=== PATIENT | male | born 1960 | race Caucasian/White ===

== ENCOUNTER 2023-02-04 18:00 | Inpatient (IN) | payer MEDICARE, MEDICAID, SELFPAY ==
[2023-02-04 18:35] VITALS: BMI 25.1
--- NOTE | 2023-02-04 18:40 | PC.ADMIT ---
Patient is a 62 year old white male admitted from [facility] and signed a on CV at 1815 on admission, and put 5 minute checks. . Pt with diagnosis Schizoaffective disorder, bipolar type, delusional disorder. pt reports he was at [facility] where he had his testicle removed and replaced with someone else testicle, pt asked to have a report and would like to file a complaint. He appeared disheveled, facial expression was flat, no eye contact. skin check done, skin appears warm, dry and intact with brown moles noted on back and chest. Mynor denies SI/HI and current AVH, PT tried to elope from [facility] x3. pt ambulates with a steady gait.
[2023-02-04 22:00] VITALS: BP 111/66; PULSE 60; RESP 16; TEMP 36.5; O2SAT 100
--- NOTE | 2023-02-05 05:31 | PC.NURSE ---
flu shot- pt states that his flu shot is update for current season.
[2023-02-05 08:15] VITALS: BP 103/58; PULSE 74; RESP 18; TEMP 36.6; O2SAT 98
--- NOTE | 2023-02-05 12:19 | HO.PSYADMNOT ---
HPI Date of Service: 02/05/23 Chief Complaint: Psychosis Sources of Information: patient interviewed, chart reviewed and crisis/core team assessment reviewed HPI Subjective Notes: Cornelius Warning and Conditional Voluntary Healthcare Proxy: Yes Narrative: The patient is a 62-year-old male, single, with no children, with some social support, referred from [facility] since he self presented to the emergency room confused, with word salad and bizarre delusions. According to the crisis assessment the patient reported that he has being at [facility], he stated that at [place] Has changed his penis and testicles with plastic and he needed to be taking care. The patient also came up confused disoriented in place and time with word salad. Apparently, the patient was admitted before [facility] and it was not at his baseline and he was grossly psychotic unable to take care of himself. Since there were no collateral information he was transferring to this facility for psychiatric stabilization. On the intake interview, the patient stated that his name was not Mynor that he was Tim, (Tim is his roommate), he denies any complaints and he was a very poor historian unable to provide any history regarding how come he had the here. He looks internally preoccupied, responding to internal stimuli. Since the patient was a very poor historian on intake interview he was under is unable to provide more information regarding how come he the here. He adamantly denies active suicidal or homicidal ideation and he was able to contract for safety Past Psychiatric History: As per the crisis assessment he had been admitted before at [facility] for an episode of soham and psychosis. Probably he has a long-term history of mental illness. Medical Evaluation Reviewed: Yes [facility] Narrative: Denies Family History: Denies Social History: The patient has never been , he used to have a trust fund and he had lived with his family in the area for more than 4 yet durations. 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 He has some family support around. He lives alone by himself in [place]. Substance History: Denies Trauma History: Denies Diagnostics Vital Signs (24Hr): Vital Signs - 24 hr 02/04/23 22:00 02/05/23 08:15 Temperature 97.7 F 98 F Pulse Rate 60 74 Respiratory Rate 16 18 Blood Pressure 111/66 103/58 L Pulse Oximetry 100 98 Oxygen Delivery Method Room Air Room Air BMI result Body Mass Index 25.1 Meds/Allergies Meds Home Medications Medication Instructions Recorded Confirmed Type acetaminophen 325 mg capsule 325 mg PO Q4H PRN Mild Pain (Scale 02/04/23 02/04/23 History Score 1-4) cholecalciferol (vitamin D3) 25 25 mcg PO DAILY 02/04/23 02/04/23 History mcg (1,000 unit) tablet simvastatin 20 mg tablet 20 mg PO BEDTIME 02/04/23 02/04/23 History Allergies Allergies Allergy/AdvReac Type Severity Reaction Status Date / Time lactose AdvReac Unknown Verified 02/04/23 18:34 Penicillins AdvReac Unknown Verified 02/04/23 18:34 Mental Status Exam Mental Status Exam Patient Appearance: Appropriate (On hospital gowns) Patient Orientation: Person Level of Consciousness: Awake and Restless Patient Behavior: Guarded and Suspicious Mood Description: Withdrawn and Blunted Affect Description: Blunted Patient Cognition Impaired: Yes Ability to Follow Directions: Fair Speech Pattern: Impoverished and Monotone Hallucinations: None Delusions: Paranoid Ideation, Grandiose and Ideas of Reference Thought Process: Distracted Thought Content: positive for [place], positive for Poverty of Content and positive for Thought Blocking Judgement: Poor Assessment & Plan Assessment & Plan (1) Psychosis: Status: Acute Code(s): F29 - Unspecified psychosis not due to a substance or known physiological condition Plan The patient is a 62-year-old male who looks older than his stated age with the past history of mental illness was brought to the emergency room of [facility] since he was grossly psychotic with bizarre delusions unable to take care of himself. He was referred to this facility for continuation of care. Plan 1. Gather collateral information. The patient is a very poor historian unable to provide any useful information. 2. Continue with regular medications and medical follow-up. 3. Continue with medical workout. 4. Reassessment results. 5. 15 minute checks. Patient educated on: diagnosis Reason for continued inpatient stay Substantial Risk for: inability to function, rapid decompensation and med/psych decompensation Statement Statement: I have reviewed the history and physical and performed a pertinent examination on my patient. No changes have occurred unless specified. If the History and Physical was not performed prior to admission, the Hospitalist's service will be consulted for completing the admission physical. Time Spent With Patient Time: Total time managing care of this patient today __20__ minutes.
[2023-02-05 18:00] VITALS: BP 105/55; PULSE 65; RESP 16; TEMP 36.9; O2SAT 99
[2023-02-06 08:36] VITALS: BP 111/60; PULSE 81; RESP 16; TEMP 36.6; O2SAT 99
[2023-02-06 11:07] LABS: Estimated Average Glucose 103 mg/dL; Hemoglobin A1c % 5.2 % (<6.0)
[2023-02-06 11:23] LABS: Cholesterol 158 mg/dL (<200); HDL Cholesterol 34 mg/dL (>40); LDL Cholesterol Calculated 70 mg/dL (<100); Triglycerides 273 mg/dL (<150)
[2023-02-06 11:38] LABS: TSH reflex Free T4 0.25 uIU/mL (0.32-4.0)
[2023-02-06 12:25] LABS: Free T4 (Free Thyroxine) 0.87 ng/dL (0.71-1.85)
[2023-02-06 18:00] VITALS: BP 114/71; PULSE 68; RESP 16; TEMP 36.2; O2SAT 96
--- NOTE | 2023-02-06 22:22 | HO.PSYCHPN ---
Subjective Subjective Date of Service: 02/06/23 Reason For Visit: Psychosis Interim History: Patient anxious is dysphoric irritable reactive disorganized not excepting medication appears psychotic and disorganized Medication Compliance: No Mental Status Exam Mental Status Exam Patient Appearance: Unkempt Patient Orientation: Person Level of Consciousness: Awake and Restless Patient Behavior: Guarded and Suspicious Mood Description: Withdrawn and Blunted Affect Description: Blunted and Apprehensive Patient Cognition Impaired: Yes Ability to Follow Directions: Fair Speech Pattern: Impoverished and Monotone Hallucinations: None Delusions: Paranoid Ideation and Ideas of Reference Thought Process: Distracted Thought Content: positive for [place], positive for Poverty of Content and positive for Thought Blocking Judgement: Poor Judgement and Insight: Generally refused to engage in conversation Diagnostics Vital Signs (24Hr): Vital Signs - 24 hr 02/06/23 08:36 02/06/23 18:00 Temperature 97.8 F 97.2 F Pulse Rate 81 68 Respiratory Rate 16 16 Blood Pressure 111/60 114/71 Pulse Oximetry 99 96 Oxygen Delivery Method Room Air Room Air BMI result Body Mass Index 25.1 Labs Labs: Laboratory Results - last 48 hr 02/06/23 10:38 Estimat Average Glucose 103 Hemoglobin A1c % 5.2 Triglycerides 273 H Cholesterol 158 LDL Cholesterol, Calc 70 HDL Cholesterol 34 L TSH 0.25 L Free T4 0.87 Medications Medications Current Medications Acetaminophen (Acetaminophen 325 Mg Tablet) 650 mg PO Q6H PRN PRN Reason: Headache/Pain Mild Scale (1-3) Al Hydroxide/Mg Hydroxide (Magnesium Hydrox/Alum Hydrox 30 Ml Oral.Susp) 30 ml PO Q6H PRN PRN Reason: Heartburn/Nausea Atorvastatin Calcium (Atorvastatin Calcium 10 Mg Tablet) 10 mg PO BEDTIME [facility] Last Admin: 02/06/23 21:26 Dose: Not Given Hydroxyzine HCl (Hydroxyzine Hcl 25 Mg Tablet) 25 mg PO Q6H PRN PRN Reason: Anxiety Magnesium Hydroxide (Milk Of Magnesia 30 Ml Oral.Susp) 30 ml PO DAILY PRN PRN Reason: Constipation Trazodone HCl (Trazodone Hcl 50 Mg Tablet) 50 mg PO BEDTIME MRX1 PRN PRN Reason: Insomnia Vitamin D (Cholecalciferol (Vitamin D3) 25 Mcg Tablet) 25 mcg PO DAILY [facility] Last Admin: 02/06/23 08:40 Dose: Not Given Allergies Allergies Allergy/AdvReac Type Severity Reaction Status Date / Time lactose AdvReac Unknown Verified 02/04/23 18:34 Penicillins AdvReac Unknown Verified 02/04/23 18:34 Assessment & Plan Assessment & Plan (1) Psychosis: Status: Acute Code(s): F29 - Unspecified psychosis not due to a substance or known physiological condition Plan The patient is a 62-year-old male who looks older than his stated age with the past history of mental illness was brought to the emergency room of [facility] since he was grossly psychotic with bizarre delusions unable to take care of himself. He was referred to this facility for continuation of care. Plan 1. Gather collateral information. The patient is a very poor historian unable to provide any useful information. 2. Continue with regular medications and medical follow-up. 3. Continue with medical workout. 4. Reassessment results. 5. 15 minute checks. 02/06/2023 Appears that would benefit from antipsychotic unclear past treatment history evaluate condition unable to really give coherent information. Need further collateral information Informed Consent: further education needed Reason for continued inpatient stay Substantial Risk for: inability to function and rapid decompensation Time Spent With Patient Time: Total time managing care of this patient today ____ minutes.
[2023-02-07 06:00] VITALS: BP 139/73; PULSE 77; RESP 18; TEMP 36.5; O2SAT 100
[2023-02-07 07:00] VITALS: BMI 25.5
[2023-02-07 14:09] VITALS: BMI 25.5
--- NOTE | 2023-02-07 14:56 | P.PNPSI_ITS ---
Subjective Subjective Date of Service: 02/07/23 Reason For Visit: Psychosis Subjective Notes: Conditional Voluntary Interim History: The nursing staff reported the patient has been disheveled, he has refused his medications and confused he had been irritable. He slept well last night. The child protective services social worker reported that he she could contact 1 of his sister Keon for a apparently the brother who was in charge of his trusted found and he was not currently depleted has diet. He had been a disabled as a child and it seems that he has always been under the care someone. At this moment he lives alone in her [place]. On interview the patient denies new symptoms he looks pleasantly confused. Mental Status Exam Mental Status Exam Patient Appearance: Appropriate Patient Orientation: Person and Situation Level of Consciousness: Awake and Appropriate Patient Behavior: Guarded and Passive Mood Description: Withdrawn Affect Description: Constricted Patient Cognition Impaired: Yes Ability to Follow Directions: Good Speech Pattern: Clear Hallucinations: None Delusions: Paranoid Ideation Thought Process: Distracted and Evasive Thought Content: positive for [place] and positive for Poverty of Content Judgement: Poor Diagnostics Vital Signs (24Hr): Vital Signs - 24 hr 02/06/23 18:00 02/07/23 06:00 Temperature 97.2 F 97.7 F Pulse Rate 68 77 Respiratory Rate 16 18 Blood Pressure 114/71 139/73 Pulse Oximetry 96 100 Oxygen Delivery Method Room Air Room Air BMI result Body Mass Index 25.5 Labs Labs: Laboratory Results - last 48 hr 02/06/23 10:38 Estimat Average Glucose 103 Hemoglobin A1c % 5.2 Triglycerides 273 H Cholesterol 158 LDL Cholesterol, Calc 70 HDL Cholesterol 34 L TSH 0.25 L Free T4 0.87 Medications Medications Current Medications Acetaminophen (Acetaminophen 325 Mg Tablet) 650 mg PO Q6H PRN PRN Reason: Headache/Pain Mild Scale (1-3) Al Hydroxide/Mg Hydroxide (Magnesium Hydrox/Alum Hydrox 30 Ml Oral.Susp) 30 ml PO Q6H PRN PRN Reason: Heartburn/Nausea Atorvastatin Calcium (Atorvastatin Calcium 10 Mg Tablet) 10 mg PO BEDTIME [facility] Last Admin: 02/06/23 21:26 Dose: Not Given Hydroxyzine HCl (Hydroxyzine Hcl 25 Mg Tablet) 25 mg PO Q6H PRN PRN Reason: Anxiety Magnesium Hydroxide (Milk Of Magnesia 30 Ml Oral.Susp) 30 ml PO DAILY PRN PRN Reason: Constipation Trazodone HCl (Trazodone Hcl 50 Mg Tablet) 50 mg PO BEDTIME MRX1 PRN PRN Reason: Insomnia Vitamin D (Cholecalciferol (Vitamin D3) 25 Mcg Tablet) 25 mcg PO DAILY [facility] Last Admin: 02/07/23 09:15 Dose: Not Given Allergies Allergies Allergy/AdvReac Type Severity Reaction Status Date / Time lactose AdvReac Unknown Verified 02/04/23 18:34 Penicillins AdvReac Unknown Verified 02/04/23 18:34 Assessment & Plan Assessment & Plan (1) Psychosis: Status: Acute Code(s): F29 - Unspecified psychosis not due to a substance or known physiological condition Plan The patient is a 62-year-old male who looks older than his stated age with the past history of mental illness was brought to the emergency room of [facility] since he was grossly psychotic with bizarre delusions unable to take care of himself. He was referred to this facility for continuation of care. Plan 1. Gather collateral information. The patient is a very poor historian unable to provide any useful information. 2. Continue with regular medications and medical follow-up. 3. Continue with medical workout. 4. Reassessment results. 5. 15 minute checks. 6. At this moment we do not have past history about previous antipsychotic treatment, with not have guardianship or role years order at this moment Reason for continued inpatient stay Substantial Risk for: inability to function, rapid decompensation and med/psych decompensation Time Spent With Patient Time: Total time managing care of this patient today __20__ minutes.
--- NOTE | 2023-02-07 15:46 | HO.HSGERICON ---
History of Present Illness Data of Consult Service Date: 02/07/23 Primary Care Provider: Mariam Vides NP HPI Reason for consult: h and p 62M who denies pmh, admitted to inpatient psychiatry for acute psychosis. patient has no active medical complaints Review of Systems Review of Systems: Yes all other systems are reviewed and are negative [facility] Medical History (Updated 02/07/23 @ 15:47 by Andrez Scott MD) Hyperlipidemia Social History Household Members: None Housing: Apartment Do you presently have visiting nurse or other home services: No Patient Tobacco Use Status: Never used Tobacco Smoked in Last 30 Days: No e-Cigarette/Vaping Use: Never Used Use of substances other than those prescribed or required for medical reasons: No Currently Displaying Signs/Symptoms of Drug Intoxication Withdrawal: No Any prior treatment program specific to substance use: No Have you been hit, kicked, punched, or otherwise hurt by someone within the past year? If so, by whom?: No Do you feel safe in your current relationship?: No Current Relationship Advance Directives: No Advance Directives Information Provided: No Do you have thoughts of harming others: None Do you have a plan to hurt others: No Plan Recently lost weight without trying: No Poor oral hygiene: No service: No Sexual orientation: Don't Know Meds Allergies Allergy/AdvReac Type Severity Reaction Status Date / Time lactose AdvReac Unknown Verified 02/04/23 18:34 Penicillins AdvReac Unknown Verified 02/04/23 18:34 Active Medications: Current Medications Acetaminophen (Acetaminophen 325 Mg Tablet) 650 mg PO Q6H PRN PRN Reason: Headache/Pain Mild Scale (1-3) Al Hydroxide/Mg Hydroxide (Magnesium Hydrox/Alum Hydrox 30 Ml Oral.Susp) 30 ml PO Q6H PRN PRN Reason: Heartburn/Nausea Atorvastatin Calcium (Atorvastatin Calcium 10 Mg Tablet) 10 mg PO BEDTIME [facility] Last Admin: 02/06/23 21:26 Dose: Not Given Hydroxyzine HCl (Hydroxyzine Hcl 25 Mg Tablet) 25 mg PO Q6H PRN PRN Reason: Anxiety Magnesium Hydroxide (Milk Of Magnesia 30 Ml Oral.Susp) 30 ml PO DAILY PRN PRN Reason: Constipation Trazodone HCl (Trazodone Hcl 50 Mg Tablet) 50 mg PO BEDTIME MRX1 PRN PRN Reason: Insomnia Vitamin D (Cholecalciferol (Vitamin D3) 25 Mcg Tablet) 25 mcg PO DAILY [facility] Last Admin: 02/07/23 09:15 Dose: Not Given Home Medications Medication Instructions Recorded Confirmed Last Taken Type acetaminophen 325 mg capsule 325 mg PO Q4H PRN Mild Pain (Scale 02/04/23 02/04/23 Unknown History Score 1-4) cholecalciferol (vitamin D3) 25 25 mcg PO DAILY 02/04/23 02/04/23 Unknown History mcg (1,000 unit) tablet simvastatin 20 mg tablet 20 mg PO BEDTIME 02/04/23 02/04/23 Unknown History Assessment and Plan (1) Hyperlipidemia: Status: Acute Plan 62M who denies pmh admitted to inpatient psychiatry for acute psychosis appears to be on statin for hyperlipidemia would continue statin Physical Exam Vital Signs: Last Vital Signs Temp 97.7 F 02/07/23 06:00 Pulse 77 02/07/23 06:00 Resp 18 02/07/23 06:00 BP 139/73 02/07/23 06:00 Pulse Ox 100 02/07/23 06:00 O2 Del Method Room Air 02/07/23 06:00 BMI result Body Mass Index 25.5 Resp: CTA bilateral, no accessory muscles used CVS: S1,S2,RRR GI: soft, non tender, non distended Neuro: motor grossly intact, alert Neuro Cranial nerves: Yes CN's II-XII intact bilaterally
[2023-02-07 19:30] VITALS: BP 126/77; PULSE 91; RESP 18; TEMP 36.6; O2SAT 97
[2023-02-08 06:00] VITALS: BP 109/72; PULSE 74; RESP 18; TEMP 36.6; O2SAT 98
--- NOTE | 2023-02-08 14:43 | P.PNPSI_ITS ---
Subjective Subjective Date of Service: 02/08/23 Reason For Visit: Psychosis Subjective Notes: Conditional Voluntary Interim History: The nursing staff reported the patient is alert with no insight into his condition. He refused his medications and he walked away to his room. He has refused shower he looks confused but he slept well last night. On interview the patient stated that his name is Tim and he was very tightly age and CE but redirectable no evidence of agitation. We will try to gather more collateral information. Mental Status Exam Mental Status Exam Patient Appearance: Unkempt Patient Orientation: Person Level of Consciousness: Awake and Appropriate Patient Behavior: Guarded and Passive Mood Description: Calm Affect Description: Constricted Patient Cognition Impaired: Yes Ability to Follow Directions: Good Speech Pattern: Clear Hallucinations: None Delusions: Not Present Thought Process: Distracted, Evasive and Slowed Thinking Thought Content: positive for [place], positive for Poverty of Content and positive for Thought Blocking Judgement: Poor Diagnostics Vital Signs (24Hr): Vital Signs - 24 hr 02/07/23 19:30 02/08/23 06:00 Temperature 97.8 F 97.8 F Pulse Rate 91 74 Respiratory Rate 18 18 Blood Pressure 126/77 109/72 Pulse Oximetry 97 98 Oxygen Delivery Method Room Air Room Air BMI result Body Mass Index 25.5 Medications Medications Current Medications Acetaminophen (Acetaminophen 325 Mg Tablet) 650 mg PO Q6H PRN PRN Reason: Headache/Pain Mild Scale (1-3) Al Hydroxide/Mg Hydroxide (Magnesium Hydrox/Alum Hydrox 30 Ml Oral.Susp) 30 ml PO Q6H PRN PRN Reason: Heartburn/Nausea Atorvastatin Calcium (Atorvastatin Calcium 10 Mg Tablet) 10 mg PO BEDTIME [facility] Last Admin: 02/07/23 20:34 Dose: Not Given Hydroxyzine HCl (Hydroxyzine Hcl 25 Mg Tablet) 25 mg PO Q6H PRN PRN Reason: Anxiety Magnesium Hydroxide (Milk Of Magnesia 30 Ml Oral.Susp) 30 ml PO DAILY PRN PRN Reason: Constipation Trazodone HCl (Trazodone Hcl 50 Mg Tablet) 50 mg PO BEDTIME MRX1 PRN PRN Reason: Insomnia Vitamin D (Cholecalciferol (Vitamin D3) 25 Mcg Tablet) 25 mcg PO DAILY [facility] Last Admin: 02/08/23 08:28 Dose: Not Given Allergies Allergies Allergy/AdvReac Type Severity Reaction Status Date / Time lactose AdvReac Unknown Verified 02/04/23 18:34 Penicillins AdvReac Unknown Verified 02/04/23 18:34 Assessment & Plan Assessment & Plan (1) Psychosis: Status: Acute Code(s): F29 - Unspecified psychosis not due to a substance or known physiological condition Plan The patient is a 62-year-old male who looks older than his stated age with the past history of mental illness was brought to the emergency room of [facility] since he was grossly psychotic with bizarre delusions unable to take care of himself. He was referred to this facility for continuation of care. Plan 1. Gather collateral information. The patient is a very poor historian unable to provide any useful information. 2. Continue with regular medications and medical follow-up. 3. Continue with medical workout. 4. Reassessment results. 5. 15 minute checks. 6. At this moment we do not have past history about previous antipsychotic treatment, with not have guardianship or Sampson order at this moment Reason for continued inpatient stay Substantial Risk for: inability to function, rapid decompensation and med/psych decompensation Time Spent With Patient Time: Total time managing care of this patient today ___20_ minutes.
[2023-02-08 18:00] VITALS: BP 128/76; PULSE 81; RESP 19; TEMP 36.1; O2SAT 99
[2023-02-09 08:05] VITALS: BP 116/70; PULSE 92; RESP 18; TEMP 36.8; O2SAT 100
--- NOTE | 2023-02-09 12:04 | HO.PSYCHPN ---
Subjective Subjective Date of Service: 02/09/23 Reason For Visit: Psychosis Interim History: no questions or complaints. per staff, refusing meds, pacing, withdrawn, suspicious, irritable. slept 6 hours. Mental Status Exam Mental Status Exam Patient Appearance: Unkempt Patient Orientation: Person Level of Consciousness: Awake and Appropriate Patient Behavior: Guarded and Passive Mood Description: Calm Affect Description: Constricted Patient Cognition Impaired: Yes Ability to Follow Directions: Good Speech Pattern: Clear Hallucinations: None Delusions: Not Present Thought Process: Distracted, Evasive and Slowed Thinking Thought Content: positive for [place], positive for Poverty of Content and positive for Thought Blocking Judgement: Poor Diagnostics Vital Signs (24Hr): Vital Signs - 24 hr 02/08/23 18:00 02/09/23 08:05 Temperature 97 F 98.3 F Pulse Rate 81 92 Respiratory Rate 19 18 Blood Pressure 128/76 116/70 Pulse Oximetry 99 100 Oxygen Delivery Method Room Air Room Air BMI result Body Mass Index 25.5 Medications Medications Current Medications Acetaminophen (Acetaminophen 325 Mg Tablet) 650 mg PO Q6H PRN PRN Reason: Headache/Pain Mild Scale (1-3) Al Hydroxide/Mg Hydroxide (Magnesium Hydrox/Alum Hydrox 30 Ml Oral.Susp) 30 ml PO Q6H PRN PRN Reason: Heartburn/Nausea Atorvastatin Calcium (Atorvastatin Calcium 10 Mg Tablet) 10 mg PO BEDTIME [facility] Last Admin: 02/08/23 20:52 Dose: Not Given Hydroxyzine HCl (Hydroxyzine Hcl 25 Mg Tablet) 25 mg PO Q6H PRN PRN Reason: Anxiety Magnesium Hydroxide (Milk Of Magnesia 30 Ml Oral.Susp) 30 ml PO DAILY PRN PRN Reason: Constipation Trazodone HCl (Trazodone Hcl 50 Mg Tablet) 50 mg PO BEDTIME MRX1 PRN PRN Reason: Insomnia Vitamin D (Cholecalciferol (Vitamin D3) 25 Mcg Tablet) 25 mcg PO DAILY [facility] Last Admin: 02/09/23 09:14 Dose: Not Given Allergies Allergies Allergy/AdvReac Type Severity Reaction Status Date / Time lactose AdvReac Unknown Verified 02/04/23 18:34 Penicillins AdvReac Unknown Verified 02/04/23 18:34 Assessment & Plan Assessment & Plan (1) Psychosis: Status: Acute Code(s): F29 - Unspecified psychosis not due to a substance or known physiological condition Plan The patient is a 62-year-old male who looks older than his stated age with the past history of mental illness was brought to the emergency room of [facility] since he was grossly psychotic with bizarre delusions unable to take care of himself. He was referred to this facility for continuation of care. Plan 1. Gather collateral information. The patient is a very poor historian unable to provide any useful information. 2. Continue with regular medications and medical follow-up. 3. Continue with medical workout. 4. Reassessment results. 5. 15 minute checks. 6. At this moment we do not have past history about previous antipsychotic treatment, with not have guardianship or Sampson order at this moment 02/09: no change in presentation. continue current mgmt. Reason for continued inpatient stay Substantial Risk for: inability to function Time Spent With Patient Time: Total time managing care of this patient today ____ minutes.
[2023-02-09 18:00] VITALS: BP 112/71; PULSE 74; RESP 18; TEMP 36.6; O2SAT 98
[2023-02-10 07:45] VITALS: BP 136/74; PULSE 88; RESP 18; TEMP 36.6; O2SAT 100
--- NOTE | 2023-02-10 12:10 | P.PNPSI_ITS ---
Subjective Subjective Date of Service: 02/10/23 Reason For Visit: Psychosis Interim History: no issues, no complaints, no requests. per staff, more social and pleasant. delusional. refusing meds. slept about 7 hours. Mental Status Exam Mental Status Exam Patient Appearance: Unkempt Patient Orientation: Person Level of Consciousness: Awake and Appropriate Patient Behavior: Guarded and Passive Mood Description: Calm Affect Description: Constricted Patient Cognition Impaired: Yes Ability to Follow Directions: Good Speech Pattern: Clear Hallucinations: None Delusions: Not Present Thought Process: Distracted, Evasive and Slowed Thinking Thought Content: positive for Poverty of Content and positive for Thought Blocking Judgement: Poor Diagnostics Vital Signs (24Hr): Vital Signs - 24 hr 02/09/23 18:00 02/10/23 07:45 Temperature 97.9 F 97.9 F Pulse Rate 74 88 Respiratory Rate 18 18 Blood Pressure 112/71 136/74 Pulse Oximetry 98 100 Oxygen Delivery Method Room Air Room Air BMI result Body Mass Index 25.5 Medications Medications Current Medications Acetaminophen (Acetaminophen 325 Mg Tablet) 650 mg PO Q6H PRN PRN Reason: Headache/Pain Mild Scale (1-3) Al Hydroxide/Mg Hydroxide (Magnesium Hydrox/Alum Hydrox 30 Ml Oral.Susp) 30 ml PO Q6H PRN PRN Reason: Heartburn/Nausea Atorvastatin Calcium (Atorvastatin Calcium 10 Mg Tablet) 10 mg PO BEDTIME [facility] Last Admin: 02/09/23 20:48 Dose: Not Given Hydroxyzine HCl (Hydroxyzine Hcl 25 Mg Tablet) 25 mg PO Q6H PRN PRN Reason: Anxiety Magnesium Hydroxide (Milk Of Magnesia 30 Ml Oral.Susp) 30 ml PO DAILY PRN PRN Reason: Constipation Trazodone HCl (Trazodone Hcl 50 Mg Tablet) 50 mg PO BEDTIME MRX1 PRN PRN Reason: Insomnia Vitamin D (Cholecalciferol (Vitamin D3) 25 Mcg Tablet) 25 mcg PO DAILY [facility] Last Admin: 02/10/23 10:49 Dose: Not Given Allergies Allergies Allergy/AdvReac Type Severity Reaction Status Date / Time lactose AdvReac Unknown Verified 02/04/23 18:34 Penicillins AdvReac Unknown Verified 02/04/23 18:34 Assessment & Plan Assessment & Plan (1) Psychosis: Status: Acute Code(s): F29 - Unspecified psychosis not due to a substance or known physiological condition Plan The patient is a 62-year-old male who looks older than his stated age with the past history of mental illness was brought to the emergency room of [facility] since he was grossly psychotic with bizarre delusions unable to take care of himself. He was referred to this facility for continuation of care. Plan 1. Gather collateral information. The patient is a very poor historian unable to provide any useful information. 2. Continue with regular medications and medical follow-up. 3. Continue with medical workout. 4. Reassessment results. 5. 15 minute checks. 6. At this moment we do not have past history about previous antipsychotic treatment, with not have guardianship or Sampson order at this moment 02/09: no change in presentation. continue current mgmt. 02/10: no change in presentation. continue current mgmt. Reason for continued inpatient stay Substantial Risk for: inability to function Time Spent With Patient Time: Total time managing care of this patient today ____ minutes.
[2023-02-10 18:00] VITALS: BP 114/61; PULSE 72; RESP 17; TEMP 36; O2SAT 100
[2023-02-11 07:54] VITALS: BP 131/68; PULSE 79; RESP 18; TEMP 36.3; O2SAT 100
--- NOTE | 2023-02-11 13:16 | HO.PSYCHPN ---
Subjective Subjective Date of Service: 02/11/23 Reason For Visit: Psychosis Subjective Notes: Conditional Voluntary Interim History: The nursing staff reported the patient had been brighter, he cannot remember of the delusions that he has said. He has been cooperative and he stated that he is not on no medications. On interview the patient denies new symptoms he was selectively mute. Mental Status Exam Mental Status Exam Patient Appearance: Appropriate and Unkempt Patient Orientation: Person and Situation Level of Consciousness: Awake and Appropriate Patient Behavior: Guarded and Passive Mood Description: Calm Affect Description: Blunted Patient Cognition Impaired: Yes Ability to Follow Directions: Good Speech Pattern: Clear Hallucinations: None Delusions: Paranoid Ideation Thought Process: Illogical, Distracted and Evasive Thought Content: positive for [place] and positive for Poverty of Content Judgement: Poor Diagnostics Vital Signs (24Hr): Vital Signs - 24 hr 02/10/23 18:00 02/11/23 07:54 Temperature 96.8 F 97.3 F Pulse Rate 72 79 Respiratory Rate 17 18 Blood Pressure 114/61 131/68 Pulse Oximetry 100 100 Oxygen Delivery Method Room Air Room Air BMI result Body Mass Index 25.5 Medications Medications Current Medications Acetaminophen (Acetaminophen 325 Mg Tablet) 650 mg PO Q6H PRN PRN Reason: Headache/Pain Mild Scale (1-3) Al Hydroxide/Mg Hydroxide (Magnesium Hydrox/Alum Hydrox 30 Ml Oral.Susp) 30 ml PO Q6H PRN PRN Reason: Heartburn/Nausea Atorvastatin Calcium (Atorvastatin Calcium 10 Mg Tablet) 10 mg PO BEDTIME [facility] Last Admin: 02/10/23 22:43 Dose: Not Given Hydroxyzine HCl (Hydroxyzine Hcl 25 Mg Tablet) 25 mg PO Q6H PRN PRN Reason: Anxiety Magnesium Hydroxide (Milk Of Magnesia 30 Ml Oral.Susp) 30 ml PO DAILY PRN PRN Reason: Constipation Trazodone HCl (Trazodone Hcl 50 Mg Tablet) 50 mg PO BEDTIME MRX1 PRN PRN Reason: Insomnia Vitamin D (Cholecalciferol (Vitamin D3) 25 Mcg Tablet) 25 mcg PO DAILY [facility] Last Admin: 02/11/23 10:06 Dose: Not Given Allergies Allergies Allergy/AdvReac Type Severity Reaction Status Date / Time lactose AdvReac Unknown Verified 02/04/23 18:34 Penicillins AdvReac Unknown Verified 02/04/23 18:34 Assessment & Plan Assessment & Plan (1) Psychosis: Status: Acute Code(s): F29 - Unspecified psychosis not due to a substance or known physiological condition Plan The patient is a 62-year-old male who looks older than his stated age with the past history of mental illness was brought to the emergency room of [facility] since he was grossly psychotic with bizarre delusions unable to take care of himself. He was referred to this facility for continuation of care. Plan 1. Gather collateral information. The patient is a very poor historian unable to provide any useful information. 2. Continue with regular medications and medical follow-up. 3. Continue with medical workout. 4. Reassessment results. 5. 15 minute checks. 6. At this moment we do not have past history about previous antipsychotic treatment, with not have guardianship or Sampson order at this moment 7. Continue with same treatment Reason for continued inpatient stay Substantial Risk for: inability to function, rapid decompensation and med/psych decompensation Time Spent With Patient Time: Total time managing care of this patient today __20__ minutes.
[2023-02-11 18:00] VITALS: BP 118/69; PULSE 73; RESP 16; TEMP 36.2; O2SAT 100
[2023-02-12 07:44] VITALS: BP 119/71; PULSE 72; RESP 18; TEMP 36.2; O2SAT 99
--- NOTE | 2023-02-12 13:48 | HO.PSYCHPN ---
Subjective Subjective Date of Service: 02/12/23 Reason For Visit: Psychosis Subjective Notes: Conditional Voluntary Interim History: The nursing staff reported the patient have decline to have his vitamin-D and other medications. He refused to have a shower and he has been smiling appropriately eating well. He refuses HS meds at night. The patient does not have any insight into her condition. On interview the patient is very childish he stated that he does not take medications. We will try to gather more collateral information. At this moment we will start with a low dose of Abilify to target mood lability. Mental Status Exam Mental Status Exam Patient Appearance: Appropriate Patient Orientation: Person and Situation Level of Consciousness: Awake Patient Behavior: Guarded and Passive Mood Description: Withdrawn Affect Description: Constricted and Labile Patient Cognition Impaired: Yes Ability to Follow Directions: Good Speech Pattern: Clear Hallucinations: None Delusions: Not Present Thought Process: Evasive and Slowed Thinking Thought Content: positive for [place], positive for [place], positive for Thought Blocking and positive for Incoherent Judgement: Poor Diagnostics Vital Signs (24Hr): Vital Signs - 24 hr 02/11/23 18:00 02/12/23 07:44 Temperature 97.2 F 97.1 F Pulse Rate 73 72 Respiratory Rate 16 18 Blood Pressure 118/69 119/71 Pulse Oximetry 100 99 Oxygen Delivery Method Room Air Room Air BMI result Body Mass Index 25.5 Medications Medications Current Medications Acetaminophen (Acetaminophen 325 Mg Tablet) 650 mg PO Q6H PRN PRN Reason: Headache/Pain Mild Scale (1-3) Al Hydroxide/Mg Hydroxide (Magnesium Hydrox/Alum Hydrox 30 Ml Oral.Susp) 30 ml PO Q6H PRN PRN Reason: Heartburn/Nausea Aripiprazole (Aripiprazole 2 Mg Tablet) 2 mg PO BEDTIME [facility] Atorvastatin Calcium (Atorvastatin Calcium 10 Mg Tablet) 10 mg PO BEDTIME [facility] Last Admin: 02/10/23 22:43 Dose: Not Given Hydroxyzine HCl (Hydroxyzine Hcl 25 Mg Tablet) 25 mg PO Q6H PRN PRN Reason: Anxiety Magnesium Hydroxide (Milk Of Magnesia 30 Ml Oral.Susp) 30 ml PO DAILY PRN PRN Reason: Constipation Trazodone HCl (Trazodone Hcl 50 Mg Tablet) 50 mg PO BEDTIME MRX1 PRN PRN Reason: Insomnia Vitamin D (Cholecalciferol (Vitamin D3) 25 Mcg Tablet) 25 mcg PO DAILY [facility] Last Admin: 02/12/23 07:41 Dose: Not Given Allergies Allergies Allergy/AdvReac Type Severity Reaction Status Date / Time lactose AdvReac Unknown Verified 02/04/23 18:34 Penicillins AdvReac Unknown Verified 02/04/23 18:34 Assessment & Plan Assessment & Plan (1) Psychosis: Status: Acute Code(s): F29 - Unspecified psychosis not due to a substance or known physiological condition Plan The patient is a 62-year-old male who looks older than his stated age with the past history of mental illness was brought to the emergency room of [facility] since he was grossly psychotic with bizarre delusions unable to take care of himself. He was referred to this facility for continuation of care. Plan 1. Gather collateral information. The patient is a very poor historian unable to provide any useful information. 2. Continue with regular medications and medical follow-up. 3. Continue with medical workout. 4. Reassessment results. 5. 15 minute checks. 6. At this moment we do not have past history about previous antipsychotic treatment, with not have guardianship or Sampson order at this moment 7. Continue with same treatment 8. Start Abilify 2 mg p.o. q.h.s. on February 12. Reason for continued inpatient stay Substantial Risk for: inability to function, rapid decompensation and med/psych decompensation Time Spent With Patient Time: Total time managing care of this patient today __20__ minutes.
[2023-02-12 18:00] VITALS: BP 112/64; PULSE 76; RESP 18; TEMP 36.8; O2SAT 99
[2023-02-13 08:15] VITALS: BP 118/76; PULSE 79; RESP 18; TEMP 36.6; O2SAT 100
--- NOTE | 2023-02-13 14:15 | P.PNPSI_ITS ---
Subjective Subjective Date of Service: 02/13/23 Reason For Visit: Psychosis Subjective Notes: Conditional Voluntary Interim History: The nursing staff reported the patient had refused his medications, he had been poor insight into his condition and he had being pacing in the unit, easily redirectable. On interview the patient stated that he does not take medications, his affect is very silly but no evidence of safety concerns. Mental Status Exam Mental Status Exam Patient Appearance: Appropriate and Unkempt Patient Orientation: Person and Situation Level of Consciousness: Awake and Appropriate Patient Behavior: Passive Mood Description: Withdrawn Affect Description: Calm and Apprehensive Patient Cognition Impaired: Yes Ability to Follow Directions: Good Speech Pattern: Clear Hallucinations: None Delusions: Not Present Thought Process: Illogical, Distracted and Slowed Thinking Thought Content: positive for [place] and positive for Poverty of Content Judgement: Fair Diagnostics Vital Signs (24Hr): Vital Signs - 24 hr 02/12/23 18:00 02/13/23 08:15 Temperature 98.3 F 97.8 F Pulse Rate 76 79 Respiratory Rate 18 18 Blood Pressure 112/64 118/76 Pulse Oximetry 99 100 Oxygen Delivery Method Room Air Room Air BMI result Body Mass Index 25.5 Medications Medications Current Medications Acetaminophen (Acetaminophen 325 Mg Tablet) 650 mg PO Q6H PRN PRN Reason: Headache/Pain Mild Scale (1-3) Al Hydroxide/Mg Hydroxide (Magnesium Hydrox/Alum Hydrox 30 Ml Oral.Susp) 30 ml PO Q6H PRN PRN Reason: Heartburn/Nausea Aripiprazole (Aripiprazole 2 Mg Tablet) 2 mg PO BEDTIME [facility] Last Admin: 02/12/23 20:57 Dose: Not Given Atorvastatin Calcium (Atorvastatin Calcium 10 Mg Tablet) 10 mg PO BEDTIME [facility] Last Admin: 02/12/23 20:57 Dose: Not Given Hydroxyzine HCl (Hydroxyzine Hcl 25 Mg Tablet) 25 mg PO Q6H PRN PRN Reason: Anxiety Magnesium Hydroxide (Milk Of Magnesia 30 Ml Oral.Susp) 30 ml PO DAILY PRN PRN Reason: Constipation Trazodone HCl (Trazodone Hcl 50 Mg Tablet) 50 mg PO BEDTIME MRX1 PRN PRN Reason: Insomnia Vitamin D (Cholecalciferol (Vitamin D3) 25 Mcg Tablet) 25 mcg PO DAILY [facility] Last Admin: 02/13/23 09:05 Dose: Not Given Allergies Allergies Allergy/AdvReac Type Severity Reaction Status Date / Time lactose AdvReac Unknown Verified 02/04/23 18:34 Penicillins AdvReac Unknown Verified 02/04/23 18:34 Assessment & Plan Assessment & Plan (1) Psychosis: Status: Acute Code(s): F29 - Unspecified psychosis not due to a substance or known physiological condition Plan The patient is a 62-year-old male who looks older than his stated age with the past history of mental illness was brought to the emergency room of [facility] since he was grossly psychotic with bizarre delusions unable to take care of himself. He was referred to this facility for continuation of care. Plan 1. Gather collateral information. The patient is a very poor historian unable to provide any useful information. 2. Continue with regular medications and medical follow-up. 3. Continue with medical workout. 4. Reassessment results. 5. 15 minute checks. 6. At this moment we do not have past history about previous antipsychotic treatment, with not have guardianship or Sampson order at this moment 7. Continue with same treatment 8. Start Abilify 2 mg p.o. q.h.s. on February 12. So far he has refused to take any medications. Reason for continued inpatient stay Substantial Risk for: inability to function, rapid decompensation and med/psych decompensation Time Spent With Patient Time: Total time managing care of this patient today __20__ minutes.
[2023-02-13 18:00] VITALS: BP 131/69; PULSE 88; O2SAT 100
[2023-02-14 07:00] VITALS: BMI 25.1
[2023-02-14 07:45] VITALS: BP 114/82; PULSE 80; TEMP 36.8; O2SAT 97
--- NOTE | 2023-02-14 16:43 | P.PNPSI_ITS ---
Subjective Subjective Date of Service: 02/14/23 Reason For Visit: Psychosis Subjective Notes: Conditional Voluntary and 3 Day Interim History: The nursing staff reported the patient had been pleasant but he had been refusing medications. He was seen pacing the hallways, easily redirectable. Today we had a family meeting over the phone with his sister who lives in [facility] and she provide a lot of collateral information. It seems that the patient had been chronically impaired raised by their parents and taking care into his 40s. Parents 22 years ago and a trust fund was depleted. Even though the patient is impaired, he was able to survive in the community. Apparently he got into legal trouble last year and he needed to be admitted at [facility] for an evaluation of his capacity to stand trial and he was deemed not competent to stand trial. On interview the patient reported he wanted to live he is in a 3 day notice. The occupational therapist did a cognitive assessment that he refused to do the [place] but had his Juan Antonio test was 3.4. Mental Status Exam Mental Status Exam Patient Appearance: Appropriate Patient Orientation: Person Level of Consciousness: Awake Patient Behavior: Guarded and Passive Mood Description: Withdrawn and Constricted Affect Description: Constricted Patient Cognition Impaired: Yes Ability to Follow Directions: Fair Speech Pattern: Clear Hallucinations: None Delusions: Not Present Thought Process: Distracted and Slowed Thinking Thought Content: positive for [place] and positive for Poverty of Content Judgement: Fair Diagnostics Vital Signs (24Hr): Vital Signs - 24 hr 02/13/23 18:00 02/14/23 07:45 Temperature 98.3 F Pulse Rate 88 80 Blood Pressure 131/69 114/82 Pulse Oximetry 100 97 Oxygen Delivery Method Room Air Room Air BMI result Body Mass Index 25.1 Medications Medications Current Medications Acetaminophen (Acetaminophen 325 Mg Tablet) 650 mg PO Q6H PRN PRN Reason: Headache/Pain Mild Scale (1-3) Al Hydroxide/Mg Hydroxide (Magnesium Hydrox/Alum Hydrox 30 Ml Oral.Susp) 30 ml PO Q6H PRN PRN Reason: Heartburn/Nausea Aripiprazole (Aripiprazole 2 Mg Tablet) 2 mg PO BEDTIME [facility] Last Admin: 02/13/23 20:04 Dose: Not Given Atorvastatin Calcium (Atorvastatin Calcium 10 Mg Tablet) 10 mg PO BEDTIME [facility] Last Admin: 02/13/23 20:04 Dose: Not Given Hydroxyzine HCl (Hydroxyzine Hcl 25 Mg Tablet) 25 mg PO Q6H PRN PRN Reason: Anxiety Magnesium Hydroxide (Milk Of Magnesia 30 Ml Oral.Susp) 30 ml PO DAILY PRN PRN Reason: Constipation Trazodone HCl (Trazodone Hcl 50 Mg Tablet) 50 mg PO BEDTIME MRX1 PRN PRN Reason: Insomnia Vitamin D (Cholecalciferol (Vitamin D3) 25 Mcg Tablet) 25 mcg PO DAILY [facility] Last Admin: 02/14/23 08:51 Dose: Not Given Allergies Allergies Allergy/AdvReac Type Severity Reaction Status Date / Time lactose AdvReac Unknown Verified 02/04/23 18:34 Penicillins AdvReac Unknown Verified 02/04/23 18:34 Assessment & Plan Assessment & Plan (1) Psychosis: Status: Acute Code(s): F29 - Unspecified psychosis not due to a substance or known physiological condition Plan The patient is a 62-year-old male who looks older than his stated age with the past history of mental illness was brought to the emergency room of [facility] since he was grossly psychotic with bizarre delusions unable to take care of himself. He was referred to this facility for continuation of care. Plan 1. Gather collateral information. The patient is a very poor historian unable to provide any useful information. 2. Continue with regular medications and medical follow-up. 3. Continue with medical workout. 4. Reassessment results. 5. 15 minute checks. 6. At this moment we do not have past history about previous antipsychotic treatment, with not have guardianship or Sampson order at this moment 7. Continue with same treatment 8. Start Abilify 2 mg p.o. q.h.s. on February 12. So far he has refused to take any medications. 9. He signed a 3 day notice on February 14, this moment he has refused all treatment but he had been pleasant and cooperative no evidence of acute psychosis safety concerns at this moment. We will discuss with the team about discharge planning. Reason for continued inpatient stay Substantial Risk for: inability to function, rapid decompensation and med/psych decompensation Time Spent With Patient Time: Total time managing care of this patient today __20__ minutes.
[2023-02-14 18:00] VITALS: BP 111/66; PULSE 74; RESP 18; TEMP 36.7; O2SAT 100
[2023-02-15 08:00] VITALS: BP 120/76; PULSE 75; RESP 18; TEMP 36.9; O2SAT 93
--- NOTE | 2023-02-15 13:55 | P.PNPSI_ITS ---
Subjective Subjective Date of Service: 02/15/23 Reason For Visit: Psychosis Subjective Notes: Conditional Voluntary and 3 Day Interim History: The nursing staff reported the patient has signed a 3 day notice, he has refused as usual all his medications no behavioral disturbance. On interview the patient denies new symptoms, he wants to go back home. Mental Status Exam Mental Status Exam Patient Appearance: Appropriate Patient Orientation: Person Level of Consciousness: Awake Patient Behavior: Guarded and Passive Mood Description: Withdrawn Affect Description: Constricted Patient Cognition Impaired: Yes Ability to Follow Directions: Good Speech Pattern: Clear Hallucinations: None Delusions: Not Present Thought Process: Distracted and Slowed Thinking Thought Content: positive for [place] and positive for Circumstantial Judgement: Fair Diagnostics Vital Signs (24Hr): Vital Signs - 24 hr 02/14/23 18:00 02/15/23 08:00 Temperature 98.1 F 98.4 F Pulse Rate 74 75 Respiratory Rate 18 18 Blood Pressure 111/66 120/76 Pulse Oximetry 100 93 Oxygen Delivery Method Room Air Room Air BMI result Body Mass Index 25.1 Medications Medications Current Medications Acetaminophen (Acetaminophen 325 Mg Tablet) 650 mg PO Q6H PRN PRN Reason: Headache/Pain Mild Scale (1-3) Al Hydroxide/Mg Hydroxide (Magnesium Hydrox/Alum Hydrox 30 Ml Oral.Susp) 30 ml PO Q6H PRN PRN Reason: Heartburn/Nausea Aripiprazole (Aripiprazole 2 Mg Tablet) 2 mg PO BEDTIME [facility] Last Admin: 02/14/23 20:57 Dose: Not Given Atorvastatin Calcium (Atorvastatin Calcium 10 Mg Tablet) 10 mg PO BEDTIME [facility] Last Admin: 02/14/23 20:57 Dose: Not Given Hydroxyzine HCl (Hydroxyzine Hcl 25 Mg Tablet) 25 mg PO Q6H PRN PRN Reason: Anxiety Magnesium Hydroxide (Milk Of Magnesia 30 Ml Oral.Susp) 30 ml PO DAILY PRN PRN Reason: Constipation Trazodone HCl (Trazodone Hcl 50 Mg Tablet) 50 mg PO BEDTIME MRX1 PRN PRN Reason: Insomnia Vitamin D (Cholecalciferol (Vitamin D3) 25 Mcg Tablet) 25 mcg PO DAILY [facility] Last Admin: 02/15/23 08:38 Dose: Not Given Allergies Allergies Allergy/AdvReac Type Severity Reaction Status Date / Time lactose AdvReac Unknown Verified 02/04/23 18:34 Penicillins AdvReac Unknown Verified 02/04/23 18:34 Assessment & Plan Assessment & Plan (1) Psychosis: Status: Acute Code(s): F29 - Unspecified psychosis not due to a substance or known physiological condition Plan The patient is a 62-year-old male who looks older than his stated age with the past history of mental illness was brought to the emergency room of [facility] since he was grossly psychotic with bizarre delusions unable to take care of himself. He was referred to this facility for continuation of care. Plan 1. Gather collateral information. The patient is a very poor historian unable to provide any useful information. 2. Continue with regular medications and medical follow-up. 3. Continue with medical workout. 4. Reassessment results. 5. 15 minute checks. 6. At this moment we do not have past history about previous antipsychotic treatment, with not have guardianship or Sampson order at this moment 7. Continue with same treatment 8. Start Abilify 2 mg p.o. q.h.s. on February 12. So far he has refused to take any medications. 9. He signed a 3 day notice on February 14, this moment he has refused all treatment but he had been pleasant and cooperative no evidence of acute psychosis safety concerns at this moment. We will discuss with the team about discharge planning. Reason for continued inpatient stay Substantial Risk for: inability to function, rapid decompensation and med/psych decompensation Time Spent With Patient Time: Total time managing care of this patient today _20___ minutes.
[2023-02-15 18:00] VITALS: BP 120/70; PULSE 72; RESP 18; TEMP 36.3; O2SAT 100
--- NOTE | 2023-02-15 21:30 | P.CONHOSP_ITS ---
History of Present Illness Data of Consult Service Date: 02/15/23 Primary Care Provider: Mariam Vides NP HPI Reason for consult: Admission H&P Pt is a 62-year-old male with a PMH significant for?HLD and manic episode with psychotic symptoms who is admitted to [facility] for worsening paranoid delusions. Pt initially presented to to [facility] reporting that he believed he was currently in a ?[place]? somewhere in [facility] and that all of the providers in the hospital were ?robot people?. 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 Medical consult for admission H&P. Patient calm, cooperative, not clearly delusional, answering questions appropriately. Patient denies any significant PMH. Denies taking any prescription medication. Denies any acute medical complaints at this time. No chest pain/pressure, palpitations. Denies shortness of breath. No fever, chills, nausea, vomiting, diarrhea, abdominal pain. Review of Systems Review of Systems: Patient denies any acute medical complaints at this time [facility] Medical History Hyperlipidemia Social History Household Members: None Housing: Apartment Do you presently have visiting nurse or other home services: No Patient Tobacco Use Status: Never used Tobacco Smoked in Last 30 Days: No e-Cigarette/Vaping Use: Never Used Use of substances other than those prescribed or required for medical reasons: No Currently Displaying Signs/Symptoms of Drug Intoxication Withdrawal: No Any prior treatment program specific to substance use: No Have you been hit, kicked, punched, or otherwise hurt by someone within the past year? If so, by whom?: No Do you feel safe in your current relationship?: No Current Relationship Advance Directives: No Advance Directives Information Provided: No Do you have thoughts of harming others: None Do you have a plan to hurt others: No Plan Recently lost weight without trying: No Poor oral hygiene: No service: No Sexual orientation: Don't Know Meds Allergies Allergy/AdvReac Type Severity Reaction Status Date / Time lactose AdvReac Unknown Verified 02/04/23 18:34 Penicillins AdvReac Unknown Verified 02/04/23 18:34 Active Medications: Current Medications Acetaminophen (Acetaminophen 325 Mg Tablet) 650 mg PO Q6H PRN PRN Reason: Headache/Pain Mild Scale (1-3) Al Hydroxide/Mg Hydroxide (Magnesium Hydrox/Alum Hydrox 30 Ml Oral.Susp) 30 ml PO Q6H PRN PRN Reason: Heartburn/Nausea Aripiprazole (Aripiprazole 2 Mg Tablet) 2 mg PO BEDTIME [facility] Last Admin: 02/15/23 20:13 Dose: Not Given Atorvastatin Calcium (Atorvastatin Calcium 10 Mg Tablet) 10 mg PO BEDTIME [facility] Last Admin: 02/15/23 20:13 Dose: Not Given Hydroxyzine HCl (Hydroxyzine Hcl 25 Mg Tablet) 25 mg PO Q6H PRN PRN Reason: Anxiety Magnesium Hydroxide (Milk Of Magnesia 30 Ml Oral.Susp) 30 ml PO DAILY PRN PRN Reason: Constipation Trazodone HCl (Trazodone Hcl 50 Mg Tablet) 50 mg PO BEDTIME MRX1 PRN PRN Reason: Insomnia Vitamin D (Cholecalciferol (Vitamin D3) 25 Mcg Tablet) 25 mcg PO DAILY [facility] Last Admin: 02/15/23 08:38 Dose: Not Given Home Medications Medication Instructions Recorded Confirmed Last Taken Type acetaminophen 325 mg capsule 325 mg PO Q4H PRN Mild Pain (Scale 02/04/23 02/04/23 Unknown History Score 1-4) cholecalciferol (vitamin D3) 25 25 mcg PO DAILY 02/04/23 02/04/23 Unknown History mcg (1,000 unit) tablet simvastatin 20 mg tablet 20 mg PO BEDTIME 02/04/23 02/04/23 Unknown History Physical Exam 2 Vital Signs and Narrative: Vital Signs: Last Vital Signs Temp 98.4 F 02/15/23 08:00 Pulse 75 02/15/23 08:00 Resp 18 02/15/23 08:00 BP 120/76 02/15/23 08:00 Pulse Ox 93 02/15/23 08:00 O2 Del Method Room Air 02/15/23 08:00 BMI result Body Mass Index 25.1 General: AOx3, no acute distress Resp: CTA bilaterally CVS: S1, S2, RRR GI: +BS, NT, no distention Skin: Warm, dry Neuro: Cranial nerves II-XII grossly intact bilaterally. Motor grossly intact bilaterally. No focal deficits noted Extremities: No edema Psych: Calm, cooperative Assessment and Plan (1) Medical clearance for psychiatric admission: Status: Acute Plan Pt is a 62-year-old male with a PMH significant for?HLD and manic episode with psychotic symptoms who is admitted to [facility] for worsening paranoid delusions. Pt initially presented to to [facility] reporting that he believed he was currently in a ?[place]? somewhere in [facility] and that all of the providers in the hospital were ?robot people?. 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 Medical consult for admission H&P. Mood disorder Plan as per Psychiatry HLD Continue statin Patient denies any other chronic conditions or acute medical complaints. Thank you for allowing us to participate in the care of this patient. Signing off at this time. Please re-consult if any acute complaints or issues arise.
[2023-02-16 08:18] VITALS: BP 119/58; PULSE 86; RESP 20; TEMP 35.9; O2SAT 98
--- NOTE | 2023-02-16 17:09 | HO.PSYCHPN ---
Subjective Subjective Date of Service: 02/16/23 Reason For Visit: Psychosis Interim History: The nursing staff reported the patient has signed a 3 day notice, he has refused as usual all his medications no behavioral disturbance. He is in his bed. He is mumbling. He says he is doing well. On interview the patient denies new symptoms, he wants to go back home. Review of Systems Review of Systems Patient denies any acute medical complaints at this time Yes all other systems are reviewed and are negative Mental Status Exam Mental Status Exam Patient Appearance: Appropriate Patient Orientation: Person Level of Consciousness: Awake Patient Behavior: Guarded and Passive Mood Description: Withdrawn Affect Description: Constricted Patient Cognition Impaired: Yes Ability to Follow Directions: Good Speech Pattern: Clear Diagnostics Vital Signs (24Hr): Vital Signs - 24 hr 02/15/23 18:00 02/16/23 08:18 Temperature 97.3 F 96.7 F L Pulse Rate 72 86 Respiratory Rate 18 20 Blood Pressure 120/70 119/58 L Pulse Oximetry 100 98 Oxygen Delivery Method Room Air Room Air BMI result Body Mass Index 25.1 Medications Medications Current Medications Acetaminophen (Acetaminophen 325 Mg Tablet) 650 mg PO Q6H PRN PRN Reason: Headache/Pain Mild Scale (1-3) Al Hydroxide/Mg Hydroxide (Magnesium Hydrox/Alum Hydrox 30 Ml Oral.Susp) 30 ml PO Q6H PRN PRN Reason: Heartburn/Nausea Aripiprazole (Aripiprazole 2 Mg Tablet) 2 mg PO BEDTIME [facility] Last Admin: 02/15/23 20:13 Dose: Not Given Atorvastatin Calcium (Atorvastatin Calcium 10 Mg Tablet) 10 mg PO BEDTIME [facility] Last Admin: 02/15/23 20:13 Dose: Not Given Hydroxyzine HCl (Hydroxyzine Hcl 25 Mg Tablet) 25 mg PO Q6H PRN PRN Reason: Anxiety Magnesium Hydroxide (Milk Of Magnesia 30 Ml Oral.Susp) 30 ml PO DAILY PRN PRN Reason: Constipation Trazodone HCl (Trazodone Hcl 50 Mg Tablet) 50 mg PO BEDTIME MRX1 PRN PRN Reason: Insomnia Vitamin D (Cholecalciferol (Vitamin D3) 25 Mcg Tablet) 25 mcg PO DAILY [facility] Last Admin: 02/16/23 07:59 Dose: Not Given Allergies Allergies Allergy/AdvReac Type Severity Reaction Status Date / Time lactose AdvReac Unknown Verified 02/04/23 18:34 Penicillins AdvReac Unknown Verified 02/04/23 18:34 Assessment & Plan Assessment & Plan (1) Psychosis: Status: Acute Code(s): F29 - Unspecified psychosis not due to a substance or known physiological condition Plan The patient is a 62-year-old male who looks older than his stated age with the past history of mental illness was brought to the emergency room of [facility] since he was grossly psychotic with bizarre delusions unable to take care of himself. He was referred to this facility for continuation of care. Plan 1. Gather collateral information. The patient is a very poor historian unable to provide any useful information. 2. Continue with regular medications and medical follow-up. 3. Continue with medical workout. 4. Reassessment results. 5. 15 minute checks. 02/16: Continue current management and treatment plan. Reason for continued inpatient stay Substantial Risk for: inability to function and rapid decompensation Time Spent With Patient Time: Total time managing care of this patient today ____ minutes.
[2023-02-16 19:35] VITALS: BP 115/71; PULSE 76; RESP 18; TEMP 36.4; O2SAT 99
[2023-02-17 07:59] VITALS: BP 112/65; PULSE 76; RESP 18; TEMP 36.3; O2SAT 97
--- NOTE | 2023-02-17 15:59 | P.PNPSI_ITS ---
Subjective Subjective Date of Service: 02/17/23 Reason For Visit: Psychosis Interim History: Patient seen. He reports he is doing well. He volunteers it's February 17 2023, that he is in [place] and that the president is [place]. He continues to deny any symptoms. He isn't taking any medications. The nursing staff reported the patient has signed a 3 day notice. No behavioral disturbance. On interview the patient denies new symptoms, he wants to go back home. Review of Systems Review of Systems Patient denies any acute medical complaints at this time Yes all other systems are reviewed and are negative Mental Status Exam Mental Status Exam Patient Appearance: Appropriate Patient Orientation: Person Level of Consciousness: Awake Patient Behavior: Guarded and Passive Mood Description: Withdrawn Affect Description: Constricted Patient Cognition Impaired: Yes Ability to Follow Directions: Good Speech Pattern: Clear Diagnostics Vital Signs (24Hr): Vital Signs - 24 hr 02/16/23 19:35 02/17/23 07:59 Temperature 97.6 F 97.3 F Pulse Rate 76 76 Respiratory Rate 18 18 Blood Pressure 115/71 112/65 Pulse Oximetry 99 97 Oxygen Delivery Method Room Air Room Air BMI result Body Mass Index 25.1 Medications Medications Current Medications Acetaminophen (Acetaminophen 325 Mg Tablet) 650 mg PO Q6H PRN PRN Reason: Headache/Pain Mild Scale (1-3) Al Hydroxide/Mg Hydroxide (Magnesium Hydrox/Alum Hydrox 30 Ml Oral.Susp) 30 ml PO Q6H PRN PRN Reason: Heartburn/Nausea Aripiprazole (Aripiprazole 2 Mg Tablet) 2 mg PO BEDTIME [facility] Last Admin: 02/16/23 20:31 Dose: Not Given Atorvastatin Calcium (Atorvastatin Calcium 10 Mg Tablet) 10 mg PO BEDTIME [facility] Last Admin: 02/16/23 20:31 Dose: Not Given Hydroxyzine HCl (Hydroxyzine Hcl 25 Mg Tablet) 25 mg PO Q6H PRN PRN Reason: Anxiety Magnesium Hydroxide (Milk Of Magnesia 30 Ml Oral.Susp) 30 ml PO DAILY PRN PRN Reason: Constipation Trazodone HCl (Trazodone Hcl 50 Mg Tablet) 50 mg PO BEDTIME MRX1 PRN PRN Reason: Insomnia Vitamin D (Cholecalciferol (Vitamin D3) 25 Mcg Tablet) 25 mcg PO DAILY [facility] Last Admin: 02/17/23 08:02 Dose: Not Given Allergies Allergies Allergy/AdvReac Type Severity Reaction Status Date / Time lactose AdvReac Unknown Verified 02/04/23 18:34 Penicillins AdvReac Unknown Verified 02/04/23 18:34 Assessment & Plan Assessment & Plan (1) Psychosis: Status: Acute Code(s): F29 - Unspecified psychosis not due to a substance or known physiological condition Plan The patient is a 62-year-old male who looks older than his stated age with the past history of mental illness was brought to the emergency room of [facility] since he was grossly psychotic with bizarre delusions unable to take care of himself. He was referred to this facility for continuation of care. Plan 1. Gather collateral information. The patient is a very poor historian unable to provide any useful information. 2. Continue with regular medications and medical follow-up. 3. Continue with medical workout. 4. Reassessment results. 5. 15 minute checks. 02/16: Continue current management and treatment plan. 02/17: Continue current management and treatment plan. Reason for continued inpatient stay Substantial Risk for: inability to function and rapid decompensation Time Spent With Patient Time: Total time managing care of this patient today ____ minutes.
[2023-02-17 18:00] VITALS: BP 107/69; PULSE 68; RESP 18; TEMP 36.6; O2SAT 99
[2023-02-18 06:00] VITALS: BP 124/68; PULSE 74; RESP 18; TEMP 36.4; O2SAT 97
--- NOTE | 2023-02-18 14:46 | P.PNPSI_ITS ---
Subjective Subjective Date of Service: 02/18/23 Reason For Visit: Psychosis Subjective Notes: Conditional Voluntary and 3 Day Interim History: The nursing staff reported the patient signed a 3 day notice and he wants to leave NT used. He has not participating any groups and he has been refusing medications. On interview the patient denies new symptoms, he wants to go back to his own place. Mental Status Exam Mental Status Exam Patient Appearance: Unkempt Patient Orientation: Person and Situation Level of Consciousness: Awake and Appropriate Patient Behavior: Appropriate and Passive Mood Description: Withdrawn Affect Description: Constricted Patient Cognition Impaired: Yes Ability to Follow Directions: Good Speech Pattern: Clear Hallucinations: None Delusions: Not Present Thought Process: Distracted and Slowed Thinking Thought Content: positive for [place] and positive for Poverty of Content Judgement: Fair Diagnostics Vital Signs (24Hr): Vital Signs - 24 hr 02/17/23 18:00 02/18/23 06:00 Temperature 97.8 F 97.6 F Pulse Rate 68 74 Respiratory Rate 18 18 Blood Pressure 107/69 124/68 Pulse Oximetry 99 97 Oxygen Delivery Method Room Air Room Air BMI result Body Mass Index 25.1 Medications Medications Current Medications Acetaminophen (Acetaminophen 325 Mg Tablet) 650 mg PO Q6H PRN PRN Reason: Headache/Pain Mild Scale (1-3) Al Hydroxide/Mg Hydroxide (Magnesium Hydrox/Alum Hydrox 30 Ml Oral.Susp) 30 ml PO Q6H PRN PRN Reason: Heartburn/Nausea Aripiprazole (Aripiprazole 2 Mg Tablet) 2 mg PO BEDTIME [facility] Last Admin: 02/17/23 20:34 Dose: Not Given Atorvastatin Calcium (Atorvastatin Calcium 10 Mg Tablet) 10 mg PO BEDTIME [facility] Last Admin: 02/17/23 20:35 Dose: Not Given Hydroxyzine HCl (Hydroxyzine Hcl 25 Mg Tablet) 25 mg PO Q6H PRN PRN Reason: Anxiety Magnesium Hydroxide (Milk Of Magnesia 30 Ml Oral.Susp) 30 ml PO DAILY PRN PRN Reason: Constipation Trazodone HCl (Trazodone Hcl 50 Mg Tablet) 50 mg PO BEDTIME MRX1 PRN PRN Reason: Insomnia Vitamin D (Cholecalciferol (Vitamin D3) 25 Mcg Tablet) 25 mcg PO DAILY [facility] Last Admin: 02/18/23 09:21 Dose: Not Given Allergies Allergies Allergy/AdvReac Type Severity Reaction Status Date / Time lactose AdvReac Unknown Verified 02/04/23 18:34 Penicillins AdvReac Unknown Verified 02/04/23 18:34 Assessment & Plan Assessment & Plan (1) Psychosis: Status: Acute Code(s): F29 - Unspecified psychosis not due to a substance or known physiological condition Plan The patient is a 62-year-old male who looks older than his stated age with the past history of mental illness was brought to the emergency room of [facility] since he was grossly psychotic with bizarre delusions unable to take care of himself. He was referred to this facility for continuation of care. Plan 1. Gather collateral information. The patient is a very poor historian unable to provide any useful information. 2. Continue with regular medications and medical follow-up. 3. Continue with medical workout. 4. Reassessment results. 5. 15 minute checks. 6. Discharge tomorrow as per 3 day notice letter Reason for continued inpatient stay Substantial Risk for: inability to function, rapid decompensation and med/psych decompensation Time Spent With Patient Time: Total time managing care of this patient today __20__ minutes.
[2023-02-18 19:40] VITALS: BP 112/65; PULSE 77; RESP 18; TEMP 36.7; O2SAT 97
[2023-02-19 07:55] VITALS: BP 123/77; PULSE 84; RESP 18; TEMP 37.2; O2SAT 98
--- NOTE | 2023-02-19 08:15 | PM.PSYDC ---
DS: Providers Provider Date of Service: 02/19/23 Date of admission: 02/04/23 18:00 Date of discharge: 02/19/23 Primary care physician: Mariam Vides NP Consults: 02/05/23 10:58 Consult to Hospitalist Routine Comment: Consulting Provider: Hospitalist Reason For Exam: Direct admission Attending physician on discharge: Foreign De La Vega DS: Diagnosis Discharge Diagnosis (1) Psychosis: Status: Acute DS: Medications Discharge Medications Home Medications: Home Medications Medication Instructions Recorded Confirmed acetaminophen 325 mg capsule 325 mg PO Q4H PRN Mild Pain (Scale 02/04/23 02/04/23 Score 1-4) cholecalciferol (vitamin D3) 25 25 mcg PO DAILY 02/04/23 02/04/23 mcg (1,000 unit) tablet simvastatin 20 mg tablet 20 mg PO BEDTIME 02/04/23 02/04/23 Mental Status Exam Mental Status Exam Patient Appearance: Appropriate and Unkempt Patient Orientation: Person and Situation Level of Consciousness: Awake and Appropriate Patient Behavior: Guarded and Passive Mood Description: Withdrawn Affect Description: Constricted Patient Cognition Impaired: Yes Ability to Follow Directions: Fair Speech Pattern: Clear Hallucinations: None Delusions: Not Present Thought Process: Distracted and Evasive Thought Content: positive for [place], positive for [place] and positive for Poverty of Content Judgement: Fair DS: Summary Hospital Course Hospital Course: The patient is a 60-year-old male, single, with limited social support living independently on his own apartment who was referred from [facility] for psychotic symptoms. Apparently, the patient was brought to the emergency room since he was grossly disorganized. Please see the HPI of the admission note for further details. On admission we review her list of medications and the patient stated he has not been taking any medications at all, including his medical medications. I suggested to start Abilify but he adamantly refused to take any med psychotropics.. While he was in the unit he refused to take all medications consistently We gather collateral information. Apparently the patient have always had developmental disorders, he was always under the care of her parents until their parents more than 20 years ago and he had a trust fund that it was dilapidated did by his caregivers. Even though the patient lives independently in the community. We contact her sisters, 1 living in in [place] and another living in [facility]. Both relatives were unable to take care of him. Even though the patient had been poorly functional he was able to live independently in the community. Apparently, according to the social media editor research, the patient has never been under the care of Department of Mental her or DDS. We found out that the patient had been deteriorating for the last year. He was making bomb threats and at certain point he got legal troubles. He was sent to [facility] for several weeks of assessment he was discharged with no medications and he was deemed incompetent to stand trial. We contact his medical receptionist medical assistant and apparently he had a hearing and we wrote a letter stating that he was in the hospital. Even though the patient was not taking any medication, he was pleasant, cooperative with limited functionality with a silly affect. He signed a 3 day notice he adamantly suicidal or homicidal thoughts nor safety concerns. Since there were no grounds to file a section 7 and 8, discharge planning was started. Time spent discussing smoking cessation with patient: 3 to 10 minutes Status at Discharge Cognitive/behavioral status at discharge: At baseline impaired Functional status at discharge: independent ambulation Overall status at discharge: patient is back to baseline Time Spent with Patient Time attestation: Total time managing care of this patient today _30___ minutes. Discharge Plan Discharge Anticipated Discharge Date/Time: 02/19/23 10:00 Patient Disposition: Home, Self-Care Discharge Diagnosis: Neuro cognitive disorder Referrals: Sally SORIANO / PCP [Other] - 03/04/23 1:30 pm (Patient to be seen In-person ) Mariam Vides NP [Primary Care Provider] - 1 Week ( Your appointment has been scheduled for Saturday03/08/23 at 9am ) Discharge Medications: New aripiprazole [Abilify] 2 mg Tablet 2 mg PO BEDTIME Qty: 30 0RF Continued simvastatin 20 mg Tablet 20 mg PO BEDTIME 30 Days Qty: 30 0RF acetaminophen 325 mg Capsule 325 mg PO Q4H PRN (Reason: Mild Pain (Scale Score 1-4)) 30 Days Qty: 60 0RF cholecalciferol (vitamin D3) 25 mcg (1,000 unit) Tablet 25 mcg PO DAILY 30 Days Qty: 30 0RF Discharge Orders: Discharge Order (Routine); Ordered 11/21/23 Ordered By: Foreign De La Vega Diet: Advance to usual diet Activity on Discharge: As tolerated Stand Alone Forms: Patient Portal Discharge page Care Plan Goals: Care plan goals were not achieved since the patient refused any treatment. Health Concerns: The patient refused to take his cholesterol medication, we recommend to continue treatment with primary care physician. Plan of Treatment: Continue treatment with outpatient providers. Assessment: The patient is a 62-year-old male with a past history of neuro cognitive impairment, referred for psychosis. While he was in the unit he did not presented any psychotic symptoms or safety concerns, he signed a 3 day notice and he needed to be discharge it to the community. The patient has a home and has some social support. Even though, the patient has refused any treatment. No safety concerns at this moment.
== END 2023-02-19 10:00 | disposition home or self-care (01) | DRG 885 ==
PROVIDERS: Social Worker; Admitting Provider Psychiatry & Neurology Psychiatry; PCP Nurse Practitioner Adult Health; Visit Provider Psychiatry & Neurology Psychiatry
DX: F29 Unspecified psychosis not due to a substance or known physiological condition (principal); E78.5 Hyperlipidemia, unspecified; Z79.899 Other long term (current) drug therapy
CPT/HCPCS: 36415; 80061; 83036; 84439; 84443

== ENCOUNTER → 2023-02-04 18:00 | Outpatient (BNV) | payer MEDICARE, MEDICAID, SELFPAY | PROVIDERS: Admitting Provider Psychiatry & Neurology Psychiatry; PCP Nurse Practitioner Adult Health; Visit Provider Internal Medicine | DX: Z02.2 Encounter for examination for admission to residential institution (principal) | CPT/HCPCS: 99221; 99429 ==

== ENCOUNTER → 2023-02-04 18:00 | Outpatient (BNV) | payer MEDICARE, MEDICAID, SELFPAY | PROVIDERS: Admitting Provider Psychiatry & Neurology Psychiatry; PCP Nurse Practitioner Adult Health; Visit Provider Psychiatry & Neurology Psychiatry | DX: F29 Unspecified psychosis not due to a substance or known physiological condition (principal) | CPT/HCPCS: 90792; 99231; 99232; 99238 ==

== ENCOUNTER → 2023-02-04 18:00 | Outpatient (BNV) | payer MEDICARE, MEDICAID, SELFPAY | PROVIDERS: Admitting Provider Psychiatry & Neurology Psychiatry; PCP Nurse Practitioner Adult Health; Visit Provider Psychiatry & Neurology Psychiatry | DX: F29 Unspecified psychosis not due to a substance or known physiological condition (principal) | CPT/HCPCS: 99231 ==

== ENCOUNTER 2023-07-21 08:31 | Emergency (ER) | payer MEDICARE, MEDICAID, SELFPAY ==
--- NOTE | ~2023-07-21 | XR_ITS ---
EXAMINATION: XR chest 1V CLINICAL INFORMATION: Reason for Exam r/o implanted metal for MRI clearance COMPARISON: No prior chest x-ray available. TECHNIQUE: Single portable frontal view. Tubes and lines: None Lungs and pleura: Both lungs are clear. Heart and mediastinum: The mediastinum is within normal limits.. Bones/soft tissue: Skeletal structures included are normal for patient's age. XR/XR chest 1V IMPRESSION: No metallic foreign body over the chest. No radiographic evidence of acute cardiopulmonary disease.
--- NOTE | ~2023-07-21 | CT_ITS ---
EXAMINATION: CT HEAD WITHOUT CONTRAST CLINICAL INFORMATION: Fall head injury COMPARISON: None TECHNIQUE: Contiguous axial imaging was performed from the skull base to vertex without intravenous administration of contrast. This CT examination was performed using dose optimization techniques as appropriate, variously including the following: *Automated exposure control *Adjustment of mA and/or kV according to patient size (this includes techniques or standardized protocols for targeted exams where dose is matched to indication/reason for exam; i.e. extremities or head) *Use of iterative reconstruction technique DLP: 757.10 mGy-cm FINDINGS: There is no evidence of acute intracranial hemorrhage or territorial infarction. No abnormal mass effect or midline shift is seen. Dunn to white matter differentiation is well preserved. No extra-axial fluid collections are identified. The ventricles are normal in size. There is no abnormal attenuation within the brain parenchyma. The osseous structures and soft tissues are normal. Mucoperiosteal thickening of the bilateral maxillary sinuses. The mastoid air cells and visualized portions of the paranasal sinuses are well aerated. Atherosclerotic calcifications CT/CT cervical spine wo IV con IMPRESSION: No acute intracranial pathology. EXAMINATION: Noncontrast CT scan of the cervical spine. INDICATION: Fall COMPARISON: None. TECHNIQUE: Helical, multidetector axial images were obtained from the occiput to the upper thorax. Coronal and sagittal reformats of the cervical spine were provided for interpretation. DLP: 302.32 mGy-cm FINDINGS: No acute fractures or dislocations of the cervical spine are seen. Multilevel degenerative changes. Anatomic alignment and positioning of the vertebral bodies and posterior elements is noted. The atlantoaxial joint and craniovertebral articulations are normal without evidence of subluxation. There is no prevertebral soft tissue swelling. Hypodense focus left thyroid lobe measuring up to 3.4 cm. Left apical pleural parenchymal lung scarring. IMPRESSION: 1. No acute visible fracture or dislocation. 2. Multilevel degenerative changes. 3. Hypodense focus left thyroid lobe measuring up to 3.4 cm. This can be further evaluated dedicated thyroid ultrasound if clinically warranted.
--- NOTE | ~2023-07-21 | XR_ITS ---
EXAMINATION: XR ABDOMEN CLINICAL INFORMATION: Evaluate for metal's. COMPARISON: None TECHNIQUE: Frontal view. FINDINGS: Surgical clips in the right upper quadrant from prior cholecystectomy. There is increased amount of stool projecting over the distribution of the colon raising suspicion for constipation. There is no evidence of bowel obstruction, however. There is no evidence of abnormal calcifications. There is no acute skeletal structure changes. There is no evidence of small-bowel obstruction. There is no free air in the abdomen. Metallic zipper projecting over the pelvis. XR/XR KUB IMPRESSION: 1. Increased amount of stool in the colon suggesting constipation. Please correlate with clinical presentation. 2. Metallic clothing zipper projecting over the pelvis.
--- NOTE | ~2023-07-21 | MR_ITS ---
EXAMINATION: MR LUMBAR SPINE WITHOUT CONTRAST CLINICAL INFORMATION: Left leg weakness. COMPARISON: None available. TECHNIQUE: Multiplanar, multisequence imaging was obtained. Limited study with motion artifacts. FINDINGS: VERTEBRAL BODIES AND PARASPINAL STRUCTURES: There is a rightward curvature of the lower lumbar spine. Moderate endplate edematous changes lateralized to the left side evident at the L4-L5 level with [id number] disc space narrowing and a mild posterior subluxation. There are no compression fractures. Bulky anterior endplate spurring and [id number] loss of disc height with chronic fatty marrow degenerative endplate changes noted at the L2-L3 level. There is a mild posterior subluxation and anterior bridging endplate osteophyte formation at the L3-L4 level. The paraspinal soft tissues are unremarkable. Small right renal cyst visible, for which no further imaging follow up is indicated. There is a suspected incidental 1 cm bone island in the left iliac bone. CONUS MEDULLARIS AND CAUDA EQUINE: The distal cord, conus tip, and cauda equina nerve roots are normal. SPINAL LEVELS: L1-L2: No disc pathology. No central canal stenosis or foraminal narrowing. L2-L3: Bulky anterior endplate spurring and mild posterior subluxation with a mild generalized disc bulge and mild facet arthropathy. No central canal stenosis or foraminal narrowing. L3-L4: Posterior subluxation and broad-based disc bulge with [id number] facet arthropathy. Bulging disc contacts the left L4 nerve root in the subarticular zone. No central canal stenosis. Mild left foraminal narrowing. L4-L5: Moderate left lateralized endplate edema with significant disc space narrowing and a posterior subluxation. Broad-based central disc protrusion mildly distorts the ventral thecal sac, abutting both L5 nerve roots without central canal stenosis. Hypertrophic facet arthropathy and underlying disc bulge contribute to moderate left foraminal encroachment and [id number] right foraminal narrowing. L5-S1: Mild disc bulge and focal right subarticular zone disc protrusion with an annular tear results in mild mass effect upon the right S1 nerve root in the subarticular zone. Mild facet arthropathy. No central canal stenosis or significant foraminal narrowing. MR/MR lumbar spine wo con IMPRESSION: 1. Limited study with motion artifacts. Rightward curvature of the lumbar spine. 2. Moderate left lateralized endplate edema at the L4-L5 level with a broad-based central disc protrusion mildly distorting the ventral thecal sac and abutting both L5 nerve roots. Moderate left foraminal narrowing. No central canal stenosis. 3. Focal right subarticular zone disc protrusion with an underlying annular tear at the L5-S1 level resulting in mild mass effect upon the right S1 nerve root. 4. Broad-based disc bulge at the L3-L4 level contacting the left L4 nerve root in the subarticular zone.
[2023-07-21 08:38] VITALS: BP 116/61; BP 134/84; PULSE 60; PULSE 63; RESP 16; TEMP 36.4; O2SAT 98; O2SAT 99; BMI 24.4
[2023-07-21 08:48] VITALS: BP 116/61; PULSE 63; RESP 17; TEMP 36.4; O2SAT 99
--- NOTE | 2023-07-21 08:49 | PC.NURSE ---
Pt presents to ED via EMS from [facility]. Per EMS, staff at facility reports pt had 2 fall yesterday and pt is complaining of bilat leg pain today. Pt is confused at baseline per staff. Pt reports to RN he had 3 falls yesterday at the medical center facility, reports my left leg keeps giving out and I fall . Pt reports bilat leg pain since last night, worse on left side, described as shooting and sharp, 8/10. Pt also reports numbness on left leg. Pt denies any LOC during falls but is unsure if he hit his head. Pt denies head, neck or back pain. Pt is alert and oriented to person and place, otherwise confused. Breathing even and unlabored, skin WNL. Pt able to move both legs, reports he feels touch less on left side. No obvious deformities or discoloration noted to legs. Pt denies any SI or HI. 1:1 sitter. VSS.
--- NOTE | 2023-07-21 09:06 | ED_ITS ---
HPI - General Adult General Chief complaint: Fall Stated complaint: BLE PAIN S/P MULTI FALLS T-1 FROM [facility] PER EM Time Seen by Provider: 07/21/23 08:43 Source: patient and EMS Mode of arrival: EMS Limitations: no limitations History of Present Illness HPI narrative: 63-year-old male who was transferred from inpatient psych unit in [facility] to our hospital for evaluation of left leg weakness and pain for the past 3 days causing multiple falls with head injury, patient is poor historian due to developmental disorder, patient currently is under psych care in [facility]. Three days of shooting pain to his left thigh and left knee, but now he has no pain but still unable to lift the left leg, patient declined urinary incontinence or stool incontinence, no fever, no chills. Related Data Previous Rx's ?Medication ?Instructions ?Recorded acetaminophen 325 mg capsule 325 mg PO Q4H PRN Mild Pain (Scale 02/19/23 Score 1-4) 30 days #60 caps aripiprazole 2 mg tablet (Abilify) 2 mg PO BEDTIME #30 tabs 02/19/23 cholecalciferol (vitamin D3) 25 25 mcg PO DAILY 30 days #30 tabs 02/19/23 mcg (1,000 unit) tablet simvastatin 20 mg tablet 20 mg PO BEDTIME 30 days #30 tabs 02/19/23 Allergies Allergy/AdvReac Type Severity Reaction Status Date / Time lactose AdvReac Unknown Verified 07/21/23 08:46 Penicillins AdvReac Unknown Verified 02/04/23 18:34 Review of Systems 2 Review of Systems: All other systems are reviewed and are negative Constitutional: Reports as per HPI and Reports no additional constitutional complaints Eyes: Reports as per HPI and Reports no additional eye complaints Reports system reviewed and no additional complaints, except as documented Cardiovascular: Reports as per HPI and Reports no additional cardiovascular complaints Respiratory: Reports as per HPI and Reports no additional respiratory complaints Gastrointestinal: Reports as per HPI and Reports no additional gastrointestinal complaints Genitourinary: Reports no additional female genitourinary complaints Musculoskeletal: Reports no additional musculoskeletal complaints Skin/Breast: Reports system reviewed and no additional complaints, except as docu Psychiatric: Reports no additional psychiatric complaints Endocrine: Reports no additional endocrine complaints Hematologic/Lymphatic: Reports no additional hematologic/lymphatic complaints Allergic/Immunologic: Reports no additional allergic/immunologic complaints Reports system reviewed and no additional complaints, except as documented and Reports Abnormal speech present [facility] Past Medical History Medical History Hyperlipidemia Social History Social History Household Members: None Housing: Apartment Do you presently have visiting nurse or other home services: No Patient Tobacco Use Status: Never used Tobacco Smoked in Last 30 Days: No e-Cigarette/Vaping Use: Never Used Use of substances other than those prescribed or required for medical reasons: No Advance Directives: No Advance Directives Information Provided: No service: No Sexual orientation: Don't Know Physical Exam ED Vital Signs: Vital Signs - 24 hr 07/21/23 08:38 07/21/23 08:48 07/21/23 12:58 Temperature 97.6 F 97.6 F Pulse Rate 63 63 66 Respiratory Rate 16 17 14 Blood Pressure 116/61 116/61 119/71 Pulse Oximetry 98 99 97 Oxygen Delivery Method Room Air Room Air Room Air BMI result Body Mass Index 24.4 Vital signs have been reviewed and appear to be correct. Blood pressure elevated. Heart rate normal. Respiratory rate normal. Temperature normal. Oxygen saturation normal. Appearance: Alert. Oriented X3. No acute distress. Head: Normal external exam. Normocephalic. Atraumatic. No Freeman signs noted. No raccoon eyes noted Eyes: PERRLA. EOMI. Conjunctiva and sclera normal. Eyelids normal. ENT: TM's Normal. Pharynx normal. Uvula midline. Moist mucous membranes. No trismus noted. No drooling noted. No muffled voice noted. Neck: Normal inspection. Neck supple. FROM. No adenopathy. Thyroid Normal. No meningeal signs. No neck mass noted. CVS: Normal heart rate and rhythm. Heart sound normal. No murmurs noted. Pulses normal throughout. Respiratory: No respiratory distress. Painless inspiration. Breath sounds normal. No wheezes/rales/rhonchi noted. Chest nontender. No accessory muscle usage noted or decreased air movement noted. Abdomen: Soft and nontender. Bowel sounds normal in all 4 quadrants. No distention noted. No organomegaly noted. No visible injury noted. Back: No CVA tenderness. Full range of motion noted. Skin: Skin warm and dry. Normal skin color. Normal skin turgor. No rashes/lesions/lacerations noted. Extremities: No lower extremity edema. Extremities exhibit normal range of motion. Extremities nontender. Neuro: Oriented X 3. Cranial nerve exam: II-XII are grossly intact Left leg weakness 2/5, left hip flexion weakness 2/ 5,. No sensory deficit. Reflexes normal. Course Reevaluation(s) Reevaluation #1: 63-year-old male who has developmental disorder currently at [facility] for inpatient psych came here for evaluation of 3 days of left lower extremity weakness with multiple falls as a result of that, no urinary or stool incontinence, still able to ambulate and bear weight, there is weakness in the left lower extremity that has been for 3 days with no progression, had MRI in the emergency department which showed multiple level disc bulging toward the left side that might be the reason of he is weakness in the left lower extremity, the case was discussed with Dr. Oneill who also think that 3 days left lower extremity weakness is not an acute emergent and can be seen at his clinic this week, I discussed with the patient at lengthy and written instruction will be sent back to [facility] to arrange an appointment with Dr. merlos. Time: 14:54 Medications Administered Discontinued Medications Generic Name Dose Route Start Last Admin Trade Name Freq PRN Reason Stop Dose Admin Sodium Chloride 1,000 mls @ 999 mls/hr 07/21/23 08:55 07/21/23 10:35 Ns IV 07/21/23 09:55 Infused .Q1H1M ONE Infusion Medical Decision Making Differential Diagnosis Differential Diagnoses: The differential diagnosis associated with the presentation includes ( traumatic intracranial hemorrhage, cervical spine injury, lumbar radiculopathy, rhabdomyolysis, electrolyte derangement, severe anemia, cauda equina syndrome.) Admission/Observation Consideration of admission/observation: Escalation of care including admission/observation considered Consult Healthcare Provider Management of the patient was discussed with: [employer] ( Dr. Rueda) Lab Data MDM Lab Attestation statement: I reviewed the patient's lab results. 07/21/23 09:29 07/21/23 09:29 Labs: Lab Results 07/21/23 07/21/23 Range/Units 09:29 10:21 WBC 6.8 (4.8-10.8) X10*3/uL RBC 5.14 (4.60-5.80) X10*6/uL Hgb 14.6 (14.0-18.0) g/dl Hct 45.5 (42.0-52.0) % MCV 88.5 (80.0-98.0) fL MCH 28.4 (27.0-33.0) pg MCHC 32.1 (31.0-36.0) g/dl RDW 14.6 (11.0-16.0) % Plt Count 159 L (160-400) X10*3/uL MPV 12.0 (9.4-12.4) fL Immature Gran % (Auto) 0.4 (0.0-0.4) % Neut % (Auto) 62.6 (45-73) % Lymph % (Auto) 28.0 (20-40) % Beltrami % (Auto) 3.1 (2-11) % Eos % (Auto) 5.0 H (0-4) % Baso % (Auto) 0.9 (0-2) % Lymph # (Auto) 1.9 (1.2-4.9) X10*3/uL Beltrami # (Auto) 0.2 (0.1-1.2) X10*3/uL Eos # (Auto) 0.3 (0.0-0.4) X10*3/uL Baso # (Auto) 0.1 (0.0-0.2) X10*3/uL Abs Immat Gran (auto) 0.03 (0.00-0.03) X10*3/uL Absolute Neuts (auto) 4.3 (2.0-8.3) x10*3/uL Absolute Nucleated RBC 0.000 (0.0-0.012) X10*3/uL Nucleated RBC % (auto) 0.0 (0.0-0.2) /100WBC PT 12.1 (11.1-13.3) SEC INR 1.0 (0.9-1.1) Sodium 142 (135-145) mmol/L Potassium 4.0 (3.3-5.1) mmol/L Chloride 108 (96-108) mmol/L Carbon Dioxide 29 (22-29) mmol/L Anion Gap 9 L (12-20) BUN 11 (9-16) mg/dL Creatinine 0.66 (0.5-1.4) mg/dL Estim Creat Clear Calc 118.2 Estimated GFR > 60 Random Glucose 92 (60-115) mg/dL Calcium 9.5 (8.4-10.2) mg/dL Total Bilirubin 1.3 H (0.0-1.0) mg/dL Direct Bilirubin 0.4 (0.0-0.5) mg/dL AST 11 (5-37) U/L ALT 11 (0-40) U/L Alkaline Phosphatase 94 (39-117) U/L Total Creatine Kinase 25 L (38-174) U/L Troponin I High Sens 2.7 (<3.5-35.0) ng/L Total Protein 7.4 (6.5-8.0) g/dL Albumin 3.9 (3.5-5.0) g/dL Lipase 22 (8-78) U/L Urine Color Yellow Urine Appearance Cloudy Urine pH 7.0 (5.0-9.0) Ur Specific Evans 1.015 (1.005-1.025) Urine Protein Negative (Neg-Trace) mg/dL Urine Glucose (UA) Negative (Negative) mg/dL Urine Ketones Negative (Negative) mg/dL Urine Blood Negative (Negative) Urine Nitrite Negative (Negative) Ur Leukocyte Esterase Negative (Negative) Independent Interpretation I performed an independent interpretation of an: CT Scan ( Head/cervical spine:1. No acute visible fracture or dislocation. 2. Multilevel degenerative changes. 3. Hypodense focus left thyroid lobe measuring up to 3.4 cm. This can be further evaluated dedicated thyroid ultrasound if clinically warranted. No intracranial bleed) Interpretation: lumbar spine MRI:1. Limited study with motion artifacts. Rightward curvature of the lumbar spine. 2. Moderate left lateralized endplate edema at the L4-L5 level with a broad-based central disc protrusion mildly distorting the ventral thecal sac and abutting both L5 nerve roots. Moderate left foraminal narrowing. No central canal stenosis. 3. Focal right subarticular zone disc protrusion with an underlying annular tear at the L5-S1 level resulting in mild mass effect upon the right S1 nerve root. 4. Broad-based disc bulge at the L3-L4 level contacting the left L4 nerve root in the subarticular zone. Discharge Plan Discharge Clinical Impression: Lumbar disc disease with radiculopathy, Left leg weakness Patient Disposition: Xfer Psychiatric Hosp Instructions: Lumbar Disc Herniation (ED) Additional Instructions: it is very important to arrange for appointment with Dr. Oneill for this week. Prescriptions: No Action aripiprazole [Abilify] 2 mg Tablet 2 mg PO BEDTIME Qty: 30 0RF simvastatin 20 mg Tablet 20 mg PO BEDTIME 30 Days Qty: 30 0RF acetaminophen 325 mg Capsule 325 mg PO Q4H PRN (Reason: Mild Pain (Scale Score 1-4)) 30 Days Qty: 60 0RF cholecalciferol (vitamin D3) 25 mcg (1,000 unit) Tablet 25 mcg PO DAILY 30 Days Qty: 30 0RF Referrals: Mariam Peter NP [Primary Care Provider] - Trevor Oneill MD, PhD [Physician] - Print Language: Indian
--- NOTE | 2023-07-21 09:17 | PC.NURSE ---
Pt refusing blood draw and IV at this time. Will attempt to talk to pt again after CT scan.
[2023-07-21] MEDS: 0.9 % Sodium Chloride 1,000 ML 999 ML IV (09:32)
[2023-07-21 09:34] LABS: MANUAL DIFF FLAG NO
[2023-07-21 09:39] LABS: Basophils Absolute Auto 0.1 X10*3/uL (0.0-0.2); Basophils Percent Auto 0.9 % (0-2); Eosinophils Absolute Auto 0.3 X10*3/uL (0.0-0.4); Hematocrit 45.5 % (42.0-52.0); Hemoglobin 14.6 g/dl (14.0-18.0); Imm Gran Abs Auto 0.03 X10*3/uL (0.00-0.03); Imm Gran Pct Auto 0.4 % (0.0-0.4); Lymphocytes Absolute Auto 1.9 X10*3/uL (1.2-4.9); Mean Corpuscular HGB Conc 32.1 g/dl (31.0-36.0); Mean Corpuscular Hemoglobin 28.4 pg (27.0-33.0); Mean Corpuscular Volume 88.5 fL (80.0-98.0); Monocytes Absolute Auto 0.2 X10*3/uL (0.1-1.2); Monocytes Percent Auto 3.1 % (2-11); Neutrophils Absolute Auto 4.3 x10*3/uL (2.0-8.3); Neutrophils Percent Auto 62.6 % (45-73); Platelet Count 159 X10*3/uL (160-400); Red Blood Count 5.14 X10*6/uL (4.60-5.80); Red Cell Distribution Width 14.6 % (11.0-16.0); White Blood Count 6.8 X10*3/uL (4.8-10.8)
[2023-07-21 09:43] LABS: Prothrombin Time 12.1 SEC (11.1-13.3)
[2023-07-21 10:27] LABS: Appearance Urine Cloudy; Color Urine Yellow; Glucose Urine UA Negative (Negative); Leukocyte Esterase Urine Negative (Negative); Nitrite Urine Negative (Negative); Specific Gravity - Urine 1.015 (1.005-1.025); Urine Blood Negative (Negative); Urine Ketones Negative (Negative); Urine Protein Negative (Neg-Trace)
--- NOTE | 2023-07-21 10:35 | PC.NURSE ---
Pt taken to MRI.
[2023-07-21 10:39] LABS: Alanine Aminotransferase 11 U/L (0-40); Albumin Level 3.9 g/dL (3.5-5.0); Alkaline Phosphatase 94 U/L (39-117); Anion Gap 9 (12-20); Aspartate Amino Transferase 11 U/L (5-37); Bilirubin Direct 0.4 mg/dL (0.0-0.5); Bilirubin Total 1.3 mg/dL (0.0-1.0); Blood Urea Nitrogen 11 mg/dL (9-16); Calcium 9.5 mg/dL (8.4-10.2); Carbon Dioxide 29 mmol/L (22-29); Chloride 108 mmol/L (96-108); Creatinine Clr Calc Pharmacy 118.2; Estimated Glomerular Filt Rate > 60; Glucose Random 92 mg/dL (60-115); Lipase 22 U/L (8-78); Sodium 142 mmol/L (135-145); Total Protein 7.4 g/dL (6.5-8.0)
[2023-07-21 10:46] LABS: Troponin-I High Sensitivity 2.7 ng/L (<3.5-35.0)
[2023-07-21 12:58] VITALS: BP 119/71; PULSE 66; RESP 14; O2SAT 97
--- NOTE | 2023-07-21 13:12 | PC.NURSE ---
Pt reports pain is still 10/10 in legs, reports he cannot move his left leg. No issues with moving right leg. No discoloration noted to left leg, warm to the touch. Provider alerted.
--- NOTE | 2023-07-21 15:50 | PC.NURSE ---
Spoke with Sabine from [facility], report given for pt as well as follow up plan with Dr Oneill appt needed this week.
--- NOTE | 2023-07-21 16:08 | PC.NURSE ---
this rn assumed care of pt @ 1500. pt up for discharge awaiting ems transport back to [facility]. iv removed by this rn
[2023-07-21 16:13] VITALS: BP 106/70; PULSE 83; RESP 16; O2SAT 97
[2023-07-21 16:34] VITALS: BP 106/70; PULSE 83; RESP 16; TEMP 36.4; O2SAT 97
== END 2023-07-21 16:38 ==
PROVIDERS: Emergency Provider Emergency Medicine; PCP Nurse Practitioner
DX: M54.16 Radiculopathy, lumbar region (principal); M62.81 Muscle weakness (generalized); M54.2 Cervicalgia; R51.9 Headache, unspecified; R10.9 Unspecified abdominal pain; R11.0 Nausea; Z51.81 Encounter for therapeutic drug level monitoring; Z79.899 Other long term (current) drug therapy
CPT/HCPCS: 36415; 70450; 71045; 72125; 72148; 74018; 80048; 80076; 81003; 82550; 83690; 84484; 85025; 85610; 96360; 99285

== ENCOUNTER 2023-08-21 20:23 | Inpatient (IN) | payer MEDICARE, MEDICAID, SELFPAY ==
--- NOTE | ~2023-08-21 | CT_ITS ---
EXAMINATION: CT ABDOMEN WITHOUT CONTRAST CLINICAL INFORMATION: History of abdominal hernia. COMPARISON: KUB from 07/21/2023 TECHNIQUE: Contiguous axial thin section helical images of the abdomen were performed without contrast. The data set was reformatted in the coronal and sagittal planes and reviewed on an independent workstation. This CT examination was performed using dose optimization techniques as appropriate, variously including the following: *Automated exposure control *Adjustment of mA and/or kV according to patient size (this includes techniques or standardized protocols for targeted exams where dose is matched to indication/reason for exam; i.e. extremities or head) *Use of iterative reconstruction technique DLP: 184 mGy-cm FINDINGS: Lung bases are unremarkable. Liver has normal size and contour. A few simple cysts of the liver present. Otherwise, liver is unremarkable on this noncontrast examination. Status post cholecystectomy. No dilated bile ducts. Pancreas, spleen and adrenal glands are normal. Kidneys are normal in size. No hydronephrosis. Punctate calyceal stones in the mid and lower pole of the left kidney. 0.3 cm calyceal stone in the posterior aspect of the interpolar region of the left kidney. This stone is too small for acquisition of a reliable density measurement. The maximum pixel value within the stone is approximately 777 Hounsfield units and this stone is 6.6 cm deep from the skin surface at the posterior axillary line. The visualized proximal ureter is normal. The right kidney has a 1.2 cm simple cyst at its anterior upper pole. No renal imaging follow-up is recommended for a simple cyst. 0.2 x 0.4 cm calyceal stone of the right upper pole is too small for acquisition of a reliable density measurement. The maximum pixel value within the stone is 705 Hounsfield units and this is located approximately 7.6 cm deep from the skin surface at the posterior axillary line. There are calyceal stones in the right lower pole that measure up to approximately 0.6 cm and 0.9 cm in maximum dimension. The maximum pixel value in the anterior lower pole stone is approximately 700 Hounsfield units. The 0.9 cm stone has a maximum pixel value of approximately 900 Hounsfield units and is 6.7 cm deep from the skin surface at the posterior axillary line. The visualized proximal right ureter is normal. No hydroureteronephrosis. No dilated bowel loops. No free fluid or free air. The appendix is normal. The diastases of rectus abdominis muscles measures up to 4 cm wide. There appears to be prior mesh placement at the anterior abdominal wall at and above the level of the umbilicus. Although there is anterior bulging of the mesh between the rectus abdominis muscles, the underlying omental fat remains deep to the mesh. There is no herniation of fat or bowel around the periphery of the mesh. No abdominal wall mass or fluid collection. Mild atherosclerosis of the abdominal aorta without aneurysm. No pathologic sized lymph nodes within the abdomen. Multilevel degenerative arthropathy of the visualized lower thoracic and lumbar spine. Chronic mild degenerative retrolisthesis at L2-3 and L3-L4. CT/CT abdomen wo IV con IMPRESSION: * Bilateral nephrolithiasis without hydronephrosis. * There is diastases of rectus abdominis muscles of up to 4 cm. Prior placement of mesh at the midline abdominal wall. Although there is anterior bulging of the mesh between rectus abdominis muscles, the omental fat remains deep to the mesh, and there is no herniation of bowel or fat around the periphery of the mesh.
--- NOTE | ~2023-08-21 | CT_ITS ---
EXAMINATION: CT FACIAL BONES WITHOUT CONTRAST CLINICAL INFORMATION: Left lower jaw pain. Question periodontal abscess. COMPARISON: None available. TECHNIQUE: Contiguous axial CT images of the facial bones were obtained without contrast. Multiplanar reformats were provided and reviewed. This CT examination was performed using dose optimization techniques as appropriate, variously including the following: *Automated exposure control *Adjustment of mA and/or kV according to patient size (this includes techniques or standardized protocols for targeted exams where dose is matched to indication/reason for exam; i.e. extremities or head) *Use of iterative reconstruction technique DLP: 286 mGy-cm FINDINGS: There is no acute maxillofacial fracture. The pterygoid plates are intact. The zygomatic arches are intact. The lamina papyracea are intact. The orbital rims are intact. Mucous retention cyst versus polyps within the base of the right and left maxillary sinuses. The paranasal sinuses are otherwise well-aerated. No air-fluid levels are seen. There is minimal leftward deviation of the nasal septum. The ostiomeatal complexes are clear. The lamina papyracea are intact. The ethmoid roofs are symmetric. The carotid canals are normally covered by bone. There are periapical lucencies adjacent to the left maxillary first premolar and first molar with near-complete absence of the second molar. Additional periapical lucencies adjacent to the left mandibular first and second premolars. Findings are consistent with periapical abscesses. Soft tissue stranding/edema adjacent to the left maxillary and mandibular premolars and molars, consistent with inflammatory change/early phlegmonous formation. No organized fluid collection or drainable abscess identified. The mastoid air cells and visualized middle ear cavities are well-aerated. The orbits are normal. Mild osteoarthritis at the right temporomandibular joint. The imaged portions of the brain demonstrate no acute abnormality. CT/CT facial bones wo IV con IMPRESSION: 1. Periapical abscesses adjacent to the left maxillary first premolar and first molar as well as the left mandibular first and second premolars. Adjacent inflammatory change and probable early phlegmonous change without a discrete abscess. 2. Mild right temporomandibular joint osteoarthritis.
--- NOTE | 2023-08-21 20:35 | ED_ITS ---
HPI - Psych General Chief Complaint: Psychiatric Symptoms Stated Complaint: pysch eval Time Seen by Provider: 08/21/23 20:34 Source: EMS Mode of arrival: EMS Limitations: other (Patient has disorganized thoughts, lacks insight as to why he is here) History of Present Illness ED Provider: Dr. Orlando Hernandez HPI Narrative: 63-year-old male with a history of hyperlipidemia, schizoaffective disorder, bipolar disorder who is currently residing at the [facility] who was sent to the emergency department on a Section 12. The patient has very disorganized thoughts, he is paranoid and he was refusing medications and all other treatment. There was some initial confused when the paramedics brought the patient to this emergency department. It was thought that he was a direct admission however there was not an assigned bed. We then determine that the patient was sent from his nursing facility to this facility for medical evaluation for psychiatric evaluation for possible admission secondary to his noncompliance with his care. The patient was admitted to this facility on the psychiatric service from 09/2022 until 02/19/2023 with a discharge diagnosis of acute psychosis and neurocognitive disorder. Related Data Home Medications ?Medication ?Instructions ?Recorded ?Confirmed hydroxyzine pamoate 50 mg capsule 100 mg PO BID 08/21/23 08/21/23 olanzapine 15 mg tablet 15 mg PO BEDTIME 08/21/23 08/21/23 Previous Rx's ?Medication ?Instructions ?Recorded acetaminophen 325 mg capsule 325 mg PO Q4H PRN Mild Pain (Scale 02/19/23 Score 1-4) 30 days #60 caps cholecalciferol (vitamin D3) 25 25 mcg PO DAILY 30 days #30 tabs 02/19/23 mcg (1,000 unit) tablet simvastatin 20 mg tablet 20 mg PO BEDTIME 30 days #30 tabs 02/19/23 Allergies Allergy/AdvReac Type Severity Reaction Status Date / Time lactose AdvReac Intermediate Unknown Verified 08/21/23 20:52 Penicillins AdvReac Intermediate Unknown Verified 08/21/23 20:52 Review of Systems 2 Review of Systems: Yes Unobtainable due to mental status PMFSH Past Medical History Medical History Hyperlipidemia Social History Social History Household Members: None Housing: Apartment Do you presently have visiting nurse or other home services: No Patient Tobacco Use Status: Never used Tobacco e-Cigarette/Vaping Use: Never Used Do you have a plan to hurt others: No Plan service: No Sexual orientation: Don't Know Physical Exam 2 Vital Signs: Vital Signs: Last Vital Signs Temp 98.9 F 08/21/23 20:49 Pulse 78 08/21/23 20:49 Resp 16 08/21/23 20:49 BP 116/72 08/21/23 20:49 Pulse Ox 97 08/21/23 20:49 O2 Del Method Room Air 08/21/23 20:49 BMI result Body Mass Index 25.0 Exam: General: Awake, patient was unable to tell me his name and kept pending me his identification card, he would not answer any direct questions Head: Normocephalic, atraumatic EENT: PERRL, Lids normal, sclera normal, conjunctiva normal, nose normal , ears normal, throat without erythema or exudates Neck: Supple, no adenopathy Lung: breath sounds symmetric, no wheezing, rales or rhonchi Chest: symmetric movement, nontender Heart: regular rate and rhythm, normal S1, S2 no murmurs or rubs Abdomen: soft, non-tender, nondistended, normal bowel sounds Back: no vertebral tenderness, no CVAT Extremities: no deformities, moves all extremities symmetrically Neuro: Cranial nerves 2-12 are intact, strength was symmetric bilaterally Psych: Patient does not answer questions, lacks insight as to why he is here, could not tell me his name but kept having the his identification card Medical Decision Making Medical Decision Making MDM Narrative: 63-year-old male with a history of hyperlipidemia, schizoaffective disorder, bipolar disorder who is currently residing at the [facility] who was sent to the emergency department on a Section 12. From the Section 12, the patient has very disorganized thoughts, he is paranoid and he has been refusing medications and all treatments. Patient's does appear to have disorganized thoughts and was unable to answer questions. Physical examination was otherwise unremarkable Differential diagnosis: ?Includes but is not limited to decompensation of schizoaffective disorder, depression, anxiety, noncompliance with medications, electrolyte abnormalities, anemia Following evaluation was ordered: CBC, CMP, drug screen urine, ethanol level, urinalysis Course: 22:06 Start physician observation My interpretation patient's laboratory evaluation is as follows: CBC was normal. CMP was normal. Urinalysis was negative. Patient is medically cleared for evaluation by the care team. Patient will be placed in physician observation until disposition can be determined. At the end of my shift, patient's laboratory evaluation is pending and the patient's care was turned over to my colleague Dr. Bernardino Perry. Admission/Observation Consideration of admission/observation: Escalation of care including admission/observation considered Lab Data 08/21/23 21:20 08/21/23 21:21 Labs: Lab Results 08/21/23 08/21/23 Range/Units 21:20 21:21 WBC 8.3 (4.8-10.8) X10*3/uL RBC 4.64 (4.60-5.80) X10*6/uL Hgb 13.4 L (14.0-18.0) g/dl Hct 41.1 L (42.0-52.0) % MCV 88.6 (80.0-98.0) fL MCH 28.9 (27.0-33.0) pg MCHC 32.6 (31.0-36.0) g/dl RDW 14.2 (11.0-16.0) % Plt Count 172 (160-400) X10*3/uL MPV 12.2 (9.4-12.4) fL Immature Gran % (Auto) 0.2 (0.0-0.4) % Neut % (Auto) 58.8 (45-73) % Lymph % (Auto) 32.2 (20-40) % Lee % (Auto) 4.1 (2-11) % Eos % (Auto) 3.6 (0-4) % Baso % (Auto) 1.1 (0-2) % Lymph # (Auto) 2.7 (1.2-4.9) X10*3/uL Lee # (Auto) 0.3 (0.1-1.2) X10*3/uL Eos # (Auto) 0.3 (0.0-0.4) X10*3/uL Baso # (Auto) 0.1 (0.0-0.2) X10*3/uL Abs Immat Gran (auto) 0.02 (0.00-0.03) X10*3/uL Absolute Neuts (auto) 4.9 (2.0-8.3) x10*3/uL Absolute Nucleated RBC 0.000 (0.0-0.012) X10*3/uL Nucleated RBC % (auto) 0.0 (0.0-0.2) /100WBC Sodium 143 (135-145) mmol/L Potassium 4.0 (3.3-5.1) mmol/L Chloride 108 (96-108) mmol/L Carbon Dioxide 28 (22-29) mmol/L Anion Gap 11 L (12-20) BUN 16 (9-16) mg/dL Creatinine 0.75 (0.5-1.4) mg/dL Estim Creat Clear Calc 110.6 Estimated GFR > 60 Random Glucose 112 (60-115) mg/dL Calcium 9.4 (8.4-10.2) mg/dL Total Bilirubin 0.9 (0.0-1.0) mg/dL AST 13 (5-37) U/L ALT 13 (0-40) U/L Alkaline Phosphatase 77 (39-117) U/L Total Protein 7.4 (6.5-8.0) g/dL Albumin 4.1 (3.5-5.0) g/dL Urine Color Yellow Urine Appearance Clear Urine pH 6.0 (5.0-9.0) Ur Specific [place] 1.025 (1.005-1.025) Urine Protein Negative (Neg-Trace) mg/dL Urine Glucose (UA) Negative (Negative) mg/dL Urine Ketones Negative (Negative) mg/dL Urine Blood Negative (Negative) Urine Nitrite Negative (Negative) Ur Leukocyte Esterase Negative (Negative) Urine Opiates Screen Not Detected (Not Detect) Ur Buprenorphine Scrn Not Detected (Not Detect) ng/mL Ur Oxycodone Screen Not Detected (Not Detect) ng/mL Urine Methadone Screen Not Detected (Not Detect) ng/mL Urine Fentanyl Screen Not Detected (Not Detect) Ur Barbiturates Screen Not Detected (Not Detect) Ur Phencyclidine Scrn Not Detected (Not Detect) Ur Amphetamines Screen Not Detected (Not Detect) U Benzodiazepines Scrn Not Detected (Not Detect) Urine Cocaine Screen Not Detected (Not Detect) U Marijuana (THC) Screen Not Detected (Not Detect) Ethyl Alcohol < 10 mg/dL Independent Historian Clinical information obtained from an independent historian. History obtained from or confirmed by: EMS External Record Review External record reviewed: Inpatient record Prescription Management I considered prescription management with: Other Chronic Conditions Patient?s care impacted by: Other (Schizoaffective disorder) Discharge Plan Discharge Clinical Impression: Paranoid ideation, Noncompliance with medication regimen Patient Disposition: Still a Patient Prescriptions: No Action simvastatin 20 mg Tablet 20 mg PO BEDTIME 30 Days Qty: 30 0RF acetaminophen 325 mg Capsule 325 mg PO Q4H PRN (Reason: Mild Pain (Scale Score 1-4)) 30 Days Qty: 60 0RF cholecalciferol (vitamin D3) 25 mcg (1,000 unit) Tablet 25 mcg PO DAILY 30 Days Qty: 30 0RF hydroxyzine pamoate 50 mg capsule 100 mg PO BID olanzapine 15 mg tablet 15 mg PO BEDTIME Print Language: German
[2023-08-21 20:49] VITALS: BP 116/72; PULSE 78; RESP 16; TEMP 37.2; O2SAT 97; BMI 25.0
[2023-08-21 21:27] LABS: MANUAL DIFF FLAG NO
[2023-08-21 21:30] LABS: Appearance Urine Clear; Basophils Absolute Auto 0.1 X10*3/uL (0.0-0.2); Basophils Percent Auto 1.1 % (0-2); Color Urine Yellow; Eosinophils Absolute Auto 0.3 X10*3/uL (0.0-0.4); Eosinophils Percent Auto 3.6 % (0-4); Glucose Urine UA Negative (Negative); Hematocrit 41.1 % (42.0-52.0); Hemoglobin 13.4 g/dl (14.0-18.0); Imm Gran Abs Auto 0.02 X10*3/uL (0.00-0.03); Imm Gran Pct Auto 0.2 % (0.0-0.4); Leukocyte Esterase Urine Negative (Negative); Lymphocytes Absolute Auto 2.7 X10*3/uL (1.2-4.9); Lymphocytes Percent Auto 32.2 % (20-40); Mean Corpuscular HGB Conc 32.6 g/dl (31.0-36.0); Mean Corpuscular Hemoglobin 28.9 pg (27.0-33.0); Mean Corpuscular Volume 88.6 fL (80.0-98.0); Mean Platelet Volume 12.2 fL (9.4-12.4); Monocytes Absolute Auto 0.3 X10*3/uL (0.1-1.2); Monocytes Percent Auto 4.1 % (2-11); Neutrophils Absolute Auto 4.9 x10*3/uL (2.0-8.3); Neutrophils Percent Auto 58.8 % (45-73); Nitrite Urine Negative (Negative); Platelet Count 172 X10*3/uL (160-400); Red Blood Count 4.64 X10*6/uL (4.60-5.80); Red Cell Distribution Width 14.2 % (11.0-16.0); Specific Gravity - Urine 1.025 (1.005-1.025); Urine Blood Negative (Negative); Urine Ketones Negative (Negative); Urine Protein Negative (Neg-Trace); White Blood Count 8.3 X10*3/uL (4.8-10.8)
[2023-08-21 21:42] LABS: Amphetamine Screen Urine Not Detected (Not Detect); Barbiturates, Urine Not Detected (Not Detect); Benzodiazepines Screen Urine Not Detected (Not Detect); Buprenorphine Scr Not Detected (Not Detect); Cannabinoid Screen Urine Not Detected (Not Detect); Cocaine Screen Urine Not Detected (Not Detect); Ethanol < 10 mg/dL; Fentanyl, urine Not Detected (Not Detect); Methadone Screen, Urine Not Detected (Not Detect); Opiate Screen Urine Not Detected (Not Detect); Oxycodone Screen Urine Not Detected (Not Detect); Phencyclidine Screen Urine Not Detected (Not Detect)
[2023-08-21 21:45] LABS: Alanine Aminotransferase 13 U/L (0-40); Albumin Level 4.1 g/dL (3.5-5.0); Alkaline Phosphatase 77 U/L (39-117); Anion Gap 11 (12-20); Aspartate Amino Transferase 13 U/L (5-37); Bilirubin Total 0.9 mg/dL (0.0-1.0); Blood Urea Nitrogen 16 mg/dL (9-16); Calcium 9.4 mg/dL (8.4-10.2); Carbon Dioxide 28 mmol/L (22-29); Chloride 108 mmol/L (96-108); Creatinine Clr Calc Pharmacy 110.6; Estimated Glomerular Filt Rate > 60; Glucose Random 112 mg/dL (60-115); Sodium 143 mmol/L (135-145); Total Protein 7.4 g/dL (6.5-8.0)
[2023-08-21 23:30] VITALS: BP 123/68; PULSE 68; RESP 16; TEMP 36.6; O2SAT 99
--- NOTE | 2023-08-22 | ECG_ITS ---
Test Reason : check qtc Blood Pressure : / mmHG Vent. Rate : 063 BPM Atrial Rate : 063 BPM P-R Int : 166 ms QRS Dur : 080 ms QT Int : 398 ms P-R-T Axes : 062 060 065 degrees QTc Int : 407 ms Normal sinus rhythm Normal ECG No previous ECGs available Referred By: Alex Barba Electronically Signed By:APOLONIA GANDHI MD
--- NOTE | 2023-08-22 06:45 | PC.NURSE ---
Patient slept through the night, no distress observed/reported, denied SI/HI/AVH, disposition per care team is section-12 inpatient bed search, VSS, med rec completed/pending provider's approval, will continue to monitor
--- NOTE | 2023-08-22 09:13 | PC.NURSE ---
Assumed care of patient at 0645, patient is resting on couch in 7, offering no complaints. patient initially refusing EKG but is now willing to have EKG done. Patient appears to be in no apparent distress
--- NOTE | 2023-08-22 10:50 | MHC.CARE ---
Patient's sister, Latoya, received a call late last night from the evaluating clinician and was returning it. She stated that an traffic law attorney at the facility told her brother that he did not need to take medication so he stopped and quickly decompensated. Noted that recently the providers were discussing lower levels of care because patient was doing so well.
--- NOTE | 2023-08-22 13:45 | MHC.CARE ---
It appears that one of the numbers patient has memorized is the [facility], a program he attended prior to going to [place]. He has been calling them since arriving in the ED and was calling them while at [place]. Staff at [facility] shares that they listen to his concerns and then encourage him to seek help from nursing staff and also inform him they will not be transporting him anywhere.
[2023-08-22 15:26] VITALS: BP 118/67; PULSE 81; RESP 20; TEMP 36.4; O2SAT 95
--- OUTSIDE RECORDS SUMMARY | 2023-08-22 17:13 | XMS_ITS | Continuity of Care Document ---
Author Organization [facility] ry Address Unknown Care Team Providers Care Environmental Health And Safety Leader Name Role Phone Mariam Vides NP Primary Care Physician [place] [facility] [place]18[place]21 [place] 05/18/21 [facility] Allergies, Adverse Reactions, Alerts Substance Reaction Severity Status penicillin Active Bee Stings Persistent Moderate Active Lactose Persistent Moderate Active Immunizations Given and Recorded Vaccine Date Status Refusal Reason SARS-CoV-2 (COVID-19) mRNA BNT-162b2 vac 08/19/20 Recorded SARS-CoV-2 (COVID-19) mRNA BNT-162b2 vac 07/20/20 Recorded tetanus-diphtheria toxoids (Td) 08/08/07 Given Medications hydrocortisone 2.5% topical cream 1 application, Topically, 2 times a day, # 30 Gm, 0 Refills, Maintenance, 01/31/18 16:48:13 EDT, Cream Start Date: 01/31/18 Status: Ordered hydrocortisone 2.5% topical cream 1 application, Topically, 2 times a day, # 30 Gm, 0 Refills, Maintenance, 09/10/17 12:10:41 EDT, Cream Start Date: 09/10/17 Status: Ordered permethrin 5% topical cream 1 application, Topically, Once, to skin head to feet, remove by washing after 8 to 14 hours, # 60 Gm, 0 Refills, Soft Stop, 09/10/17 12:11:55 EDT, Cream Start Date: 09/10/17 Status: Ordered simvastatin 20 mg oral tablet 1 tablet, By Mouth, Daily at bedtime, # 30 tablet, 0 Refills, Maintenance, Tablet Start Date: 09/27/10 Status: Ordered valproic acid 250 mg oral capsule 3 capsule = 750 mg, By Mouth, Daily in AM, 0 Refills, Maintenance, 02/08/21 11:54:00 EST, Partial fill upon patient request if the prescription is for a schedule II opioid drug. Start Date: 02/08/21 Status: Ordered valproic acid 250 mg oral capsule 2 capsule = 500 mg, By Mouth, Daily at bedtime, 0 Refills, Maintenance, 02/08/21 11:55:00 EST, Partial fill upon patient request if the prescription is for a schedule II opioid drug. Start Date: 02/08/21 Status: Ordered Problem List Condition Effective Dates Status Health Status Inform ant Dyslexia(Confirmed) Active Epilepsy(Confirmed) Active Hyperlipidemia(Confirmed) Active Seizure disorder(Confirmed) Active
--- OUTSIDE RECORDS SUMMARY | 2023-08-22 17:13 | XMS_ITS | Continuity of Care Document ---
Author Organization [facility] em Address Unknown Care Team Providers Care Machinist Class B Name Role Phone Mariam Vides NP Primary Care Physician [id number] Date(s): 12/22/19 - 12/29/19 [facility] Attending Physician: Lianne Yee MD Admitting Physician: Lianne Yee MD Referring Physician: Mariam Vides NP Allergies, Adverse Reactions, Alerts Substance Reaction Severity Status penicillin Active Bee Stings Persistent Moderate Active Lactose Persistent Moderate Active Immunizations Given and Recorded Vaccine Date Status Refusal Reason tetanus-diphtheria toxoids (Td) 08/08/07 Given Medications divalproex sodium 250 mg oral enteric coated tablet = 750 mg, By Mouth, Daily in AM, 0 Refills, Maintenance, 04/29/18 18:28:58 EST, Tablet Start Date: 04/29/18 Status: Ordered divalproex sodium 500 mg oral enteric coated tablet = 500 mg, By Mouth, Daily at bedtime, 0 Refills, Maintenance, 04/29/18 18:28:56 EST, Tablet Start Date: 04/29/18 Status: Ordered hydrocortisone 2.5% topical cream 1 [...] Maintenance, Tablet Start Date: 09/27/10 Status: Ordered Problem List Condition Effective Dates Status Health Status Inform ant Dyslexia(Confirmed) Active Epilepsy(Confirmed) Active Hyperlipidemia(Confirmed) Active Seizure disorder(Confirmed) Active Vital Signs Most recent to oldest [Reference Range]: 1 Height 180 cm (12/22/19 1:24 PM) Oxygen Saturation [94-100 %] 99 % (12/22/19 1:24 PM) Pulse Rate [55-90 bpm] 77 bpm (12/22/19 1:24 PM) Respiratory Rate [16-30 br/min] 18 br/mi n (12/22/19 1:24 PM)
--- OUTSIDE RECORDS SUMMARY | 2023-08-22 17:13 | XMS_ITS | Continuity of Care Document ---
Author Organization [facility] Address [address] [place] [address]- Care Team Providers Care Interface Designer Name Role Phone [place] JOSEPH, Mariam Dubois Primary Care Physician [place] [facility] [place] 10/07/[address] [id number]- Encounter Diagnosis Hemorrhoids(Final) - 10/07/21 Rectal bleeding(Final) - 10/07/21 Discharge Disposition: A-D/C Home Attending Physician: Bambi Long MD Admitting Physician: Bambi Long MD Referring Physician: Not on Staff, Referring MD Allergies, Adverse Reactions, Alerts Substance Reaction Severity Status penicillin Active Bee Stings Persistent Moderate Active Lactose Persistent Moderate Active Immunizations Given and Recorded Vaccine Date Status Refusal Reason SARS-CoV-2 (COVID-19) mRNA-1273 vaccine 03/30/21 R ecorded SARS-CoV-2 (COVID-19) mRNA BNT-162b2 vac 08/19/20 Recorded SARS-CoV-2 (COVID-19) mRNA BNT-162b2 vac 07/20/20 Recorded influenza virus vaccine, inactivated 12/05/11 Danial rded influenza virus vaccine, inactivated 11/20/10 Danial rded tetanus/diphtheria/pertussis, acel(Tdap) 11/20/10 Recorded tetanus-diphtheria toxoids (Td) 08/08/07 Given Medications simvastatin 20 mg oral tablet 1 tablet, By Mouth, Daily at bedtime, # 30 tablet, 0 Refills, Maintenance, Tablet Start Date: 09/27/10 Status: Ordered valproic acid 250 mg oral capsule 1 capsule = 250 mg, By Mouth, 3 times a day, # 270 capsule, 0 Refills, Maintenance, 06/07/21 13:19:00 EST, Capsule, Partial fill upon patient request if the prescription is for a schedule II opioid drug. Start Date: 06/07/21 Status: Ordered Problem List Condition Effective Dates Status Health Status Inform ant Dyslexia(Confirmed) Active Epilepsy(Confirmed) Active Hyperlipidemia(Confirmed) Active Seizure disorder(Confirmed) Active Vital Signs Most recent to oldest [Reference Range]: 1 2 Height 180 cm (10/07/21 6:05 PM) Weight 87.2 kg (10/07/21 6:05 PM) Oxygen Saturation [94-100 %] 99 % (10/07/21 8:12 PM) 98 % (10/07/21 6:05 PM) Pulse Rate [55-90 bpm] 80 bpm (10/07/21 8:12 PM) 112 bpm *H* (10/07/21 6:05 PM) Blood Pressure [90-138/55-84 mm Hg] 135/ 81mm Hg (10/07/21 8:12 PM) 128/85mm Hg (10/07/21 6:05 PM) Respiratory Rate [16-30 br/min] 18 br/mi n (10/07/21 8:12 PM) 18 br/min (10/07/21 6:05 PM) Temperature [96.8-100.4 DegF] 98.9 DegF (10/07/21 6:05 PM) Mode of Delivery (Oxygen) Room air (10/07/21 8:12 PM) Room air (10/07/21 6:05 PM) Blood pressure sites Arm, right (10/07/21 8:12 PM) Arm, right (10/07/21 6:05 PM) Temperature Route Temporal (10/07/21 6:05 PM) Dry Weight 87.2 kg (10/07/21 6:05 PM) Social History Social History Type Response Smoking Status Never (less than 100 in lifetime) entered on: 06/07/21 Sex Medical Equipment Implanted Date:06/07/21Target Site:[employer] Description Quantity MRI Company Model PATCH HERNIA VENTRALEX LG CI R - BARD ([id number]) 1 Bard Unknown JOSEF:{[id number] Assigning Authority:FDA
--- OUTSIDE RECORDS SUMMARY | 2023-08-22 17:13 | XMS_ITS | Continuity of Care Document ---
Author Organization [facility] em Address Unknown Care Team Providers Care Hr Administrator Name Role Phone Mariam Vides NP Primary Care Physician Encounter [facility] [place] Date(s): 02/08/21 - 02/15/21 [facility] Attending Physician: James Calvo MD Admitting Physician: James Calvo MD Referring Physician: Mariam Vides NP Allergies, Adverse Reactions, Alerts Substance Reaction Severity Status penicillin Active Bee Stings Persistent Moderate Active Lactose Persistent Moderate Active Immunizations Given and Recorded Vaccine Date Status Refusal Reason tetanus-diphtheria toxoids (Td) 08/08/07 Given Medications clotrimazole 1% topical cream 1 application, Topically, 2 times a day, for 7 days, # 30 Gm, 0 Refills, Acute 02/18/21 6:51:00 EST, 02/11/21 6:51:00 EST, Cream, [facility]/pharmacy #[id number], Partial fill upon patient request if the prescription is for a schedule II opioid drug., 1 applicatio... Start Date: 02/11/21 Stop Date: 02/18/21 Status: Ordered hydrocortisone 2.5% topical cream 1 [...] oldest [Reference Range]: 1 Height 180 cm (02/08/21 10:38 AM) Weight 87.27 kg (02/08/21 10:38 AM) Oxygen Saturation [94-100 %] 99 % (02/08/21 10:38 AM) Pulse Rate [55-90 bpm] 86 bpm (02/08/21 10:38 AM) Body Mass Index [18.5-24.99] 26.94 *H* (02/08/21 10:38 AM) Blood Pressure [90-138/55-84 mm Hg] 110/ 64mm Hg (02/08/21 10:38 AM) Respiratory Rate [16-30 br/min] 16 br/mi n (02/08/21 10:38 AM) Mode of Delivery (Oxygen) Room air (02/08/21 10:38 AM) Blood pressure sites Arm, right (02/08/21 10:38 AM) Weight Obtained Via Patient/family state d (02/08/21 10:38 AM)
--- OUTSIDE RECORDS SUMMARY | 2023-08-22 17:13 | XMS_ITS | Continuity of Care Document ---
Author Organization [facility] em Address Unknown Care Team Providers Care Manager Spring Name Role Phone Mariam Vides NP Primary Care Physician [phone] Encounter [facility] [place] Date(s): 12/22/19 - 01/21/20 [facility] Attending Physician: Nesha Mancuso Admitting Physician: Nesha Mancuso Referring Physician: Nesha Mancuso Allergies, Adverse Reactions, Alerts Substance Reaction Severity [...]
--- OUTSIDE RECORDS SUMMARY | 2023-08-22 17:13 | XMS_ITS | Continuity of Care Document ---
Author Organization [facility] ry Address [address] [place] [address]- Care Team Providers Care Dramatic Arts Historian Name Role Phone Not on Staff, PCP Primary Care Physician Unavail able Encounter [facility] Date(s): 01/10/22 - 02/09/22 [facility] [address] [place] [address]- Allergies, Adverse Reactions, Alerts Substance Reaction Severity [...] Date: 06/07/21 Status: Ordered Problem List Condition Confirmation Course Effective Dates Status Health St atus Informant Dyslexia Confirmed Active Epilepsy Confirmed Active Hyperlipidemia Confirmed Active Seizure disorder Confirmed Active Social History Social History Type Response Smoking Status Never (less than 100 in lifetime) entered on: 06/07/21 Sex Implantable Device List Procedure Provider Procedure Date Device Type Site Repair Hernia Ventral Open [place] DRISCOLL, James Mclaughlin 06/07/21 Unk alonso Umbilicus Device Identifier Serial Number Lot or Batch Number Manufacturing Date Expiration Date Distinct Identification Code MRI Safety Implantable Status Assigning Authority [id number] Unknown [id number] Unknown 11/26/21 Unknown Unknown Active GS1 Patient Care team information Care Team Personnel Name: Not on Staff, PCP Position: [facility] Physician (General Medicine) Member Role: PCP Name: Letty Zavala RN Position: [facility] RN Member Role: Primary Care Nurse Care Team Related Persons Name: KELSEY ZARAGOZA Address: [place] [address] Name: PATIENT STATES, NONE
--- OUTSIDE RECORDS SUMMARY | 2023-08-22 17:13 | XMS_ITS | Continuity of Care Document ---
Author Organization [facility] Address [address] [place] [address]- Care Team Providers Care Financial Engineer Name Role Phone Mahogany JOSEPH, Mariam Dubois Primary Care Physician Encounter [facility] [place] Date(s): 10/19/21 - 10/19/[address] [address]- Discharge Disposition: A-D/C Home Attending Physician: George Nash MD Admitting Physician: George Nash MD Referring Physician: Not on Staff, Referring [...] Recorded tetanus-diphtheria toxoids (Td) 08/08/07 Given Medications clindamycin 300 mg oral capsule 1 capsule = 300 mg, By Mouth, Every 8 hours, for 7 days, # 21 capsule, 0 Refills, Acute 10/26/21 1:48:00 EDT, 10/19/21 1:48:00 EDT, Capsule, [id number], Partial fill upon patient request if the prescription is for a schedule II opioid drug., 1... Start Date: 10/19/21 Stop Date: 10/26/21 Status: Ordered simvastatin 20 mg oral tablet [...] oldest [Reference Range]: 1 Height 180 cm (10/19/21 1:42 AM) Weight 79.5 kg (10/19/21 1:42 AM) Oxygen Saturation [94-100 %] 97 % (10/19/21 1:42 AM) Pulse Rate [55-90 bpm] 93 bpm *H* (10/19/21 1:42 AM) Blood Pressure [90-138/55-84 mm Hg] 119/ 82mm Hg (10/19/21 1:42 AM) Respiratory Rate [16-30 br/min] 18 br/mi n (10/19/21 1:42 AM) Temperature [96.8-100.4 DegF] 98.7 DegF (10/19/21 1:42 AM) Mode of Delivery (Oxygen) Room air (10/19/21 1:42 AM) Temperature Route Oral (10/19/21 1:42 AM) Dry Weight 79.5 kg (10/19/21 1:42 AM) Social History Social History Type Response Smoking Status Never (less than 100 in lifetime) entered on: 06/07/21 Sex Medical Equipment Implanted Date:06/07/21Target Site:Umbilicus Description Quantity MRI Company Model PATCH HERNIA VENTRALEX LG CI R - BARD ([id number]) 1 Bard Unknown JOSEF:{01}[id number]{17}[id number]{10}HUEW [id number] Assigning Authority:FDA
--- OUTSIDE RECORDS SUMMARY | 2023-08-22 17:13 | XMS_ITS | Continuity of Care Document ---
Author Organization [facility] Address [address] [place] [address]- Care Team Providers Care Tools Administrator Name Role Phone Mariam Vides NP Primary Care Physician [place] [facility] [place]12/[place] - 11/12/[address] [address] [facility] [phone] Encounter Diagnosis Back abscess(Final) - 11/12/19 Discharge Disposition: A-D/C Home Attending Physician: Diane Agee MD Admitting Physician: Diane Agee MD Referring Physician: Not on Staff, Referring [...] EDT, Cream Start Date: 09/10/17 Status: Ordered mupirocin 2% topical ointment 1 application, Topically, 3 times a day, for 7 days, # 15 Gm, 0 Refills, Acute 11/19/19 3:16:00 EDT, 11/12/19 3:16:00 EDT, Ointment, [facility]/pharmacy #[id number], 1 application Topically 3 times a day,x7 days,180, cm, 11/12/19 3:10:00 EDT, Height, 82, kg, 10/30... Start Date: 11/12/19 Stop Date: 11/19/19 Status: Ordered permethrin 5% topical cream 1 [...] oldest [Reference Range]: 1 Height 180 cm (11/12/19 3:10 AM) Weight 82 kg (11/12/19 3:10 AM) Oxygen Saturation [94-100 %] 100 % (11/12/19 3:10 AM) Pulse Rate [55-90 bpm] 68 bpm (11/12/19 3:10 AM) Blood Pressure [90-138/55-84 mm Hg] 119/ 87mm Hg (11/12/19 3:10 AM) Respiratory Rate [16-30 br/min] 16 br/mi n (11/12/19 3:10 AM) Temperature [96.8-100.4 DegF] 98.1 DegF (11/12/19 3:10 AM) Mode of Delivery (Oxygen) Room air (11/12/19 3:10 AM) Temperature Route Oral (11/12/19 3:10 AM) Dry Weight 82 kg (11/12/19 3:10 AM)
--- OUTSIDE RECORDS SUMMARY | 2023-08-22 17:13 | XMS_ITS | Continuity of Care Document ---
Author Organization [facility] em Address Unknown Care Team Providers Care Dye Tub Tender Name Role Phone Mariam Vides NP Primary Care Physician [place] [facility] [place] 08/09/21 - 08/16/21 [facility] Attending Physician: James Calvo MD Admitting [...] recent to oldest [Reference Range]: 1 Height 180.34 cm (08/09/21 11:28 AM) Oxygen Saturation [94-100 %] 99 % (08/09/21 11:28 AM) Pulse Rate [55-90 bpm] 78 bpm (08/09/21 11:28 AM) Blood Pressure [90-138/55-84 mm Hg] 108/ 78mm Hg (08/09/21 11:28 AM) Respiratory Rate [16-30 br/min] 18 br/mi n (08/09/21 11:28 AM) Mode of Delivery (Oxygen) Room air (08/09/21 11:28 AM) Blood pressure sites Arm, left (08/09/21 11:28 AM) Social History Social History Type Response Smoking Status Never (less than 100 in lifetime) entered on: 06/07/21 Sex Medical Equipment Implanted Date:06/07/21Target Site:U[employer]ilicus Description Quantity MRI Company Model PATCH HERNIA VENTRALEX LG CI R - BARD ([id number]) 1 Bard Unknown JOSEF:{01}[id number]{17}[id number]{10}SARAH 0808 Assigning Authority:FDA
--- OUTSIDE RECORDS SUMMARY | 2023-08-22 17:13 | XMS_ITS | Continuity of Care Document ---
Author Organization [facility] Address [address] [place] [address]- Care Team Providers Care Dowel Machine Operator Name Role Phone Not on Staff, PCP Primary Care Physician Unavail able Encounter [facility] [place] Date(s): 08/31/22 - 08/31/[address] [address]- Discharge Disposition: A-D/C Home Attending Physician: Jean-Claude Castillo MD Admitting Physician: Jean-Claude Castillo MD Referring Physician: Not on Staff, Referring [...] Hyperlipidemia Confirmed Active Seizure disorder Confirmed Active Vital Signs Most recent to oldest [Reference Range]: 1 Height 185 cm (08/31/22 5:43 AM) Weight 77.5 kg (08/31/22 5:43 AM) Oxygen Saturation [94-100 %] 100 % (08/31/22 5:43 AM) Pulse Rate [55-90 bpm] 76 bpm (08/31/22 5:43 AM) Blood Pressure [90-138/55-84 mm Hg] 130/ 78mm Hg (08/31/22 5:43 AM) Respiratory Rate [16-30 br/min] 18 br/mi n (08/31/22 5:43 AM) Temperature [96.8-100.4 DegF] 97.1 DegF (08/31/22 5:43 AM) Mode of Delivery (Oxygen) Room air (08/31/22 5:43 AM) Temperature Route Oral (08/31/22 5:43 AM) Dry Weight 77.5 kg (08/31/22 5:43 AM) Social History Social History Type Response Smoking Status Never (less than 100 in lifetime) entered on: 06/07/21 Sex Implantable Device List Procedure Provider Procedure Date Device Type Site Repair Hernia Ventral Open [place] DRISCOLL, James Mclaughlin 06/07/21 Unk nown Umbilicus Device Identifier Serial Number Lot or Batch Number Manufacturing Date Expiration Date Distinct Identification Code MRI Safety Implantable Status Assigning Authority [id number] Unknown [id number] Unknown 11/26/21 Unknown Unknown Active GS1 Note * Jean-Claude Castillo MD: PERFORM Event Display: Patient Education Leaflets Authored Date: [id number] Low-Cholesterol Diet ?? [id number] Low-Cholesterol Diet Too much cholesterol in your blood can lead to problems such as blocked arteries. This can lead to heart attack and stroke. Eating meals that are low in saturated fat and cholesterol helps reduce thelevel of cholesterol in your blood. Below are eating tips to help you do this. There are 2 kinds of cholesterol in your blood: ??? HDL (good) cholesterol. This prevents fat deposits (plaque) from building up in your arteries. In this way, it protects against heart disease and stroke. ??? LDL (bad) cholesterol. This stays in your body and sticks to artery waterman. Over time it may block blood flow to the heart and brain. Thiscan cause a heart attack or stroke. The cholesterol in your blood comes from 2 sources. It comes in food that you eat. And it's also made by your liver. You need to limit the amount of cholesterol you eat. And you need to limit bad fats. Your body makes more cholesterol when your diet is high in bad fats.?? Understanding the fats you eat There are 3 kinds of fats in foods and drinks: ??? Unsaturated fats. These include mono-unsaturatedand poly-unsaturated fats. These are healthy fats. They raise the level of good cholesterol. They lower the level of bad cholesterol. Good fats are found in vegetable oils. This includes olive, sunflower, corn, and soybean oils. Good fats are also in fish, nuts, and seeds. ??? Saturated fats. Theseare unhealthy fats. These raise your risk of disease. They lower your good cholesterol. They raise your bad cholesterol. Saturated fats are found in animal products. This includes meat, whole-milk dairy products, and butter. Some plants are high in saturated fats. This includes coconut and palm plants. ??? Trans fats. These are unhealthy fats. They lower your good cholesterol. They raise your badcholesterol. The main source of trans fats is processed food. These foods have partially hydrogenated oils. These are fats made by turning a liquid fat into a solid fat at room temperature. Trans fats are found in hard (stick) margarines. They are in many fast foods, processed foods, and baked goods. Soft margarine sold in tubs has fewer trans fats. The FDA says that trans fats are no longer considered safe in foods. ?? Creating a low-cholesterol diet The tips below will help you create healthy eating habits to lower your blood cholesterol level: ??? Talk with your healthcare provider before starting a new diet. ??? Read nutrition labels. Learn what healthy portion sizes look like. ??? When cooking, use unsaturated vegetable oils. These include sunflower, corn, soybean, canola, peanut, and olive oils. ??? Limit saturated fats. These are in animal products such as meat and whole-milk dairy foods. Poultry skin also has this type of fat. Plantshigh in saturated fats include coconut oil, palm oil, and palm kernel oil. ??? Eat more meatless meals. If you eat meat, eat smaller portions. Choose lean cuts. This includes round, angie, sirloin, or loin. ??? Replace meat with fish at least 2 times a week. Fish is a good source of omega-3 fatty acids. This is a type of unsaturated fat.??This fat may lower the risk of heart disease. ??? Replace whole-milk dairy products with low-fat or nonfat products. Try soy products. Soy helps to reduce total cholesterol. ??? Eat more fiber. Eat nuts, seeds, and whole grains. These foods lower both cholesterol and triglyceride levels. Triglycerides are another type of fat in the blood. ??? Don???t eat white rice or white bread.? Eat plenty of fresh fruits and vegetables daily. ??? Limit fast foods and baked goods. Assume they have saturated fat and trans fat. ?? Last Reviewed Date: 2021 ?? [employer]. All rights reserved. This information is not intended as a substitute for professional medical care. Always follow your healthcare professional's instructions. ?? * Jean-Claude Castillo MD: PERFORM Event Display: Patient Education Leaflets Authored Date: [id number] Soft Tissue Bruise (Contusion) ?? [id number] Soft Tissue Bruise (Contusion) You have a bruise (contusion). There is swelling and some bleeding under the skin. This injury??generally??takes a few days to a few weeks to heal. During that time, the bruise will typically change in color from??reddish, to purplish- blue, to greenish-yellow, then to yellowish-brown. Home care ??? Elevate the injured area to reduce pain and swelling.??As much as possible, sit or lie down with the injured area raised about the level of your heart.??This is especially important during the first 48 hours. ??? Ice the injured area to help reduce pain and swelling.??Wrap an ice packin a thin towel. Apply to the bruised area for 20 minutes every 1 to 2 hours the first day. Continue this 3 to 4 times a day until the pain and swelling goes away. You can make an ice pack by placingice cubes in a plastic bag, or by using a frozen bag of vegetables. ??? Unless another medicine wasprescribed, you can take acetaminophen, ibuprofen, or naproxen??to control pain. Talk with your [facility] provider before using these medicines if you have chronic liver or kidney disease or ever had a stomach ulcer or digestive bleeding. ?? Follow-up care Follow up with your healthcare provider, or as advised. Call if you are not better in 1 to 2 weeks. ?? When to seek medical advice?? Call your healthcare provider right away if any of the following occur: ??? Increased pain or swelling ??? Bruise is on an arm or leg, and arm or leg becomes cold, blue, numb, or tingly ??? Signs of infection:??Warmth, drainage, or increased redness or pain around the contusion ??? Inability to move the injured area or body part? Bruise is near your eye, and you have problems with your eyesight or eye? Frequent bruising for unknown reasons ?? Last Reviewed Date: 2021 ?? 2886-2876 [employer]. All rights reserved. This information is not intended as a substitute for professional medical care. Always follow your healthcare professional's instructions. ?? Patient Care team information Care Team Personnel Name: Not on Staff, PCP Position: [facility] Physician (General Medicine) Member Role: PCP Name: Letty Zavala RN Position: [facility] RN Member Role: Primary Care Nurse Name: Jean-Claude Castillo MD Position: [facility] ED Medicine MD Member Role: Admitting Physician Address: Address: [address] [place] [address]- Name: Vicki Stinson RN Position: [facility] ED RN W/OE and Tasks Member Role: Patient Care Provider Care Team Related Persons Name: KELSEY ZARAGOZA Address: [place] [address]
--- OUTSIDE RECORDS SUMMARY | 2023-08-22 17:13 | XMS_ITS | Continuity of Care Document ---
Author Organization [facility] em Address Unknown Care Team Providers Care Parish Worker Name Role Phone Mariam Vides NP Primary Care Physician Encounter [facility] [place] Date(s): 06/14/21 - 06/21/21 [facility] Attending Physician: James Calvo MD Admitting Physician: [...] Recorded tetanus-diphtheria toxoids (Td) 08/08/07 Given Medications Colace sodium 100 mg oral capsule 100 mg, 1, capsule, By Mouth, 2 times a day, PRN, # 20 capsule, Refills 0, Tot. Refills 0, Maintenance, for constipation, 06/08/21 11:14:00 EST, Print Requisition, Partial fill upon patient request if the prescription is for a schedule II opioid drug. Start Date: 06/08/21 Status: Ordered oxyCODONE 5 mg oral tablet 5 mg, 1, tablet, By Mouth, Every 4 hours, PRN, you may filll this prescription for fewer pills. MASSpat reviewed, # 12 tablet, Refills 0, Tot. Refills 0, Maintenance, Pain , Severe, 06/08/21 11:13:00EST, Print Requisition, Partial fill upon patient... Start Date: 06/08/21 Status: Ordered simvastatin 20 mg oral tablet [...] oldest [Reference Range]: 1 Height 180.34 cm (06/14/21 9:42 AM) Oxygen Saturation [94-100 %] 96 % (06/14/21 9:42 AM) Pulse Rate [55-90 bpm] 112 bpm *H* (06/14/21 9:42 AM) Respiratory Rate [16-30 br/min] 18 br/mi n (06/14/21 9:42 AM) Mode of Delivery (Oxygen) Room air (06/14/21 9:42 AM) Social History Social History Type Response Smoking Status Never (less than 100 in lifetime) entered on: 06/07/21 Sex Medical Equipment Implanted Date:06/07/21Target Site:U[employer]ilicus Description Quantity MRI Company Model PATCH HERNIA VENTRALEX LG CI R - BARD ([id number]) 1 Bard Unknown JOSEF:{01}[id number]{17}[id number]{10}HUEW 0808 Assigning Authority:FDA
--- OUTSIDE RECORDS SUMMARY | 2023-08-22 17:13 | XMS_ITS | Continuity of Care Document ---
Author Organization [facility] Address [address] [place] [address]- Care Team Providers Care Admitting Manager Name Role Phone Mahogany JOSEPH, Mariam Dubois Primary Care Physician [phone] [place] [facility] [place] - 11/09/[address] [address]- [facility] [phone] Discharge Disposition: A-D/C Home Attending Physician: Parth Roe MD Admitting Physician: Parth Roe MD Referring Physician: Not on Staff, Referring [...] oldest [Reference Range]: 1 Height 180 cm (11/09/19 5:52 AM) Weight 82 kg (11/09/19 5:52 AM) Oxygen Saturation [94-100 %] 99 % (11/09/19 5:52 AM) Pulse Rate [55-90 bpm] 66 bpm (11/09/19 5:52 AM) Blood Pressure [90-138/55-84 mm Hg] 126/ 74mm Hg (11/09/19 5:52 AM) Respiratory Rate [16-30 br/min] 18 br/mi n (11/09/19 5:52 AM) Temperature [96.8-100.4 DegF] 97.3 DegF (11/09/19 5:52 AM) Mode of Delivery (Oxygen) Room air (11/09/19 5:52 AM) Blood pressure sites Arm, left (11/09/19 5:52 AM) Temperature Route Oral (11/09/19 5:52 AM) Dry Weight 82 kg (11/09/19 5:52 AM) Weight Obtained Via Patient/family state d (11/09/19 5:52 AM) Dry Weight Obtained Via Patient/family s tated (11/09/19 5:52 AM)
--- OUTSIDE RECORDS SUMMARY | 2023-08-22 17:13 | XMS_ITS | Continuity of Care Document ---
Author Organization [facility] Address [address] [place] [address]- Care Team Providers Care Drywall Taper Name Role Phone Mahogany JOSEPH, Mariam Dubois Primary Care Physician Encounter [facility] [place] Date(s): 02/11/21 - 02/11/[address] [address]- Encounter Diagnosis Tinea cruris(Final) - 02/11/21 Discharge Disposition: A-D/C Home Attending Physician: Mehdi Bragg MD Admitting Physician: Mehdi Bragg MD Referring Physician: Not on Staff, Referring [...] 02/18/21 6:51:00 EST, 02/11/21 6:51:00 EST, Cream, [facility]/pharmacy #[id number], Partial fill upon patient request if the [...] recent to oldest [Reference Range]: 1 Height 181 cm (02/11/21 6:34 AM) Weight 84.5 kg (02/11/21 6:34 AM) Oxygen Saturation [94-100 %] 97 % (02/11/21 6:34 AM) Pulse Rate [55-90 bpm] 86 bpm (02/11/21 6:34 AM) Blood Pressure [90-138/55-84 mm Hg] 136/ 82mm Hg (02/11/21 6:34 AM) Respiratory Rate [16-30 br/min] 18 br/mi n (02/11/21 6:34 AM) Temperature [96.8-100.4 DegF] 98.0 DegF (02/11/21 6:34 AM) Mode of Delivery (Oxygen) Room air (02/11/21 6:34 AM) Blood pressure sites Arm, left (02/11/21 6:34 AM) Temperature Route Oral (02/11/21 6:34 AM) Dry Weight 84.5 kg (02/11/21 6:34 AM)
--- OUTSIDE RECORDS SUMMARY | 2023-08-22 17:13 | XMS_ITS | Continuity of Care Document ---
Author Organization [facility] Address [address] [place] [address]- Care Team Providers Care Atg Architect Name Role Phone Mariam Vides NP Primary Care Physician [place] [facility] [place] 10/09/19 - 10/09/[address] [address]- [facility] [phone] Discharge Disposition: A-D/C Home Attending Physician: George [...] recent to oldest [Reference Range]: 1 2 3 Height 180 cm (10/09/19 8:28 AM) 180 cm (10/09/19 7:27 AM) 180 cm (10/09/19 7:24 AM) Weight 79 kg (10/09/19 8:28 AM) 79 kg (10/09/19 7:27 AM) 79 kg (10/09/19 7:24 AM) Oxygen Saturation [94-100 %] 100 % (10/09/19 7:24 AM) Pulse Rate [55-90 bpm] 74 bpm (10/09/19 7:24 AM) Body Mass Index [18.5-24.99] 24.38 (10/09/19 7:24 AM) Blood Pressure [90-138/55-84 mm Hg] 135/78mm Hg (10/09/19 7:24 AM) Respiratory Rate [16-30 br/min] 18 br/min (10/09/19 7:24 AM) Temperature [96.8-100.4 DegF] 97 DegF (10/09/19 7:24 AM) Mode of Delivery (Oxygen) Room air (10/09/19 7:24 AM) Temperature Route Oral (10/09/19 7:24 AM) Dry Weight 79 kg (10/09/19 8:28 AM) 79 kg (10/09/19 7:27 AM) 79 kg (10/09/19 7:24 AM) Dry Weight Obtained Via Patient/family s tated (10/09/19 7:24 AM)
--- OUTSIDE RECORDS SUMMARY | 2023-08-22 17:13 | XMS_ITS | Continuity of Care Document ---
Author Organization [facility] em Address Unknown Care Team Providers Care Editorial Project Manager Name Role Phone Mariam Vides NP Primary Care Physician [place] [facility] [place] - 09/08/21 [facility] Attending Physician: Nesha Mancuso Admitting Physician: [...] Epilepsy(Confirmed) Active Hyperlipidemia(Confirmed) Active Seizure disorder(Confirmed) Active Social History Social History Type Response Smoking Status Never (less than 100 in lifetime) entered on: 06/07/21 Sex Medical Equipment Implanted Date:06/07/21Target Site:[employer] Description Quantity MRI Company Model PATCH HERNIA VENTRALEX LG CI R - BARD ([id number]) 1 Bard Unknown JOSEF:{01}[id number]{17}[id number]{10}SARAH 0808 Assigning Authority:FDA
--- OUTSIDE RECORDS SUMMARY | 2023-08-22 17:13 | XMS_ITS | Continuity of Care Document ---
Author Organization [facility] em Address Unknown Care Team Providers Care Senior Information Security Engineer Name Role Phone Not on Staff, PCP Primary Care Physician Unavail able En[place] [facility] [place] Date(s): 01/15/22 - 02/14/22 [facility] Attending Physician: Nesha Mancuso Admitting Physician: [...] List Condition Confirmation Course Effective Dates Status [facility] atus Informant Dyslexia Confirmed Active Epilepsy [...] Code MRI Safety Implantable Status Assigning Authority [id number] Unknown [id number] Unknown 11/26/21 Unknown Unknown Active GS1 Patient Care team information Care Team Personnel Name: Not on Staff, PCP Position: [facility] Physician (General Medicine) Member Role: PCP Name: Letty Zavala RN Position: [facility] RN Member Role: Primary Care Nurse Care Team Related Persons Name: KELSEY ZARAGOZA Address: [place] [address] Name: PATIENT STATES, NONE
--- OUTSIDE RECORDS SUMMARY | 2023-08-22 17:13 | XMS_ITS | Continuity of Care Document ---
Author Organization [facility] Address [address] [place] [address]- Care Team Providers Care Hydro Generation Supervisor Name Role Phone Not on Staff, PCP Primary Care Physician Unavail able [place] [facility] [place] - 10/04/[address] [address]- Encounter Diagnosis Abdominal pain(Final) - 10/04/22 Discharge Disposition: A-D/C Home Attending Physician: Roshni Hunter MD Admitting Physician: Roshni Hunter MD Referring Physician: Not on Staff, Referring [...] Hyperlipidemia Confirmed Active Seizure disorder Confirmed Active Results Radiology Reports * Exam Date Time Procedure Performing Provider Status 10/04/22 6:[address] Abdomen and Pelvis W/O Contrast Lyndsey Heard; Auth (Verified) Notes: (CT Abdomen and Pelvis W/O Contrast) Reason For Exam: Pain RESULT: CT Abdomen and Pelvis W/O Contrast CT Abdomen and Pelvis W/O Contrast INDICATION/CLINICAL QUESTION: Hx of Present Illness: Bloating x3-4 days, weight loss; Reason: Pain;Clinical Question(s): Obstruction / Obstruction. TECHNIQUE: Spiral CT through the abdomen and pelvis without IV contrast formatted in 3 planes. The study was performed without oral contrast. Weight- based protocol using automatic tube modulation wasused to optimize exposure parameters. CTDIvol Body: 14.33 mGy, DLP Body: 841 mGy*cm. COMPARISON: 04/29/2018 CT abdomen and pelvis. FINDINGS: Evaluation of the abdominal and pelvic viscera is suboptimal without intravenous contrast. Supervisor [place] Findings, Lines and Tubes: None. Visualized Chest: Mild bibasilar atelectasis. No pleural effusion. Normal heart size. No pericardial effusion. 3.2 x 4.7 cm left-sided pericardial cyst, unchanged. Diaphragm: Unremarkable. Liver: Hypoattenuating focus in the left hepatic lobe, too small to characterize, but unchanged andlikely a benign cyst. Liver morphology is normal. Gallbladder: Prior cholecystectomy. Bile ducts: No biliary ductal dilation. Spleen: Spleen size is normal. Pancreas: No peripancreatic inflammatory changes. Adrenal Glands: Normal. Kidneys and Ureters: Several nonobstructing calculi within both kidneys measuring up to 0.6 cm of the right lower pole, and 0.4 cm in the left lower pole. No hydronephrosis. Simple appearing cysts within the kidneys, not requiring follow-up. Bladder: Underdistended. Apparent bladder wall thickening probably due to underdistention given negative urinalysis. Stomach, Small bowel and Large Bowel: The stomach is normal. The small bowel is normal in caliber, with no evidence of a bowel obstruction. Apparent thickening of small bowel loops probably due to underdistention given lack of surrounding inflammatory changes. The rectum is normal. The colon is normal. Appendix: Normal. Peritoneum, omentum and mesentery: No ascites or pneumoperitoneum. No omental or mesenteric lesions. Lymph nodes: No pathologically enlarged lymph nodes. Blood vessels: Mild vascular calcifications but no aneurysm. Abdominal and pelvic wall: Prior ventral hernia mesh repair with a small amount of eventration of the intra-abdominal fat at the repair site, without discrete fascial defect. Tiny fat-containing right inguinal hernia. Reproductive organs: The prostate is normal. The perineum is normal. Bones: Moderate degenerative changes in the spine. Mild retrolisthesis of L3 on L4. Sclerotic foci in the left iliac bone, unchanged from 2021 and most likely benign. IMPRESSION: 1. No acute findings in the abdomen or pelvis. 2. Apparent thickening of small bowel loops, probably due to underdistention given lack of surrounding inflammatory changes. 3. Multiple nonobstructing calculi within the kidneys. Preliminary findings were reported by virtual radiology. No significant discrepancy. WSN: [id number] Ordering Physician: Russ Arreola Dictated By: Venancio Govea MD Dictated Date/Time: 10/04/22 10:55 a Reviewed By: Venancio Govea MD Signed By: Venancio Govea MD Signed Date/Time: 10/04/22 10:55 am Transcribed By: GULSHAN Transcribed Date/Time: 10/04/22 10:05 am Vital Signs Most recent to oldest [Reference Range]: 1 2 Height 183 cm (10/04/22 5:55 AM) Weight 80 kg (10/04/22 8:14 AM) 75 kg (10/04/22 5:55 AM) Oxygen Saturation [94-100 %] 96 % (10/04/22 8:02 AM) 96 % (10/04/22 5:55 AM) Pulse Rate [55-90 bpm] 71 bpm (10/04/22 8:02 AM) 90 bpm (10/04/22 5:55 AM) Blood Pressure [90-138/55-84 mm Hg] 119/ 79mm Hg (10/04/22 8:02 AM) 147/82mm Hg *H* (10/04/22 5:55 AM) Respiratory Rate [16-30 br/min] 18 br/mi n (10/04/22 8:02 AM) 18 br/min (10/04/22 5:55 AM) Temperature [96.8-100.4 DegF] 98 DegF (10/04/22 8:02 AM) 98.1 DegF (10/04/22 5:55 AM) Mode of Delivery (Oxygen) Room air (10/04/22 8:02 AM) Room air (10/04/22 5:55 AM) Blood pressure sites Arm, left (10/04/22 8:02 AM) Arm, left (10/04/22 5:55 AM) Temperature Route Oral (10/04/22 8:02 AM) Oral (10/04/22 5:55 AM) Dry Weight 75 kg (10/04/22 5:55 AM) Social History Social History Type Response Smoking Status Never (less than 100 in lifetime) entered on: 06/07/21 Sex Implantable Device List Procedure Provider Procedure Date Device Type Site Repair Hernia Ventral Open James Calvo MD 06/07/21 Unk nown Umbilicus Device Identifier Serial Number Lot or Batch Number Manufacturing Date Expiration Date Distinct Identification Code MRI Safety Implantable Status Assigning Authority [id number] Unknown [id number] Unknown 11/26/21 Unknown Unknown Active GS1 Note * Roshni Hunter MD: PERFORM Event Display: Patient Education Leaflets Authored Date: [id number] Unknown Causes of Abdominal Pain (Adult) ?? [id number] Unknown Causes of Abdominal Pain (Adult) The exact cause of your belly (abdominal) pain is not clear. Your exam and tests don't suggest a dangerous cause at this time. This does not mean that this is something to worry about. Everyone likesto know the exact cause of the problem. But sometimes with belly pain, there is no clear-cut cause,and this could be a good thing. Your symptoms can be treated, and you should feel better.?? Your condition does not seem serious now. But sometimes the signs of a serious problem may take more time to appear. For this reason,??it's important for you to watch for any new symptoms, problems,??or worsening of your condition. Over the next few days, the abdominal pain may come and go. Or it may be constant. Other common symptoms can include nausea and vomiting. Sometimes it can be difficult to tell if you feel nauseous. You may just feel bad and not connect that feeling to nausea. Constipation, diarrhea, and a fever maygo along with the pain. The pain may continue even if treated correctly over the following days. Depending on how things go, sometimes the cause can become clear and you may need more??or different treatment. You may also need other evaluations, medicines, or tests. Home care Your healthcare provider may prescribe medicine for pain, symptoms, or an infection. ??Follow the healthcare provider's instructions for taking these medicines. General care ??? Rest as much as you can until your next exam. No strenuous activities. ??? Try to not do anything that may have caused your symptoms. This might be not taking any medicines unless otherwise directed by your healthcare provider. It might be not eating certain foods or doing certain activities. ??? Find positions that ease discomfort. A small pillow placed on your belly may help relieve pain. ??? Something warm on your belly such as a heating pad may help, but be careful not to burn yourself. Diet ??? Don???t??force yourself to eat, especially if having cramps, vomiting, or diarrhea. ??? Water is important so you don't get dehydrated. Soup may also be good. Sports drinks may also help, especially if they are not too acidic. Don't drink sugary drinks as this can make things worse. Take liquids in small amounts. Don???t??guzzle them. ??? Caffeine sometimes makes the pain and cramping worse. ??? Don???t take??dairy products if you have vomiting or diarrhea. ??? Don't eat large amounts at a time. Eat several small meals during the day instead of 2 or 3 larger meals. Wait a few minutesbetween bites. ??? Eat a diet low in fiber (called a low-residue diet). Foods allowed include refined breads, white rice, fruit and vegetable juices without pulp, tender meats. These foods will pass more easily through the intestine. ??? Don???t have??whole-grain foods, whole fruits and vegetables,meats, seeds and nuts, fried or fatty foods, dairy, alcohol and spicy foods until your symptoms go away. ?? Follow-up care Follow up with your healthcare provider, or as advised, if your pain does not begin to improve in the next 24 hours. ?? Call 911 Call?? 911 if any of these occur: ??? Trouble breathing ??? Confusion ??? Fainting or loss of consciousness ??? Rapid heart rate ??? Seizure ?? When to seek medical advice Call your healthcare provider right away if any of these occur: ??? Pain gets worse or moves to theright lower abdomen ??? New or worsening vomiting or diarrhea ??? Swelling of the abdomen ??? Unable to pass stool for more than??3 days ??? Fever of 100.4??F (38??C) or higher, or as directed by your healthcare provider ??? Blood in vomit or bowel movements (dark red or black color) ??? Yellow color of eyes and skin (jaundice) ??? Weakness, dizziness ??? Chest, arm, back, neck, or jaw pain ??? Can't keep down medicines, liquids, or water because of too much vomiting ??? If you have a vagina: unexpected vaginal bleeding or missed period ?? Last Reviewed Date: 2021 ?? 2197-1708 [employer]. All rights reserved. This information is not intended as a substitute for professional medical care. Always follow your healthcare professional's instructions. ?? Patient Care team information Care Team Personnel Name: Not on Staff, PCP Position: [facility] Physician (General Medicine) Member Role: PCP Name: Letty Zavala RN Position: [facility] RN Member Role: Primary Care Nurse Name: Kelli Anderson Position: [facility] ED RN W/OE and Tasks Member Role: Patient Care Provider Name: Yaniv Pickard RN Position: [facility] ED RN W/OE and Tasks Member Role: Patient Care Provider Name: Roshni Hunter MD Position: [facility] ED Medicine MD Member Role: Admitting Physician Address: Address: [address] [place] [address]- Care Team Related Persons Name: KELSEY ZARAGOZA Address: [place] [address]
--- OUTSIDE RECORDS SUMMARY | 2023-08-22 17:13 | XMS_ITS | Continuity of Care Document ---
Author Organization [facility] Address [address] [place] [address]- Care Team Providers Care Marketing Research Intern Name Role Phone Mariam Vides NP Primary Care Physician [phone] Encounter [facility] [place] Date(s): 11/24/19 - 12/24/19 [facility] [address] [place] [address]- [facility] Allergies, Adverse Reactions, Alerts Substance Reaction Severity [...]
--- OUTSIDE RECORDS SUMMARY | 2023-08-22 17:13 | XMS_ITS | Continuity of Care Document ---
Author Organization [facility] em Address Unknown Care Team Providers Care Astro Technician Name Role Phone Mariam Vides NP Primary Care Physician [phone] [facility] [place] Date(s): 07/05/21 - 08/09/21 [facility] Attending Physician: James Calov MD Admitting Physician: James Calvo MD Referring Physician: Mariam Peter MD Allergies, Adverse Reactions, Alerts Substance Reaction [...] HERNIA VENTRALEX LG CI R - BARD ([id number]) 1 Bard Unknown JOSEF:{[id number]}[id number] Assigning Authority:FDA
--- OUTSIDE RECORDS SUMMARY | 2023-08-22 17:13 | XMS_ITS | Continuity of Care Document ---
Author Organization [facility] Address [address] [place] [address]- Care Team Providers Care Hogshead Press Operator Name Role Phone Mahogany JOSEPH, Mariam Dubois Primary Care Physician Encounter [facility] [place] Date(s): 02/28/21 - 04/29/[address] [address]- Attending Physician: James Calvo MD Referring Physician: James Calvo MD Allergies, Adverse Reactions, Alerts Substance Reaction [...]
--- OUTSIDE RECORDS SUMMARY | 2023-08-22 17:13 | XMS_ITS | Continuity of Care Document ---
Author Organization [facility] em Address Unknown Care Team Providers Care Vp Business Development Name Role Phone Mariam Vides NP Primary Care Physician [phone] Encounter [facility] Date(s): 06/14/21 - 08/30/21 [facility] Attending Physician: James Calvo MD [...] HERNIA VENTRALEX LG CI R - BARD ([id number]) 1 Bard Unknown JOSEF:{[id number]}MELCHOREW [id number] Assigning Authority:FDA
--- OUTSIDE RECORDS SUMMARY | 2023-08-22 17:13 | XMS_ITS | Continuity of Care Document ---
Author Organization [facility] Address [address] [place] [address] [address] [place] [address]- Care Team Providers Care Ict Help Desk Technician Name Role Phone Not on Staff, PCP Primary Care Physician Unavail able Encounter [facility] Date(s): 02/12/22 - 03/14/22 [facility] [address] [place] [address]- Allergies, Adverse Reactions, Alerts Substance Reaction Severity [...] Code MRI Safety Implantable Status Assigning Authority [id number] 496 Unknown [id number] Unknown 11/26/21 Unknown Unknown Active GS1 Patient Care team information Care Team Personnel Name: Not on Staff, PCP Position: [facility] Physician (General Medicine) Member Role: PCP Name: Letty Zavala RN Position: [facility] RN Member Role: Primary Care Nurse Care Team Related Persons Name: KELSEY ZARAGOZA Address: [place] [address] Name: PATIENT STATES, NONE
--- OUTSIDE RECORDS SUMMARY | 2023-08-22 17:13 | XMS_ITS | Continuity of Care Document ---
Author Organization [facility] em Address Unknown Care Team Providers Care Wire Steward Name Role Phone Mariam Vides NP Primary Care Physician [phone] Encounter [facility] [place] Date(s): 01/15/22 - 01/22/22 [facility] Encounter Diagnosis Concern about disease without diagnosis(Discharge Diagnosis) - 01/15/22 Attending Physician: Shaila Leon MD Admitting Physician: Shaila Leon MD Referring Physician: Mariam Vides NP Allergies, [...] List Condition Confirmation Course Effective Dates Status [facility] atus Informant Dyslexia Confirmed Active Epilepsy Confirmed Active Hyperlipidemia Confirmed Active Seizure disorder Confirmed Active Diagnosis Diagnosis Type Effective Dates Health Status Cl inical Service Informant Concern about disease without diagnosis Discharge Diagnosis 01/15/22 Vital Signs Most recent to oldest [Reference Range]: 1 Height 180 cm (01/15/22 2:39 PM) Weight 84.09 kg (01/15/22 2:39 PM) Oxygen Saturation [94-100 %] 99 % (01/15/22 2:39 PM) Pulse Rate [55-90 bpm] 102 bpm *H* (01/15/22 2:39 PM) Body Mass Index [18.5-24.99 kg/m2] 25.95 kg/m2 *H* (01/15/22 2:39 PM) Blood Pressure [90-138/55-84 mm Hg] 148/ 78mm Hg *H* (01/15/22 2:39 PM) Respiratory Rate [16-30 br/min] 18 br/mi n (01/15/22 2:39 PM) Mode of Delivery (Oxygen) Room air (01/15/22 2:39 PM) Blood pressure sites Arm, right (01/15/22 2:39 PM) Weight Obtained Via Patient/family state d (01/15/22 2:39 PM) Social History Social History Type Response Smoking Status Never (less than 100 in lifetime) entered on: 06/07/21 Sex Implantable Device List Procedure Provider Procedure Date Device Type Site Repair Hernia Ventral Open [place] DRISCOLL, James Mclaughlin 06/07/21 Unk nown Umbilicus Device Identifier Serial Number Lot or Batch Number Manufacturing Date Expiration Date Distinct Identification Code MRI Safety Implantable Status Assigning Authority [id number] 496 Unknown [id number] Unknown 11/26/21 Unknown Unknown Active GS1 Patient Care team information Personnel Name: Mariam Vides NP Address: Address: [address] [place] [address]
--- OUTSIDE RECORDS SUMMARY | 2023-08-22 17:13 | XMS_ITS | Continuity of Care Document ---
Author Organization [facility] Address [address] [place] [address] [address] [place] [address]- Care Team Providers Care Lieutenant/Deputy Name Role Phone Not on Staff, PCP Primary Care Physician Unavail able Encounter [facility] Date(s): 02/08/22 - 03/10/22 [facility] [address] [place] [address]- Allergies, Adverse Reactions, Alerts Substance Reaction Severity [...] Code MRI Safety Implantable Status Assigning Authority [id number] 496 Unknown [id number] Unknown 11/26/21 Unknown Unknown Active GS1 Patient Care team information Care Team Personnel Name: Not on Staff, PCP Position: [facility] Physician (General Medicine) Member Role: PCP Name: Letty Zavala RN Position: [facility] RN Member Role: Primary Care Nurse Care Team Related Persons Name: KELSEY ZARAGOZA Address: [place] [address] Name: PATIENT STATES, NONE
--- OUTSIDE RECORDS SUMMARY | 2023-08-22 17:13 | XMS_ITS | Continuity of Care Document ---
Author Organization [facility] ry Address [address] [place] [address]- Care Team Providers Care Radio Board Operator Name Role Phone Not on Staff, PCP Primary Care Physician Unavail able [place] [facility] [place] Date(s): 01/11/22 - 02/10/22 [facility] [address] [place] [address]- Allergies, Adverse Reactions, Alerts Substance Reaction Severity [...] Code MRI Safety Implantable Status Assigning Authority [id number] 496 Unknown [id number] Unknown 11/26/21 Unknown Unknown Active GS1 Patient Care team information Care Team Personnel Name: Not on Staff, PCP Position: [facility] Physician (General Medicine) Member Role: PCP Name: Letty Zavala RN Position: [facility] RN Member Role: Primary Care Nurse Care Team Related Persons Name: KELSEY ZARAGOZA Address: [place] [address] Name: PATIENT STATES, NONE
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
--- OUTSIDE RECORDS SUMMARY | 2023-08-22 17:13 | XMS_ITS | Continuity of Care Document ---
Author Organization [facility] ry Address Unknown Care Team Providers Care Asphalt Paving Foreman Name Role Phone Mariam Vides NP Primary Care Physician [phone] Encounter [facility] [place] Date(s): 06/06/21 - 07/06/21 [facility] Surgery Allergies, Adverse Reactions, Alerts Substance Reaction [...] may filll this prescription for fewer pills. Janak reviewed, # 12 tablet, Refills 0, Tot. [...] HERNIA VENTRALEX LG CI R - BARD ([id number]) 1 Bard Unknown JOSEF:{01}[id number]{10}SARAH 0808 Assigning Authority:FDA
--- OUTSIDE RECORDS SUMMARY | 2023-08-22 17:13 | XMS_ITS | Continuity of Care Document ---
Author Organization [facility] [address] Address [address] [place] [address] [address] [place] [address]- Care Team Providers Care Numerical Control Programmer Name Role Phone Not on Staff, PCP Primary Care Physician Unavail able Encounter [facility] Date(s): 02/08/22 - 03/10/22 [facility] [address] [place] [address]- Allergies, Adverse Reactions, Alerts Substance Reaction Severity [...] Code MRI Safety Implantable Status Assigning Authority [id number] Unknown [id number] Unknown 11/26/21 Unknown Unknown Active GS1 Patient Care team information Care Team Personnel Name: Not on Staff, PCP Position: [facility] Physician (General Medicine) Member Role: PCP Name: Letty Zavala RN Position: [facility] RN Member Role: Primary Care Nurse Care Team Related Persons Name: KELSEY ZARAGOZA Address: [place] [address] Name: PATIENT STATES, NONE
--- OUTSIDE RECORDS SUMMARY | 2023-08-22 17:13 | XMS_ITS | Continuity of Care Document ---
Author Organization [facility] Address [address] [place] [address]- Care Team Providers Care Police Sergeant Name Role Phone Mahogany JOSEPH, Mariam Dubois Primary Care Physician [phone] Encounter [facility] [place] Date(s): 10/13/20 - 10/13/[address] [address]- Discharge Disposition: A-D/C Walkout Attending Physician: Deniz Bermeo MD Admitting Physician: Deniz Bermeo MD Referring Physician: Not on Staff, Referring [...]
--- OUTSIDE RECORDS SUMMARY | 2023-08-22 17:13 | XMS_ITS | Continuity of Care Document ---
Author Organization [facility] em Address Unknown Care Team Providers Care Baseball Glove Shaper Name Role Phone Mariam Vides NP Primary Care Physician Encounter [facility] [place] Date(s): 03/02/21 - 05/12/21 [facility] Attending Physician: James Calvo MD [...]
--- OUTSIDE RECORDS SUMMARY | 2023-08-22 17:13 | XMS_ITS | Continuity of Care Document ---
Author Organization [facility] ry Address Unknown Care Team Providers Care Sausage Canner Name Role Phone Mariam Vides NP Primary Care Physician Encounter [facility] [place] Date(s): 06/06/21 - 07/06/21 [facility] Surgery Allergies, Adverse Reactions, Alerts Substance Reaction [...] HERNIA VENTRALEX LG CI R - BARD ([id number]) 1 Bard Unknown JOSEF:{01}[id number]{10}SARAH [id number] Assigning Authority:FDA
--- OUTSIDE RECORDS SUMMARY | 2023-08-22 17:13 | XMS_ITS | Continuity of Care Document ---
Author Organization [facility] Address [address] [place] [address]- Care Team Providers Care Section Beamer Name Role Phone Mahogany JOSEPH, Mariam Dubois Primary Care Physician [place] [facility] [place] Date(s): 06/07/21 - 06/08/[address] [address]- Discharge Disposition: A-D/C Home Attending Physician: James Calvo MD Admitting Physician: James Calvo MD Referring Physician: James [...] may filll this prescription for fewer pills. [facility], # 12 tablet, Refills 0, Tot. [...] oldest [Reference Range]: 1 2 3 Height 180.34 cm (06/08/21 11:15 AM) 180.34 cm (06/08/21 7:19 AM) 180.34 cm (06/08/21 5:42 AM) Weight 88.7 kg (06/07/21 8:03 AM) Oxygen Saturation [94-100 %] 100 % (06/08/21 11:15 AM) 99 % (06/08/21 7:19 AM) 97 % (06/08/21 5:42 AM) Pulse Rate [55-90 bpm] 72 bpm (06/08/21 11:15 AM) 67 bpm (06/08/21 7:19 AM) 62 bpm (06/08/21 5:42 AM) Body Mass Index [18.5-24.99] 27.27 *H* (06/07/21 8:03 AM) Blood Pressure [90-138/55-84 mm Hg] 124/88mm Hg (06/08/21 11:15 AM) 114/82mm Hg (06/08/21 7:19 AM) 108/74mm Hg (06/08/21 5:42 AM) Respiratory Rate [16-30 br/min] 22 br/min (06/08/21 11:15 AM) 18 br/min (06/08/21 7:19 AM) 18 br/min (06/08/21 5:42 AM) Temperature [96.8-100.4 DegF] 98.0 DegF (06/08/21 11:15 AM) 97.8 DegF (06/08/21 7:19 AM) 98.0 DegF (06/08/21 5:42 AM) Liters per Minute 6 L/min (06/07/21 10:30 AM) 6 L/min (06/07/21 10:25 AM) 6 L/min (06/07/21 10:20 AM) Mode of Delivery (Oxygen) Room air (06/08/21 11:15 AM) Room air (06/08/21 7:19 AM) Room air (06/08/21 5:42 AM) Blood pressure sites Arm, left (06/08/21 11:15 AM) Arm, left (06/08/21 7:19 AM) Arm, right (06/08/21 5:42 AM) Temperature Route Oral (06/08/21 11:15 AM) Oral (06/08/21 7:19 AM) Oral (06/08/21 5:42 AM) Dry Weight 88.7 kg (06/07/21 8:03 AM) 81.8 kg (05/31/21 2:04 PM) Weight Obtained Via Standing scale (06/07/21 8:03 AM) Dry Weight Obtained Via Standing scale (06/07/21 8:03 AM) Patient/family stated (05/31/21 2:04 PM) Social History Social History Type Response Smoking Status Never (less than 100 in lifetime) entered on: 06/07/21 Sex Medical Equipment Implanted Date:06/07/21Target Site:[employer] Description Quantity MRI Company Model PATCH HERNIA VENTRALEX LG CI R - BARD ([id number]) 1 Bard Unknown JOSEF:{01}[id number]{17}[id number]{10}HUEW [id number] Assigning Authority:FDA
--- OUTSIDE RECORDS SUMMARY | 2023-08-22 17:13 | XMS_ITS | Continuity of Care Document ---
Author Organization [facility] Address [address] [place] [address]- Care Team Providers Care Beehive Kiln Supervisor Name Role Phone Mariam Vides NP Primary Care Physician Encounter [facility] [place] Date(s): 11/11/21 - 11/12/[address] [address]- Discharge Disposition: A-D/C Home Attending Physician: George [...] Range]: 1 2 3 Height 180 cm (11/12/21 6:56 AM) 180 cm (11/11/21 7:28 PM) Weight 84.4 kg (11/12/21 6:56 AM) 84.4 kg (11/11/21 7:28 PM) Oxygen Saturation [94-100 %] 100 % (11/12/21 9:26 AM) 97 % (11/12/21 6:56 AM) 98 % (11/11/21 8:25 PM) Pulse Rate [55-90 bpm] 81 bpm (11/12/21 9:26 AM) 84 bpm (11/12/21 6:56 AM) 87 bpm (11/11/21 8:25 PM) Body Mass Index [18.5-24.99] 26.05 *H* (11/12/21 6:56 AM) Blood Pressure [90-138/55-84 mm Hg] 115/77mm Hg (11/12/21 9:26 AM) 117/79mm Hg (11/11/21 8:25 PM) Respiratory Rate [16-30 br/min] 16 br/min (11/12/21 9:26 AM) 18 br/min (11/12/21 6:56 AM) 18 br/min (11/12/21 4:00 AM) Temperature [96.8-100.4 DegF] 97.6 DegF (11/12/21 9:26 AM) 98.3 DegF (11/12/21 6:56 AM) 98.7 DegF (11/11/21 8:25 PM) Mode of Delivery (Oxygen) Room air (11/12/21 9:26 AM) Room air (11/12/21 6:56 AM) Room air (11/11/21 8:25 PM) Temperature Route Oral (11/12/21 9:26 AM) Oral (11/12/21 6:56 AM) Oral (11/11/21 8:25 PM) Dry Weight 84.4 kg (11/12/21 6:56 AM) 84.4 kg (11/11/21 7:28 PM) Social History Social History Type Response Smoking Status Never (less than 100 in lifetime) entered on: 06/07/21 Sex Medical Equipment Implanted Date:06/07/21Target Site:[employer] Description Quantity MRI Company Model PATCH HERNIA VENTRALEX LG CI R - BARD ([id number]) 1 Bard Unknown JOSEF:{01}[id number]{17}[id number]{10}SARAH 0808 Assigning Authority:FDA
--- OUTSIDE RECORDS SUMMARY | 2023-08-22 17:13 | XMS_ITS | Continuity of Care Document ---
Author Organization [facility] em Address Unknown Care Team Providers Care Counseling Case Manager Name Role Phone Mahogany JOSEPH, Mariam Dubois Primary Care Physician Encounter [facility] [place] Date(s): 06/01/21 - 06/08/21 [facility] Attending Physician: James Calvo MD Admitting Physician: [...] oldest [Reference Range]: 1 Height 180.34 cm (06/01/21 11:25 AM) Social History Social History Type Response Smoking Status Never (less than 100 in lifetime) entered on: 06/07/21 Sex Medical Equipment Implanted Date:06/07/21Target Site:[employer] Description Quantity MRI Company Model PATCH HERNIA VENTRALEX LG CI R - BARD ([id number]) 1 Bard Unknown JOSEF:{01}[id number]{10}SARAH 0808 Assigning Authority:FDA
--- OUTSIDE RECORDS SUMMARY | 2023-08-22 17:14 | XMS_ITS | Continuity of Care Document ---
Author Organization [facility] Address [address] [place] [address]- Care Team Providers Care Help Desk Internship Name Role Phone Mariam Vides NP Primary Care Physician [phone] En[place] [facility] [place] Date(s): 12/21/20 - 12/21/[address] [address]- Encounter Diagnosis Contact dermatitis(Final) - 12/21/20 Discharge Disposition: A-D/C Home Attending Physician: Elsie Lara DO Admitting Physician: Elsie Lara DO Referring Physician: Not on Staff, Referring MD [...] EDT, Cream Start Date: 09/10/17 Status: Ordered Ivarest 14%-2% topical cream See Instructions, Topically 3 times a day, # 60 Gm, 0 Refills, Acute 12/24/20 6:00:00 EDT, 215:50:00 EDT, [facility]/pharmacy #[id number], Partial fill upon patient request if the prescription is for a schedule II opioid drug., Topically 3 times a day, 181.... Start Date: 12/21/20 Stop Date: 12/24/20 Status: Ordered permethrin 5% topical cream 1 [...] recent to oldest [Reference Range]: 1 Height 181.5 cm (12/21/20 5:37 AM) Weight 76.5 kg (12/21/20 5:37 AM) Oxygen Saturation [94-100 %] 100 % (12/21/20 5:37 AM) Pulse Rate [55-90 bpm] 74 bpm (12/21/20 5:37 AM) Blood Pressure [90-138/55-84 mm Hg] 117/ 75mm Hg (12/21/20 5:37 AM) Respiratory Rate [16-30 br/min] 18 br/mi n (12/21/20 5:37 AM) Mode of Delivery (Oxygen) Room air (12/21/20 5:37 AM) Dry Weight 76.5 kg (12/21/20 5:37 AM)
--- OUTSIDE RECORDS SUMMARY | 2023-08-22 17:14 | XMS_ITS | Continuity of Care Document ---
Author Organization [facility] Address [address] [place] [address]- Care Team Providers Care Floor Sanding Machine Operator Name Role Phone Mariam Vides NP Primary Care Physician [phone] [place] [facility] [place] 07/[place]/20 [facility] [address] [place] [address]- Allergies, Adverse Reactions, Alerts Substance Reaction Severity [...]
--- OUTSIDE RECORDS SUMMARY | 2023-08-22 17:14 | XMS_ITS | Continuity of Care Document ---
Author Organization [facility] Address [address] [place] [address]- Care Team Providers Care Meter Installer And Remover Name Role Phone Mariam Vides NP Primary Care Physician Encounter [facility] [place] Date(s): 10/25/21 - 10/25/[address] [address]- Encounter Diagnosis Superficial folliculitis(Final) - 10/25/21 Dental infection(Final) - 10/25/21 Discharge Disposition: A-D/C Home Attending Physician: Erich Jackson DO Admitting Physician: Erich Jackson DO Referring Physician: Not on Staff, Referring [...] mg, By Mouth, Every 8 hours, for 4 days, # 12 capsule, 0 Refills, Acute 10/29/21 14:47:00 EDT, 10/25/21 14:47:00 EDT, Capsule, [facility] #[id number], Partial fill upon patient request ifthe prescription is for a schedule II opioid drug.,... Start Date: 10/25/21 Stop Date: 10/29/21 Status: Ordered simvastatin 20 mg oral tablet [...] [Reference Range]: 1 2 Height 180 cm (10/25/21 1:39 PM) 180 cm (10/25/21 1:36 PM) Weight 84.4 kg (10/25/21 1:39 PM) 84.4 kg (10/25/21 1:36 PM) Oxygen Saturation [94-100 %] 99 % (10/25/21 1:36 PM) Pulse Rate [55-90 bpm] 98 bpm *H* (10/25/21 1:36 PM) Body Mass Index [18.5-24.99] 26.05 *H* (10/25/21 1:36 PM) Blood Pressure [90-138/55-84 mm Hg] 107/ 80mm Hg (10/25/21 1:36 PM) Respiratory Rate [16-30 br/min] 16 br/mi n (10/25/21 1:36 PM) Temperature [96.8-100.4 DegF] 98.7 DegF (10/25/21 1:36 PM) Mode of Delivery (Oxygen) Room air (10/25/21 1:36 PM) Blood pressure sites Arm, left (10/25/21 1:36 PM) Temperature Route Temporal (10/25/21 1:36 PM) Dry Weight 84.4 kg (10/25/21 1:39 PM) 84.4 kg (10/25/21 1:36 PM) Social History Social History Type Response Smoking Status Never (less than 100 in lifetime) entered on: 06/07/21 Sex Medical Equipment Implanted Date:06/07/21Target Site:[employer] Description Quantity MRI Company Model PATCH HERNIA VENTRALEX LG CI R - BARD ([id number]) 1 Bard Unknown JOSEF:{01}[id number]{10}SARAH [id number] Assigning Authority:FDA
--- OUTSIDE RECORDS SUMMARY | 2023-08-22 17:14 | XMS_ITS | Continuity of Care Document ---
Author Organization [facility] Address [address] [place] [address]- Care Team Providers Care Senior Strategy Analyst Name Role Phone Mahogany JOSEPH, Mariam Dubois Primary Care Physician [phone] [place] [facility] [place] - 08/02/[address] [address]- Discharge Disposition: A-D/C Home Attending Physician: Roshni [...] recent to oldest [Reference Range]: 1 Height 183 cm (08/02/20 6:00 AM) Weight 73 kg (08/02/20 6:00 AM) Oxygen Saturation [94-100 %] 100 % (08/02/20 6:00 AM) Pulse Rate [55-90 bpm] 78 bpm (08/02/20 6:00 AM) Blood Pressure [90-138/55-84 mm Hg] 129/ 79mm Hg (08/02/20 6:00 AM) Respiratory Rate [16-30 br/min] 16 br/mi n (08/02/20 6:00 AM) Temperature [96.8-100.4 DegF] 97.3 DegF (08/02/20 6:00 AM) Mode of Delivery (Oxygen) Room air (08/02/20 6:00 AM) Blood pressure sites Arm, left (08/02/20 6:00 AM) Temperature Route Oral (08/02/20 6:00 AM) Dry Weight 73 kg (08/02/20 6:00 AM)
--- OUTSIDE RECORDS SUMMARY | 2023-08-22 17:14 | XMS_ITS | Continuity of Care Document ---
Author Organization [facility] Address [address] [place] [address]- Care Team Providers Care Energy And Conservation Technician Name Role Phone Not on Staff, PCP Primary Care Physician Unavail able Encounter [facility] Date(s): 01/10/22 - 02/09/22 [facility] [address] [place] [address]- Allergies, Adverse Reactions, Alerts Substance Reaction Severity [...] Code MRI Safety Implantable Status Assigning Authority [id number] Unknown [id number] Unknown 11/26/21 Unknown Unknown Active GS1 Patient Care team information Care Team Personnel Name: Not on Staff, PCP Position: [facility] Physician (General Medicine) Member Role: PCP Name: Letty Zavala RN Position: [facility] RN Member Role: Primary Care Nurse Care Team Related Persons Name: KELSEY ZARAGOZA Address: [place] [address] Name: PATIENT STATES, NONE
--- OUTSIDE RECORDS SUMMARY | 2023-08-22 17:14 | XMS_ITS | Continuity of Care Document ---
Author Organization [facility] Address [address] [place] [address]- Care Team Providers Care Headwaiter/Headwaitress Name Role Phone Mariam Vides NP Primary Care Physician Encounter [facility] [place] Date(s): 01/10/21 - 01/10/21 [facility] [address] [place] [address]- Encounter Diagnosis Left leg swelling(Final) - 01/10/21 Discharge Disposition: A-D/C Home Attending Physician: Gurinder Alcazar MD Admitting Physician: Gurinder Alcazar MD Referring Physician: Not on Staff, Referring [...] [Reference Range]: 1 2 Height 180 cm (01/10/21 12:05 PM) 180 cm (01/10/21:11 AM) Weight 73 kg (01/10/21 12:05 PM) 73 kg (01/10/21:11 AM) Oxygen Saturation [94-100 %] 98 % (01/10/21 12:05 PM) 98 % (01/10/21:11 AM) Pulse Rate [55-90 bpm] 68 bpm (01/10/21 12:05 PM) 75 bpm (01/10/21:11 AM) Body Mass Index [18.5-24.99] 22.53 (01/10/21 12: PM) Blood Pressure [90-138/55-84 mm Hg] 121/ 79mm Hg (01/10/21 12:05 PM) 130/84mm Hg (01/10/21 9:11 AM) Respiratory Rate [16-30 br/min] 15 br/mi n *L* (01/10/21 12:05 PM) 17 br/min (01/10/21 9:11 AM) Temperature [96.8-100.4 DegF] 97.9 DegF (01/10/21 12:05 PM) 97.4 DegF (01/10/21 9:11 AM) Mode of Delivery (Oxygen) Room air (01/10/21 12:05 PM) Room air (01/10/21 9:11 AM) Blood pressure sites Arm, right (01/10/21 12:05 PM) Temperature Route Oral (01/10/21 12:05 PM) Oral (01/10/21 9:11 AM) Dry Weight 73 kg (01/10/21 12:05 PM) 73 kg (01/10/21 9:11 AM)
--- OUTSIDE RECORDS SUMMARY | 2023-08-22 17:14 | XMS_ITS | Continuity of Care Document ---
Author Organization [facility] Address Unknown Care Team Providers Care Ice Maker Name Role Phone Mariam Vides NP Primary Care Physician [phone] [place] [facility] [place] 09/06/21 [facility] Attending Physician: James Calvo MD Admitting Physician: [...] HERNIA VENTRALEX LG CI R - BARD ([id number]) 1 Bard Unknown JOSEF:{01}[id number]{10}SARAH 0808 Assigning Authority:FDA
--- OUTSIDE RECORDS SUMMARY | 2023-08-22 17:14 | XMS_ITS | Continuity of Care Document ---
Author Organization [facility] Address [address] [place] [address]- Care Team Providers Care Economic Developer Name Role Phone Mahogany JOSEPH, Mariam Dubois Primary Care Physician [phone] [place] [facility] [place] - 01/25/[address] [address]- [facility] [phone] Discharge Disposition: A-D/C Home Attending Physician: Parth [...] oldest [Reference Range]: 1 Height 180 cm (01/25/20 2:36 AM) Weight 77.5 kg (01/25/20 2:36 AM) Oxygen Saturation [94-100 %] 95 % (01/25/20 2:36 AM) Pulse Rate [55-90 bpm] 65 bpm (01/25/20 2:36 AM) Blood Pressure [90-138/55-84 mm Hg] 118/ 74mm Hg (01/25/20 2:36 AM) Respiratory Rate [16-30 br/min] 18 br/mi n (01/25/20 2:36 AM) Temperature [96.8-100.4 DegF] 97.2 DegF (01/25/20 2:36 AM) Mode of Delivery (Oxygen) Room air (01/25/20 2:36 AM) Temperature Route Oral (01/25/20 2:36 AM) Dry Weight 77.5 kg (01/25/20 2:36 AM)
--- OUTSIDE RECORDS SUMMARY | 2023-08-22 17:14 | XMS_ITS | Continuity of Care Document ---
Author Organization [facility] Address [address] [place] [address]- Care Team Providers Care Supervisor Looping Name Role Phone Mariam Vides NP Primary Care Physician [phone] [place] [facility] [place](s[place] 03/29/21 - 03/29/[address] [address]- Encounter Diagnosis Acute low back pain(Final) - 03/29/21 Discharge Disposition: A-D/C Home Attending Physician: Tatyana Perea MD Admitting Physician: Tatyana Perea MD Referring Physician: Not on Staff, Referring MD Allergies, Adverse Reactions, Alerts Substance Reaction Severity Status penicillin Active Bee Stings Persistent Moderate Active Lactose Persistent Moderate Active Immunizations Given and Recorded Vaccine Date Status Refusal Reason SARS-CoV-2 (COVID-19) mRNA BNT-162b2 vac 08/19/20 Recorded SARS-CoV-2 (COVID-19) mRNA BNT-162b2 vac 07/20/20 Recorded tetanus-diphtheria toxoids (Td) 08/08/07 Given Medications cyclobenzaprine 5 mg oral tablet 1 tablet = 5 mg, By Mouth, 2 times a day, PRN Spasm, for 10 days, # 20 capsule, 0 Refills, Acute 04/08/21 13:43:00 EST, 03/29/21 13:43:00 EST, [facility]/pharmacy #[id number], Partial fill upon patient request ifthe prescription is for a schedule II opioid drug.,... Start Date: 03/29/21 Stop Date: 04/08/21 Status: Ordered hydrocortisone 2.5% topical cream 1 application, Topically, 2 times a day, # 30 Gm, 0 Refills, Maintenance, 01/31/18 16:48:13 EDT, Cream Start Date: 01/31/18 Status: Ordered hydrocortisone 2.5% topical cream 1 application, Topically, 2 times a day, # 30 Gm, 0 Refills, Maintenance, 09/10/17 12:10:41 EDT, Cream Start Date: 09/10/17 Status: Ordered ibuprofen 600 mg oral tablet 600 mg, 1, tablet, By Mouth, 4 times a day, PRN, # 20 tablet, Refills 0, Tot. Refills 0, Acute 04/01/21 13:28:00 EST, for pain, 03/29/21 13:28:00 EST, Route to Pharmacy Electronically, [facility]/pharmacy #[id number], Partial fill upon patient request if the presc... Start Date: 03/29/21 Stop Date: 04/01/21 Status: Ordered permethrin 5% topical cream 1 [...] [Reference Range]: 1 2 Height 180 cm (03/29/21 12:43 PM) Weight 82 kg (03/29/21 12:43 PM) Oxygen Saturation [94-100 %] 98 % (03/29/21 2:01 PM) 98 % (03/29/21 12:43 PM) Pulse Rate [55-90 bpm] 87 bpm (03/29/21 2:01 PM) 89 bpm (03/29/21 12:43 PM) Blood Pressure [90-138/55-84 mm Hg] 117/ 71mm Hg (03/29/21 2:01 PM) 113/75mm Hg (03/29/21 12:43 PM) Respiratory Rate [16-30 br/min] 19 br/mi n (03/29/21 2:01 PM) 16 br/min (03/29/21 12:43 PM) Temperature [96.8-100.4 DegF] 98.1 DegF (03/29/21 12:43 PM) Mode of Delivery (Oxygen) Room air (03/29/21 2:01 PM) Blood pressure sites Arm, left (03/29/21 2:01 PM) Arm, left (03/29/21 12:43 PM) Temperature Route Oral (03/29/21 12:43 PM) Dry Weight 82 kg (03/29/21 12:43 PM) Weight Obtained Via Patient/family state d (03/29/21 12:43 PM)
--- OUTSIDE RECORDS SUMMARY | 2023-08-22 17:14 | XMS_ITS | Continuity of Care Document ---
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 Name Role Phone Not on Staff, PCP Primary Care Physician Unavail able [place] [facility] [place] - 09/03/[address] [address]- Encounter Diagnosis Torsion of testicular appendage(Final) - 09/02/22 Discharge Disposition: A-D/C Home Attending Physician: Russ Arreola DO Admitting Physician: Russ Arreola DO Referring Physician: Not on Staff, Referring [...] Exam Date Time Procedure Performing Provider Status 09/02/22 11:[address] Abd/Pelvis W/ IV Contrast Only Alexandru Hudson; Auth (Verified) Notes: (CT Abd/Pelvis W/ IV Contrast Only) Reason For Exam: rlq ap;Other: RESULT: CT Abd/Pelvis W/ IV Contrast Only CT Abd/Pelvis W/ IV Contrast Only Hx of Present Illness: face rash onset last night, area itchy; groin reinjury post lifting 100 lbs;seen in ED for groin injury post fall few days ago; Reason: Other:; rlq ap; Clinical Question(s): Appendicitis; Inguinal hernia; Order Comment: Patient unable to tolerate PO contrast. TECHNIQUE: Spiral CT through the abdomen and pelvis with IV contrast formatted in 3 planes. 100 cc of Omnipaque 300 was administered intravenously. This study was performed without oral contrast. Weight-based protocol using automatic tube modulation was used to optimize exposure parameters. CTDIvol Body: 15.60 mGy, DLP Body: 949 mGy*cm. COMPARISON: 06/07/2022 CT of the abdomen and pelvis. FINDINGS: Cuff Setter Overlock View Findings, Lines and Tubes: None. Visualized Chest: Lung bases are clear. No pleural effusion. The heart is normal in size. No pericardial effusion. 4.1 cm cystic lesion along the left cardiophrenic space, similar to prior studies dating back to 04/29/2018, probably a pericardial cyst. Diaphragm: Normal. Liver: Scattered hypoattenuating foci within the liver, too small to characterize, but likely benign in absence of a known malignancy, and similar to prior study. Normal liver morphology. Gallbladder: Prior cholecystectomy. Bile ducts: No biliary ductal dilation. Spleen: Normal. Pancreas: Normal. Adrenal glands: Normal. Kidneys and ureters: Multiple nonobstructing calculi within both kidneys measuring up to 0.8 cm of the right lower pole, and 0.4 cm at the left lower pole. No hydronephrosis. Simple appearing renal cysts and hypodensities that are too small to characterize are noted, requiring no dedicated follow up. Bladder: Normal. Reproductive organs: The prostate is normal. The perineum is normal. Stomach, small bowel, and large bowel: The stomach is normal. The small bowel is normal in caliber,with no evidence of a bowel obstruction. The rectum is normal. The colon is normal. Appendix: Normal. Peritoneum and retroperitoneum: No ascites or pneumoperitoneum. No omental or mesenteric lesions. Lymph nodes: No enlarged lymph nodes. Blood vessels: Mild vascular calcifications but no aneurysm. No evidence of venous thrombosis. Abdominal and pelvic wall: Focal eventration anterior abdominal wall with evidence of prior ventralhernia mesh repair. Bones: No acute abnormality. Bone island in the left iliac bone. Degenerative changes in the spine,particularly at L2-3, and L4-5. Large disc bulge at L4-5 causes a mild spinal canal stenosis, similar to prior studies. IMPRESSION: 1. No acute findings in the abdomen or pelvis. No inguinal hernia. 2. Nonobstructive renal calculi bilaterally. Preliminary findings were reported by virtual radiology. No significant discrepancy. WSN: [id number] Ordering Physician: Jean-Claude Castillo Dictated By: Venancio Govea MD Dictated Date/Time: 09/03/22 8:09 am Reviewed By: Venancio Govea MD Signed By: Venancio Govea MD Signed Date/Time: 09/03/22 8:09 am Transcribed By: GULSHAN Transcribed Date/Time: 09/03/22 7:55 am * Exam Date Time Procedure Performing Provider Status 09/02/22 11:04 PM US Pelvic Doppler Comp Deloris Wilson ; Auth (Verified) Notes: (US Pelvic Doppler Comp) Reason For Exam: Scrotal Pain;Other: RESULT: US Pelvic Doppler Comp US Scrotum and Contents, US Pelvic Doppler Comp Hx of Present Illness: face rash onset last night, area itchy; groin reinjury post lifting 100 lbs;seen in ED for groin injury post fall few days ago; Reason: Other:; Scrotal Pain; Clinical Question(s): Torsion COMPARISON: None TECHNIQUE: High-resolution sonography with grayscale, color and spectral Doppler analysis. FINDINGS: RIGHT: Right testicle size: 3.3 x 1.7 x 2.2 cm (6.4 cc). Diffuse heterogeneous and decreased echogenicity of the right testicle, with decreased central blood flow. The epididymis is unremarkable. No significant hydrocele or varicocele. LEFT: Left testicle size: 4.1 x 2.0 x 2.1 cm (8.8 cc). Normal left testicle size, contour and echotexture without focal lesions. Normal arterial and venous waveforms. The epididymis is unremarkable. No significant varicocele. Small hydrocele. IMPRESSION: Diffusely heterogenous, hypoechoic right testicle with decreased central blood flow highly concerning for torsion. Findings discussed with Dr. Arreola at 11:30 PM I have personally reviewed the images and I agree with this report. WSN: [id number] Ordering Physician: Jean-Claude Castillo Dictated By: Keon[Radiology] Bill DRISCOLL Dictated Date/Time: 09/02/22 11:33 p Reviewed By: Percy Banuelos MD Signed By: Percy Banuelos MD Signed Date/Time: 09/02/22 11:38 pm Transcribed By: GULSHAN Transcribed Date/Time: 09/02/22 11:28 pm * Exam Date Time Procedure Performing Provider Status 09/02/22 11:04 PM US Scrotum and Contents Mariana Wilson (Verified) Notes: (US Scrotum and Contents) Reason For Exam: Scrotal Pain;Other: RESULT: US Scrotum and Contents US Scrotum and Contents, US Pelvic Doppler Comp Hx of Present Illness: face rash onset last night, area itchy; groin reinjury post lifting 100 lbs;seen in ED for groin injury post fall few days ago; Reason: Other:; Scrotal Pain; Clinical Question(s): Torsion COMPARISON: None TECHNIQUE: High-resolution sonography with grayscale, color and spectral Doppler analysis. FINDINGS: RIGHT: Right testicle size: 3.3 x 1.7 x 2.2 cm (6.4 cc). Diffuse heterogeneous and decreased echogenicity of the right testicle, with decreased central blood flow. The epididymis is unremarkable. No significant hydrocele or varicocele. LEFT: Left testicle size: 4.1 x 2.0 x 2.1 cm (8.8 cc). Normal left testicle size, contour and echotexture without focal lesions. Normal arterial and venous waveforms. The epididymis is unremarkable. No significant varicocele. Small hydrocele. IMPRESSION: Diffusely heterogenous, hypoechoic right testicle with decreased central blood flow highly concerning for torsion. Findings discussed with Dr. Arreola at 11:30 PM I have personally reviewed the images and I agree with this report. WSN: [id number] Ordering Physician: Jean-Claude Castillo Dictated By: Keon[Radiology] Bill DRISCOLL Dictated Date/Time: 09/02/22 11:33 p Reviewed By: Percy Banuelos MD Signed By: Percy Banuelos MD Signed Date/Time: 09/02/22 11:38 pm Transcribed By: GULSHAN Transcribed Date/Time: 09/02/22 11:28 pm Vital Signs Most recent to oldest [Reference Range]: 1 2 Height 180 cm (09/02/22 9:22 PM) Weight 79.1 kg (09/02/22 9:22 PM) Oxygen Saturation [94-100 %] 98 % (09/02/22 10:00 PM) 98 % (09/02/22 9:22 PM) Pulse Rate [55-90 bpm] 78 bpm (09/02/22 10:00 PM) 80 bpm (09/02/22 9:22 PM) Blood Pressure [90-138/55-84 mm Hg] 119/ 70mm Hg (09/02/22 10:00 PM) 110/72mm Hg (09/02/22 9:22 PM) Respiratory Rate [16-30 br/min] 16 br/mi n (09/02/22 10:00 PM) 20 br/min (09/02/22 9:22 PM) Temperature [96.8-100.4 DegF] 98.2 DegF (09/02/22 10:00 PM) 97.8 DegF (09/02/22 9:22 PM) Mode of Delivery (Oxygen) Room air (09/02/22 10:00 PM) Room air (09/02/22 9:22 PM) Temperature Route Oral (09/02/22 10:00 PM) Temporal (09/02/22 9:22 PM) Dry Weight 79.1 kg (09/02/22 9:22 PM) Social History Social History Type Response Smoking Status Never (less than 100 in lifetime) entered on: 06/07/21 Sex Implantable Device List Procedure Provider Procedure Date Device Type Site Repair Hernia Ventral Open [place] DRISCOLL, James Mclaughlin 06/07/21 Unk noweda Umbilicus Device Identifier Serial Number Lot or Batch Number Manufacturing Date Expiration Date Distinct Identification Code MRI Safety Implantable Status Assigning Authority [id number] Unknown [id number] Unknown 11/26/21 Unknown Unknown Active GS1 Note * Russ Arreola DO: PERFORM, SIGN, VERIFY Event Display: Patient Education Handout Authored Date: Radiology * [employer] , CIS S: TRANSCRIBE Percy Banuelos MD: VERIFY Keon[Radiology] Bill DRISCOLL: SIGN Event Display: Result: Authored Date: US Scrotum and Contents, US Pelvic Doppler Comp Hx of Present Illness: face rash onset last night, area itchy; groin reinjury post lifting 100 lbs;seen in ED for groin injury post fall few days ago; Reason: Other:; Scrotal Pain; Clinical Question(s): Torsion COMPARISON: None TECHNIQUE: High-resolution sonography with grayscale, color and spectral Doppler analysis. FINDINGS: RIGHT: Right testicle size: 3.3 x 1.7 x 2.2 cm (6.4 cc). Diffuse heterogeneous and decreased echogenicity of the right testicle, with decreased central blood flow. The epididymis is unremarkable. No significant hydrocele or varicocele. LEFT: Left testicle size: 4.1 x 2.0 x 2.1 cm (8.8 cc). Normal left testicle size, contour and echotexture without focal lesions. Normal arterial and venous waveforms. The epididymis is unremarkable. No significant varicocele. Small hydrocele. IMPRESSION: Diffusely heterogenous, hypoechoic right testicle with decreased central blood flow highly concerning for torsion. Findings discussed with Dr. Arreola at 11:30 PM I have personally reviewed the images and I agree with this report. WSN: [id number] Ordering Physician: Jean-Claude Castillo Dictated By: Keon[Radiology] Bill DRISCOLL Dictated Date/Time: 09/02/22 11:33 p Reviewed By: Percy Banuelos MD Signed By: Percy Banuelos MD Signed Date/Time: 09/02/22 11:38 pm Transcribed By: GULSHAN Transcribed Date/Time: 09/02/22 11:28 pm US Scrotum and testicle * [employer] , CIS S: TRANSCRIBE Percy Banuelos MD: VERIFY Keon[Radiology] Bill DRISCOLL: SIGN Event Display: Result: Authored Date: [id number] US Scrotum and Contents, US Pelvic Doppler Comp Hx of Present Illness: face rash onset last night, area itchy; groin reinjury post lifting 100 lbs;seen in ED for groin injury post fall few days ago; Reason: Other:; Scrotal Pain; Clinical Question(s): Torsion COMPARISON: None TECHNIQUE: High-resolution sonography with grayscale, color and spectral Doppler analysis. FINDINGS: RIGHT: Right testicle size: 3.3 x 1.7 x 2.2 cm (6.4 cc). Diffuse heterogeneous and decreased echogenicity of the right testicle, with decreased central blood flow. The epididymis is unremarkable. No significant hydrocele or varicocele. LEFT: Left testicle size: 4.1 x 2.0 x 2.1 cm (8.8 cc). Normal left testicle size, contour and echotexture without focal lesions. Normal arterial and venous waveforms. The epididymis is unremarkable. No significant varicocele. Small hydrocele. IMPRESSION: Diffusely heterogenous, hypoechoic right testicle with decreased central blood flow highly concerning for torsion. Findings discussed with Dr. Arreola at 11:30 PM I have personally reviewed the images and I agree with this report. WSN: [id number] Ordering Physician: Jean-Claude Castillo Dictated By: Keon[Radiology] Bill DRISCOLL Dictated Date/Time: 09/02/22 11:33 p Reviewed By: Percy Banuelos MD Signed By: Percy Banuelos MD Signed Date/Time: 09/02/22 11:38 pm Transcribed By: GULSHAN Transcribed Date/Time: 09/02/22 11:[address] Abdomen and Pelvis W contrast IV * FARIBASPsahilscricarlitos , CIS S: Venancio Herrera MD: VERIFY Event Display: Result: Authored Date: [id number] CT Abd/Pelvis W/ IV Contrast Only Hx of Present Illness: face rash onset last night, area itchy; groin reinjury post lifting 100 lbs;seen in ED for groin injury post fall few days ago; Reason: Other:; rlq ap; Clinical Question(s): Appendicitis; Inguinal hernia; Order Comment: Patient unable to tolerate PO contrast. TECHNIQUE: Spiral CT through the abdomen and pelvis with IV contrast formatted in 3 planes. 100 cc of Omnipaque 300 was administered intravenously. This study was performed without oral contrast. Weight-based protocol using automatic tube modulation was used to optimize exposure parameters. CTDIvol Body: 15.60 mGy, DLP Body: 949 mGy*cm. COMPARISON: 06/07/2022 CT of the abdomen and pelvis. FINDINGS: Cuff Setter Overlock View Findings, Lines and Tubes: None. Visualized Chest: Lung bases are clear. No pleural effusion. The heart is normal in size. No pericardial effusion. 4.1 cm cystic lesion along the left cardiophrenic space, similar to prior studies dating back to 04/29/2018, probably a pericardial cyst. Diaphragm: Normal. Liver: Scattered hypoattenuating foci within the liver, too small to characterize, but likely benign in absence of a known malignancy, and similar to prior study. Normal liver morphology. Gallbladder: Prior cholecystectomy. Bile ducts: No biliary ductal dilation. Spleen: Normal. Pancreas: Normal. Adrenal glands: Normal. Kidneys and ureters: Multiple nonobstructing calculi within both kidneys measuring up to 0.8 cm of the right lower pole, and 0.4 cm at the left lower pole. No hydronephrosis. Simple appearing renal cysts and hypodensities that are too small to characterize are noted, requiring no dedicated follow up. Bladder: Normal. Reproductive organs: The prostate is normal. The perineum is normal. Stomach, small bowel, and large bowel: The stomach is normal. The small bowel is normal in caliber,with no evidence of a bowel obstruction. The rectum is normal. The colon is normal. Appendix: Normal. Peritoneum and retroperitoneum: No ascites or pneumoperitoneum. No omental or mesenteric lesions. Lymph nodes: No enlarged lymph nodes. Blood vessels: Mild vascular calcifications but no aneurysm. No evidence of venous thrombosis. Abdominal and pelvic wall: Focal eventration anterior abdominal wall with evidence of prior ventralhernia mesh repair. Bones: No acute abnormality. Bone island in the left iliac bone. Degenerative changes in the spine,particularly at L2-3, and L4-5. Large disc bulge at L4-5 causes a mild spinal canal stenosis, similar to prior studies. IMPRESSION: 1. No acute findings in the abdomen or pelvis. No inguinal hernia. 2. Nonobstructive renal calculi bilaterally. Preliminary findings were reported by virtual radiology. No significant discrepancy. WSN: [id number] Ordering Physician: Jean-Claude Castillo Dictated By: Venancio Govea MD Dictated Date/Time: 09/03/22 8:09 am Reviewed By: Venancio Govea MD Signed By: Venancio Govea MD Signed Date/Time: 09/03/22 8:09 am Transcribed By: GULSHAN Transcribed Date/Time: 09/03/22 7:55 am Patient Care team information Care Team Personnel Name: Not on Staff, PCP Position: [facility] Physician (General Medicine) Member Role: PCP Name: Letty Zavala RN Position: [facility] RN Member Role: Primary Care Nurse Name: Russ Arreola DO Position: [facility] ED Medicine MD Member Role: Admitting Physician Address: Address: [address] [place] [id number]- Name: Ritu George RN Position: [facility] ED RN W/OE and Tasks Member Role: Patient Care Provider Care Team Related Persons Name: KELSEY ZARAGOZA Address: [place] [address]
--- NOTE | 2023-08-22 17:36 | PC.NURSE ---
Patient refusing to sign conditional voluntary stating my proxy has to sign this, I will not be signing it . This RN relayed message to ED provider, ED provider signed Section 12b
[2023-08-22 18:10] VITALS: BP 98/55; PULSE 71; RESP 18; TEMP 36.6; O2SAT 100
[2023-08-22 18:15] VITALS: BMI 25.0
--- NOTE | 2023-08-22 18:36 | PC.ADMIT ---
Mynor arrived to the unit at 1800 on a 12b, notice of rights under temporary involuntary hospitalization explained and given to Mynor, he refused to sign. Skin check done by typewriter ribbon winder and male MHC, skin appears to be intact. Mynor refused to signed any admission paper work stated I have an cell tower climber he will take care of it, I'm not signing anything. VS obtained, he refused to stand on the scale stated My weight is 184lb, when asked how he felt stated I'm fine, I just want to go back to my apartment. Per assessment Mynor is diagnosed with Schizoaffective Disorder Bipolar Type, Unspecified Neurocognitive Disorder and hyperlipidemia, presented to [facility] via ambulancee on a section 12 from [facility] secondary to paranoia, disorganized speech and refusing to take his meds for several days. According to [facility] nursing staff Mynor was acting erratically and aggressive towards staff, per assessment patient currently is unable to care for himself. Mynor is currently on 5 minute checks/ULB.
--- NOTE | 2023-08-23 08:32 | PC.NURSE ---
Declined lab draw, medications, and vital signs despite education from this lyric writer. Dr. De La Vega notified.
[2023-08-23 08:35] VITALS: RESP 16
--- NOTE | 2023-08-23 08:58 | HO.PSYADMNOT ---
[facility] Date of Service: 08/23/23 Chief Complaint: Psychosis Sources of Information: patient interviewed, chart reviewed and crisis/core team assessment reviewed HPI Subjective Notes: Section 12B Healthcare Proxy: Yes Narrative: The patient is a 63-year-old male, single, chronically mentally ill, very well known by this team since he was admitted before January. The patient was brought from an in our facility due to exacerbation of psychosis and disorganized behavior in the context of noncompliance. The patient was assessed by crisis, medically cleared and transferring to this facility for psychiatric stabilization. On admission, the patient was assessed and he stated that he wants to be discharged as soon as possible. He denies that he takes any medications, he denies past history of mental illness and he had been a very poor historian. The patient is disheveled, confused, unkempt looks grossly disorganized. He adamantly denies active suicidal ideation and he denies auditory hallucinations but he has been seen responding to internal stimuli perseverative with thought blocking. Apparently, the patient after being discharged on January he was transferred to assisted living facility but he eloped, was in the missing person and he ended up on another hospital that was discharged a few we days ago with Zyprexa 15 mg p.o. q.h.s. we are aware that the patient has a community order to follow treatment against his will and guardianship but so far we do not have the paperwork. We will try to gather more collateral information. Since the patient is able to contract for safety we will keep him on 15 minutes observation and we will continue with Zyprexa 15 mg p.o. q.h.s. as per med reconciliation form. Past Psychiatric History: As per the crisis assessment he had been admitted before at [facility] for an episode of soham and psychosis. He has a long-term history of mental illness. He has a Community Sampson and a guardian. Medical Evaluation Reviewed: Yes [facility] Medical History Hyperlipidemia Family History: Denies Social History: The patient has never been , he used to have a trust fund and he had lived with his family in the area for more than 4 years. 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 He has some family support around. He used to live alone by himself in [place] but later on [facility]. Substance History: Denies Trauma History: Denies Diagnostics Vital Signs (24Hr): Vital Signs - 24 hr 08/22/23 15:26 08/22/23 18:10 08/23/23 08:35 Temperature 97.6 F 97.9 F Pulse Rate 81 71 Respiratory Rate 20 18 16 Blood Pressure 118/67 98/55 L Pulse Oximetry 95 100 Oxygen Delivery Method Room Air Room Air BMI result Body Mass Index 25.0 Labs 08/21/23 21:20 08/21/23 21:21 Labs: Laboratory Results - last 48 hr 08/21/23 08/21/23 21:20 21:21 WBC 8.3 RBC 4.64 Hgb 13.4 L Hct 41.1 L MCV 88.6 MCH 28.9 MCHC 32.6 RDW 14.2 Plt Count 172 MPV 12.2 Immature Gran % (Auto) 0.2 Neut % (Auto) 58.8 Lymph % (Auto) 32.2 Mora % (Auto) 4.1 Eos % (Auto) 3.6 Baso % (Auto) 1.1 Lymph # (Auto) 2.7 Mora # (Auto) 0.3 Eos # (Auto) 0.3 Baso # (Auto) 0.1 Abs Immat Gran (auto) 0.02 Absolute Neuts (auto) 4.9 Absolute Nucleated RBC 0.000 Nucleated RBC % (auto) 0.0 Sodium 143 Potassium 4.0 Chloride 108 Carbon Dioxide 28 Anion Gap 11 L BUN 16 Creatinine 0.75 Estim Creat Clear Calc 110.6 Estimated GFR > 60 Random Glucose 112 Calcium 9.4 Total Bilirubin 0.9 AST 13 ALT 13 Alkaline Phosphatase 77 Total Protein 7.4 Albumin 4.1 Urine Color Yellow Urine Appearance Clear Urine pH 6.0 Ur Specific Fajardo 1.025 Urine Protein Negative Urine Glucose (UA) Negative Urine Ketones Negative Urine Blood Negative Urine Nitrite Negative Ur Leukocyte Esterase Negative Urine Opiates Screen Not Detected Ur Buprenorphine Scrn Not Detected Ur Oxycodone Screen Not Detected Urine Methadone Screen Not Detected Urine Fentanyl Screen Not Detected Ur Barbiturates Screen Not Detected Ur Phencyclidine Scrn Not Detected Ur Amphetamines Screen Not Detected U Benzodiazepines Scrn Not Detected Urine Cocaine Screen Not Detected U Marijuana (THC) Screen Not Detected Ethyl Alcohol < 10 Meds/Allergies Meds Home Medications ?Medication ?Instructions ?Recorded ?Confirmed ?Type hydroxyzine pamoate 50 mg capsule 100 mg PO BID 08/21/23 08/21/23 History olanzapine 15 mg tablet 15 mg PO BEDTIME 08/21/23 08/21/23 History Allergies Allergies Allergy/AdvReac Type Severity Reaction Status Date / Time lactose AdvReac Intermediate Unknown Verified 08/21/23 20:52 Penicillins AdvReac Intermediate Unknown Verified 08/21/23 20:52 Mental Status Exam Mental Status Exam Patient Appearance: Unkempt (Disheveled) Patient Orientation: Person and Situation Level of Consciousness: Awake Patient Behavior: Guarded and Passive Mood Description: Withdrawn Affect Description: Labile Patient Cognition Impaired: Yes Ability to Follow Directions: Fair Speech Pattern: Impoverished Hallucinations: None Delusions: Paranoid Ideation and Ideas of Reference Thought Process: Incoherent, Illogical and Slowed Thinking Thought Content: positive for [place], positive for Perseveration and positive for Thought Blocking Judgement: Poor Assessment & Plan Assessment & Plan (1) Schizophrenia: Status: Acute Code(s): F20.9 - Schizophrenia, unspecified (2) Dementia: Status: Acute Code(s): F03.90 - Unspecified dementia, unspecified severity, without behavioral disturbance, psychotic disturbance, mood disturbance, and anxiety Plan The patient is a 63-year-old male with a past history of psychosis, cognitive impairment and chronic noncompliance who was brought to the facility after he was seen grossly disorganized. The patient is very well known since the patient had been admitted before with a similar presentation due to noncompliance. We will try to gather more collateral information since the patient is a very poor historian unable to provide any relevant information. He was seen in the unit responding to internal stimuli, grossly disorganized. Plan 1. Gather collateral information. 2. We will try to gather the guardianship paperwork and the community order for treatment over objection. 3. Continue with Zyprexa 15 mg p.o. q.h.s.. 4. Continue with medical workout. 5. 15 minutes checks observation since the patient is able to contract for safety. Patient educated on: diagnosis Reason for continued inpatient stay Substantial Risk for: inability to function, rapid decompensation and med/psych decompensation Statement Statement: I have reviewed the history and physical and performed a pertinent examination on my patient. No changes have occurred unless specified. If the History and Physical was not performed prior to admission, the Hospitalist's service will be consulted for completing the admission physical. Time Spent With Patient Time: Total time managing care of this patient today __45__ minutes.
[2023-08-23 20:00] VITALS: RESP 16
[2023-08-24 08:00] VITALS: RESP 16
--- NOTE | 2023-08-24 08:58 | P.PNPSI_ITS ---
Subjective Subjective Date of Service: 08/24/23 Reason For Visit: Psychosis Interim History: Patient seen and discussed with RN. He was in his room. He reported he doesn't know why he is in the hospital and doesn't believe he needs to be here. He was disorganized and disheveled. He denied any symptoms of admissions or mental illness. (He was at the hospital at [facility] last year.) He was paranoid and guarded. He later came out of his room and was asking this policy writer if is it good to have a guardian. There is a tape controlled machine stitcher who is my guardian... He declined medications. He is isolative to his room. Denies SI. Review of Systems Review of Systems Yes all other systems are reviewed and are negative and Unobtainable due to mental status Mental Status Exam Mental Status Exam Patient Appearance: Unkempt (Disheveled) Patient Orientation: Person and Situation Level of Consciousness: Awake Patient Behavior: Guarded and Passive Mood Description: Withdrawn Affect Description: Labile Patient Cognition Impaired: Yes Ability to Follow Directions: Fair Speech Pattern: Impoverished Diagnostics Vital Signs (24Hr): Vital Signs - 24 hr 08/23/23 20:00 08/24/23 08:00 Respiratory Rate 16 16 BMI result Body Mass Index 25.0 Labs 08/21/23 21:20 08/21/23 21:21 Medications Medications Current Medications Acetaminophen (Acetaminophen 325 Mg Tablet) 325 mg PO Q4H PRN PRN Reason: Mild Pain (Scale Score 1-4) Al Hydroxide/Mg Hydroxide (Magnesium Hydrox/Alum Hydrox 30 Ml Oral.Susp) 30 ml PO Q6H PRN PRN Reason: Heartburn/Nausea Atorvastatin Calcium (Atorvastatin Calcium 10 Mg Tablet) 10 mg PO BEDTIME [facility] Last Admin: 08/23/23 21:42 Dose: Not Given Hydroxyzine HCl (Hydroxyzine Hcl 50 Mg Tablet) 100 mg PO BID [facility] Last Admin: 08/24/23 08:17 Dose: Not Given Magnesium Hydroxide (Milk Of Magnesia 30 Ml Oral.Susp) 30 ml PO DAILY PRN PRN Reason: Constipation Olanzapine (Olanzapine 7.5 Mg Tablet) 15 mg PO BEDTIME [facility] Last Admin: 08/23/23 21:42 Dose: Not Given Trazodone HCl (Trazodone Hcl 50 Mg Tablet) 50 mg PO BEDTIME MRX1 PRN PRN Reason: Insomnia Vitamin D (Cholecalciferol (Vitamin D3) 25 Mcg Tablet) 25 mcg PO DAILY [facility] Last Admin: 08/24/23 08:16 Dose: Not Given Allergies Allergies Allergy/AdvReac Type Severity Reaction Status Date / Time lactose AdvReac Intermediate Unknown Verified 08/21/23 20:52 Penicillins AdvReac Intermediate Unknown Verified 08/21/23 20:52 Assessment & Plan Assessment & Plan (1) Schizophrenia: Status: Acute Code(s): F20.9 - Schizophrenia, unspecified (2) Dementia: Status: Acute Code(s): F03.90 - Unspecified dementia, unspecified severity, without behavioral disturbance, psychotic disturbance, mood disturbance, and anxiety Plan The patient is a 63-year-old male with a past history of psychosis, cognitive impairment and chronic noncompliance who was brought to the facility after he was seen grossly disorganized. The patient is very well known since the patient had been admitted before with a similar presentation due to noncompliance. We will try to gather more collateral information since the patient is a very poor historian unable to provide any relevant information. He was seen in the unit responding to internal stimuli, grossly disorganized. Plan 1. Gather collateral information. 2. We will try to gather the guardianship paperwork and the community order for treatment over objection. 3. Continue with Zyprexa 15 mg p.o. q.h.s.. 4. Continue with medical workout. 5. 15 minutes checks observation since the patient is able to contract for safety. 08/24/23: Continue current plan. Reason for continued inpatient stay Substantial Risk for: inability to function and rapid decompensation Time Spent With Patient Time: Total time managing care of this patient today ____ minutes.
[2023-08-24 20:00] VITALS: RESP 16
[2023-08-25 08:00] VITALS: RESP 16
--- NOTE | 2023-08-25 16:01 | HO.PSYCHPN ---
Subjective Subjective Date of Service: 08/25/23 Reason For Visit: Psychosis Interim History: Patient seen and discussed with RN. He was in his room. Patient continues to be disorganized and refuses medications. He insists he is leaving on Saturday and that the doctor agreed. He has no insight. Refuses to allow VS. Eating well. Isolates in room. guarded. Denies SI. Review of Systems Review of Systems Yes all other systems are reviewed and are negative and Unobtainable due to mental status Mental Status Exam Mental Status Exam Patient Appearance: Unkempt (Disheveled) Patient Orientation: Person and Situation Level of Consciousness: Awake Patient Behavior: Guarded and Passive Mood Description: Withdrawn Affect Description: Labile Patient Cognition Impaired: Yes Ability to Follow Directions: Fair Speech Pattern: Impoverished Diagnostics Vital Signs (24Hr): Vital Signs - 24 hr 08/24/23 20:00 08/25/23 08:00 Respiratory Rate 16 16 BMI result Body Mass Index 25.0 Labs 08/21/23 21:20 08/21/23 21:21 Medications Medications Current Medications Acetaminophen (Acetaminophen 325 Mg Tablet) 325 mg PO Q4H PRN PRN Reason: Mild Pain (Scale Score 1-4) Al Hydroxide/Mg Hydroxide (Magnesium Hydrox/Alum Hydrox 30 Ml Oral.Susp) 30 ml PO Q6H PRN PRN Reason: Heartburn/Nausea Atorvastatin Calcium (Atorvastatin Calcium 10 Mg Tablet) 10 mg PO BEDTIME [facility] Last Admin: 08/24/23 21:08 Dose: Not Given Hydroxyzine HCl (Hydroxyzine Hcl 50 Mg Tablet) 100 mg PO BID [facility] Last Admin: 08/25/23 08:37 Dose: Not Given Magnesium Hydroxide (Milk Of Magnesia 30 Ml Oral.Susp) 30 ml PO DAILY PRN PRN Reason: Constipation Olanzapine (Olanzapine 7.5 Mg Tablet) 15 mg PO BEDTIME [facility] Last Admin: 08/24/23 21:08 Dose: Not Given Trazodone HCl (Trazodone Hcl 50 Mg Tablet) 50 mg PO BEDTIME MRX1 PRN PRN Reason: Insomnia Vitamin D (Cholecalciferol (Vitamin D3) 25 Mcg Tablet) 25 mcg PO DAILY [facility] Last Admin: 08/25/23 08:37 Dose: Not Given Allergies Allergies Allergy/AdvReac Type Severity Reaction Status Date / Time lactose AdvReac Intermediate Unknown Verified 08/21/23 20:52 Penicillins AdvReac Intermediate Unknown Verified 08/21/23 20:52 Assessment & Plan Assessment & Plan (1) Schizophrenia: Status: Acute Code(s): F20.9 - Schizophrenia, unspecified (2) Dementia: Status: Acute Code(s): F03.90 - Unspecified dementia, unspecified severity, without behavioral disturbance, psychotic disturbance, mood disturbance, and anxiety Plan The patient is a 63-year-old male with a past history of psychosis, cognitive impairment and chronic noncompliance who was brought to the facility after he was seen grossly disorganized. The patient is very well known since the patient had been admitted before with a similar presentation due to noncompliance. We will try to gather more collateral information since the patient is a very poor historian unable to provide any relevant information. He was seen in the unit responding to internal stimuli, grossly disorganized. Plan 1. Gather collateral information. 2. We will try to gather the guardianship paperwork and the community order for treatment over objection. 3. Continue with Zyprexa 15 mg p.o. q.h.s.. 4. Continue with medical workout. 5. 15 minutes checks observation since the patient is able to contract for safety. 08/24/23: Continue current plan. 08/24: continue current management and treatment plan. Reason for continued inpatient stay Substantial Risk for: inability to function and rapid decompensation Time Spent With Patient Time: Total time managing care of this patient today ____ minutes.
[2023-08-25 20:00] VITALS: RESP 16
[2023-08-26 08:00] VITALS: RESP 16
--- NOTE | 2023-08-26 10:53 | HO.PSYCHPN ---
Subjective Subjective Date of Service: 08/26/23 Reason For Visit: Psychosis Interim History: Patient seen and discussed with RN. He refuses medications and vital signs. He was in his room. Patient continues to be disorganized and refuses medications. He insists he is leaving on Saturday and that the doctor agreed. He has no insight. Refuses to allow VS. Eating well. Isolates in room. guarded. Denies SI. Review of Systems Review of Systems Yes all other systems are reviewed and are negative and Unobtainable due to mental status Mental Status Exam Mental Status Exam Patient Appearance: Unkempt (Disheveled) Patient Orientation: Person and Situation Level of Consciousness: Awake Patient Behavior: Guarded and Passive Mood Description: Withdrawn Affect Description: Labile Patient Cognition Impaired: Yes Ability to Follow Directions: Fair Speech Pattern: Impoverished Diagnostics Vital Signs (24Hr): Vital Signs - 24 hr 08/25/23 20:00 08/26/23 08:00 Respiratory Rate 16 16 BMI result Body Mass Index 25.0 Labs 08/21/23 21:20 08/21/23 21:21 Medications Medications Current Medications Acetaminophen (Acetaminophen 325 Mg Tablet) 325 mg PO Q4H PRN PRN Reason: Mild Pain (Scale Score 1-4) Al Hydroxide/Mg Hydroxide (Magnesium Hydrox/Alum Hydrox 30 Ml Oral.Susp) 30 ml PO Q6H PRN PRN Reason: Heartburn/Nausea Atorvastatin Calcium (Atorvastatin Calcium 10 Mg Tablet) 10 mg PO BEDTIME [facility] Last Admin: 08/25/23 20:41 Dose: Not Given Hydroxyzine HCl (Hydroxyzine Hcl 50 Mg Tablet) 100 mg PO BID [facility] Last Admin: 08/26/23 09:01 Dose: Not Given Magnesium Hydroxide (Milk Of Magnesia 30 Ml Oral.Susp) 30 ml PO DAILY PRN PRN Reason: Constipation Olanzapine (Olanzapine 7.5 Mg Tablet) 15 mg PO BEDTIME [facility] Last Admin: 08/25/23 20:41 Dose: Not Given Trazodone HCl (Trazodone Hcl 50 Mg Tablet) 50 mg PO BEDTIME MRX1 PRN PRN Reason: Insomnia Vitamin D (Cholecalciferol (Vitamin D3) 25 Mcg Tablet) 25 mcg PO DAILY [facility] Last Admin: 08/26/23 09:01 Dose: Not Given Allergies Allergies Allergy/AdvReac Type Severity Reaction Status Date / Time lactose AdvReac Intermediate Unknown Verified 08/21/23 20:52 Penicillins AdvReac Intermediate Unknown Verified 08/21/23 20:52 Assessment & Plan Assessment & Plan (1) Schizophrenia: Status: Acute Code(s): F20.9 - Schizophrenia, unspecified (2) Dementia: Status: Acute Code(s): F03.90 - Unspecified dementia, unspecified severity, without behavioral disturbance, psychotic disturbance, mood disturbance, and anxiety Plan The patient is a 63-year-old male with a past history of psychosis, cognitive impairment and chronic noncompliance who was brought to the facility after he was seen grossly disorganized. The patient is very well known since the patient had been admitted before with a similar presentation due to noncompliance. We will try to gather more collateral information since the patient is a very poor historian unable to provide any relevant information. He was seen in the unit responding to internal stimuli, grossly disorganized. Plan 1. Gather collateral information. 2. We will try to gather the guardianship paperwork and the community order for treatment over objection. 3. Continue with Zyprexa 15 mg p.o. q.h.s.. 4. Continue with medical workout. 5. 15 minutes checks observation since the patient is able to contract for safety. 08/24/23: Continue current plan. 08/24: continue current management and treatment plan. 08/25: continue current management and treatment plan. Reason for continued inpatient stay Substantial Risk for: inability to function and rapid decompensation Time Spent With Patient Time: Total time managing care of this patient today ____ minutes.
--- NOTE | 2023-08-26 13:16 | PC.NURSE ---
Pt refused vital signs monitoring and am meds. Dr Ojeda notified.
[2023-08-26 20:00] VITALS: RESP 16
--- NOTE | 2023-08-27 12:19 | P.PNPSI_ITS ---
Subjective Subjective Date of Service: 08/27/23 Reason For Visit: Psychosis Subjective Notes: Section 7, Section 8 and Conditional Voluntary Interim History: The nursing staff reported the patient had been guarded, refused medications he refused vital signs. He slept 8 hours. On interview the patient reported that he is going to be discharged, I explained him that we are going to filed for Section 7 and 8 and he was unable to understand stating that he already has a inspector glass or mirror. The patient remains disheveled, grossly disorganized. Currently homeless.. Mental Status Exam Mental Status Exam Patient Appearance: Unkempt Patient Orientation: Person and Situation Level of Consciousness: Awake Patient Behavior: Guarded and Passive Mood Description: Withdrawn Affect Description: Constricted Patient Cognition Impaired: Yes Ability to Follow Directions: Good Speech Pattern: Clear Hallucinations: None Delusions: Paranoid Ideation and Ideas of Reference Thought Process: Slowed Thinking Thought Content: positive for [place] and positive for Poverty of Content Judgement: Poor Diagnostics Vital Signs (24Hr): Vital Signs - 24 hr 08/26/23 20:00 Respiratory Rate 16 BMI result Body Mass Index 25.0 Labs 08/21/23 21:20 08/21/23 21:21 Medications Medications Current Medications Acetaminophen (Acetaminophen 325 Mg Tablet) 325 mg PO Q4H PRN PRN Reason: Mild Pain (Scale Score 1-4) Al Hydroxide/Mg Hydroxide (Magnesium Hydrox/Alum Hydrox 30 Ml Oral.Susp) 30 ml PO Q6H PRN PRN Reason: Heartburn/Nausea Atorvastatin Calcium (Atorvastatin Calcium 10 Mg Tablet) 10 mg PO BEDTIME [facility] Last Admin: 08/26/23 20:28 Dose: Not Given Hydroxyzine HCl (Hydroxyzine Hcl 50 Mg Tablet) 100 mg PO BID [facility] Last Admin: 08/27/23 08:53 Dose: Not Given Magnesium Hydroxide (Milk Of Magnesia 30 Ml Oral.Susp) 30 ml PO DAILY PRN PRN Reason: Constipation Olanzapine (Olanzapine 7.5 Mg Tablet) 15 mg PO BEDTIME [facility] Last Admin: 08/26/23 20:28 Dose: Not Given Trazodone HCl (Trazodone Hcl 50 Mg Tablet) 50 mg PO BEDTIME MRX1 PRN PRN Reason: Insomnia Vitamin D (Cholecalciferol (Vitamin D3) 25 Mcg Tablet) 25 mcg PO DAILY [facility] Last Admin: 08/27/23 08:53 Dose: Not Given Allergies Allergies Allergy/AdvReac Type Severity Reaction Status Date / Time lactose AdvReac Intermediate Unknown Verified 08/21/23 20:52 Penicillins AdvReac Intermediate Unknown Verified 08/21/23 20:52 Assessment & Plan Assessment & Plan (1) Schizophrenia: Status: Acute Code(s): F20.9 - Schizophrenia, unspecified (2) Dementia: Status: Acute Code(s): F03.90 - Unspecified dementia, unspecified severity, without behavioral disturbance, psychotic disturbance, mood disturbance, and anxiety Plan The patient is a 63-year-old male with a past history of psychosis, cognitive impairment and chronic noncompliance who was brought to the facility after he was seen grossly disorganized. The patient is very well known since the patient had been admitted before with a similar presentation due to noncompliance. We will try to gather more collateral information since the patient is a very poor historian unable to provide any relevant information. He was seen in the unit responding to internal stimuli, grossly disorganized. Plan 1. Gather collateral information. 2. We will try to gather the guardianship paperwork and the community order for treatment over objection. 3. Continue with Zyprexa 15 mg p.o. q.h.s.. 4. Continue with medical workout. 5. 15 minutes checks observation since the patient is able to contract for safety. 6. Filing for Section 7 and 8 Reason for continued inpatient stay Substantial Risk for: inability to function, rapid decompensation and med/psych decompensation Time Spent With Patient Time: Total time managing care of this patient today __20__ minutes.
[2023-08-28 08:05] VITALS: BP 110/68; PULSE 73; RESP 18; TEMP 36.6; O2SAT 100
--- NOTE | 2023-08-28 13:01 | P.PNPSI_ITS ---
Subjective Subjective Date of Service: 08/28/23 Reason For Visit: Psychosis Subjective Notes: Section 7 and Section 8 Interim History: The nursing staff reported the patient has flat affect he stated that he is was going to be discharged today. He could not understand that I filed for Section 7 and 8. He had been refusing medications and he remains grossly disorganized. On interview I explained him that we have filed for Section 7 and 8 and he can not understand why, he stated I need to talk with his disability attorney who is the healthcare proxy and power of disability attorney. Unable to understand the procedures. He refused to take any medication. Mental Status Exam Mental Status Exam Patient Appearance: Unkempt Patient Orientation: Person Level of Consciousness: Awake Patient Behavior: Guarded Mood Description: Withdrawn Affect Description: Blunted Patient Cognition Impaired: Yes Ability to Follow Directions: Good Speech Pattern: Clear Hallucinations: Auditory Delusions: Paranoid Ideation and Ideas of Reference Thought Process: Distracted and Slowed Thinking Thought Content: positive for [place] and positive for Poverty of Content Judgement: Poor Diagnostics Vital Signs (24Hr): Vital Signs - 24 hr 08/28/23 08:05 Temperature 97.9 F Pulse Rate 73 Respiratory Rate 18 Blood Pressure 110/68 Pulse Oximetry 100 Oxygen Delivery Method Room Air BMI result Body Mass Index 25.0 Labs 08/21/23 21:20 08/21/23 21:21 Medications Medications Current Medications Acetaminophen (Acetaminophen 325 Mg Tablet) 325 mg PO Q4H PRN PRN Reason: Mild Pain (Scale Score 1-4) Al Hydroxide/Mg Hydroxide (Magnesium Hydrox/Alum Hydrox 30 Ml Oral.Susp) 30 ml PO Q6H PRN PRN Reason: Heartburn/Nausea Atorvastatin Calcium (Atorvastatin Calcium 10 Mg Tablet) 10 mg PO BEDTIME [facility] Last Admin: 08/27/23 19:58 Dose: Not Given Hydroxyzine HCl (Hydroxyzine Hcl 50 Mg Tablet) 100 mg PO BID [facility] Last Admin: 08/28/23 08:24 Dose: Not Given Magnesium Hydroxide (Milk Of Magnesia 30 Ml Oral.Susp) 30 ml PO DAILY PRN PRN Reason: Constipation Olanzapine (Olanzapine 7.5 Mg Tablet) 15 mg PO BEDTIME [facility] Last Admin: 08/27/23 19:59 Dose: Not Given Trazodone HCl (Trazodone Hcl 50 Mg Tablet) 50 mg PO BEDTIME MRX1 PRN PRN Reason: Insomnia Vitamin D (Cholecalciferol (Vitamin D3) 25 Mcg Tablet) 25 mcg PO DAILY [facility] Last Admin: 08/28/23 08:24 Dose: Not Given Allergies Allergies Allergy/AdvReac Type Severity Reaction Status Date / Time lactose AdvReac Intermediate Unknown Verified 08/21/23 20:52 Penicillins AdvReac Intermediate Unknown Verified 08/21/23 20:52 Assessment & Plan Assessment & Plan (1) Schizophrenia: Status: Acute Code(s): F20.9 - Schizophrenia, unspecified (2) Dementia: Status: Acute Code(s): F03.90 - Unspecified dementia, unspecified severity, without behavioral disturbance, psychotic disturbance, mood disturbance, and anxiety Plan The patient is a 63-year-old male with a past history of psychosis, cognitive impairment and chronic noncompliance who was brought to the facility after he was seen grossly disorganized. The patient is very well known since the patient had been admitted before with a similar presentation due to noncompliance. We will try to gather more collateral information since the patient is a very poor historian unable to provide any relevant information. He was seen in the unit responding to internal stimuli, grossly disorganized. Plan 1. Gather collateral information. 2. We will try to gather the guardianship paperwork and the community order for treatment over objection. 3. Continue with Zyprexa 15 mg p.o. q.h.s.. 4. Continue with medical workout. 5. 15 minutes checks observation since the patient is able to contract for safety. 6. Filing for Section 7 and 8 Reason for continued inpatient stay Substantial Risk for: inability to function, rapid decompensation and med/psych decompensation Time Spent With Patient Time: Total time managing care of this patient today _20___ minutes.
[2023-08-28 20:00] VITALS: RESP 16
[2023-08-29 06:10] VITALS: BP 116/69; PULSE 80; RESP 16; TEMP 36.2; O2SAT 98
--- NOTE | 2023-08-29 08:22 | HO.PSYCHPN ---
Subjective Subjective Date of Service: 08/29/23 Reason For Visit: Psychosis Subjective Notes: Section 7 and Section 8 Interim History: The nursing staff reported the patient had been perseverative refusing his medications also he has refused showering very disheveled. The social sciences instructor reported that the reinforcing bar setter that he was asking to talk is not his power of reinforcing bar setter. The custodial facility sent the location of the healthcare proxy. On interview the patient remains that he wants to be discharged does not understand that we have filed for Section 7 and 8. Mental Status Exam Mental Status Exam Patient Appearance: Unkempt Patient Orientation: Person Level of Consciousness: Awake Patient Behavior: Guarded and Passive Mood Description: Withdrawn Affect Description: Blunted Patient Cognition Impaired: Yes Ability to Follow Directions: Fair Speech Pattern: Clear Hallucinations: Auditory Delusions: Paranoid Ideation and Ideas of Reference Thought Process: Distracted and Slowed Thinking Thought Content: positive for [place], positive for Perseveration and positive for Poverty of Content Judgement: Poor Diagnostics Vital Signs (24Hr): Vital Signs - 24 hr 08/28/23 20:00 08/29/23 06:10 Temperature 97.1 F Pulse Rate 80 Respiratory Rate 16 16 Blood Pressure 116/69 Pulse Oximetry 98 Oxygen Delivery Method Room Air BMI result Body Mass Index 25.0 Labs 08/21/23 21:20 08/21/23 21:21 Medications Medications Current Medications Acetaminophen (Acetaminophen 325 Mg Tablet) 325 mg PO Q4H PRN PRN Reason: Mild Pain (Scale Score 1-4) Al Hydroxide/Mg Hydroxide (Magnesium Hydrox/Alum Hydrox 30 Ml Oral.Susp) 30 ml PO Q6H PRN PRN Reason: Heartburn/Nausea Atorvastatin Calcium (Atorvastatin Calcium 10 Mg Tablet) 10 mg PO BEDTIME [facility] Last Admin: 08/28/23 22:20 Dose: Not Given Hydroxyzine HCl (Hydroxyzine Hcl 50 Mg Tablet) 100 mg PO BID [facility] Last Admin: 08/28/23 22:20 Dose: Not Given Magnesium Hydroxide (Milk Of Magnesia 30 Ml Oral.Susp) 30 ml PO DAILY PRN PRN Reason: Constipation Olanzapine (Olanzapine 7.5 Mg Tablet) 15 mg PO BEDTIME [facility] Last Admin: 08/28/23 22:21 Dose: Not Given Trazodone HCl (Trazodone Hcl 50 Mg Tablet) 50 mg PO BEDTIME MRX1 PRN PRN Reason: Insomnia Vitamin D (Cholecalciferol (Vitamin D3) 25 Mcg Tablet) 25 mcg PO DAILY [facility] Last Admin: 08/28/23 08:24 Dose: Not Given Allergies Allergies Allergy/AdvReac Type Severity Reaction Status Date / Time lactose AdvReac Intermediate Unknown Verified 08/21/23 20:52 Penicillins AdvReac Intermediate Unknown Verified 08/21/23 20:52 Assessment & Plan Assessment & Plan (1) Schizophrenia: Status: Acute Code(s): F20.9 - Schizophrenia, unspecified (2) Dementia: Status: Acute Code(s): F03.90 - Unspecified dementia, unspecified severity, without behavioral disturbance, psychotic disturbance, mood disturbance, and anxiety Plan The patient is a 63-year-old male with a past history of psychosis, cognitive impairment and chronic noncompliance who was brought to the facility after he was seen grossly disorganized. The patient is very well known since the patient had been admitted before with a similar presentation due to noncompliance. We will try to gather more collateral information since the patient is a very poor historian unable to provide any relevant information. He was seen in the unit responding to internal stimuli, grossly disorganized. Plan 1. Gather collateral information. 2. We will try to gather the guardianship paperwork and the community order for treatment over objection. 3. Continue with Zyprexa 15 mg p.o. q.h.s.. 4. Continue with medical workout. 5. 15 minutes checks observation since the patient is able to contract for safety. 6. Filing for Section 7 and 8 Reason for continued inpatient stay Substantial Risk for: inability to function, rapid decompensation and med/psych decompensation Time Spent With Patient Time: Total time managing care of this patient today _20___ minutes.
[2023-08-29 19:54] VITALS: RESP 16
--- NOTE | 2023-08-30 15:01 | P.PNPSI_ITS ---
Subjective Subjective Date of Service: 08/30/23 Reason For Visit: Psychosis Subjective Notes: Section 7 and Section 8 Interim History: The nursing staff reported the patient had been perseverative no changes in his mental status he had been irritable and refusing vital signs and medications. The health care social worker reported that the healthcare was invoked and activated before coming here. On interview the patient was perseverative stating that he needs to be discharged I explained him that we filed for Section 7 and 8 but he can not understand the procedure. Remains disheveled, unable to take care of himself. Mental Status Exam Mental Status Exam Patient Appearance: Unkempt and Bizarre Patient Orientation: Person and Situation Level of Consciousness: Awake Patient Behavior: Guarded and Passive Mood Description: Withdrawn Affect Description: Labile Patient Cognition Impaired: Yes Ability to Follow Directions: Fair Speech Pattern: Clear and Impoverished Hallucinations: None Delusions: Paranoid Ideation, Grandiose and Ideas of Reference Thought Process: Distracted and Slowed Thinking Thought Content: positive for [place] and positive for Poverty of Content Judgement: Poor Diagnostics Vital Signs (24Hr): Vital Signs - 24 hr 08/29/23 19:54 Respiratory Rate 16 BMI result Body Mass Index 25.0 Labs 08/21/23 21:20 08/21/23 21:21 Medications Medications Current Medications Acetaminophen (Acetaminophen 325 Mg Tablet) 325 mg PO Q4H PRN PRN Reason: Mild Pain (Scale Score 1-4) Al Hydroxide/Mg Hydroxide (Magnesium Hydrox/Alum Hydrox 30 Ml Oral.Susp) 30 ml PO Q6H PRN PRN Reason: Heartburn/Nausea Atorvastatin Calcium (Atorvastatin Calcium 10 Mg Tablet) 10 mg PO BEDTIME [facility] Last Admin: 08/29/23 19:53 Dose: Not Given Hydroxyzine HCl (Hydroxyzine Hcl 50 Mg Tablet) 100 mg PO BID [facility] Last Admin: 08/30/23 08:45 Dose: Not Given Magnesium Hydroxide (Milk Of Magnesia 30 Ml Oral.Susp) 30 ml PO DAILY PRN PRN Reason: Constipation Olanzapine (Olanzapine 7.5 Mg Tablet) 15 mg PO BEDTIME [facility] Last Admin: 08/29/23 19:53 Dose: Not Given Trazodone HCl (Trazodone Hcl 50 Mg Tablet) 50 mg PO BEDTIME MRX1 PRN PRN Reason: Insomnia Vitamin D (Cholecalciferol (Vitamin D3) 25 Mcg Tablet) 25 mcg PO DAILY [facility] Last Admin: 08/30/23 08:45 Dose: Not Given Allergies Allergies Allergy/AdvReac Type Severity Reaction Status Date / Time lactose AdvReac Intermediate Unknown Verified 08/21/23 20:52 Penicillins AdvReac Intermediate Unknown Verified 08/21/23 20:52 Assessment & Plan Assessment & Plan (1) Schizophrenia: Status: Acute Code(s): F20.9 - Schizophrenia, unspecified (2) Dementia: Status: Acute Code(s): F03.90 - Unspecified dementia, unspecified severity, without behavioral disturbance, psychotic disturbance, mood disturbance, and anxiety Plan The patient is a 63-year-old male with a past history of psychosis, cognitive impairment and chronic noncompliance who was brought to the facility after he was seen grossly disorganized. The patient is very well known since the patient had been admitted before with a similar presentation due to noncompliance. We will try to gather more collateral information since the patient is a very poor historian unable to provide any relevant information. He was seen in the unit responding to internal stimuli, grossly disorganized. Plan 1. Gather collateral information. 2. We will try to gather the guardianship paperwork and the community order for treatment over objection. 3. Continue with Zyprexa 15 mg p.o. q.h.s.. 4. Continue with medical workout. 5. 15 minutes checks observation since the patient is able to contract for safety. 6. Filing for Section 7 and 8 Reason for continued inpatient stay Substantial Risk for: inability to function, rapid decompensation and med/psych decompensation Time Spent With Patient Time: Total time managing care of this patient today __20__ minutes.
[2023-08-30 20:00] VITALS: BP 121/70; PULSE 74; RESP 18; TEMP 36.6; O2SAT 100
[2023-08-31 08:00] VITALS: BP 111/63; PULSE 75; RESP 16; TEMP 36.6; O2SAT 100
--- NOTE | 2023-08-31 18:24 | HO.PSYCHPN ---
Subjective Subjective Date of Service: 08/31/23 Reason For Visit: Psychosis Interim History: Reviewed with team. Pt has court on 09/02 for section 7/8 treatment decision. He is not accepting of meds or treatment, my condenser winder told me not to. He asks for an xray of his left foot. Team reports he will not allow an exam so the xray can be focused, so they have placed this request on hold. Pt talks today of his kitchenwhere maker, Ananda and how valuable his advice is to him Medication Compliance: No Attending Groups: No Review of Systems Acute medical concerns: Yes L foot. Medical Review of Systems: unchanged Review of Systems Review of Systems L foot-believes he needs an xray, unable to discuss sx. Mental Status Exam Mental Status Exam Patient Appearance: Unkempt and Bizarre Patient Orientation: Person and Situation Level of Consciousness: Awake Patient Behavior: Guarded and Passive Mood Description: Withdrawn Affect Description: Labile Patient Cognition Impaired: Yes Ability to Follow Directions: Fair Speech Pattern: Clear and Impoverished Hallucinations: None Delusions: Paranoid Ideation, Grandiose and Ideas of Reference Thought Process: Distracted and Slowed Thinking Thought Content: positive for [place] and positive for Poverty of Content Judgement: Poor Diagnostics Vital Signs (24Hr): Vital Signs - 24 hr 08/30/23 20:00 08/31/23 08:00 Temperature 97.9 F 98 F Pulse Rate 74 75 Respiratory Rate 18 16 Blood Pressure 121/70 111/63 Pulse Oximetry 100 100 Oxygen Delivery Method Room Air Room Air BMI result Body Mass Index 25.0 Labs 08/21/23 21:20 08/21/23 21:21 Medications Medications Current Medications Acetaminophen (Acetaminophen 325 Mg Tablet) 325 mg PO Q4H PRN PRN Reason: Mild Pain (Scale Score 1-4) Al Hydroxide/Mg Hydroxide (Magnesium Hydrox/Alum Hydrox 30 Ml Oral.Susp) 30 ml PO Q6H PRN PRN Reason: Heartburn/Nausea Atorvastatin Calcium (Atorvastatin Calcium 10 Mg Tablet) 10 mg PO BEDTIME [facility] Last Admin: 08/30/23 21:03 Dose: Not Given Hydroxyzine HCl (Hydroxyzine Hcl 50 Mg Tablet) 100 mg PO BID [facility] Last Admin: 08/31/23 09:01 Dose: Not Given Magnesium Hydroxide (Milk Of Magnesia 30 Ml Oral.Susp) 30 ml PO DAILY PRN PRN Reason: Constipation Olanzapine (Olanzapine 7.5 Mg Tablet) 15 mg PO BEDTIME [facility] Last Admin: 08/30/23 21:03 Dose: Not Given Trazodone HCl (Trazodone Hcl 50 Mg Tablet) 50 mg PO BEDTIME MRX1 PRN PRN Reason: Insomnia Vitamin D (Cholecalciferol (Vitamin D3) 25 Mcg Tablet) 25 mcg PO DAILY [facility] Last Admin: 08/31/23 09:01 Dose: Not Given Allergies Allergies Allergy/AdvReac Type Severity Reaction Status Date / Time lactose AdvReac Intermediate Unknown Verified 08/21/23 20:52 Penicillins AdvReac Intermediate Unknown Verified 08/21/23 20:52 Assessment & Plan Assessment & Plan (1) Schizophrenia: Status: Acute Code(s): F20.9 - Schizophrenia, unspecified (2) Dementia: Status: Acute Code(s): F03.90 - Unspecified dementia, unspecified severity, without behavioral disturbance, psychotic disturbance, mood disturbance, and anxiety Plan The patient is a 63-year-old male with a past history of psychosis, cognitive impairment and chronic noncompliance who was brought to the facility after he was seen grossly disorganized. The patient is very well known since the patient had been admitted before with a similar presentation due to noncompliance. We will try to gather more collateral information since the patient is a very poor historian unable to provide any relevant information. He was seen in the unit responding to internal stimuli, grossly disorganized. Plan 1. Gather collateral information. 2. We will try to gather the guardianship paperwork and the community order for treatment over objection. 3. Continue with Zyprexa 15 mg p.o. q.h.s.. 4. Continue with medical workout. 5. 15 minutes checks observation since the patient is able to contract for safety. 6. Filing for Section 7 and 8 Reason for continued inpatient stay Substantial Risk for: rapid decompensation Time Spent With Patient Time: Total time managing care of this patient today ____ minutes.
--- NOTE | 2023-09-01 10:54 | P.PNPSI_ITS ---
Subjective Subjective Date of Service: 09/01/23 Reason For Visit: Psychosis Subjective Notes: Section 7 Healthcare Proxy: No Guardianship: No Medical Problems Affecting Mental Status: No Interim History: Pt seen, discussed with the team. Court this week. He discussed wanting a knee xray without having an exam first-explained rationale for exam. Team reports he is able to weight bear, he will not allow observation or visual assessment. He will not discuss symptoms. He also discussed wanting his corporate associate attorney contacted to sign a JORDY (the corporate associate attorney he requests we are told is no longer affiliated with him). Becomes agitated when we attempt to provide facts and reality orientation with difficulty in processing this information and moving forward to meet his goals. Team reports pt will not discuss issues with them. He is avoidant with a decrease in communication. regarding current issues. Review of Systems Medical Review of Systems: unchanged Review of Systems Review of Systems Knee pain Mental Status Exam Mental Status Exam Patient Appearance: Unkempt and Bizarre Patient Orientation: Person and Situation Level of Consciousness: Awake Patient Behavior: Guarded and Passive Mood Description: Withdrawn Affect Description: Labile Patient Cognition Impaired: Yes Ability to Follow Directions: Fair Speech Pattern: Clear and Impoverished Hallucinations: None Delusions: Paranoid Ideation, Grandiose and Ideas of Reference Thought Process: Distracted and Slowed Thinking Thought Content: positive for [place] and positive for Poverty of Content Judgement: Poor Diagnostics Vital Signs (24Hr): BMI result Body Mass Index 25.0 Labs 08/21/23 21:20 08/21/23 21:21 Medications Medications Current Medications Acetaminophen (Acetaminophen 325 Mg Tablet) 325 mg PO Q4H PRN PRN Reason: Mild Pain (Scale Score 1-4) Al Hydroxide/Mg Hydroxide (Magnesium Hydrox/Alum Hydrox 30 Ml Oral.Susp) 30 ml PO Q6H PRN PRN Reason: Heartburn/Nausea Atorvastatin Calcium (Atorvastatin Calcium 10 Mg Tablet) 10 mg PO BEDTIME [facility] Last Admin: 08/31/23 20:25 Dose: Not Given Hydroxyzine HCl (Hydroxyzine Hcl 50 Mg Tablet) 100 mg PO BID [facility] Last Admin: 09/01/23 08:18 Dose: Not Given Magnesium Hydroxide (Milk Of Magnesia 30 Ml Oral.Susp) 30 ml PO DAILY PRN PRN Reason: Constipation Olanzapine (Olanzapine 7.5 Mg Tablet) 15 mg PO BEDTIME [facility] Last Admin: 08/31/23 20:26 Dose: Not Given Trazodone HCl (Trazodone Hcl 50 Mg Tablet) 50 mg PO BEDTIME MRX1 PRN PRN Reason: Insomnia Vitamin D (Cholecalciferol (Vitamin D3) 25 Mcg Tablet) 25 mcg PO DAILY [facility] Last Admin: 09/01/23 08:18 Dose: Not Given Allergies Allergies Allergy/AdvReac Type Severity Reaction Status Date / Time lactose AdvReac Intermediate Unknown Verified 08/21/23 20:52 Penicillins AdvReac Intermediate Unknown Verified 08/21/23 20:52 Assessment & Plan Assessment & Plan (1) Schizophrenia: Status: Acute Code(s): F20.9 - Schizophrenia, unspecified (2) Dementia: Status: Acute Code(s): F03.90 - Unspecified dementia, unspecified severity, without behavioral disturbance, psychotic disturbance, mood disturbance, and anxiety Plan The patient is a 63-year-old male with a past history of psychosis, cognitive impairment and chronic noncompliance who was brought to the facility after he was seen grossly disorganized. The patient is very well known since the patient had been admitted before with a similar presentation due to noncompliance. We will try to gather more collateral information since the patient is a very poor historian unable to provide any relevant information. He was seen in the unit responding to internal stimuli, grossly disorganized. Plan 1. Gather collateral information. 2. We will try to gather the guardianship paperwork and the community order for treatment over objection. 3. Continue with Zyprexa 15 mg p.o. q.h.s.. 4. Continue with medical workout. 5. 15 minutes checks observation since the patient is able to contract for safety. 6. Filing for Section 7 and 8 Reason for continued inpatient stay Substantial Risk for: rapid decompensation Time Spent With Patient Time: Total time managing care of this patient today ____ minutes.
[2023-09-01 20:00] VITALS: BP 103/60; PULSE 71; TEMP 36.3; O2SAT 99
[2023-09-02 08:00] VITALS: BP 113/60; PULSE 73; RESP 18; TEMP 36.6; O2SAT 99
--- NOTE | 2023-09-02 15:41 | P.PNPSI_ITS ---
Subjective Subjective Date of Service: 09/02/23 Reason For Visit: Psychosis Subjective Notes: Conditional Voluntary Interim History: The nursing staff reported the patient refused vitals and medications. On interview the patient reports that going to see the hemodialysis charge nurse, he is unable to understand Section 7 and 8. Still grossly psychotic, disheveled. Mental Status Exam Mental Status Exam Patient Appearance: Appropriate Patient Orientation: Person and Situation Level of Consciousness: Awake Patient Behavior: Guarded and Passive Mood Description: Withdrawn Affect Description: Constricted Patient Cognition Impaired: Yes Ability to Follow Directions: Good Speech Pattern: Clear Hallucinations: None Delusions: Paranoid Ideation Thought Process: Distracted and Slowed Thinking Thought Content: positive for [place], positive for Poverty of Content and positive for Thought Blocking Judgement: Poor Diagnostics Vital Signs (24Hr): Vital Signs - 24 hr 09/01/23 20:00 09/02/23 08:00 Temperature 97.3 F 97.9 F Pulse Rate 71 73 Respiratory Rate 18 Blood Pressure 103/60 113/60 Pulse Oximetry 99 99 Oxygen Delivery Method Room Air Room Air BMI result Body Mass Index 25.0 Labs 08/21/23 21:20 08/21/23 21:21 Medications Medications Current Medications Acetaminophen (Acetaminophen 325 Mg Tablet) 325 mg PO Q4H PRN PRN Reason: Mild Pain (Scale Score 1-4) Al Hydroxide/Mg Hydroxide (Magnesium Hydrox/Alum Hydrox 30 Ml Oral.Susp) 30 ml PO Q6H PRN PRN Reason: Heartburn/Nausea Atorvastatin Calcium (Atorvastatin Calcium 10 Mg Tablet) 10 mg PO BEDTIME [facility] Last Admin: 09/01/23 20:11 Dose: Not Given Hydroxyzine HCl (Hydroxyzine Hcl 50 Mg Tablet) 100 mg PO BID [facility] Last Admin: 09/02/23 08:40 Dose: Not Given Magnesium Hydroxide (Milk Of Magnesia 30 Ml Oral.Susp) 30 ml PO DAILY PRN PRN Reason: Constipation Olanzapine (Olanzapine 7.5 Mg Tablet) 15 mg PO BEDTIME [facility] Last Admin: 09/01/23 20:11 Dose: Not Given Trazodone HCl (Trazodone Hcl 50 Mg Tablet) 50 mg PO BEDTIME MRX1 PRN PRN Reason: Insomnia Vitamin D (Cholecalciferol (Vitamin D3) 25 Mcg Tablet) 25 mcg PO DAILY [facility] Last Admin: 09/02/23 08:40 Dose: Not Given Allergies Allergies Allergy/AdvReac Type Severity Reaction Status Date / Time lactose AdvReac Intermediate Unknown Verified 08/21/23 20:52 Penicillins AdvReac Intermediate Unknown Verified 08/21/23 20:52 Assessment & Plan Assessment & Plan (1) Schizophrenia: Status: Acute Code(s): F20.9 - Schizophrenia, unspecified (2) Dementia: Status: Acute Code(s): F03.90 - Unspecified dementia, unspecified severity, without behavioral disturbance, psychotic disturbance, mood disturbance, and anxiety Plan The patient is a 63-year-old male with a past history of psychosis, cognitive impairment and chronic noncompliance who was brought to the facility after he was seen grossly disorganized. The patient is very well known since the patient had been admitted before with a similar presentation due to noncompliance. We will try to gather more collateral information since the patient is a very poor historian unable to provide any relevant information. He was seen in the unit responding to internal stimuli, grossly disorganized. Plan 1. Gather collateral information. 2. We will try to gather the guardianship paperwork and the community order for treatment over objection. 3. Continue with Zyprexa 15 mg p.o. q.h.s.. 4. Continue with medical workout. 5. 15 minutes checks observation since the patient is able to contract for safety. 6. Filing for Section 7 and 8 Reason for continued inpatient stay Substantial Risk for: inability to function, rapid decompensation and med/psych decompensation Time Spent With Patient Time: Total time managing care of this patient today _20___ minutes.
[2023-09-02 20:00] VITALS: BP 116/50; PULSE 62; RESP 16; TEMP 36.8; O2SAT 98
--- NOTE | 2023-09-03 11:40 | P.PNPSI_ITS ---
Subjective Subjective Date of Service: 09/03/23 Reason For Visit: Psychosis Subjective Notes: Conditional Voluntary Interim History: The nursing staff reported the patient had been refusing vital signs and medications. We filed Section 7 and 8 and he has a hearing for . On interview the patient remains perseverative, disheveled disorganized he has no change his clothes in several days. Mental Status Exam Mental Status Exam Patient Appearance: Appropriate Patient Orientation: Person and Situation Level of Consciousness: Awake Patient Behavior: Guarded Mood Description: Withdrawn Affect Description: Blunted Patient Cognition Impaired: Yes Ability to Follow Directions: Fair Speech Pattern: Clear Hallucinations: None Delusions: Paranoid Ideation and Ideas of Reference Thought Process: Distracted and Slowed Thinking Thought Content: positive for [place], positive for Poverty of Content and positive for Thought Blocking Judgement: Poor Diagnostics Vital Signs (24Hr): Vital Signs - 24 hr 09/02/23 20:00 Temperature 98.2 F Pulse Rate 62 Respiratory Rate 16 Blood Pressure 116/50 L Pulse Oximetry 98 Oxygen Delivery Method Room Air BMI result Body Mass Index 25.0 Labs 08/21/23 21:20 08/21/23 21:21 Medications Medications Current Medications Acetaminophen (Acetaminophen 325 Mg Tablet) 325 mg PO Q4H PRN PRN Reason: Mild Pain (Scale Score 1-4) Al Hydroxide/Mg Hydroxide (Magnesium Hydrox/Alum Hydrox 30 Ml Oral.Susp) 30 ml PO Q6H PRN PRN Reason: Heartburn/Nausea Atorvastatin Calcium (Atorvastatin Calcium 10 Mg Tablet) 10 mg PO BEDTIME [facility] Last Admin: 09/02/23 20:57 Dose: Not Given Hydroxyzine HCl (Hydroxyzine Hcl 50 Mg Tablet) 100 mg PO BID [facility] Last Admin: 09/03/23 08:20 Dose: Not Given Magnesium Hydroxide (Milk Of Magnesia 30 Ml Oral.Susp) 30 ml PO DAILY PRN PRN Reason: Constipation Olanzapine (Olanzapine 7.5 Mg Tablet) 15 mg PO BEDTIME [facility] Last Admin: 09/02/23 20:57 Dose: Not Given Trazodone HCl (Trazodone Hcl 50 Mg Tablet) 50 mg PO BEDTIME MRX1 PRN PRN Reason: Insomnia Vitamin D (Cholecalciferol (Vitamin D3) 25 Mcg Tablet) 25 mcg PO DAILY [facility] Last Admin: 09/03/23 08:20 Dose: Not Given Allergies Allergies Allergy/AdvReac Type Severity Reaction Status Date / Time lactose AdvReac Intermediate Unknown Verified 08/21/23 20:52 Penicillins AdvReac Intermediate Unknown Verified 08/21/23 20:52 Assessment & Plan Assessment & Plan (1) Schizophrenia: Status: Acute Code(s): F20.9 - Schizophrenia, unspecified (2) Dementia: Status: Acute Code(s): F03.90 - Unspecified dementia, unspecified severity, without behavioral disturbance, psychotic disturbance, mood disturbance, and anxiety Plan The patient is a 63-year-old male with a past history of psychosis, cognitive impairment and chronic noncompliance who was brought to the facility after he was seen grossly disorganized. The patient is very well known since the patient had been admitted before with a similar presentation due to noncompliance. We will try to gather more collateral information since the patient is a very poor historian unable to provide any relevant information. He was seen in the unit responding to internal stimuli, grossly disorganized. Plan 1. Gather collateral information. 2. We will try to gather the guardianship paperwork and the community order for treatment over objection. 3. Continue with Zyprexa 15 mg p.o. q.h.s.. 4. Continue with medical workout. 5. 15 minutes checks observation since the patient is able to contract for safety. 6. Filing for Section 7 and 8 Reason for continued inpatient stay Substantial Risk for: inability to function, rapid decompensation and med/psych decompensation Time Spent With Patient Time: Total time managing care of this patient today __20__ minutes.
[2023-09-03 20:00] VITALS: BP 111/61; PULSE 75; RESP 16; TEMP 36.6; O2SAT 100
--- NOTE | 2023-09-04 15:42 | HO.PSYCHPN ---
Subjective Subjective Date of Service: 09/04/23 Reason For Visit: Psychosis Subjective Notes: Section 7 and Section 8 Interim History: The nursing staff reported the patient has refused his medications, he remains grossly psychotic and disorganized. Tomorrow we are going for court and he is aware but still stating that he is going to be discharged by his senior site manager. Unable to understand the legal procedure. Mental Status Exam Mental Status Exam Patient Appearance: Disheveled and Unkempt Patient Orientation: Person and Situation Level of Consciousness: Awake Patient Behavior: Guarded and Passive Mood Description: Withdrawn Affect Description: Blunted Patient Cognition Impaired: Yes Ability to Follow Directions: Good Speech Pattern: Clear Hallucinations: None Delusions: Paranoid Ideation Thought Process: Distracted and Slowed Thinking Thought Content: positive for [place] and positive for Poverty of Content Judgement: Poor Diagnostics Vital Signs (24Hr): Vital Signs - 24 hr 09/03/23 20:00 Temperature 97.8 F Pulse Rate 75 Respiratory Rate 16 Blood Pressure 111/61 Pulse Oximetry 100 Oxygen Delivery Method Room Air BMI result Body Mass Index 25.0 Labs 08/21/23 21:20 08/21/23 21:21 Medications Medications Current Medications Acetaminophen (Acetaminophen 325 Mg Tablet) 325 mg PO Q4H PRN PRN Reason: Mild Pain (Scale Score 1-4) Al Hydroxide/Mg Hydroxide (Magnesium Hydrox/Alum Hydrox 30 Ml Oral.Susp) 30 ml PO Q6H PRN PRN Reason: Heartburn/Nausea Atorvastatin Calcium (Atorvastatin Calcium 10 Mg Tablet) 10 mg PO BEDTIME [facility] Last Admin: 09/03/23 20:40 Dose: Not Given Hydroxyzine HCl (Hydroxyzine Hcl 50 Mg Tablet) 100 mg PO BID [facility] Last Admin: 09/04/23 08:49 Dose: Not Given Magnesium Hydroxide (Milk Of Magnesia 30 Ml Oral.Susp) 30 ml PO DAILY PRN PRN Reason: Constipation Olanzapine (Olanzapine 7.5 Mg Tablet) 15 mg PO BEDTIME [facility] Last Admin: 09/03/23 20:40 Dose: Not Given Trazodone HCl (Trazodone Hcl 50 Mg Tablet) 50 mg PO BEDTIME MRX1 PRN PRN Reason: Insomnia Vitamin D (Cholecalciferol (Vitamin D3) 25 Mcg Tablet) 25 mcg PO DAILY [facility] Last Admin: 09/04/23 08:49 Dose: Not Given Allergies Allergies Allergy/AdvReac Type Severity Reaction Status Date / Time lactose AdvReac Intermediate Unknown Verified 08/21/23 20:52 Penicillins AdvReac Intermediate Unknown Verified 08/21/23 20:52 Assessment & Plan Assessment & Plan (1) Schizophrenia: Status: Acute Code(s): F20.9 - Schizophrenia, unspecified (2) Dementia: Status: Acute Code(s): F03.90 - Unspecified dementia, unspecified severity, without behavioral disturbance, psychotic disturbance, mood disturbance, and anxiety Plan The patient is a 63-year-old male with a past history of psychosis, cognitive impairment and chronic noncompliance who was brought to the facility after he was seen grossly disorganized. The patient is very well known since the patient had been admitted before with a similar presentation due to noncompliance. We will try to gather more collateral information since the patient is a very poor historian unable to provide any relevant information. He was seen in the unit responding to internal stimuli, grossly disorganized. Plan 1. Gather collateral information. 2. We will try to gather the guardianship paperwork and the community order for treatment over objection. 3. Continue with Zyprexa 15 mg p.o. q.h.s.. 4. Continue with medical workout. 5. 15 minutes checks observation since the patient is able to contract for safety. 6. Filing for Section [address] Reason for continued inpatient stay Substantial Risk for: inability to function, rapid decompensation and med/psych decompensation Time Spent With Patient Time: Total time managing care of this patient today __20__ minutes.
[2023-09-04 20:00] VITALS: BP 101/65; PULSE 67; RESP 18; TEMP 36.4; O2SAT 99
[2023-09-05 08:00] VITALS: BP 95/61; PULSE 72; RESP 18; TEMP 36.7; O2SAT 100
--- NOTE | 2023-09-05 13:33 | HO.PSYCHPN ---
Subjective Subjective Date of Service: 09/05/23 Reason For Visit: Psychosis Subjective Notes: Conditional Voluntary Interim History: The nursing staff reported the patient has refused vital signs and medications. He remains perseverative, stating that he needs to go back to his apartment even though that there is no apartment at this moment. We are going to have Section 7 and 8 today. Mental Status Exam Mental Status Exam Patient Appearance: Appropriate Patient Orientation: Person and Situation Level of Consciousness: Awake and Appropriate Patient Behavior: Guarded and Passive Mood Description: Withdrawn Affect Description: Constricted Patient Cognition Impaired: Yes Ability to Follow Directions: Good Speech Pattern: Clear Hallucinations: None Delusions: Paranoid Ideation and Ideas of Reference Thought Process: Distracted and Slowed Thinking Thought Content: positive for [place], positive for [place] and positive for Thought Blocking Judgement: Poor Diagnostics Vital Signs (24Hr): Vital Signs - 24 hr 09/04/23 20:00 09/05/23 08:00 Temperature 97.6 F 98.1 F Pulse Rate 67 72 Respiratory Rate 18 18 Blood Pressure 101/65 95/61 Pulse Oximetry 99 100 Oxygen Delivery Method Room Air Room Air BMI result Body Mass Index 25.0 Labs 08/21/23 21:20 08/21/23 21:21 Medications Medications Current Medications Acetaminophen (Acetaminophen 325 Mg Tablet) 325 mg PO Q4H PRN PRN Reason: Mild Pain (Scale Score 1-4) Al Hydroxide/Mg Hydroxide (Magnesium Hydrox/Alum Hydrox 30 Ml Oral.Susp) 30 ml PO Q6H PRN PRN Reason: Heartburn/Nausea Atorvastatin Calcium (Atorvastatin Calcium 10 Mg Tablet) 10 mg PO BEDTIME [facility] Last Admin: 09/04/23 21:26 Dose: Not Given Hydroxyzine HCl (Hydroxyzine Hcl 50 Mg Tablet) 100 mg PO BID [facility] Last Admin: 09/05/23 09:11 Dose: Not Given Magnesium Hydroxide (Milk Of Magnesia 30 Ml Oral.Susp) 30 ml PO DAILY PRN PRN Reason: Constipation Olanzapine (Olanzapine 7.5 Mg Tablet) 15 mg PO BEDTIME [facility] Last Admin: 09/04/23 21:26 Dose: Not Given Trazodone HCl (Trazodone Hcl 50 Mg Tablet) 50 mg PO BEDTIME MRX1 PRN PRN Reason: Insomnia Vitamin D (Cholecalciferol (Vitamin D3) 25 Mcg Tablet) 25 mcg PO DAILY [facility] Last Admin: 09/05/23 09:11 Dose: Not Given Allergies Allergies Allergy/AdvReac Type Severity Reaction Status Date / Time lactose AdvReac Intermediate Unknown Verified 08/21/23 20:52 Penicillins AdvReac Intermediate Unknown Verified 08/21/23 20:52 Assessment & Plan Assessment & Plan (1) Schizophrenia: Status: Acute Code(s): F20.9 - Schizophrenia, unspecified (2) Dementia: Status: Acute Code(s): F03.90 - Unspecified dementia, unspecified severity, without behavioral disturbance, psychotic disturbance, mood disturbance, and anxiety Plan The patient is a 63-year-old male with a past history of psychosis, cognitive impairment and chronic noncompliance who was brought to the facility after he was seen grossly disorganized. The patient is very well known since the patient had been admitted before with a similar presentation due to noncompliance. We will try to gather more collateral information since the patient is a very poor historian unable to provide any relevant information. He was seen in the unit responding to internal stimuli, grossly disorganized. Plan 1. Gather collateral information. 2. We will try to gather the guardianship paperwork and the community order for treatment over objection. 3. Continue with Zyprexa 15 mg p.o. q.h.s.. 4. Continue with medical workout. 5. 15 minutes checks observation since the patient is able to contract for safety. 6. Filing for Section [address]. Reason for continued inpatient stay Substantial Risk for: inability to function, rapid decompensation and med/psych decompensation Time Spent With Patient Time: Total time managing care of this patient today __20__ minutes.
[2023-09-05 19:58] VITALS: BP 112/66; PULSE 73; RESP 18; TEMP 36.7; O2SAT 100
[2023-09-05 20:00] VITALS: BP 112/66; PULSE 73; RESP 18; TEMP 36.7; O2SAT 100
[2023-09-06 08:00] VITALS: BP 104/61; PULSE 67; RESP 18; TEMP 36.7; O2SAT 100
--- NOTE | 2023-09-06 14:30 | P.PNPSI_ITS ---
Subjective Subjective Date of Service: 09/06/23 Reason For Visit: Psychosis Subjective Notes: Section 7 and Section 8 Interim History: The nursing staff reported the patient agreed to have vital signs today in the morning he has refused his medications. Today I explained him that he is now court remanded and if he does not take p.o. he will take IM Zyprexa. He remains grossly psychotic and disorganized. Mental Status Exam Mental Status Exam Patient Appearance: Unkempt Patient Orientation: Person and Situation Level of Consciousness: Awake and Alert Patient Behavior: Guarded and Passive Mood Description: Withdrawn Affect Description: Blunted Patient Cognition Impaired: Yes Ability to Follow Directions: Good Speech Pattern: Clear Hallucinations: None Delusions: Paranoid Ideation and Ideas of Reference Thought Process: Distracted and Slowed Thinking Thought Content: positive for [place] and positive for Poverty of Content Judgement: Poor Diagnostics Vital Signs (24Hr): Vital Signs - 24 hr 09/05/23 19:58 09/05/23 20:00 09/06/23 08:00 Temperature 98.1 F 98.1 F 98.1 F Pulse Rate 73 73 67 Respiratory Rate 18 18 18 Blood Pressure 112/66 112/66 104/61 Pulse Oximetry 100 100 100 Oxygen Delivery Method Room Air Room Air Room Air BMI result Body Mass Index 25.0 Labs 08/21/23 21:20 08/21/23 21:21 Medications Medications Current Medications Acetaminophen (Acetaminophen 325 Mg Tablet) 325 mg PO Q4H PRN PRN Reason: Mild Pain (Scale Score 1-4) Al Hydroxide/Mg Hydroxide (Magnesium Hydrox/Alum Hydrox 30 Ml Oral.Susp) 30 ml PO Q6H PRN PRN Reason: Heartburn/Nausea Atorvastatin Calcium (Atorvastatin Calcium 10 Mg Tablet) 10 mg PO BEDTIME [facility] Last Admin: 09/05/23 21:43 Dose: Not Given Hydroxyzine HCl (Hydroxyzine Hcl 50 Mg Tablet) 100 mg PO BID [facility] Last Admin: 09/06/23 09:45 Dose: Not Given Magnesium Hydroxide (Milk Of Magnesia 30 Ml Oral.Susp) 30 ml PO DAILY PRN PRN Reason: Constipation Olanzapine (Olanzapine 7.5 Mg Tablet) 15 mg PO BEDTIME [facility] Last Admin: 09/05/23 21:43 Dose: Not Given Olanzapine (Olanzapine 10 Mg Vial) 15 mg IM BEDTIME PRN PRN Reason: refusal of PO Trazodone HCl (Trazodone Hcl 50 Mg Tablet) 50 mg PO BEDTIME MRX1 PRN PRN Reason: Insomnia Vitamin D (Cholecalciferol (Vitamin D3) 25 Mcg Tablet) 25 mcg PO DAILY [facility] Last Admin: 09/06/23 09:45 Dose: Not Given Allergies Allergies Allergy/AdvReac Type Severity Reaction Status Date / Time lactose AdvReac Intermediate Unknown Verified 08/21/23 20:52 Penicillins AdvReac Intermediate Unknown Verified 08/21/23 20:52 Assessment & Plan Assessment & Plan (1) Schizophrenia: Status: Acute Code(s): F20.9 - Schizophrenia, unspecified (2) Dementia: Status: Acute Code(s): F03.90 - Unspecified dementia, unspecified severity, without behavioral disturbance, psychotic disturbance, mood disturbance, and anxiety Plan The patient is a 63-year-old male with a past history of psychosis, cognitive impairment and chronic noncompliance who was brought to the facility after he was seen grossly disorganized. The patient is very well known since the patient had been admitted before with a similar presentation due to noncompliance. We will try to gather more collateral information since the patient is a very poor historian unable to provide any relevant information. He was seen in the unit responding to internal stimuli, grossly disorganized. Plan 1. Gather collateral information. 2. We will try to gather the guardianship paperwork and the community order for treatment over objection. 3. Continue with Zyprexa 15 mg p.o. q.h.s.. 4. Continue with medical workout. 5. 15 minutes checks observation since the patient is able to contract for safety. 6. Filing for Section [address] on September 04. We got a Section 7 and 8 approved. 7. Zyprexa IM p.r.n. as per court order.. Reason for continued inpatient stay Substantial Risk for: inability to function, rapid decompensation and med/psych decompensation Time Spent With Patient Time: Total time managing care of this patient today __20__ minutes.
[2023-09-06 20:00] VITALS: BP 92/57; PULSE 62; RESP 16; TEMP 36.6; O2SAT 99
[2023-09-06] MEDS: OLANZapine 7.5 MG TABLET 15 MG PO (20:20)
--- NOTE | 2023-09-06 21:29 | PC.NURSE ---
pt in room pacing. he has declined all HS medications including court ordered zyprexa. pt informed multiple times that should he fail to take po zyprexa that the medication would be given IM. he was told despite his objections that the zyprexa would be given. at this moment pt states that the medicine makes him feel weird and he will not take po zyprexa. IM medication prepared and security team summoned to pts room. on arrival of security team and the visual of the IM syringe, pt changes mind and takes po zyprexa. mouth check done and pt stomps off upset into the milieu.
--- NOTE | 2023-09-07 10:47 | P.PNPSI_ITS ---
Subjective Subjective Date of Service: 09/07/23 Reason For Visit: Psychosis Interim History: hyperverbal, repeatedly saying it is a mistake that he is here. reports he was just trying to get the mesh from a hernia repair replaced. states he will not take medications. per staff, on section 8, declining medications aside from court-ordered. Mental Status Exam Mental Status Exam Patient Appearance: Unkempt Patient Orientation: Person and Situation Level of Consciousness: Awake and Alert Patient Behavior: Guarded and Passive Mood Description: Withdrawn Affect Description: Blunted Patient Cognition Impaired: Yes Ability to Follow Directions: Good Speech Pattern: Clear Hallucinations: None Delusions: Paranoid Ideation and Ideas of Reference Thought Process: Distracted and Slowed Thinking Thought Content: positive for [place] and positive for Poverty of Content Judgement: Poor Diagnostics Vital Signs (24Hr): Vital Signs - 24 hr 09/06/23 20:00 Temperature 98 F Pulse Rate 62 Respiratory Rate 16 Blood Pressure 92/57 L Pulse Oximetry 99 Oxygen Delivery Method Room Air BMI result Body Mass Index 25.0 Labs 08/21/23 21:20 08/21/23 21:21 Medications Medications Current Medications Acetaminophen (Acetaminophen 325 Mg Tablet) 325 mg PO Q4H PRN PRN Reason: Mild Pain (Scale Score 1-4) Al Hydroxide/Mg Hydroxide (Magnesium Hydrox/Alum Hydrox 30 Ml Oral.Susp) 30 ml PO Q6H PRN PRN Reason: Heartburn/Nausea Atorvastatin Calcium (Atorvastatin Calcium 10 Mg Tablet) 10 mg PO BEDTIME [facility] Last Admin: 09/06/23 20:21 Dose: Not Given Hydroxyzine HCl (Hydroxyzine Hcl 50 Mg Tablet) 100 mg PO BID [facility] Last Admin: 09/07/23 08:22 Dose: Not Given Magnesium Hydroxide (Milk Of Magnesia 30 Ml Oral.Susp) 30 ml PO DAILY PRN PRN Reason: Constipation Olanzapine (Olanzapine 7.5 Mg Tablet) 15 mg PO BEDTIME [facility] Last Admin: 09/06/23 20:20 Dose: 15 mg Olanzapine (Olanzapine 10 Mg Vial) 15 mg IM BEDTIME PRN PRN Reason: refusal of PO Trazodone HCl (Trazodone Hcl 50 Mg Tablet) 50 mg PO BEDTIME MRX1 PRN PRN Reason: Insomnia Vitamin D (Cholecalciferol (Vitamin D3) 25 Mcg Tablet) 25 mcg PO DAILY [facility] Last Admin: 09/07/23 08:22 Dose: Not Given Allergies Allergies Allergy/AdvReac Type Severity Reaction Status Date / Time lactose AdvReac Intermediate Unknown Verified 08/21/23 20:52 Penicillins AdvReac Intermediate Unknown Verified 08/21/23 20:52 Assessment & Plan Assessment & Plan (1) Schizophrenia: Status: Acute Code(s): F20.9 - Schizophrenia, unspecified (2) Dementia: Status: Acute Code(s): F03.90 - Unspecified dementia, unspecified severity, without behavioral disturbance, psychotic disturbance, mood disturbance, and anxiety Plan The patient is a 63-year-old male with a past history of psychosis, cognitive impairment and chronic noncompliance who was brought to the facility after he was seen grossly disorganized. The patient is very well known since the patient had been admitted before with a similar presentation due to noncompliance. We will try to gather more collateral information since the patient is a very poor historian unable to provide any relevant information. He was seen in the unit responding to internal stimuli, grossly disorganized. Plan 1. Gather collateral information. 2. We will try to gather the guardianship paperwork and the community order for treatment over objection. 3. Continue with Zyprexa 15 mg p.o. q.h.s.. 4. Continue with medical workout. 5. 15 minutes checks observation since the patient is able to contract for safety. 6. Filing for Section [address] on September 04. We got a Section 7 and 8 approved. 7. Zyprexa IM p.r.n. as per court order.. Reason for continued inpatient stay Substantial Risk for: inability to function and rapid decompensation Time Spent With Patient Time: Total time managing care of this patient today ____ minutes.
[2023-09-07 20:00] VITALS: RESP 16
[2023-09-07] MEDS: OLANZapine 7.5 MG TABLET 15 MG PO (21:19)
--- NOTE | 2023-09-07 22:03 | PC.NURSE ---
Addendum entered by Ananda Baig RN 09/08/23 05:29: pts sister is shlomo patrick who wishes to speak with MD today in regard to [facility]. [phone] Original Note: PTS SISTER SMOKING PIPE DRILLER AND THREADER SHLOMO OWUSU TELEPHONED UNIT AND EXPRESSED CONCERN FROM A TELEPHONE CALL WHICH SHE RECEIVED FROM HER BROTHER RIANA. I WAS UNABLE TO LOCATE RELEASE CONSENT FORM THAT NAMES SISTER A PERSON TO WHICH MEDICAL INFORMATION CAN BE RELEASED. SISTER DID INFORM ME ON MULTIPLE OCCASIONS THAT SHE IS AN SMOKING PIPE DRILLER AND THREADER. SHE STATES THAT MARIBEL IS NOT EATING DUE TO THE MESH IMPLANTS FOR HIS HERNIAS WHICH IS FALLING APART. SISTER REQUESTS THAT CALL HER TOMORROW.
--- NOTE | 2023-09-07 22:33 | PC.NURSE ---
1999- dr sasha ferguson contacted-notified 1. pt stating that zyprexa is making him dizzy and unsteady 2. pt has court order to receive zyprexa 15 mg po or if he refuses zyprexa is to be given IM 3. at this juncture pt is refusing po zyprexa --plan a. encourage pt to take po zyprexa b. have 1 to [address] over night. 2100 with encouragement pt took zyprexa 15 mg po. mouth check performed immediate post ingestion of medication. oropharynx free of any medication residuals.
--- NOTE | 2023-09-08 05:22 | PC.NURSE ---
pt exited room. he has unsteady gait and is listing to the right. los is grasping handrails and grabbing onto to furniture to stay upright. he proceeded to ambulate to nurse station. los had pt observer accompany him back to his room. pt states that the medication is causing his lack of balance.
--- NOTE | 2023-09-08 12:04 | HO.PSYCHPN ---
Subjective Subjective Date of Service: 09/08/23 Reason For Visit: Psychosis Interim History: lying in bed. mor. suggests MD call his sister today but declines to say why: you're a psychiatrist, you can figure it out. no other requests or complaints. per staff, c/o dizziness, saying he will fall, was on 1:1. staff less concerned now, pt switched to Q5s. Mental Status Exam Mental Status Exam Patient Appearance: Unkempt Patient Orientation: Person and Situation Level of Consciousness: Awake and Alert Patient Behavior: Guarded and Passive Mood Description: Withdrawn Affect Description: Blunted Patient Cognition Impaired: Yes Ability to Follow Directions: Good Speech Pattern: Clear Hallucinations: None Delusions: Paranoid Ideation and Ideas of Reference Thought Process: Distracted and Slowed Thinking Thought Content: positive for [place] and positive for Poverty of Content Judgement: Poor Diagnostics Vital Signs (24Hr): Vital Signs - 24 hr 09/07/23 20:00 Respiratory Rate 16 BMI result Body Mass Index 25.0 Labs 08/21/23 21:20 08/21/23 21:21 Medications Medications Current Medications Acetaminophen (Acetaminophen 325 Mg Tablet) 325 mg PO Q4H PRN PRN Reason: Mild Pain (Scale Score 1-4) Al Hydroxide/Mg Hydroxide (Magnesium Hydrox/Alum Hydrox 30 Ml Oral.Susp) 30 ml PO Q6H PRN PRN Reason: Heartburn/Nausea Atorvastatin Calcium (Atorvastatin Calcium 10 Mg Tablet) 10 mg PO BEDTIME [facility] Last Admin: 09/07/23 21:09 Dose: Not Given Hydroxyzine HCl (Hydroxyzine Hcl 50 Mg Tablet) 100 mg PO BID [facility] Last Admin: 09/08/23 08:43 Dose: Not Given Magnesium Hydroxide (Milk Of Magnesia 30 Ml Oral.Susp) 30 ml PO DAILY PRN PRN Reason: Constipation Olanzapine (Olanzapine 7.5 Mg Tablet) 15 mg PO BEDTIME [facility] Last Admin: 09/07/23 21:19 Dose: 15 mg Olanzapine (Olanzapine 10 Mg Vial) 15 mg IM BEDTIME PRN PRN Reason: refusal of PO Trazodone HCl (Trazodone Hcl 50 Mg Tablet) 50 mg PO BEDTIME MRX1 PRN PRN Reason: Insomnia Vitamin D (Cholecalciferol (Vitamin D3) 25 Mcg Tablet) 25 mcg PO DAILY [facility] Last Admin: 09/08/23 08:43 Dose: Not Given Allergies Allergies Allergy/AdvReac Type Severity Reaction Status Date / Time lactose AdvReac Intermediate Unknown Verified 08/21/23 20:52 Penicillins AdvReac Intermediate Unknown Verified 08/21/23 20:52 Assessment & Plan Assessment & Plan (1) Schizophrenia: Status: Acute Code(s): F20.9 - Schizophrenia, unspecified (2) Dementia: Status: Acute Code(s): F03.90 - Unspecified dementia, unspecified severity, without behavioral disturbance, psychotic disturbance, mood disturbance, and anxiety Plan The patient is a 63-year-old male with a past history of psychosis, cognitive impairment and chronic noncompliance who was brought to the facility after he was seen grossly disorganized. The patient is very well known since the patient had been admitted before with a similar presentation due to noncompliance. We will try to gather more collateral information since the patient is a very poor historian unable to provide any relevant information. He was seen in the unit responding to internal stimuli, grossly disorganized. Plan 1. Gather collateral information. 2. We will try to gather the guardianship paperwork and the community order for treatment over objection. 3. Continue with Zyprexa 15 mg p.o. q.h.s.. 4. Continue with medical workout. 5. 15 minutes checks observation since the patient is able to contract for safety. 6. Filing for Section [address] on September 04. We got a Section 7 and 8 approved. 7. Zyprexa IM p.r.n. as per court order.. Reason for continued inpatient stay Substantial Risk for: inability to function Time Spent With Patient Time: Total time managing care of this patient today ____ minutes.
[2023-09-08 20:00] VITALS: RESP 16
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
[2023-09-08] MEDS: OLANZapine 7.5 MG TABLET 15 MG PO (21:45)
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
[2023-09-09 20:00] VITALS: BP 115/60; PULSE 72; TEMP 36.2; O2SAT 99
[2023-09-09] MEDS: OLANZapine 7.5 MG TABLET 15 MG PO (20:02)
--- NOTE | 2023-09-10 12:28 | HO.PSYCHPN ---
Subjective Subjective Date of Service: 09/10/23 Reason For Visit: Psychosis Subjective Notes: Section 7 and Section 8 Interim History: The nursing staff reported the patient had been on cooperative, refused medications. He received Zyprexa as per court order. He slept 7 hours. The dialysis social worker reported that he becomes very belligerent when faced 2 antipsychotics over changing the Zyprexa at 17:00 so we can have more staff if he gets agitated. Mental Status Exam Mental Status Exam Patient Appearance: Unkempt Patient Orientation: Person and Situation Level of Consciousness: Awake Patient Behavior: Guarded and Passive Mood Description: Withdrawn Affect Description: Blunted Patient Cognition Impaired: Yes Ability to Follow Directions: Poor Speech Pattern: Impoverished and Monotone Hallucinations: None Delusions: Paranoid Ideation and Ideas of Reference Thought Process: Distracted and Slowed Thinking Thought Content: positive for [place] and positive for Poverty of Content Judgement: Poor Diagnostics Vital Signs (24Hr): Vital Signs - 24 hr 09/09/23 20:00 Temperature 97.1 F Pulse Rate 72 Blood Pressure 115/60 Pulse Oximetry 99 Oxygen Delivery Method Room Air BMI result Body Mass Index 25.0 Labs 08/21/23 21:20 08/21/23 21:21 Medications Medications Current Medications Acetaminophen (Acetaminophen 325 Mg Tablet) 325 mg PO Q4H PRN PRN Reason: Mild Pain (Scale Score 1-4) Al Hydroxide/Mg Hydroxide (Magnesium Hydrox/Alum Hydrox 30 Ml Oral.Susp) 30 ml PO Q6H PRN PRN Reason: Heartburn/Nausea Atorvastatin Calcium (Atorvastatin Calcium 10 Mg Tablet) 10 mg PO BEDTIME [facility] Last Admin: 09/09/23 20:04 Dose: Not Given Hydroxyzine HCl (Hydroxyzine Hcl 50 Mg Tablet) 100 mg PO BID [facility] Last Admin: 09/10/23 08:27 Dose: Not Given Magnesium Hydroxide (Milk Of Magnesia 30 Ml Oral.Susp) 30 ml PO DAILY PRN PRN Reason: Constipation Olanzapine (Olanzapine 10 Mg Vial) 15 mg IM BEDTIME PRN PRN Reason: refusal of PO Olanzapine (Olanzapine 7.5 Mg Tablet) 15 mg PO DAILY@1700 [facility] Trazodone HCl (Trazodone Hcl 50 Mg Tablet) 50 mg PO BEDTIME MRX1 PRN PRN Reason: Insomnia Vitamin D (Cholecalciferol (Vitamin D3) 25 Mcg Tablet) 25 mcg PO DAILY [facility] Last Admin: 09/10/23 08:27 Dose: Not Given Allergies Allergies Allergy/AdvReac Type Severity Reaction Status Date / Time lactose AdvReac Intermediate Unknown Verified 08/21/23 20:52 Penicillins AdvReac Intermediate Unknown Verified 08/21/23 20:52 Assessment & Plan Assessment & Plan (1) Schizophrenia: Status: Acute Code(s): F20.9 - Schizophrenia, unspecified (2) Dementia: Status: Acute Code(s): F03.90 - Unspecified dementia, unspecified severity, without behavioral disturbance, psychotic disturbance, mood disturbance, and anxiety Plan The patient is a 63-year-old male with a past history of psychosis, cognitive impairment and chronic noncompliance who was brought to the facility after he was seen grossly disorganized. The patient is very well known since the patient had been admitted before with a similar presentation due to noncompliance. We will try to gather more collateral information since the patient is a very poor historian unable to provide any relevant information. He was seen in the unit responding to internal stimuli, grossly disorganized. Plan 1. Gather collateral information. 2. We will try to gather the guardianship paperwork and the community order for treatment over objection. 3. Continue with Zyprexa 15 mg p.o. q.h.s.. 4. Continue with medical workout. 5. 15 minutes checks observation since the patient is able to contract for safety. 6. Filing for Section [address] on September 04. We got a Section 7 and 8 approved. 7. Zyprexa IM p.r.n. as per court order.. Reason for continued inpatient stay Substantial Risk for: inability to function, rapid decompensation and med/psych decompensation Time Spent With Patient Time: Total time managing care of this patient today __20__ minutes.
[2023-09-10] MEDS: OLANZapine 7.5 MG TABLET 15 MG PO (17:17)
--- NOTE | 2023-09-11 15:04 | HO.PSYCHPN ---
Subjective Subjective Date of Service: 09/11/23 Reason For Visit: Psychosis Subjective Notes: Conditional Voluntary Interim History: The nursing staff reported the patient was reluctant to take his Zydis but eventually he took it with a lot of encouragement as 17:00. The long term care social worker reported the sister sent a long e-mail stating that the patient has an abdominal hernia with a collapsed mesh, we are contacting the surgical team. On interview the patient explained that he was feeling over-sedated with Zyprexa 15 so we are changing to Zydis 10 at 17:00. Mental Status Exam Mental Status Exam Patient Appearance: Appropriate Patient Orientation: Person and Situation Level of Consciousness: Awake and Appropriate Patient Behavior: Guarded and Passive Mood Description: Withdrawn Affect Description: Blunted Patient Cognition Impaired: Yes Ability to Follow Directions: Good Speech Pattern: Clear Hallucinations: None Delusions: Paranoid Ideation Thought Process: Distracted and Slowed Thinking Thought Content: positive for [place], positive for Poverty of Content and positive for Thought Blocking Judgement: Poor Diagnostics Vital Signs (24Hr): BMI result Body Mass Index 25.0 Labs 08/21/23 21:20 08/21/23 21:21 Medications Medications Current Medications Acetaminophen (Acetaminophen 325 Mg Tablet) 325 mg PO Q4H PRN PRN Reason: Mild Pain (Scale Score 1-4) Al Hydroxide/Mg Hydroxide (Magnesium Hydrox/Alum Hydrox 30 Ml Oral.Susp) 30 ml PO Q6H PRN PRN Reason: Heartburn/Nausea Atorvastatin Calcium (Atorvastatin Calcium 10 Mg Tablet) 10 mg PO BEDTIME [facility] Last Admin: 09/10/23 21:12 Dose: Not Given Hydroxyzine HCl (Hydroxyzine Hcl 50 Mg Tablet) 100 mg PO BID [facility] Last Admin: 09/11/23 08:12 Dose: Not Given Magnesium Hydroxide (Milk Of Magnesia 30 Ml Oral.Susp) 30 ml PO DAILY PRN PRN Reason: Constipation Olanzapine (Olanzapine 10 Mg Vial) 15 mg IM BEDTIME PRN PRN Reason: refusal of PO Olanzapine (Olanzapine Odt 10 Mg Tab.Rapdis) 10 mg TRANSLINGU DAILY@1700 [facility] Trazodone HCl (Trazodone Hcl 50 Mg Tablet) 50 mg PO BEDTIME MRX1 PRN PRN Reason: Insomnia Vitamin D (Cholecalciferol (Vitamin D3) 25 Mcg Tablet) 25 mcg PO DAILY [facility] Last Admin: 09/11/23 08:12 Dose: Not Given Allergies Allergies Allergy/AdvReac Type Severity Reaction Status Date / Time lactose AdvReac Intermediate Unknown Verified 08/21/23 20:52 Penicillins AdvReac Intermediate Unknown Verified 08/21/23 20:52 Assessment & Plan Assessment & Plan (1) Schizophrenia: Status: Acute Code(s): F20.9 - Schizophrenia, unspecified (2) Dementia: Status: Acute Code(s): F03.90 - Unspecified dementia, unspecified severity, without behavioral disturbance, psychotic disturbance, mood disturbance, and anxiety Plan The patient is a 63-year-old male with a past history of psychosis, cognitive impairment and chronic noncompliance who was brought to the facility after he was seen grossly disorganized. The patient is very well known since the patient had been admitted before with a similar presentation due to noncompliance. We will try to gather more collateral information since the patient is a very poor historian unable to provide any relevant information. He was seen in the unit responding to internal stimuli, grossly disorganized. Plan 1. Gather collateral information. 2. We will try to gather the guardianship paperwork and the community order for treatment over objection. 3. Continue with Zyprexa 15 mg p.o. q.h.s.. We are lowering to Zydis 10 mg p.o. q.h.s. on September 10 due to over-sedation. 4. Continue with medical workout. 5. 15 minutes checks observation since the patient is able to contract for safety. 6. Filing for Section [address] on September 04. We got a Section 7 and 8 approved. 7. Zyprexa IM p.r.n. as per court order.. Reason for continued inpatient stay Substantial Risk for: inability to function, rapid decompensation and med/psych decompensation Time Spent With Patient Time: Total time managing care of this patient today __20__ minutes.
--- NOTE | 2023-09-11 15:58 | PM.CNGS ---
History of Present Illness Consult details Consult date: 09/11/23 Requesting physician: Foreign De La Vega Narrative: 63-year-old male patient admitted with psychosis reported to have a ?collapsed mesh? following abdominal wall hernia repair. Surgical consultation was requested for evaluation of a possible abdominal wall hernia. This was discussed with the patient this afternoon. Unfortunately he is refusing to discuss this further with me and is refusing examination. Review of Systems Review of Systems: Yes Unobtainable due to mental condition PMFSH Past Medical History Medical History Hyperlipidemia Social History Social History Household Members: Other Household Members Other:: [facility] Home. Housing: Residential Do you presently have visiting nurse or other home services: No Patient Tobacco Use Status: Never used Tobacco Smoked in Last 30 Days: No e-Cigarette/Vaping Use: Never Used Use of substances other than those prescribed or required for medical reasons: Refusing to respond Currently Displaying Signs/Symptoms of Drug Intoxication Withdrawal: No Spiritual Healthcare Practices: Patient refused to respond Advance Directives: No Advance Directives Information Provided: No Do you have thoughts of harming others: None Do you have a plan to hurt others: No Plan Recently lost weight without trying: Unsure Nutrition Risks: No Nutritional Risk Poor oral hygiene: No service: No Sexual orientation: Straight/Heterosexual Meds Allergies Allergy/AdvReac Type Severity Reaction Status Date / Time lactose AdvReac Intermediate Unknown Verified 08/21/23 20:52 Penicillins AdvReac Intermediate Unknown Verified 08/21/23 20:52 Active Medications: Current Medications Acetaminophen (Acetaminophen 325 Mg Tablet) 325 mg PO Q4H PRN PRN Reason: Mild Pain (Scale Score 1-4) Al Hydroxide/Mg Hydroxide (Magnesium Hydrox/Alum Hydrox 30 Ml Oral.Susp) 30 ml PO Q6H PRN PRN Reason: Heartburn/Nausea Atorvastatin Calcium (Atorvastatin Calcium 10 Mg Tablet) 10 mg PO BEDTIME [facility] Last Admin: 09/10/23 21:12 Dose: Not Given Hydroxyzine HCl (Hydroxyzine Hcl 50 Mg Tablet) 100 mg PO BID [facility] Last Admin: 09/11/23 08:12 Dose: Not Given Magnesium Hydroxide (Milk Of Magnesia 30 Ml Oral.Susp) 30 ml PO DAILY PRN PRN Reason: Constipation Olanzapine (Olanzapine 10 Mg Vial) 15 mg IM BEDTIME PRN PRN Reason: refusal of PO Olanzapine (Olanzapine Odt 10 Mg Tab.Rapdis) 10 mg TRANSLINGU DAILY@1700 BRI Trazodone HCl (Trazodone Hcl 50 Mg Tablet) 50 mg PO BEDTIME MRX1 PRN PRN Reason: Insomnia Vitamin D (Cholecalciferol (Vitamin D3) 25 Mcg Tablet) 25 mcg PO DAILY [facility] Last Admin: 09/11/23 08:12 Dose: Not Given Home Medications ?Medication ?Instructions ?Recorded ?Confirmed ?Last Taken ?Type hydroxyzine pamoate 50 mg capsule 100 mg PO BID 08/21/23 08/21/23 Unknown History olanzapine 15 mg tablet 15 mg PO BEDTIME 08/21/23 08/21/23 Unknown History Physical Exam Vital Signs: Vital Signs: Last Vital Signs Temp 97.1 F 09/09/23 20:00 Pulse 72 09/09/23 20:00 Resp 16 09/08/23 20:00 BP 115/60 09/09/23 20:00 Pulse Ox 99 09/09/23 20:00 O2 Del Method Room Air 09/09/23 20:00 BMI result Body Mass Index 25.0 Const: Other: Unable to examine patient; patient refused examination General: no acute distress Results Labs 08/21/23 21:20 08/21/23 21:21 Labs: Urine 08/21/23 Range/Units 21:20 Urine Color Yellow Urine Appearance Clear Urine pH 6.0 (5.0-9.0) Ur Specific [place] 1.025 (1.005-1.025) Urine Protein Negative (Neg-Trace) mg/dL Urine Glucose (UA) Negative (Negative) mg/dL All other labs normal. Assessment and Plan (1) Abdominal wall hernia: Status: Acute Plan 63-year-old male patient with an apparent prior abdominal wall hernia repair, reported by his sister to have a collapsed hernia mesh. I am able to confirm the presence of a hernia. If the patient is symptomatic from this hernia, a CT abdomen and pelvis could be requested to evaluate further. Procedures Date of Service Date of Service: 09/11/23
[2023-09-11] MEDS: OLANZapine ODT 10 MG TAB.RAPDIS TRANSLINGU (16:54)
[2023-09-12 07:00] VITALS: BMI 19.3
--- NOTE | 2023-09-12 09:42 | PC.NURSE ---
ABD CT ordered secondary to cq mesh in the ABD. Patient refused. Dr. De La Vega notified.
--- NOTE | 2023-09-12 12:09 | HO.PSYCHPN ---
Subjective Subjective Date of Service: 09/12/23 Reason For Visit: Psychosis Subjective Notes: Conditional Voluntary Interim History: The nursing staff reported the patient had been angry, he refused vital signs but took his Zyprexa p.o.. The social work supervisor reported that his sister was contacted and she was worried about his medical condition, we referred him to surgical consult but he refused. We also ordered a CT scan of the abdomen as per suggestion of surgery but he refused. On interview the patient denies any symptoms he wants to be discharged he states that he does not want to take any antipsychotics. Mental Status Exam Mental Status Exam Patient Appearance: Unkempt Patient Orientation: Person and Situation Level of Consciousness: Disoriented Patient Behavior: Guarded, Passive and Aggressive Mood Description: Withdrawn Affect Description: Blunted Patient Cognition Impaired: Yes Ability to Follow Directions: Good Speech Pattern: Clear Hallucinations: None Delusions: Paranoid Ideation and Ideas of Reference Thought Process: Distracted and Slowed Thinking Thought Content: positive for [place] and positive for Poverty of Content Judgement: Poor Diagnostics Vital Signs (24Hr): BMI result Body Mass Index 19.3 Labs 08/21/23 21:20 08/21/23 21:21 Medications Medications Current Medications Acetaminophen (Acetaminophen 325 Mg Tablet) 325 mg PO Q4H PRN PRN Reason: Mild Pain (Scale Score 1-4) Al Hydroxide/Mg Hydroxide (Magnesium Hydrox/Alum Hydrox 30 Ml Oral.Susp) 30 ml PO Q6H PRN PRN Reason: Heartburn/Nausea Atorvastatin Calcium (Atorvastatin Calcium 10 Mg Tablet) 10 mg PO BEDTIME [facility] Last Admin: 09/11/23 20:56 Dose: Not Given Hydroxyzine HCl (Hydroxyzine Hcl 50 Mg Tablet) 100 mg PO BID [facility] Last Admin: 09/12/23 09:02 Dose: Not Given Magnesium Hydroxide (Milk Of Magnesia 30 Ml Oral.Susp) 30 ml PO DAILY PRN PRN Reason: Constipation Olanzapine (Olanzapine 10 Mg Vial) 15 mg IM BEDTIME PRN PRN Reason: refusal of PO Olanzapine (Olanzapine Odt 10 Mg Tab.Rapdis) 10 mg TRANSLINGU DAILY@1700 [facility] Last Admin: 09/11/23 16:54 Dose: 10 mg Trazodone HCl (Trazodone Hcl 50 Mg Tablet) 50 mg PO BEDTIME MRX1 PRN PRN Reason: Insomnia Vitamin D (Cholecalciferol (Vitamin D3) 25 Mcg Tablet) 25 mcg PO DAILY [facility] Last Admin: 09/12/23 09:01 Dose: Not Given Allergies Allergies Allergy/AdvReac Type Severity Reaction Status Date / Time lactose AdvReac Intermediate Unknown Verified 08/21/23 20:52 Penicillins AdvReac Intermediate Unknown Verified 08/21/23 20:52 Assessment & Plan Assessment & Plan (1) Abdominal wall hernia: Status: Acute Code(s): K43.9 - Ventral hernia without obstruction or gangrene Plan 63-year-old male patient with an apparent prior abdominal wall hernia repair, reported by his sister to have a collapsed hernia mesh. I am able to confirm the presence of a hernia. If the patient is symptomatic from this hernia, a CT abdomen and pelvis could be requested to evaluate further. Psychiatry The patient is a 63-year-old male with pervasive developmental disorder, schizophrenia and other medical comorbidities admitted for noncompliance. The patient had been in the hospital several times in the last 6 months due to disorganized behavior and noncompliance with no insight into his condition. Plan 1. We have a Section 7 and 8 and at this moment the patient is committed to the hospital. 2. Continue with Zyprexa Zydis 10 mg p.o. q.h.s. as per court order. 3. We have filed for guardianship since the patient can not take care of himself. 4. Waiting for placement. Reason for continued inpatient stay Substantial Risk for: inability to function, rapid decompensation and med/psych decompensation Time Spent With Patient Time: Total time managing care of this patient today __20__ minutes.
[2023-09-12] MEDS: OLANZapine ODT 10 MG TAB.RAPDIS TRANSLINGU (17:09)
[2023-09-13 07:57] VITALS: BP 116/74; PULSE 66; RESP 18; TEMP 36.1; O2SAT 100
--- NOTE | 2023-09-13 14:14 | HO.PSYCHPN ---
Subjective Subjective Date of Service: 09/13/23 Reason For Visit: Psychosis Subjective Notes: Conditional Voluntary Interim History: The nursing staff reported the patient took his medications with encouragement. As per court order. On interview the patient reported that he does not want to take any medication. No insight. Mental Status Exam Mental Status Exam Patient Appearance: Disheveled and Unkempt Patient Orientation: Person and Situation Level of Consciousness: Awake Patient Behavior: Guarded and Passive Mood Description: Calm Affect Description: Blunted Patient Cognition Impaired: Yes Ability to Follow Directions: Good Speech Pattern: Clear Hallucinations: None Delusions: Paranoid Ideation and Ideas of Reference Thought Process: Distracted and Slowed Thinking Thought Content: positive for [place] and positive for Poverty of Content Judgement: Poor Diagnostics Vital Signs (24Hr): Vital Signs - 24 hr 09/13/23 07:57 Temperature 96.9 F Pulse Rate 66 Respiratory Rate 18 Blood Pressure 116/74 Pulse Oximetry 100 Oxygen Delivery Method Room Air BMI result Body Mass Index 19.3 Labs 08/21/23 21:20 08/21/23 21:21 Medications Medications Current Medications Acetaminophen (Acetaminophen 325 Mg Tablet) 325 mg PO Q4H PRN PRN Reason: Mild Pain (Scale Score 1-4) Al Hydroxide/Mg Hydroxide (Magnesium Hydrox/Alum Hydrox 30 Ml Oral.Susp) 30 ml PO Q6H PRN PRN Reason: Heartburn/Nausea Atorvastatin Calcium (Atorvastatin Calcium 10 Mg Tablet) 10 mg PO BEDTIME [facility] Last Admin: 09/12/23 20:29 Dose: Not Given Hydroxyzine HCl (Hydroxyzine Hcl 50 Mg Tablet) 100 mg PO BID [facility] Last Admin: 09/13/23 08:34 Dose: Not Given Magnesium Hydroxide (Milk Of Magnesia 30 Ml Oral.Susp) 30 ml PO DAILY PRN PRN Reason: Constipation Olanzapine (Olanzapine 10 Mg Vial) 15 mg IM BEDTIME PRN PRN Reason: refusal of PO Olanzapine (Olanzapine Odt 10 Mg Tab.Rapdis) 10 mg TRANSLINGU DAILY@1700 [facility] Last Admin: 09/12/23 17:09 Dose: 10 mg Trazodone HCl (Trazodone Hcl 50 Mg Tablet) 50 mg PO BEDTIME MRX1 PRN PRN Reason: Insomnia Vitamin D (Cholecalciferol (Vitamin D3) 25 Mcg Tablet) 25 mcg PO DAILY [facility] Last Admin: 09/13/23 08:34 Dose: Not Given Allergies Allergies Allergy/AdvReac Type Severity Reaction Status Date / Time lactose AdvReac Intermediate Unknown Verified 08/21/23 20:52 Penicillins AdvReac Intermediate Unknown Verified 08/21/23 20:52 Assessment & Plan Assessment & Plan (1) Abdominal wall hernia: Status: Acute Code(s): K43.9 - Ventral hernia without obstruction or gangrene Plan 63-year-old male patient with an apparent prior abdominal wall hernia repair, reported by his sister to have a collapsed hernia mesh. I am able to confirm the presence of a hernia. If the patient is symptomatic from this hernia, a CT abdomen and pelvis could be requested to evaluate further. Psychiatry The patient is a 63-year-old male with pervasive developmental disorder, schizophrenia and other medical comorbidities admitted for noncompliance. The patient had been in the hospital several times in the last 6 months due to disorganized behavior and noncompliance with no insight into his condition. Plan 1. We have a Section 7 and 8 and at this moment the patient is committed to the hospital. 2. Continue with Zyprexa Zydis 10 mg p.o. q.h.s. as per court order. 3. We have filed for guardianship since the patient can not take care of himself. 4. Waiting for placement. Reason for continued inpatient stay Substantial Risk for: inability to function, rapid decompensation and med/psych decompensation Time Spent With Patient Time: Total time managing care of this patient today __20__ minutes.
[2023-09-13] MEDS: OLANZapine ODT 10 MG TAB.RAPDIS TRANSLINGU (16:14)
[2023-09-14 08:00] VITALS: BP 116/65; PULSE 78; RESP 18; TEMP 35.9; O2SAT 100
[2023-09-14] MEDS: OLANZapine ODT 10 MG TAB.RAPDIS TRANSLINGU (16:50)
--- NOTE | 2023-09-14 18:00 | HO.PSYCHPN ---
Subjective Subjective Date of Service: 09/14/23 Reason For Visit: Psychosis Interim History: Met with patient; discussed with team Patient calmly watching television on approach. Art Class Model tried to talk with him but patient politely told public relations writer to talk with his home service demonstrator about it. Staff reports that patient is doing better, eating more and even attended group; also that he has been polite. Took his Zyprexa today because it is court ordered but did refuse other medications Mental Status Exam Mental Status Exam Patient Appearance: Disheveled and Unkempt Patient Orientation: Person and Place Level of Consciousness: Awake Patient Behavior: Guarded and Passive Mood Description: Calm Affect Description: Constricted Patient Cognition Impaired: Yes Ability to Follow Directions: Good Speech Pattern: Clear Hallucinations: None Delusions: Paranoid Ideation and Ideas of Reference Thought Process: Distracted and Slowed Thinking Thought Content: positive for [place] and positive for Poverty of Content Judgement: Poor Diagnostics Vital Signs (24Hr): Vital Signs - 24 hr 09/14/23 08:00 Temperature 96.7 F L Pulse Rate 78 Respiratory Rate 18 Blood Pressure 116/65 Pulse Oximetry 100 Oxygen Delivery Method Room Air BMI result Body Mass Index 19.3 Labs 08/21/23 21:20 08/21/23 21:21 Medications Medications Current Medications Acetaminophen (Acetaminophen 325 Mg Tablet) 325 mg PO Q4H PRN PRN Reason: Mild Pain (Scale Score 1-4) Al Hydroxide/Mg Hydroxide (Magnesium Hydrox/Alum Hydrox 30 Ml Oral.Susp) 30 ml PO Q6H PRN PRN Reason: Heartburn/Nausea Atorvastatin Calcium (Atorvastatin Calcium 10 Mg Tablet) 10 mg PO BEDTIME [facility] Last Admin: 09/13/23 21:05 Dose: Not Given Hydroxyzine HCl (Hydroxyzine Hcl 50 Mg Tablet) 100 mg PO BID [facility] Last Admin: 09/14/23 09:10 Dose: Not Given Magnesium Hydroxide (Milk Of Magnesia 30 Ml Oral.Susp) 30 ml PO DAILY PRN PRN Reason: Constipation Olanzapine (Olanzapine 10 Mg Vial) 15 mg IM BEDTIME PRN PRN Reason: refusal of PO Olanzapine (Olanzapine Odt 10 Mg Tab.Rapdis) 10 mg TRANSLINGU DAILY@1700 [facility] Last Admin: 09/14/23 16:50 Dose: 10 mg Trazodone HCl (Trazodone Hcl 50 Mg Tablet) 50 mg PO BEDTIME MRX1 PRN PRN Reason: Insomnia Vitamin D (Cholecalciferol (Vitamin D3) 25 Mcg Tablet) 25 mcg PO DAILY [facility] Last Admin: 09/14/23 09:10 Dose: Not Given Allergies Allergies Allergy/AdvReac Type Severity Reaction Status Date / Time lactose AdvReac Intermediate Unknown Verified 08/21/23 20:52 Penicillins AdvReac Intermediate Unknown Verified 08/21/23 20:52 Assessment & Plan Assessment & Plan (1) Abdominal wall hernia: Status: Acute Code(s): K43.9 - Ventral hernia without obstruction or gangrene Plan 63-year-old male patient with an apparent prior abdominal wall hernia repair, reported by his sister to have a collapsed hernia mesh. I am able to confirm the presence of a hernia. If the patient is symptomatic from this hernia, a CT abdomen and pelvis could be requested to evaluate further. Psychiatry The patient is a 63-year-old male with pervasive developmental disorder, schizophrenia and other medical comorbidities admitted for noncompliance. The patient had been in the hospital several times in the last 6 months due to disorganized behavior and noncompliance with no insight into his condition. 09/13 staff reports patient doing better now that he is on Zyprexa; continue current treatment plan Plan 1. We have a Section 7 and 8 and at this moment the patient is committed to the hospital. 2. Continue with Zyprexa Zydis 10 mg p.o. q.h.s. as per court order. 3. We have filed for guardianship since the patient can not take care of himself. 4. Waiting for placement. Patient educated on: diagnosis and medication risk/benefits Informed Consent: does not understand Reason for continued inpatient stay Substantial Risk for: inability to function Time Spent With Patient Time: Total time managing care of this patient today ____ minutes.
[2023-09-14 20:00] VITALS: BP 112/70; PULSE 67; TEMP 36.3; O2SAT 98
[2023-09-15 08:27] VITALS: BP 106/62; PULSE 66; RESP 18; TEMP 36.6; O2SAT 100
--- NOTE | 2023-09-15 15:59 | P.PNPSI_ITS ---
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 He said it makes his head spin but in response to it being endocrinology physician ordered said let the endocrinology physician take it and his head can spin. Not able to get more info regarding potential side-effect, but staff reports he seems to be tolerating med well and clinically, is demonstrating significant improvement, attending to ADL's, group, calm, more pleasant; otherwise, refuses other meds and no insight Mental Status Exam Mental Status Exam Patient Appearance: Disheveled and Unkempt Patient Orientation: Person and Place Level of Consciousness: Awake Patient Behavior: Guarded and Passive Mood Description: Calm Affect Description: Constricted Patient Cognition Impaired: Yes Ability to Follow Directions: Good Speech Pattern: Clear Hallucinations: None Delusions: Paranoid Ideation and Ideas of Reference Thought Process: Distracted and Slowed Thinking Thought Content: positive for [place] and positive for Poverty of Content Judgement: Poor Diagnostics Vital Signs (24Hr): Vital Signs - 24 hr 09/14/23 20:00 09/15/23 08:27 Temperature 97.4 F 98 F Pulse Rate 67 66 Respiratory Rate 18 Blood Pressure 112/70 106/62 Pulse Oximetry 98 100 Oxygen Delivery Method Room Air Room Air BMI result Body Mass Index 19.3 Labs 08/21/23 21:20 08/21/23 21:21 Medications Medications Current Medications Acetaminophen (Acetaminophen 325 Mg Tablet) 325 mg PO Q4H PRN PRN Reason: Mild Pain (Scale Score 1-4) Al Hydroxide/Mg Hydroxide (Magnesium Hydrox/Alum Hydrox 30 Ml Oral.Susp) 30 ml PO Q6H PRN PRN Reason: Heartburn/Nausea Atorvastatin Calcium (Atorvastatin Calcium 10 Mg Tablet) 10 mg PO BEDTIME [facility] Last Admin: 09/14/23 20:21 Dose: Not Given Hydroxyzine HCl (Hydroxyzine Hcl 50 Mg Tablet) 100 mg PO BID [facility] Last Admin: 09/15/23 08:41 Dose: Not Given Magnesium Hydroxide (Milk Of Magnesia 30 Ml Oral.Susp) 30 ml PO DAILY PRN PRN Reason: Constipation Olanzapine (Olanzapine 10 Mg Vial) 15 mg IM BEDTIME PRN PRN Reason: refusal of PO Olanzapine (Olanzapine Odt 10 Mg Tab.Rapdis) 10 mg TRANSLINGU DAILY@1700 [facility] Last Admin: 09/14/23 16:50 Dose: 10 mg Trazodone HCl (Trazodone Hcl 50 Mg Tablet) 50 mg PO BEDTIME MRX1 PRN PRN Reason: Insomnia Vitamin D (Cholecalciferol (Vitamin D3) 25 Mcg Tablet) 25 mcg PO DAILY [facility] Last Admin: 09/15/23 08:41 Dose: Not Given Allergies Allergies Allergy/AdvReac Type Severity Reaction Status Date / Time lactose AdvReac Intermediate Unknown Verified 08/21/23 20:52 Penicillins AdvReac Intermediate Unknown Verified 08/21/23 20:52 Assessment & Plan Assessment & Plan (1) Schizophrenia: Status: Acute Code(s): F20.9 - Schizophrenia, unspecified (2) Abdominal wall hernia: Status: Acute Code(s): K43.9 - Ventral hernia without obstruction or gangrene Plan 63-year-old male patient with an apparent prior abdominal wall hernia repair, reported by his sister to have a collapsed hernia mesh. I am able to confirm the presence of a hernia. If the patient is symptomatic from this hernia, a CT abdomen and pelvis could be requested to evaluate further. Psychiatry The patient is a 63-year-old male with pervasive developmental disorder, schizophrenia and other medical comorbidities admitted for noncompliance. The patient had been in the hospital several times in the last 6 months due to disorganized behavior and noncompliance with no insight into his condition. 09/13 staff reports patient doing better now that he is on Zyprexa; continue current treatment plan 09/14 said zyprexa makes his head spin but staff reports he seems to be tolerating med well and clinically, is demonstrating significant improvement, attending to ADL's, group, calm, more pleasant; otherwise, refuses other meds and no insight Plan 1. We have a Section 7 and 8 and at this moment the patient is committed to the hospital. 2. Continue with Zyprexa Zydis 10 [address] p.o. q.h.s. as per court order. 3. We have filed for guardianship since the patient can not take care of himself. 4. Waiting for placement. Patient educated on: diagnosis and medication risk/benefits Informed Consent: does not understand Reason for continued inpatient stay Substantial Risk for: inability to function Time Spent With Patient Time: Total time managing care of this patient today ____ minutes.
[2023-09-15] MEDS: OLANZapine ODT 10 MG TAB.RAPDIS TRANSLINGU (16:58)
[2023-09-16 08:25] VITALS: BP 108/73; PULSE 74; RESP 18; TEMP 36.2; O2SAT 99
--- NOTE | 2023-09-16 12:36 | HO.PSYCHPN ---
Subjective Subjective Date of Service: 09/16/23 Reason For Visit: Psychosis Subjective Notes: Conditional Voluntary Interim History: The nursing staff reported the patient was medication compliant, he slept 8 hours remains perseverative and psychotic. On interview the patient reports that he feels over-sedated with Zyprexa even though that there is no evidence of that. We have filed for guardianship and we will work on placement. Mental Status Exam Mental Status Exam Patient Appearance: Unkempt Patient Orientation: Person and Situation Level of Consciousness: Awake and Appropriate Patient Behavior: Guarded and Passive Mood Description: Withdrawn Affect Description: Constricted Patient Cognition Impaired: Yes Ability to Follow Directions: Fair Speech Pattern: Clear Hallucinations: None Delusions: Paranoid Ideation and Ideas of Reference Thought Process: Distracted and Slowed Thinking Thought Content: positive for [place] and positive for Poverty of Content Judgement: Poor Diagnostics Vital Signs (24Hr): Vital Signs - 24 hr 09/16/23 08:25 Temperature 97.1 F Pulse Rate 74 Respiratory Rate 18 Blood Pressure 108/73 Pulse Oximetry 99 Oxygen Delivery Method Room Air BMI result Body Mass Index 19.3 Labs 08/21/23 21:20 08/21/23 21:21 Medications Medications Current Medications Acetaminophen (Acetaminophen 325 Mg Tablet) 325 mg PO Q4H PRN PRN Reason: Mild Pain (Scale Score 1-4) Al Hydroxide/Mg Hydroxide (Magnesium Hydrox/Alum Hydrox 30 Ml Oral.Susp) 30 ml PO Q6H PRN PRN Reason: Heartburn/Nausea Atorvastatin Calcium (Atorvastatin Calcium 10 Mg Tablet) 10 mg PO BEDTIME [facility] Last Admin: 09/15/23 20:06 Dose: Not Given Hydroxyzine HCl (Hydroxyzine Hcl 50 Mg Tablet) 100 mg PO BID [facility] Last Admin: 09/16/23 08:46 Dose: Not Given Magnesium Hydroxide (Milk Of Magnesia 30 Ml Oral.Susp) 30 ml PO DAILY PRN PRN Reason: Constipation Olanzapine (Olanzapine 10 Mg Vial) 15 mg IM BEDTIME PRN PRN Reason: refusal of PO Olanzapine (Olanzapine Odt 10 Mg Tab.Rapdis) 10 mg TRANSLINGU DAILY@1700 [facility] Last Admin: 09/15/23 16:58 Dose: 10 mg Trazodone HCl (Trazodone Hcl 50 Mg Tablet) 50 mg PO BEDTIME MRX1 PRN PRN Reason: Insomnia Vitamin D (Cholecalciferol (Vitamin D3) 25 Mcg Tablet) 25 mcg PO DAILY [facility] Last Admin: 09/16/23 08:46 Dose: Not Given Allergies Allergies Allergy/AdvReac Type Severity Reaction Status Date / Time lactose AdvReac Intermediate Unknown Verified 08/21/23 20:52 Penicillins AdvReac Intermediate Unknown Verified 08/21/23 20:52 Assessment & Plan Assessment & Plan (1) Schizophrenia: Status: Acute Code(s): F20.9 - Schizophrenia, unspecified (2) Abdominal wall hernia: Status: Acute Code(s): K43.9 - Ventral hernia without obstruction or gangrene Plan 63-year-old male patient with an apparent prior abdominal wall hernia repair, reported by his sister to have a collapsed hernia mesh. I am able to confirm the presence of a hernia. If the patient is symptomatic from this hernia, a CT abdomen and pelvis could be requested to evaluate further. Psychiatry The patient is a 63-year-old male with pervasive developmental disorder, schizophrenia and other medical comorbidities admitted for noncompliance. The patient had been in the hospital several times in the last 6 months due to disorganized behavior and noncompliance with no insight into his condition. 09/13 staff reports patient doing better now that he is on Zyprexa; continue current treatment plan 09/14 said zyprexa makes his head spin but staff reports he seems to be tolerating med well and clinically, is demonstrating significant improvement, attending to ADL's, group, calm, more pleasant; otherwise, refuses other meds and no insight Plan 1. We have a Section 7 and 8 and at this moment the patient is committed to the hospital. 2. Continue with Zyprexa Zydis 10 mg p.o. q.h.s. as per court order. 3. We have filed for guardianship since the patient can not take care of himself. 4. Waiting for placement. Reason for continued inpatient stay Substantial Risk for: inability to function, rapid decompensation and med/psych decompensation Time Spent With Patient Time: Total time managing care of this patient today __20__ minutes.
[2023-09-16] MEDS: OLANZapine ODT 10 MG TAB.RAPDIS TRANSLINGU (16:38)
[2023-09-17 08:00] VITALS: PULSE 75; RESP 17; TEMP 36.6; O2SAT 99
--- NOTE | 2023-09-17 12:43 | P.PNPSI_ITS ---
Subjective Subjective Date of Service: 09/17/23 Reason For Visit: Psychosis Subjective Notes: Conditional Voluntary Interim History: The nursing staff reported the patient had been compliant with treatment he slept 8 hours. He looks confused he states that he is in the room place he he wants to go back to his apartment unable to realize that he lost already his placement. Unable to understand new changes. Waiting for placement Mental Status Exam Mental Status Exam Patient Appearance: Appropriate Patient Orientation: Person and Situation Level of Consciousness: Awake and Appropriate Patient Behavior: Guarded and Passive Mood Description: Withdrawn Affect Description: Constricted Patient Cognition Impaired: Yes Ability to Follow Directions: Good Speech Pattern: Clear Hallucinations: None Delusions: Not Present Thought Process: Distracted Thought Content: positive for [place] and positive for Poverty of Content Judgement: Fair Diagnostics Vital Signs (24Hr): Vital Signs - 24 hr 09/17/23 08:00 Temperature 97.9 F Pulse Rate 75 Respiratory Rate 17 Pulse Oximetry 99 Oxygen Delivery Method Room Air BMI result Body Mass Index 19.3 Labs 08/21/23 21:20 08/21/23 21:21 Medications Medications Current Medications Acetaminophen (Acetaminophen 325 Mg Tablet) 325 mg PO Q4H PRN PRN Reason: Mild Pain (Scale Score 1-4) Al Hydroxide/Mg Hydroxide (Magnesium Hydrox/Alum Hydrox 30 Ml Oral.Susp) 30 ml PO Q6H PRN PRN Reason: Heartburn/Nausea Atorvastatin Calcium (Atorvastatin Calcium 10 Mg Tablet) 10 mg PO BEDTIME [facility] Last Admin: 09/16/23 20:09 Dose: Not Given Hydroxyzine HCl (Hydroxyzine Hcl 50 Mg Tablet) 100 mg PO BID [facility] Last Admin: 09/17/23 08:45 Dose: Not Given Magnesium Hydroxide (Milk Of Magnesia 30 Ml Oral.Susp) 30 ml PO DAILY PRN PRN Reason: Constipation Olanzapine (Olanzapine 10 Mg Vial) 15 mg IM BEDTIME PRN PRN Reason: refusal of PO Olanzapine (Olanzapine Odt 10 Mg Tab.Rapdis) 10 mg TRANSLINGU DAILY@1700 [facility] Last Admin: 09/16/23 16:38 Dose: 10 mg Trazodone HCl (Trazodone Hcl 50 Mg Tablet) 50 mg PO BEDTIME MRX1 PRN PRN Reason: Insomnia Vitamin D (Cholecalciferol (Vitamin D3) 25 Mcg Tablet) 25 mcg PO DAILY [facility] Last Admin: 09/17/23 08:44 Dose: Not Given Allergies Allergies Allergy/AdvReac Type Severity Reaction Status Date / Time lactose AdvReac Intermediate Unknown Verified 08/21/23 20:52 Penicillins AdvReac Intermediate Unknown Verified 08/21/23 20:52 Assessment & Plan Assessment & Plan (1) Schizophrenia: Status: Acute Code(s): F20.9 - Schizophrenia, unspecified (2) Abdominal wall hernia: Status: Acute Code(s): K43.9 - Ventral hernia without obstruction or gangrene Plan 63-year-old male patient with an apparent prior abdominal wall hernia repair, reported by his sister to have a collapsed hernia mesh. I am able to confirm the presence of a hernia. If the patient is symptomatic from this hernia, a CT abdomen and pelvis could be requested to evaluate further. Psychiatry The patient is a 63-year-old male with pervasive developmental disorder, schizophrenia and other medical comorbidities admitted for noncompliance. The patient had been in the hospital several times in the last 6 months due to disorganized behavior and noncompliance with no insight into his condition. 09/13 staff reports patient doing better now that he is on Zyprexa; continue current treatment plan 09/14 said zyprexa makes his head spin but staff reports he seems to be tolerating med well and clinically, is demonstrating significant improvement, attending to ADL's, group, calm, more pleasant; otherwise, refuses other meds and no insight Plan 1. We have a Section 7 and 8 and at this moment the patient is committed to the hospital. 2. Continue with Zyprexa Zydis 10 mg p.o. q.h.s. as per court order. 3. We have filed for guardianship since the patient can not take care of himself. 4. Waiting for placement. Reason for continued inpatient stay Substantial Risk for: inability to function, rapid decompensation and med/psych decompensation Time Spent With Patient Time: Total time managing care of this patient today __20__ minutes.
[2023-09-17] MEDS: OLANZapine ODT 10 MG TAB.RAPDIS TRANSLINGU (17:04)
[2023-09-18 08:00] VITALS: BP 103/67; PULSE 76; RESP 17; TEMP 36.6; O2SAT 100
--- NOTE | 2023-09-18 14:21 | HO.PSYCHPN ---
Subjective Subjective Date of Service: 09/18/23 Reason For Visit: Psychosis Interim History: The nursing staff reported the patient had been noncompliant with vital signs or other medications besides Zyprexa. On interview the patient remains repetitive stating that he needs to go back home he is unable to understand that he already lost his apartment. Waiting for placement. Mental Status Exam Mental Status Exam Patient Appearance: Unkempt Patient Orientation: Person Level of Consciousness: Awake Patient Behavior: Guarded and Passive Mood Description: Withdrawn Affect Description: Withdrawn and Blunted Patient Cognition Impaired: Yes Ability to Follow Directions: Poor Speech Pattern: Clear Hallucinations: None Delusions: Paranoid Ideation and Ideas of Reference Thought Process: Distracted and Slowed Thinking Thought Content: positive for [place] and positive for Poverty of Content Judgement: Poor Diagnostics Vital Signs (24Hr): Vital Signs - 24 hr 09/18/23 08:00 Temperature 97.9 F Pulse Rate 76 Respiratory Rate 17 Blood Pressure 103/67 Pulse Oximetry 100 Oxygen Delivery Method Room Air BMI result Body Mass Index 19.3 Labs 08/21/23 21:20 08/21/23 21:21 Medications Medications Current Medications Acetaminophen (Acetaminophen 325 Mg Tablet) 325 mg PO Q4H PRN PRN Reason: Mild Pain (Scale Score 1-4) Al Hydroxide/Mg Hydroxide (Magnesium Hydrox/Alum Hydrox 30 Ml Oral.Susp) 30 ml PO Q6H PRN PRN Reason: Heartburn/Nausea Atorvastatin Calcium (Atorvastatin Calcium 10 Mg Tablet) 10 mg PO BEDTIME [facility] Last Admin: 09/17/23 20:15 Dose: Not Given Hydroxyzine HCl (Hydroxyzine Hcl 50 Mg Tablet) 100 mg PO BID [facility] Last Admin: 09/18/23 08:50 Dose: Not Given Magnesium Hydroxide (Milk Of Magnesia 30 Ml Oral.Susp) 30 ml PO DAILY PRN PRN Reason: Constipation Olanzapine (Olanzapine 10 Mg Vial) 15 mg IM BEDTIME PRN PRN Reason: refusal of PO Olanzapine (Olanzapine Odt 10 Mg Tab.Rapdis) 10 mg TRANSLINGU DAILY@1700 [facility] Last Admin: 09/17/23 17:04 Dose: 10 mg Trazodone HCl (Trazodone Hcl 50 Mg Tablet) 50 mg PO BEDTIME MRX1 PRN PRN Reason: Insomnia Vitamin D (Cholecalciferol (Vitamin D3) 25 Mcg Tablet) 25 mcg PO DAILY [facility] Last Admin: 09/18/23 08:50 Dose: Not Given Allergies Allergies Allergy/AdvReac Type Severity Reaction Status Date / Time lactose AdvReac Intermediate Unknown Verified 08/21/23 20:52 Penicillins AdvReac Intermediate Unknown Verified 08/21/23 20:52 Assessment & Plan Assessment & Plan (1) Schizophrenia: Status: Acute Code(s): F20.9 - Schizophrenia, unspecified (2) Abdominal wall hernia: Status: Acute Code(s): K43.9 - Ventral hernia without obstruction or gangrene Plan 63-year-old male patient with an apparent prior abdominal wall hernia repair, reported by his sister to have a collapsed hernia mesh. I am able to confirm the presence of a hernia. If the patient is symptomatic from this hernia, a CT abdomen and pelvis could be requested to evaluate further. Psychiatry The patient is a 63-year-old male with pervasive developmental disorder, schizophrenia and other medical comorbidities admitted for noncompliance. The patient had been in the hospital several times in the last 6 months due to disorganized behavior and noncompliance with no insight into his condition. 09/13 staff reports patient doing better now that he is on Zyprexa; continue current treatment plan 09/14 said zyprexa makes his head spin but staff reports he seems to be tolerating med well and clinically, is demonstrating significant improvement, attending to ADL's, group, calm, more pleasant; otherwise, refuses other meds and no insight Plan 1. We have a Section 7 and 8 and at this moment the patient is committed to the hospital. 2. Continue with Zyprexa Zydis 10 mg p.o. q.h.s. as per court order. 3. We have filed for guardianship since the patient can not take care of himself. 4. Waiting for placement. Reason for continued inpatient stay Substantial Risk for: inability to function, rapid decompensation and med/psych decompensation Time Spent With Patient Time: Total time managing care of this patient today __20__ minutes.
[2023-09-18] MEDS: OLANZapine ODT 10 MG TAB.RAPDIS TRANSLINGU (17:04)
[2023-09-19 08:00] VITALS: BP 113/71; PULSE 68; RESP 18; TEMP 36.4; O2SAT 100
[2023-09-19 13:37] VITALS: BMI 19.4
--- NOTE | 2023-09-19 13:59 | P.PNPSI_ITS ---
Subjective Subjective Date of Service: 09/19/23 Reason For Visit: Psychosis Subjective Notes: Section 7 and Section 8 Interim History: The nursing staff reported the patient had been perseverative as usual, no changes in his mental status. On interview the patient is unable to understand that he does not have a home and he is technically homeless. Mental Status Exam Mental Status Exam Patient Appearance: Appropriate Patient Orientation: Person and Situation Level of Consciousness: Awake Patient Behavior: Guarded Mood Description: Withdrawn Affect Description: Blunted Patient Cognition Impaired: Yes Ability to Follow Directions: Fair Speech Pattern: Clear Hallucinations: None Delusions: Paranoid Ideation and Ideas of Reference Thought Process: Distracted and Slowed Thinking Thought Content: positive for [place] and positive for Poverty of Content Judgement: Poor Diagnostics Vital Signs (24Hr): BMI result Body Mass Index 19.4 Labs 08/21/23 21:20 08/21/23 21:21 Medications Medications Current Medications Acetaminophen (Acetaminophen 325 Mg Tablet) 325 mg PO Q4H PRN PRN Reason: Mild Pain (Scale Score 1-4) Al Hydroxide/Mg Hydroxide (Magnesium Hydrox/Alum Hydrox 30 Ml Oral.Susp) 30 ml PO Q6H PRN PRN Reason: Heartburn/Nausea Atorvastatin Calcium (Atorvastatin Calcium 10 Mg Tablet) 10 mg PO BEDTIME [facility] Last Admin: 09/18/23 20:34 Dose: Not Given Hydroxyzine HCl (Hydroxyzine Hcl 50 Mg Tablet) 100 mg PO BID [facility] Last Admin: 09/19/23 08:28 Dose: Not Given Magnesium Hydroxide (Milk Of Magnesia 30 Ml Oral.Susp) 30 ml PO DAILY PRN PRN Reason: Constipation Olanzapine (Olanzapine 10 Mg Vial) 15 mg IM BEDTIME PRN PRN Reason: refusal of PO Olanzapine (Olanzapine Odt 10 Mg Tab.Rapdis) 10 mg TRANSLINGU DAILY@1700 [facility] Last Admin: 09/18/23 17:04 Dose: 10 mg Trazodone HCl (Trazodone Hcl 50 Mg Tablet) 50 mg PO BEDTIME MRX1 PRN PRN Reason: Insomnia Vitamin D (Cholecalciferol (Vitamin D3) 25 Mcg Tablet) 25 mcg PO DAILY [facility] Last Admin: 09/19/23 08:28 Dose: Not Given Allergies Allergies Allergy/AdvReac Type Severity Reaction Status Date / Time lactose AdvReac Intermediate Unknown Verified 08/21/23 20:52 Penicillins AdvReac Intermediate Unknown Verified 08/21/23 20:52 Assessment & Plan Assessment & Plan (1) Schizophrenia: Status: Acute Code(s): F20.9 - Schizophrenia, unspecified (2) Abdominal wall hernia: Status: Acute Code(s): K43.9 - Ventral hernia without obstruction or gangrene Plan 63-year-old male patient with an apparent prior abdominal wall hernia repair, reported by his sister to have a collapsed hernia mesh. I am able to confirm the presence of a hernia. If the patient is symptomatic from this hernia, a CT abdomen and pelvis could be requested to evaluate further. Psychiatry The patient is a 63-year-old male with pervasive developmental disorder, schizophrenia and other medical comorbidities admitted for noncompliance. The patient had been in the hospital several times in the last 6 months due to disorganized behavior and noncompliance with no insight into his condition. 09/13 staff reports patient doing better now that he is on Zyprexa; continue current treatment plan 09/14 said zyprexa makes his head spin but staff reports he seems to be tolerating med well and clinically, is demonstrating significant improvement, attending to ADL's, group, calm, more pleasant; otherwise, refuses other meds and no insight Plan 1. We have a Section 7 and 8 and at this moment the patient is committed to the hospital. 2. Continue with Zyprexa Zydis 10 mg p.o. q.h.s. as per court order. 3. We have filed for guardianship since the patient can not take care of himself. 4. Waiting for placement. Reason for continued inpatient stay Substantial Risk for: inability to function, rapid decompensation and med/psych decompensation Time Spent With Patient Time: Total time managing care of this patient today _20___ minutes.
[2023-09-19] MEDS: OLANZapine ODT 10 MG TAB.RAPDIS TRANSLINGU (16:58)
[2023-09-19 20:00] VITALS: PULSE 78; RESP 18; TEMP 36.2; O2SAT 95
--- NOTE | 2023-09-20 13:54 | HO.PSYCHPN ---
Subjective Subjective Date of Service: 09/20/23 Reason For Visit: Psychosis Subjective Notes: Section 7 and Section 8 Interim History: The nursing staff reported the patient refused his a.m. medications and he was agitated a little but easily redirectable guarded delusional and perseverative that he needs to go back to his apartment.? Unable to understand that he already lost his apartment and he is technically homeless.? On interview the patient denies new symptoms perseverative no changes in mental status. Mental Status Exam Mental Status Exam Patient Appearance: Well Grooomed and Unkempt Patient Orientation: Person and Situation Level of Consciousness: Awake Patient Behavior: Guarded and Passive Mood Description: Constricted Affect Description: Blunted Patient Cognition Impaired: Yes Ability to Follow Directions: Fair Speech Pattern: Clear Hallucinations: None Delusions: Paranoid Ideation and Ideas of Reference Thought Process: Distracted and Slowed Thinking Thought Content: positive for Perseveration, positive for Poverty of Content and positive for Thought Blocking Judgement: Poor Diagnostics Vital Signs (24Hr): Vital Signs - 24 hr 09/19/23 20:00 Temperature 97.1 F Pulse Rate 78 Respiratory Rate 18 Pulse Oximetry 95 Oxygen Delivery Method Room Air BMI result Body Mass Index 19.4 Labs 08/21/23 21:20 08/21/23 21:21 Medications Medications Current Medications Acetaminophen (Acetaminophen 325 Mg Tablet) 325 mg PO Q4H PRN PRN Reason: Mild Pain (Scale Score 1-4) Al Hydroxide/Mg Hydroxide (Magnesium Hydrox/Alum Hydrox 30 Ml Oral.Susp) 30 ml PO Q6H PRN PRN Reason: Heartburn/Nausea Atorvastatin Calcium (Atorvastatin Calcium 10 Mg Tablet) 10 mg PO BEDTIME [facility] Last Admin: 09/19/23 20:38 Dose: Not Given Hydroxyzine HCl (Hydroxyzine Hcl 50 Mg Tablet) 100 mg PO BID [facility] Last Admin: 09/20/23 08:32 Dose: Not Given Magnesium Hydroxide (Milk Of Magnesia 30 Ml Oral.Susp) 30 ml PO DAILY PRN PRN Reason: Constipation Olanzapine (Olanzapine 10 Mg Vial) 15 mg IM BEDTIME PRN PRN Reason: refusal of PO Olanzapine (Olanzapine Odt 10 Mg Tab.Rapdis) 10 mg TRANSLINGU DAILY@1700 [facility] Last Admin: 09/19/23 16:58 Dose: 10 mg Trazodone HCl (Trazodone Hcl 50 Mg Tablet) 50 mg PO BEDTIME MRX1 PRN PRN Reason: Insomnia Vitamin D (Cholecalciferol (Vitamin D3) 25 Mcg Tablet) 25 mcg PO DAILY [facility] Last Admin: 09/20/23 08:31 Dose: Not Given Allergies Allergies Allergy/AdvReac Type Severity Reaction Status Date / Time lactose AdvReac Intermediate Unknown Verified 08/21/23 20:52 Penicillins AdvReac Intermediate Unknown Verified 08/21/23 20:52 Assessment & Plan Assessment & Plan (1) Schizophrenia: Status: Acute Code(s): F20.9 - Schizophrenia, unspecified (2) Abdominal wall hernia: Status: Acute Code(s): K43.9 - Ventral hernia without obstruction or gangrene Plan 63-year-old male patient with an apparent prior abdominal wall hernia repair, reported by his sister to have a collapsed hernia mesh. I am able to confirm the presence of a hernia. If the patient is symptomatic from this hernia, a CT abdomen and pelvis could be requested to evaluate further. Psychiatry The patient is a 63-year-old male with pervasive developmental disorder, schizophrenia and other medical comorbidities admitted for noncompliance. The patient had been in the hospital several times in the last 6 months due to disorganized behavior and noncompliance with no insight into his condition. 09/13 staff reports patient doing better now that he is on Zyprexa; continue current treatment plan 09/14 said zyprexa makes his head spin but staff reports he seems to be tolerating med well and clinically, is demonstrating significant improvement, attending to ADL's, group, calm, more pleasant; otherwise, refuses other meds and no insight Plan 1. We have a Section 7 and 8 and at this moment the patient is committed to the hospital. 2. Continue with Zyprexa Zydis 10 [address] p[address]o. q.h.s. as per court order. 3. We have filed for guardianship since the patient can not take care of himself. 4. Waiting for placement. Reason for continued inpatient stay Substantial Risk for: inability to function, rapid decompensation and med/psych decompensation Time Spent With Patient Time: Total time managing care of this patient today __20__ minutes.
[2023-09-20] MEDS: OLANZapine ODT 10 MG TAB.RAPDIS TRANSLINGU (17:07)
[2023-09-21 07:50] VITALS: BP 100/57; PULSE 79; RESP 18; TEMP 36.6; O2SAT 100
[2023-09-21] MEDS: OLANZapine ODT 10 MG TAB.RAPDIS TRANSLINGU (16:56)
--- NOTE | 2023-09-21 18:36 | HO.PSYCHPN ---
Subjective Subjective Date of Service: 09/21/23 Reason For Visit: Psychosis Interim History: The nursing staff reported the patienttook zydis 5mg last night ; he is agitated a little but easily redirectable guarded delusional and perseverative that he needs to go back to his apartment.? On interview the patient denies new symptoms; no changes in mental status. Medication Compliance: Yes Side effects from medications: No Attending Groups: No Review of Systems Acute medical concerns: No Medical Review of Systems: unchanged Review of Systems Review of Systems Knee pain Yes all other systems are reviewed and are negative, Unobtainable due to mental condition and Unobtainable due to mental status Mental Status Exam Mental Status Exam Patient Appearance: Well Grooomed and Unkempt Patient Orientation: Person and Situation Level of Consciousness: Awake Patient Behavior: Guarded and Passive Mood Description: Constricted Affect Description: Blunted Patient Cognition Impaired: Yes Ability to Follow Directions: Fair Speech Pattern: Clear Thought Process: Disoriented Thought Content: positive for Perseveration and positive for Loose Associations Judgement: Poor Diagnostics Vital Signs (24Hr): Vital Signs - 24 hr 09/21/23 07:50 Temperature 97.9 F Pulse Rate 79 Respiratory Rate 18 Blood Pressure 100/57 L Pulse Oximetry 100 Oxygen Delivery Method Room Air BMI result Body Mass Index 19.4 Labs 08/21/23 21:20 08/21/23 21:21 Medications Medications Current Medications Acetaminophen (Acetaminophen 325 Mg Tablet) 325 mg PO Q4H PRN PRN Reason: Mild Pain (Scale Score 1-4) Al Hydroxide/Mg Hydroxide (Magnesium Hydrox/Alum Hydrox 30 Ml Oral.Susp) 30 ml PO Q6H PRN PRN Reason: Heartburn/Nausea Atorvastatin Calcium (Atorvastatin Calcium 10 Mg Tablet) 10 mg PO BEDTIME [facility] Last Admin: 09/20/23 21:03 Dose: Not Given Hydroxyzine HCl (Hydroxyzine Hcl 50 Mg Tablet) 100 mg PO BID [facility] Last Admin: 09/21/23 08:41 Dose: Not Given Magnesium Hydroxide (Milk Of Magnesia 30 Ml Oral.Susp) 30 ml PO DAILY PRN PRN Reason: Constipation Olanzapine (Olanzapine 10 Mg Vial) 15 mg IM BEDTIME PRN PRN Reason: refusal of PO Olanzapine (Olanzapine Odt 10 Mg Tab.Rapdis) 10 mg TRANSLINGU DAILY@1700 [facility] Last Admin: 09/21/23 16:56 Dose: 10 mg Trazodone HCl (Trazodone Hcl 50 Mg Tablet) 50 mg PO BEDTIME MRX1 PRN PRN Reason: Insomnia Vitamin D (Cholecalciferol (Vitamin D3) 25 Mcg Tablet) 25 mcg PO DAILY [facility] Last Admin: 09/21/23 08:41 Dose: Not Given Allergies Allergies Allergy/AdvReac Type Severity Reaction Status Date / Time lactose AdvReac Intermediate Unknown Verified 08/21/23 20:52 Penicillins AdvReac Intermediate Unknown Verified 08/21/23 20:52 Assessment & Plan Assessment & Plan (1) Schizophrenia: Status: Acute Code(s): F20.9 - Schizophrenia, unspecified (2) Abdominal wall hernia: Status: Acute Code(s): K43.9 - Ventral hernia without obstruction or gangrene Plan 63-year-old male patient with an apparent prior abdominal wall hernia repair, reported by his sister to have a collapsed hernia mesh. I am able to confirm the presence of a hernia. If the patient is symptomatic from this hernia, a CT abdomen and pelvis could be requested to evaluate further. Psychiatry The patient is a 63-year-old male with pervasive developmental disorder, schizophrenia and other medical comorbidities admitted for noncompliance. The patient had been in the hospital several times in the last 6 months due to disorganized behavior and noncompliance with no insight into his condition. 09/13 staff reports patient doing better now that he is on Zyprexa; continue current treatment plan 09/14 said zyprexa makes his head spin but staff reports he seems to be tolerating med well and clinically, is demonstrating significant improvement, attending to ADL's, group, calm, more pleasant; otherwise, refuses other meds and no insight Plan 1. We have a Section 7 and 8 and at this moment the patient is committed to the hospital. 2. Continue with Zyprexa Zydis 10 mg p.o. q.h.s. as per court order. 3. We have filed for guardianship since the patient can not take care of himself. 4. Waiting for placement. Reason for continued inpatient stay Substantial Risk for: inability to function Time Spent With Patient Time: Total time managing care of this patient today ____ minutes.
[2023-09-22 08:10] VITALS: BP 118/71; PULSE 84; RESP 18; TEMP 36.9; O2SAT 99
[2023-09-22 13:00] VITALS: BP 140/76; PULSE 72; RESP 18; TEMP 36.8; O2SAT 98
--- NOTE | 2023-09-22 16:51 | P.PNPSI_ITS ---
Subjective Subjective Date of Service: 09/22/23 Reason For Visit: Psychosis Interim History: The nursing staff reported the patientrefused PM meds. he is a little irritable but easily redirectable guarded delusional and perseverative that he needs to go back to his apartment.?On interview the patient denies new symptoms; no changes in mental status. Medication Compliance: Yes Side effects from medications: No Attending Groups: Intermittent Review of Systems Acute medical concerns: No Medical Review of Systems: unchanged Review of Systems Review of Systems Knee pain Yes all other systems are reviewed and are negative, Unobtainable due to mental condition and Unobtainable due to mental status Mental Status Exam Mental Status Exam Patient Appearance: Well Grooomed and Unkempt Patient Orientation: Person and Situation Level of Consciousness: Awake Patient Behavior: Guarded and Passive Mood Description: Constricted Affect Description: Blunted Patient Cognition Impaired: Yes Ability to Follow Directions: Fair Speech Pattern: Clear Thought Process: Disoriented Thought Content: positive for Disoriented and positive for Preoccupation Judgement: Poor Diagnostics Vital Signs (24Hr): Vital Signs - 24 hr 09/22/23 08:10 09/22/23 13:00 Temperature 98.4 F 98.2 F Pulse Rate 84 72 Respiratory Rate 18 18 Blood Pressure 118/71 140/76 H Pulse Oximetry 99 98 Oxygen Delivery Method Room Air Room Air BMI result Body Mass Index 19.4 Labs 08/21/23 21:20 08/21/23 21:21 Medications Medications Current Medications Acetaminophen (Acetaminophen 325 Mg Tablet) 325 mg PO Q4H PRN PRN Reason: Mild Pain (Scale Score 1-4) Al Hydroxide/Mg Hydroxide (Magnesium Hydrox/Alum Hydrox 30 Ml Oral.Susp) 30 ml PO Q6H PRN PRN Reason: Heartburn/Nausea Atorvastatin Calcium (Atorvastatin Calcium 10 Mg Tablet) 10 mg PO BEDTIME [facility] Last Admin: 09/21/23 22:13 Dose: Not Given Hydroxyzine HCl (Hydroxyzine Hcl 50 Mg Tablet) 100 mg PO BID [facility] Last Admin: 09/22/23 08:10 Dose: Not Given Magnesium Hydroxide (Milk Of Magnesia 30 Ml Oral.Susp) 30 ml PO DAILY PRN PRN Reason: Constipation Olanzapine (Olanzapine 10 Mg Vial) 15 mg IM BEDTIME PRN PRN Reason: refusal of PO Olanzapine (Olanzapine Odt 10 Mg Tab.Rapdis) 10 mg TRANSLINGU DAILY@1700 [facility] Last Admin: 09/21/23 16:56 Dose: 10 mg Trazodone HCl (Trazodone Hcl 50 Mg Tablet) 50 mg PO BEDTIME MRX1 PRN PRN Reason: Insomnia Vitamin D (Cholecalciferol (Vitamin D3) 25 Mcg Tablet) 25 mcg PO DAILY [facility] Last Admin: 09/22/23 08:09 Dose: Not Given Allergies Allergies Allergy/AdvReac Type Severity Reaction Status Date / Time lactose AdvReac Intermediate Unknown Verified 08/21/23 20:52 Penicillins AdvReac Intermediate Unknown Verified 08/21/23 20:52 Assessment & Plan Assessment & Plan (1) Schizophrenia: Status: Acute Code(s): F20.9 - Schizophrenia, unspecified (2) Abdominal wall hernia: Status: Acute Code(s): K43.9 - Ventral hernia without obstruction or gangrene Plan 63-year-old male patient with an apparent prior abdominal wall hernia repair, reported by his sister to have a collapsed hernia mesh. I am able to confirm the presence of a hernia. If the patient is symptomatic from this hernia, a CT abdomen and pelvis could be requested to evaluate further. Psychiatry The patient is a 63-year-old male with pervasive developmental disorder, schizophrenia and other medical comorbidities admitted for noncompliance. The patient had been in the hospital several times in the last 6 months due to disorganized behavior and noncompliance with no insight into his condition. 09/13 staff reports patient doing better now that he is on Zyprexa; continue current treatment plan 09/14 said zyprexa makes his head spin but staff reports he seems to be tolerating med well and clinically, is demonstrating significant improvement, attending to ADL's, group, calm, more pleasant; otherwise, refuses other meds and no insight Plan 1. We have a Section 7 and 8 and at this moment the patient is committed to the hospital. 2. Continue with Zyprexa Zydis 10 mg p.o. q.h.s. as per court order. 3. We have filed for guardianship since the patient can not take care of himself. 4. Waiting for placement. 09/21 continue tx plan Reason for continued inpatient stay Substantial Risk for: inability to function Time Spent With Patient Time: Total time managing care of this patient today ____ minutes.
[2023-09-22] MEDS: OLANZapine ODT 10 MG TAB.RAPDIS TRANSLINGU (17:01)
[2023-09-22 20:00] VITALS: BP 102/55; PULSE 85; RESP 18; TEMP 36.7; O2SAT 100
[2023-09-23 08:45] VITALS: BP 104/72; PULSE 85; RESP 16; TEMP 36.8; O2SAT 97
--- NOTE | 2023-09-23 15:45 | HO.PSYCHPN ---
Subjective Subjective Date of Service: 09/23/23 Reason For Visit: Psychosis Subjective Notes: Conditional Voluntary Interim History: The nursing staff reported the patient remains hypoactive refused medications in the morning slept 8 hours. On interview the patient remains perseverative stating that he needs to go back to his apartment. Waiting for placement Mental Status Exam Mental Status Exam Patient Appearance: Unkempt Patient Orientation: Person and Situation Level of Consciousness: Awake and Appropriate Patient Behavior: Guarded and Passive Mood Description: Withdrawn Affect Description: Blunted Patient Cognition Impaired: Yes Ability to Follow Directions: Poor Speech Pattern: Clear Hallucinations: None Delusions: Paranoid Ideation and Ideas of Reference Thought Process: Distracted and Evasive Thought Content: positive for [place] and positive for Poverty of Content Judgement: Poor Diagnostics Vital Signs (24Hr): Vital Signs - 24 hr 09/22/23 20:00 09/23/23 08:45 Temperature 98.1 F 98.2 F Pulse Rate 85 85 Respiratory Rate 18 16 Blood Pressure 102/55 L 104/72 Pulse Oximetry 100 97 Oxygen Delivery Method Room Air Room Air BMI result Body Mass Index 19.4 Labs 08/21/23 21:20 08/21/23 21:21 Medications Medications Current Medications Acetaminophen (Acetaminophen 325 Mg Tablet) 325 mg PO Q4H PRN PRN Reason: Mild Pain (Scale Score 1-4) Al Hydroxide/Mg Hydroxide (Magnesium Hydrox/Alum Hydrox 30 Ml Oral.Susp) 30 ml PO Q6H PRN PRN Reason: Heartburn/Nausea Atorvastatin Calcium (Atorvastatin Calcium 10 Mg Tablet) 10 mg PO BEDTIME [facility] Last Admin: 09/22/23 22:16 Dose: Not Given Hydroxyzine HCl (Hydroxyzine Hcl 50 Mg Tablet) 100 mg PO BID [facility] Last Admin: 09/23/23 09:00 Dose: Not Given Magnesium Hydroxide (Milk Of Magnesia 30 Ml Oral.Susp) 30 ml PO DAILY PRN PRN Reason: Constipation Olanzapine (Olanzapine 10 Mg Vial) 15 mg IM BEDTIME PRN PRN Reason: refusal of PO Olanzapine (Olanzapine Odt 10 Mg Tab.Rapdis) 10 mg TRANSLINGU DAILY@1700 [facility] Last Admin: 09/22/23 17:01 Dose: 10 mg Trazodone HCl (Trazodone Hcl 50 Mg Tablet) 50 mg PO BEDTIME MRX1 PRN PRN Reason: Insomnia Vitamin D (Cholecalciferol (Vitamin D3) 25 Mcg Tablet) 25 mcg PO DAILY [facility] Last Admin: 09/23/23 09:00 Dose: Not Given Allergies Allergies Allergy/AdvReac Type Severity Reaction Status Date / Time lactose AdvReac Intermediate Unknown Verified 08/21/23 20:52 Penicillins AdvReac Intermediate Unknown Verified 08/21/23 20:52 Assessment & Plan Assessment & Plan (1) Schizophrenia: Status: Acute Code(s): F20.9 - Schizophrenia, unspecified (2) Abdominal wall hernia: Status: Acute Code(s): K43.9 - Ventral hernia without obstruction or gangrene Plan 63-year-old male patient with an apparent prior abdominal wall hernia repair, reported by his sister to have a collapsed hernia mesh. I am able to confirm the presence of a hernia. If the patient is symptomatic from this hernia, a CT abdomen and pelvis could be requested to evaluate further. Psychiatry The patient is a 63-year-old male with pervasive developmental disorder, schizophrenia and other medical comorbidities admitted for noncompliance. The patient had been in the hospital several times in the last 6 months due to disorganized behavior and noncompliance with no insight into his condition. 09/13 staff reports patient doing better now that he is on Zyprexa; continue current treatment plan 09/14 said zyprexa makes his head spin but staff reports he seems to be tolerating med well and clinically, is demonstrating significant improvement, attending to ADL's, group, calm, more pleasant; otherwise, refuses other meds and no insight Plan 1. We have a Section 7 and 8 and at this moment the patient is committed to the hospital. 2. Continue with Zyprexa Zydis 10 mg p.o. q.h.s. as per court order. 3. We have filed for guardianship since the patient can not take care of himself. 4. Waiting for placement. Reason for continued inpatient stay Substantial Risk for: inability to function, rapid decompensation and med/psych decompensation Time Spent With Patient Time: Total time managing care of this patient today __20__ minutes.
[2023-09-23] MEDS: OLANZapine ODT 10 MG TAB.RAPDIS TRANSLINGU (17:12)
[2023-09-23 20:00] VITALS: BP 97/64; PULSE 67; RESP 18; TEMP 36.4; O2SAT 96
[2023-09-24 08:00] VITALS: BP 104/63; PULSE 72; RESP 18; TEMP 36.9; O2SAT 99
--- NOTE | 2023-09-24 16:01 | HO.PSYCHPN ---
Subjective Subjective Date of Service: 09/24/23 Reason For Visit: Psychosis Subjective Notes: Conditional Voluntary Interim History: The nursing staff reported no changes in mental status he was irritable but took medications with a lot of encouragement. His guardianship hearing will be on October 03. On interview the patient reported that he needs to go back to his apartment unable to understand that he already has lost it. Mental Status Exam Mental Status Exam Patient Appearance: Appropriate Patient Orientation: Person and Situation Level of Consciousness: Awake and Appropriate Patient Behavior: Guarded and Passive Mood Description: Withdrawn Affect Description: Constricted Patient Cognition Impaired: Yes Ability to Follow Directions: Good Speech Pattern: Clear Hallucinations: None Delusions: Paranoid Ideation and Ideas of Reference Thought Process: Distracted and Slowed Thinking Thought Content: positive for [place] and positive for Poverty of Content Judgement: Poor Diagnostics Vital Signs (24Hr): Vital Signs - 24 hr 09/23/23 20:00 09/24/23 08:00 Temperature 97.6 F 98.4 F Pulse Rate 67 72 Respiratory Rate 18 18 Blood Pressure 97/64 104/63 Pulse Oximetry 96 99 Oxygen Delivery Method Room Air Room Air BMI result Body Mass Index 19.4 Labs 08/21/23 21:20 08/21/23 21:21 Medications Medications Current Medications Acetaminophen (Acetaminophen 325 Mg Tablet) 325 mg PO Q4H PRN PRN Reason: Mild Pain (Scale Score 1-4) Al Hydroxide/Mg Hydroxide (Magnesium Hydrox/Alum Hydrox 30 Ml Oral.Susp) 30 ml PO Q6H PRN PRN Reason: Heartburn/Nausea Atorvastatin Calcium (Atorvastatin Calcium 10 Mg Tablet) 10 mg PO BEDTIME [facility] Last Admin: 09/23/23 20:58 Dose: Not Given Hydroxyzine HCl (Hydroxyzine Hcl 50 Mg Tablet) 100 mg PO BID [facility] Last Admin: 09/24/23 09:56 Dose: Not Given Magnesium Hydroxide (Milk Of Magnesia 30 Ml Oral.Susp) 30 ml PO DAILY PRN PRN Reason: Constipation Olanzapine (Olanzapine 10 Mg Vial) 15 mg IM BEDTIME PRN PRN Reason: refusal of PO Olanzapine (Olanzapine Odt 10 Mg Tab.Rapdis) 10 mg TRANSLINGU DAILY@1700 [facility] Last Admin: 09/23/23 17:12 Dose: 10 mg Trazodone HCl (Trazodone Hcl 50 Mg Tablet) 50 mg PO BEDTIME MRX1 PRN PRN Reason: Insomnia Vitamin D (Cholecalciferol (Vitamin D3) 25 Mcg Tablet) 25 mcg PO DAILY [facility] Last Admin: 09/24/23 09:55 Dose: Not Given Allergies Allergies Allergy/AdvReac Type Severity Reaction Status Date / Time lactose AdvReac Intermediate Unknown Verified 08/21/23 20:52 Penicillins AdvReac Intermediate Unknown Verified 08/21/23 20:52 Assessment & Plan Assessment & Plan (1) Schizophrenia: Status: Acute Code(s): F20.9 - Schizophrenia, unspecified (2) Abdominal wall hernia: Status: Acute Code(s): K43.9 - Ventral hernia without obstruction or gangrene Plan 63-year-old male patient with an apparent prior abdominal wall hernia repair, reported by his sister to have a collapsed hernia mesh. I am able to confirm the presence of a hernia. If the patient is symptomatic from this hernia, a CT abdomen and pelvis could be requested to evaluate further. Psychiatry The patient is a 63-year-old male with pervasive developmental disorder, schizophrenia and other medical comorbidities admitted for noncompliance. The patient had been in the hospital several times in the last 6 months due to disorganized behavior and noncompliance with no insight into his condition. 09/13 staff reports patient doing better now that he is on Zyprexa; continue current treatment plan 09/14 said zyprexa makes his head spin but staff reports he seems to be tolerating med well and clinically, is demonstrating significant improvement, attending to ADL's, group, calm, more pleasant; otherwise, refuses other meds and no insight Plan 1. We have a Section 7 and 8 and at this moment the patient is committed to the hospital. 2. Continue with Zyprexa Zydis 10 mg p.o. q.h.s. as per court order. 3. We have filed for guardianship since the patient can not take care of himself. 4. Waiting for placement. Reason for continued inpatient stay Substantial Risk for: inability to function, rapid decompensation and med/psych decompensation Time Spent With Patient Time: Total time managing care of this patient today _20___ minutes.
[2023-09-24] MEDS: OLANZapine ODT 10 MG TAB.RAPDIS TRANSLINGU (17:58)
[2023-09-24 20:00] VITALS: BP 102/62; PULSE 71; TEMP 36.6; O2SAT 97
[2023-09-25 07:51] VITALS: BP 111/70; PULSE 73; RESP 16; TEMP 36.7; O2SAT 99
--- NOTE | 2023-09-25 13:17 | P.PNPSI_ITS ---
Subjective Subjective Date of Service: 09/25/23 Reason For Visit: Psychosis Subjective Notes: Conditional Voluntary Interim History: The nursing staff reported the patient had been compliant with Zydis as per court order he slept 5 hours. The social work faculty member reported that we are still looking for placement. On interview the patient was minimally interactive unable to process new information. Mental Status Exam Mental Status Exam Patient Appearance: Disheveled and Unkempt Patient Orientation: Person and Situation Level of Consciousness: Awake and Appropriate Patient Behavior: Guarded and Passive Mood Description: Withdrawn Affect Description: Constricted Patient Cognition Impaired: Yes Ability to Follow Directions: Good Speech Pattern: Clear Hallucinations: None Delusions: Paranoid Ideation and Ideas of Reference Thought Process: Distracted and Slowed Thinking Thought Content: positive for [place] and positive for Poverty of Content Judgement: Poor Diagnostics Vital Signs (24Hr): Vital Signs - 24 hr 09/24/23 20:00 09/25/23 07:51 Temperature 98 F 98.1 F Pulse Rate 71 73 Respiratory Rate 16 Blood Pressure 102/62 111/70 Pulse Oximetry 97 99 Oxygen Delivery Method Room Air Room Air BMI result Body Mass Index 19.4 Labs 08/21/23 21:20 08/21/23 21:21 Medications Medications Current Medications Acetaminophen (Acetaminophen 325 Mg Tablet) 325 mg PO Q4H PRN PRN Reason: Mild Pain (Scale Score 1-4) Al Hydroxide/Mg Hydroxide (Magnesium Hydrox/Alum Hydrox 30 Ml Oral.Susp) 30 ml PO Q6H PRN PRN Reason: Heartburn/Nausea Atorvastatin Calcium (Atorvastatin Calcium 10 Mg Tablet) 10 mg PO BEDTIME [facility] Last Admin: 09/24/23 21:26 Dose: Not Given Hydroxyzine HCl (Hydroxyzine Hcl 50 Mg Tablet) 100 mg PO BID [facility] Last Admin: 09/25/23 08:19 Dose: Not Given Magnesium Hydroxide (Milk Of Magnesia 30 Ml Oral.Susp) 30 ml PO DAILY PRN PRN Reason: Constipation Olanzapine (Olanzapine 10 Mg Vial) 15 mg IM BEDTIME PRN PRN Reason: refusal of PO Olanzapine (Olanzapine Odt 10 Mg Tab.Rapdis) 10 mg TRANSLINGU DAILY@1700 [facility] Last Admin: 09/24/23 17:58 Dose: 10 mg Trazodone HCl (Trazodone Hcl 50 Mg Tablet) 50 mg PO BEDTIME MRX1 PRN PRN Reason: Insomnia Vitamin D (Cholecalciferol (Vitamin D3) 25 Mcg Tablet) 25 mcg PO DAILY [facility] Last Admin: 09/25/23 08:18 Dose: Not Given Allergies Allergies Allergy/AdvReac Type Severity Reaction Status Date / Time lactose AdvReac Intermediate Unknown Verified 08/21/23 20:52 Penicillins AdvReac Intermediate Unknown Verified 08/21/23 20:52 Assessment & Plan Assessment & Plan (1) Schizophrenia: Status: Acute Code(s): F20.9 - Schizophrenia, unspecified (2) Abdominal wall hernia: Status: Acute Code(s): K43.9 - Ventral hernia without obstruction or gangrene Plan 63-year-old male patient with an apparent prior abdominal wall hernia repair, reported by his sister to have a collapsed hernia mesh. I am able to confirm the presence of a hernia. If the patient is symptomatic from this hernia, a CT abdomen and pelvis could be requested to evaluate further. Psychiatry The patient is a 63-year-old male with pervasive developmental disorder, schizophrenia and other medical comorbidities admitted for noncompliance. The patient had been in the hospital several times in the last 6 months due to disorganized behavior and noncompliance with no insight into his condition. 09/13 staff reports patient doing better now that he is on Zyprexa; continue current treatment plan 09/14 said zyprexa makes his head spin but staff reports he seems to be tolerating med well and clinically, is demonstrating significant improvement, attending to ADL's, group, calm, more pleasant; otherwise, refuses other meds and no insight Plan 1. We have a Section 7 and 8 and at this moment the patient is committed to the hospital. 2. Continue with Zyprexa Zydis 10 mg p.o. q.h.s. as per court order. 3. We have filed for guardianship since the patient can not take care of himself. 4. Waiting for placement. Reason for continued inpatient stay Substantial Risk for: inability to function, rapid decompensation and med/psych decompensation Time Spent With Patient Time: Total time managing care of this patient today __20__ minutes.
[2023-09-25] MEDS: OLANZapine ODT 10 MG TAB.RAPDIS TRANSLINGU (17:18)
[2023-09-25 20:00] VITALS: BP 97/53; PULSE 73; RESP 19; TEMP 36.7; O2SAT 100
[2023-09-26 08:00] VITALS: BP 142/76; PULSE 77; RESP 18; TEMP 36.3; O2SAT 99
[2023-09-26 12:20] VITALS: BMI 19.5
--- NOTE | 2023-09-26 13:07 | P.PNPSI_ITS ---
Subjective Subjective Date of Service: 09/26/23 Reason For Visit: Psychosis Subjective Notes: Conditional Voluntary Interim History: The nursing staff reported the patient had been compliant with treatment as per court order but he has refused his other medications. On interview I explored if he wants to change his antipsychotics but he wants to keep the same. He stated that he does not needed poor insight into his condition. Mental Status Exam Mental Status Exam Patient Appearance: Appropriate Patient Orientation: Person and Situation Level of Consciousness: Awake Patient Behavior: Guarded and Passive Mood Description: Withdrawn Affect Description: Constricted Patient Cognition Impaired: Yes Ability to Follow Directions: Good Speech Pattern: Clear Hallucinations: None Delusions: Paranoid Ideation and Ideas of Reference Thought Process: Distracted and Slowed Thinking Thought Content: positive for [place] and positive for Poverty of Content Judgement: Fair Diagnostics Vital Signs (24Hr): Vital Signs - 24 hr 09/25/23 20:00 09/26/23 08:00 Temperature 98.1 F 97.3 F Pulse Rate 73 77 Respiratory Rate 19 18 Blood Pressure 97/53 L 142/76 H Pulse Oximetry 100 99 Oxygen Delivery Method Room Air Room Air BMI result Body Mass Index 19.5 Labs 08/21/23 21:20 08/21/23 21:21 Medications Medications Current Medications Acetaminophen (Acetaminophen 325 Mg Tablet) 325 mg PO Q4H PRN PRN Reason: Mild Pain (Scale Score 1-4) Al Hydroxide/Mg Hydroxide (Magnesium Hydrox/Alum Hydrox 30 Ml Oral.Susp) 30 ml PO Q6H PRN PRN Reason: Heartburn/Nausea Atorvastatin Calcium (Atorvastatin Calcium 10 Mg Tablet) 10 mg PO BEDTIME [facility] Last Admin: 09/25/23 20:07 Dose: Not Given Hydroxyzine HCl (Hydroxyzine Hcl 50 Mg Tablet) 100 mg PO BID [facility] Last Admin: 09/26/23 10:48 Dose: Not Given Magnesium Hydroxide (Milk Of Magnesia 30 Ml Oral.Susp) 30 ml PO DAILY PRN PRN Reason: Constipation Olanzapine (Olanzapine 10 Mg Vial) 15 mg IM BEDTIME PRN PRN Reason: refusal of PO Olanzapine (Olanzapine Odt 10 Mg Tab.Rapdis) 10 mg TRANSLINGU DAILY@1700 [facility] Last Admin: 09/25/23 17:18 Dose: 10 mg Trazodone HCl (Trazodone Hcl 50 Mg Tablet) 50 mg PO BEDTIME MRX1 PRN PRN Reason: Insomnia Vitamin D (Cholecalciferol (Vitamin D3) 25 Mcg Tablet) 25 mcg PO DAILY [facility] Last Admin: 09/26/23 10:48 Dose: Not Given Allergies Allergies Allergy/AdvReac Type Severity Reaction Status Date / Time lactose AdvReac Intermediate Unknown Verified 08/21/23 20:52 Penicillins AdvReac Intermediate Unknown Verified 08/21/23 20:52 Assessment & Plan Assessment & Plan (1) Schizophrenia: Status: Acute Code(s): F20.9 - Schizophrenia, unspecified (2) Abdominal wall hernia: Status: Acute Code(s): K43.9 - Ventral hernia without obstruction or gangrene Plan 63-year-old male patient with an apparent prior abdominal wall hernia repair, reported by his sister to have a collapsed hernia mesh. I am able to confirm the presence of a hernia. If the patient is symptomatic from this hernia, a CT abdomen and pelvis could be requested to evaluate further. Psychiatry The patient is a 63-year-old male with pervasive developmental disorder, schizophrenia and other medical comorbidities admitted for noncompliance. The patient had been in the hospital several times in the last 6 months due to disorganized behavior and noncompliance with no insight into his condition. 09/13 staff reports patient doing better now that he is on Zyprexa; continue current treatment plan 09/14 said zyprexa makes his head spin but staff reports he seems to be tolerating med well and clinically, is demonstrating significant improvement, attending to ADL's, group, calm, more pleasant; otherwise, refuses other meds and no insight Plan 1. We have a Section 7 and 8 and at this moment the patient is committed to the hospital. 2. Continue with Zyprexa Zydis 10 mg p.o. q.h.s. as per court order. 3. We have filed for guardianship since the patient can not take care of himself. 4. Waiting for placement. Reason for continued inpatient stay Substantial Risk for: inability to function, rapid decompensation and med/psych decompensation Time Spent With Patient Time: Total time managing care of this patient today _20___ minutes.
[2023-09-26] MEDS: OLANZapine ODT 10 MG TAB.RAPDIS TRANSLINGU (16:59)
[2023-09-26 20:00] VITALS: BP 104/64; PULSE 66; RESP 14; TEMP 36.6; O2SAT 99
[2023-09-27 08:00] VITALS: BP 119/72; PULSE 81; RESP 18; TEMP 36.3; O2SAT 99
--- NOTE | 2023-09-27 13:26 | HO.PSYCHPN ---
Subjective Subjective Date of Service: 09/27/23 Reason For Visit: Psychosis Subjective Notes: Conditional Voluntary Interim History: The nursing staff reported the patient attended to groups only for 20 minutes. He was compliant with Zydis only he is refusing to take his other medications. Mental Status Exam Mental Status Exam Patient Appearance: Well Grooomed and Appropriate Patient Orientation: Person and Situation Level of Consciousness: Awake Patient Behavior: Guarded and Passive Mood Description: Withdrawn Affect Description: Blunted Patient Cognition Impaired: Yes Ability to Follow Directions: Good Speech Pattern: Clear Hallucinations: None Delusions: Paranoid Ideation and Ideas of Reference Thought Process: Distracted and Slowed Thinking Thought Content: positive for [place] and positive for Poverty of Content Judgement: Fair Diagnostics Vital Signs (24Hr): Vital Signs - 24 hr 09/26/23 20:00 09/27/23 08:00 Temperature 97.8 F 97.4 F Pulse Rate 66 81 Respiratory Rate 14 18 Blood Pressure 104/64 119/72 Pulse Oximetry 99 99 Oxygen Delivery Method Room Air Room Air BMI result Body Mass Index 19.5 Labs 08/21/23 21:20 08/21/23 21:21 Medications Medications Current Medications Acetaminophen (Acetaminophen 325 Mg Tablet) 325 mg PO Q4H PRN PRN Reason: Mild Pain (Scale Score 1-4) Al Hydroxide/Mg Hydroxide (Magnesium Hydrox/Alum Hydrox 30 Ml Oral.Susp) 30 ml PO Q6H PRN PRN Reason: Heartburn/Nausea Atorvastatin Calcium (Atorvastatin Calcium 10 Mg Tablet) 10 mg PO BEDTIME [facility] Last Admin: 09/26/23 20:14 Dose: Not Given Hydroxyzine HCl (Hydroxyzine Hcl 50 Mg Tablet) 100 mg PO BID [facility] Last Admin: 09/27/23 08:27 Dose: Not Given Magnesium Hydroxide (Milk Of Magnesia 30 Ml Oral.Susp) 30 ml PO DAILY PRN PRN Reason: Constipation Olanzapine (Olanzapine 10 Mg Vial) 15 mg IM BEDTIME PRN PRN Reason: refusal of PO Olanzapine (Olanzapine Odt 10 Mg Tab.Rapdis) 10 mg TRANSLINGU DAILY@1700 [facility] Last Admin: 09/26/23 16:59 Dose: 10 mg Trazodone HCl (Trazodone Hcl 50 Mg Tablet) 50 mg PO BEDTIME MRX1 PRN PRN Reason: Insomnia Vitamin D (Cholecalciferol (Vitamin D3) 25 Mcg Tablet) 25 mcg PO DAILY [facility] Last Admin: 09/27/23 08:27 Dose: Not Given Allergies Allergies Allergy/AdvReac Type Severity Reaction Status Date / Time lactose AdvReac Intermediate Unknown Verified 08/21/23 20:52 Penicillins AdvReac Intermediate Unknown Verified 08/21/23 20:52 Assessment & Plan Assessment & Plan (1) Schizophrenia: Status: Acute Code(s): F20.9 - Schizophrenia, unspecified (2) Abdominal wall hernia: Status: Acute Code(s): K43.9 - Ventral hernia without obstruction or gangrene Plan 63-year-old male patient with an apparent prior abdominal wall hernia repair, reported by his sister to have a collapsed hernia mesh. I am able to confirm the presence of a hernia. If the patient is symptomatic from this hernia, a CT abdomen and pelvis could be requested to evaluate further. Psychiatry The patient is a 63-year-old male with pervasive developmental disorder, schizophrenia and other medical comorbidities admitted for noncompliance. The patient had been in the hospital several times in the last 6 months due to disorganized behavior and noncompliance with no insight into his condition. 09/13 staff reports patient doing better now that he is on Zyprexa; continue current treatment plan 09/14 said zyprexa makes his head spin but staff reports he seems to be tolerating med well and clinically, is demonstrating significant improvement, attending to ADL's, group, calm, more pleasant; otherwise, refuses other meds and no insight Plan 1. We have a Section 7 and 8 and at this moment the patient is committed to the hospital. 2. Continue with Zyprexa Zydis 10 mg p.o. q.h.s. as per court order. 3. We have filed for guardianship since the patient can not take care of himself. 4. Waiting for placement. Reason for continued inpatient stay Substantial Risk for: inability to function, rapid decompensation and med/psych decompensation Time Spent With Patient Time: Total time managing care of this patient today __20__ minutes.
[2023-09-27] MEDS: OLANZapine ODT 10 MG TAB.RAPDIS TRANSLINGU (16:59)
[2023-09-28 08:00] VITALS: BP 116/71; PULSE 79; RESP 18; TEMP 36.5; O2SAT 96
--- NOTE | 2023-09-28 11:19 | HO.PSYCHPN ---
Subjective Subjective Date of Service: 09/28/23 Reason For Visit: Psychosis Subjective Notes: Section 7 and Section 8 Interim History: The nursing staff reported the patient has refused all his medications besides Zyprexa that he is court order. On interview the patient refused to engage stating that he is doing fine. Waiting for placement. Mental Status Exam Mental Status Exam Patient Appearance: Appropriate Patient Orientation: Person and Situation Level of Consciousness: Awake and Appropriate Patient Behavior: Guarded and Passive Mood Description: Withdrawn Affect Description: Constricted Patient Cognition Impaired: Yes Ability to Follow Directions: Good Speech Pattern: Clear Hallucinations: None Delusions: Not Present Thought Process: Distracted and Slowed Thinking Thought Content: positive for [place] and positive for Poverty of Content Judgement: Poor Diagnostics Vital Signs (24Hr): Vital Signs - 24 hr 09/28/23 08:00 Temperature 97.7 F Pulse Rate 79 Respiratory Rate 18 Blood Pressure 116/71 Pulse Oximetry 96 Oxygen Delivery Method Room Air BMI result Body Mass Index 19.5 Labs 08/21/23 21:20 08/21/23 21:21 Medications Medications Current Medications Acetaminophen (Acetaminophen 325 Mg Tablet) 325 mg PO Q4H PRN PRN Reason: Mild Pain (Scale Score 1-4) Al Hydroxide/Mg Hydroxide (Magnesium Hydrox/Alum Hydrox 30 Ml Oral.Susp) 30 ml PO Q6H PRN PRN Reason: Heartburn/Nausea Atorvastatin Calcium (Atorvastatin Calcium 10 Mg Tablet) 10 mg PO BEDTIME [facility] Last Admin: 09/27/23 20:28 Dose: Not Given Hydroxyzine HCl (Hydroxyzine Hcl 50 Mg Tablet) 100 mg PO BID [facility] Last Admin: 09/28/23 08:34 Dose: Not Given Magnesium Hydroxide (Milk Of Magnesia 30 Ml Oral.Susp) 30 ml PO DAILY PRN PRN Reason: Constipation Olanzapine (Olanzapine 10 Mg Vial) 15 mg IM BEDTIME PRN PRN Reason: refusal of PO Olanzapine (Olanzapine Odt 10 Mg Tab.Rapdis) 10 mg TRANSLINGU DAILY@1700 [facility] Last Admin: 09/27/23 16:59 Dose: 10 mg Trazodone HCl (Trazodone Hcl 50 Mg Tablet) 50 mg PO BEDTIME MRX1 PRN PRN Reason: Insomnia Vitamin D (Cholecalciferol (Vitamin D3) 25 Mcg Tablet) 25 mcg PO DAILY [facility] Last Admin: 09/28/23 08:34 Dose: Not Given Allergies Allergies Allergy/AdvReac Type Severity Reaction Status Date / Time lactose AdvReac Intermediate Unknown Verified 08/21/23 20:52 Penicillins AdvReac Intermediate Unknown Verified 08/21/23 20:52 Assessment & Plan Assessment & Plan (1) Schizophrenia: Status: Acute Code(s): F20.9 - Schizophrenia, unspecified (2) Abdominal wall hernia: Status: Acute Code(s): K43.9 - Ventral hernia without obstruction or gangrene Plan 63-year-old male patient with an apparent prior abdominal wall hernia repair, reported by his sister to have a collapsed hernia mesh. I am able to confirm the presence of a hernia. If the patient is symptomatic from this hernia, a CT abdomen and pelvis could be requested to evaluate further. Psychiatry The patient is a 63-year-old male with pervasive developmental disorder, schizophrenia and other medical comorbidities admitted for noncompliance. The patient had been in the hospital several times in the last 6 months due to disorganized behavior and noncompliance with no insight into his condition. 09/13 staff reports patient doing better now that he is on Zyprexa; continue current treatment plan 09/14 said zyprexa makes his head spin but staff reports he seems to be tolerating med well and clinically, is demonstrating significant improvement, attending to ADL's, group, calm, more pleasant; otherwise, refuses other meds and no insight Plan 1. We have a Section 7 and 8 and at this moment the patient is committed to the hospital. 2. Continue with Zyprexa Zydis 10 mg p.o. q.h.s. as per court order. 3. We have filed for guardianship since the patient can not take care of himself. 4. Waiting for placement. Reason for continued inpatient stay Substantial Risk for: inability to function, rapid decompensation and med/psych decompensation Time Spent With Patient Time: Total time managing care of this patient today __20__ minutes.
[2023-09-28] MEDS: OLANZapine ODT 10 MG TAB.RAPDIS TRANSLINGU (17:07)
[2023-09-28 20:00] VITALS: BP 105/65; PULSE 67; TEMP 36.7; O2SAT 98
[2023-09-29 08:00] VITALS: BP 121/72; PULSE 72; RESP 16; TEMP 36.6; O2SAT 97
--- NOTE | 2023-09-29 10:33 | P.PNPSI_ITS ---
Subjective Subjective Date of Service: 09/29/23 Reason For Visit: Psychosis Subjective Notes: Conditional Voluntary Interim History: The nursing staff reported the patient took medications with encouragement only [place] refused all other medications. He slept 7 hours, refused to engage in conversation. Mental Status Exam Mental Status Exam Patient Appearance: Appropriate Patient Orientation: Person and Situation Level of Consciousness: Awake Patient Behavior: Guarded and Passive Mood Description: Withdrawn Affect Description: Constricted Patient Cognition Impaired: Yes Ability to Follow Directions: Good Speech Pattern: Clear Hallucinations: None Delusions: Not Present Thought Process: Distracted and Slowed Thinking Thought Content: positive for [place] and positive for Poverty of Content Judgement: Poor Diagnostics Vital Signs (24Hr): Vital Signs - 24 hr 09/28/23 20:00 09/29/23 08:00 Temperature 98.1 F 97.8 F Pulse Rate 67 72 Respiratory Rate 16 Blood Pressure 105/65 121/72 Pulse Oximetry 98 97 Oxygen Delivery Method Room Air Room Air BMI result Body Mass Index 19.5 Labs 08/21/23 21:20 08/21/23 21:21 Medications Medications Current Medications Acetaminophen (Acetaminophen 325 Mg Tablet) 325 mg PO Q4H PRN PRN Reason: Mild Pain (Scale Score 1-4) Al Hydroxide/Mg Hydroxide (Magnesium Hydrox/Alum Hydrox 30 Ml Oral.Susp) 30 ml PO Q6H PRN PRN Reason: Heartburn/Nausea Atorvastatin Calcium (Atorvastatin Calcium 10 Mg Tablet) 10 mg PO BEDTIME [facility] Last Admin: 09/28/23 19:54 Dose: Not Given Hydroxyzine HCl (Hydroxyzine Hcl 50 Mg Tablet) 100 mg PO BID [facility] Last Admin: 09/29/23 08:29 Dose: Not Given Magnesium Hydroxide (Milk Of Magnesia 30 Ml Oral.Susp) 30 ml PO DAILY PRN PRN Reason: Constipation Olanzapine (Olanzapine 10 Mg Vial) 15 mg IM BEDTIME PRN PRN Reason: refusal of PO Olanzapine (Olanzapine Odt 10 Mg Tab.Rapdis) 10 mg TRANSLINGU DAILY@1700 [facility] Last Admin: 09/28/23 17:07 Dose: 10 mg Trazodone HCl (Trazodone Hcl 50 Mg Tablet) 50 mg PO BEDTIME MRX1 PRN PRN Reason: Insomnia Vitamin D (Cholecalciferol (Vitamin D3) 25 Mcg Tablet) 25 mcg PO DAILY [facility] Last Admin: 09/29/23 08:28 Dose: Not Given Allergies Allergies Allergy/AdvReac Type Severity Reaction Status Date / Time lactose AdvReac Intermediate Unknown Verified 08/21/23 20:52 Penicillins AdvReac Intermediate Unknown Verified 08/21/23 20:52 Assessment & Plan Assessment & Plan (1) Schizophrenia: Status: Acute Code(s): F20.9 - Schizophrenia, unspecified (2) Abdominal wall hernia: Status: Acute Code(s): K43.9 - Ventral hernia without obstruction or gangrene Plan 63-year-old male patient with an apparent prior abdominal wall hernia repair, reported by his sister to have a collapsed hernia mesh. I am able to confirm the presence of a hernia. If the patient is symptomatic from this hernia, a CT abdomen and pelvis could be requested to evaluate further. Psychiatry The patient is a 63-year-old male with pervasive developmental disorder, schizophrenia and other medical comorbidities admitted for noncompliance. The patient had been in the hospital several times in the last 6 months due to disorganized behavior and noncompliance with no insight into his condition. 09/13 staff reports patient doing better now that he is on Zyprexa; continue current treatment plan 09/14 said zyprexa makes his head spin but staff reports he seems to be tolerating med well and clinically, is demonstrating significant improvement, attending to ADL's, group, calm, more pleasant; otherwise, refuses other meds and no insight Plan 1. We have a Section 7 and 8 and at this moment the patient is committed to the hospital. 2. Continue with Zyprexa Zydis 10 mg p.o. q.h.s. as per court order. 3. We have filed for guardianship since the patient can not take care of himself. 4. Waiting for placement. Reason for continued inpatient stay Substantial Risk for: inability to function, rapid decompensation and med/psych decompensation Time Spent With Patient Time: Total time managing care of this patient today __20__ minutes.
[2023-09-29] MEDS: OLANZapine ODT 10 MG TAB.RAPDIS TRANSLINGU (17:09)
[2023-09-30 08:00] VITALS: BP 102/66; PULSE 75; RESP 18; TEMP 36.3; O2SAT 98
--- NOTE | 2023-09-30 15:01 | P.PNPSI_ITS ---
Subjective Subjective Date of Service: 09/30/23 Reason For Visit: Psychosis Subjective Notes: Section 7 and Section 8 Interim History: The nursing staff reported the patient has refused all his medications besides Zyprexa that this court order. On interview the patient remains despondent, disorganized. Waiting for placement Mental Status Exam Mental Status Exam Patient Appearance: Unkempt Patient Orientation: Person and Situation Level of Consciousness: Awake and Appropriate Patient Behavior: Guarded and Passive Mood Description: Withdrawn Affect Description: Constricted Patient Cognition Impaired: Yes Ability to Follow Directions: Fair Speech Pattern: Clear Hallucinations: None Delusions: Not Present Thought Process: Distracted and Slowed Thinking Thought Content: positive for [place] and positive for Poverty of Content Judgement: Poor Diagnostics Vital Signs (24Hr): Vital Signs - 24 hr 09/30/23 08:00 Temperature 97.3 F Pulse Rate 75 Respiratory Rate 18 Blood Pressure 102/66 Pulse Oximetry 98 Oxygen Delivery Method Room Air BMI result Body Mass Index 19.5 Labs 08/21/23 21:20 08/21/23 21:21 Medications Medications Current Medications Acetaminophen (Acetaminophen 325 Mg Tablet) 325 mg PO Q4H PRN PRN Reason: Mild Pain (Scale Score 1-4) Al Hydroxide/Mg Hydroxide (Magnesium Hydrox/Alum Hydrox 30 Ml Oral.Susp) 30 ml PO Q6H PRN PRN Reason: Heartburn/Nausea Atorvastatin Calcium (Atorvastatin Calcium 10 Mg Tablet) 10 mg PO BEDTIME [facility] Last Admin: 09/29/23 20:09 Dose: Not Given Hydroxyzine HCl (Hydroxyzine Hcl 50 Mg Tablet) 100 mg PO BID [facility] Last Admin: 09/30/23 09:01 Dose: Not Given Magnesium Hydroxide (Milk Of Magnesia 30 Ml Oral.Susp) 30 ml PO DAILY PRN PRN Reason: Constipation Olanzapine (Olanzapine 10 Mg Vial) 15 mg IM BEDTIME PRN PRN Reason: refusal of PO Olanzapine (Olanzapine Odt 10 Mg Tab.Rapdis) 10 mg TRANSLINGU DAILY@1700 [facility] Last Admin: 09/29/23 17:09 Dose: 10 mg Trazodone HCl (Trazodone Hcl 50 Mg Tablet) 50 mg PO BEDTIME MRX1 PRN PRN Reason: Insomnia Vitamin D (Cholecalciferol (Vitamin D3) 25 Mcg Tablet) 25 mcg PO DAILY [facility] Last Admin: 09/30/23 08:58 Dose: Not Given Allergies Allergies Allergy/AdvReac Type Severity Reaction Status Date / Time lactose AdvReac Intermediate Unknown Verified 08/21/23 20:52 Penicillins AdvReac Intermediate Unknown Verified 08/21/23 20:52 Assessment & Plan Assessment & Plan (1) Schizophrenia: Status: Acute Code(s): F20.9 - Schizophrenia, unspecified (2) Abdominal wall hernia: Status: Acute Code(s): K43.9 - Ventral hernia without obstruction or gangrene Plan 63-year-old male patient with an apparent prior abdominal wall hernia repair, reported by his sister to have a collapsed hernia mesh. I am able to confirm the presence of a hernia. If the patient is symptomatic from this hernia, a CT abdomen and pelvis could be requested to evaluate further. Psychiatry The patient is a 63-year-old male with pervasive developmental disorder, schizophrenia and other medical comorbidities admitted for noncompliance. The patient had been in the hospital several times in the last 6 months due to disorganized behavior and noncompliance with no insight into his condition. 09/13 staff reports patient doing better now that he is on Zyprexa; continue current treatment plan 09/14 said zyprexa makes his head spin but staff reports he seems to be tolerating med well and clinically, is demonstrating significant improvement, attending to ADL's, group, calm, more pleasant; otherwise, refuses other meds and no insight Plan 1. We have a Section 7 and 8 and at this moment the patient is committed to the hospital. 2. Continue with Zyprexa Zydis 10 mg p.o. q.h.s. as per court order. 3. We have filed for guardianship since the patient can not take care of himself. 4. Waiting for placement. Reason for continued inpatient stay Substantial Risk for: inability to function, rapid decompensation and med/psych decompensation Time Spent With Patient Time: Total time managing care of this patient today __20__ minutes.
[2023-09-30] MEDS: OLANZapine ODT 10 MG TAB.RAPDIS TRANSLINGU (17:13)
[2023-10-01 08:00] VITALS: BP 127/72; PULSE 81; RESP 16; TEMP 36.5; O2SAT 100
--- NOTE | 2023-10-01 13:55 | HO.PSYCHPN ---
Subjective Subjective Date of Service: 10/01/23 Reason For Visit: Psychosis Subjective Notes: Section 7 and Section 8 Interim History: The nursing staff reported the patient had been only compliant with Zydis he has limited insight into his condition. On interview the patient reported that he has side-effects I offer him to change to different antipsychotic but he does not want to take any antipsychotics he refused to change Zyprexa. Waiting for placement Mental Status Exam Mental Status Exam Patient Appearance: Unkempt Patient Orientation: Person and Situation Level of Consciousness: Awake and Appropriate Patient Behavior: Guarded and Passive Mood Description: Withdrawn Affect Description: Constricted Patient Cognition Impaired: Yes Ability to Follow Directions: Good Speech Pattern: Clear Hallucinations: None Delusions: Not Present Thought Content: positive for [place] and positive for Poverty of Content Judgement: Poor Diagnostics Vital Signs (24Hr): Vital Signs - 24 hr 10/01/23 08:00 Temperature 97.7 F Pulse Rate 81 Respiratory Rate 16 Blood Pressure 127/72 Pulse Oximetry 100 Oxygen Delivery Method Room Air BMI result Body Mass Index 19.5 Labs 08/21/23 21:20 08/21/23 21:21 Medications Medications Current Medications Acetaminophen (Acetaminophen 325 Mg Tablet) 325 mg PO Q4H PRN PRN Reason: Mild Pain (Scale Score 1-4) Al Hydroxide/Mg Hydroxide (Magnesium Hydrox/Alum Hydrox 30 Ml Oral.Susp) 30 ml PO Q6H PRN PRN Reason: Heartburn/Nausea Atorvastatin Calcium (Atorvastatin Calcium 10 Mg Tablet) 10 mg PO BEDTIME [facility] Last Admin: 09/30/23 20:14 Dose: Not Given Hydroxyzine HCl (Hydroxyzine Hcl 50 Mg Tablet) 100 mg PO BID [facility] Last Admin: 10/01/23 09:08 Dose: Not Given Magnesium Hydroxide (Milk Of Magnesia 30 Ml Oral.Susp) 30 ml PO DAILY PRN PRN Reason: Constipation Olanzapine (Olanzapine 10 Mg Vial) 15 mg IM BEDTIME PRN PRN Reason: refusal of PO Olanzapine (Olanzapine Odt 10 Mg Tab.Rapdis) 10 mg TRANSLINGU DAILY@1700 [facility] Last Admin: 09/30/23 17:13 Dose: 10 mg Trazodone HCl (Trazodone Hcl 50 Mg Tablet) 50 mg PO BEDTIME MRX1 PRN PRN Reason: Insomnia Vitamin D (Cholecalciferol (Vitamin D3) 25 Mcg Tablet) 25 mcg PO DAILY [facility] Last Admin: 10/01/23 09:08 Dose: Not Given Allergies Allergies Allergy/AdvReac Type Severity Reaction Status Date / Time lactose AdvReac Intermediate Unknown Verified 08/21/23 20:52 Penicillins AdvReac Intermediate Unknown Verified 08/21/23 20:52 Assessment & Plan Assessment & Plan (1) Schizophrenia: Status: Acute Code(s): F20.9 - Schizophrenia, unspecified (2) Abdominal wall hernia: Status: Acute Code(s): K43.9 - Ventral hernia without obstruction or gangrene Plan 63-year-old male patient with an apparent prior abdominal wall hernia repair, reported by his sister to have a collapsed hernia mesh. I am able to confirm the presence of a hernia. If the patient is symptomatic from this hernia, a CT abdomen and pelvis could be requested to evaluate further. Psychiatry The patient is a 63-year-old male with pervasive developmental disorder, schizophrenia and other medical comorbidities admitted for noncompliance. The patient had been in the hospital several times in the last 6 months due to disorganized behavior and noncompliance with no insight into his condition. 09/13 staff reports patient doing better now that he is on Zyprexa; continue current treatment plan 09/14 said zyprexa makes his head spin but staff reports he seems to be tolerating med well and clinically, is demonstrating significant improvement, attending to ADL's, group, calm, more pleasant; otherwise, refuses other meds and no insight Plan 1. We have a Section 7 and 8 and at this moment the patient is committed to the hospital. 2. Continue with Zyprexa Zydis 10 mg p.o. q.h.s. as per court order. 3. We have filed for guardianship since the patient can not take care of himself. 4. Waiting for placement. Reason for continued inpatient stay Substantial Risk for: inability to function, rapid decompensation and med/psych decompensation Time Spent With Patient Time: Total time managing care of this patient today __20__ minutes.
[2023-10-01] MEDS: OLANZapine ODT 10 MG TAB.RAPDIS TRANSLINGU (17:30)
[2023-10-01 20:00] VITALS: BP 90/56; PULSE 65; RESP 16; TEMP 37.1; O2SAT 100
[2023-10-02 08:00] VITALS: BP 110/69; PULSE 76; RESP 16; TEMP 36.5; O2SAT 100
--- NOTE | 2023-10-02 14:17 | P.PNPSI_ITS ---
Subjective Subjective Date of Service: 10/02/23 Reason For Visit: Psychosis Subjective Notes: Section 7 and Section 8 Mental Status Exam Mental Status Exam Patient Appearance: Appropriate Patient Orientation: Person and Situation Level of Consciousness: Awake and Appropriate Patient Behavior: Guarded and Passive Mood Description: Withdrawn Affect Description: Constricted Patient Cognition Impaired: Yes Ability to Follow Directions: Good Speech Pattern: Clear Hallucinations: None Delusions: Not Present Thought Process: Distracted and Slowed Thinking Thought Content: positive for Circumstantial Judgement: Poor Diagnostics Vital Signs (24Hr): Vital Signs - 24 hr 10/01/23 20:00 10/02/23 08:00 Temperature 98.7 F 97.7 F Pulse Rate 65 76 Respiratory Rate 16 16 Blood Pressure 90/56 L 110/69 Pulse Oximetry 100 100 Oxygen Delivery Method Room Air Room Air BMI result Body Mass Index 19.5 Labs 08/21/23 21:20 08/21/23 21:21 Medications Medications Current Medications Acetaminophen (Acetaminophen 325 Mg Tablet) 325 mg PO Q4H PRN PRN Reason: Mild Pain (Scale Score 1-4) Al Hydroxide/Mg Hydroxide (Magnesium Hydrox/Alum Hydrox 30 Ml Oral.Susp) 30 ml PO Q6H PRN PRN Reason: Heartburn/Nausea Atorvastatin Calcium (Atorvastatin Calcium 10 Mg Tablet) 10 mg PO BEDTIME [facility] Last Admin: 10/01/23 20:53 Dose: Not Given Hydroxyzine HCl (Hydroxyzine Hcl 50 Mg Tablet) 100 mg PO BID [facility] Last Admin: 10/02/23 08:35 Dose: Not Given Magnesium Hydroxide (Milk Of Magnesia 30 Ml Oral.Susp) 30 ml PO DAILY PRN PRN Reason: Constipation Olanzapine (Olanzapine 10 Mg Vial) 15 mg IM BEDTIME PRN PRN Reason: refusal of PO Olanzapine (Olanzapine Odt 10 Mg Tab.Rapdis) 10 mg TRANSLINGU DAILY@1700 [facility] Last Admin: 10/01/23 17:30 Dose: 10 mg Trazodone HCl (Trazodone Hcl 50 Mg Tablet) 50 mg PO BEDTIME MRX1 PRN PRN Reason: Insomnia Vitamin D (Cholecalciferol (Vitamin D3) 25 Mcg Tablet) 25 mcg PO DAILY [facility] Last Admin: 10/02/23 08:35 Dose: Not Given Allergies Allergies Allergy/AdvReac Type Severity Reaction Status Date / Time lactose AdvReac Intermediate Unknown Verified 08/21/23 20:52 Penicillins AdvReac Intermediate Unknown Verified 08/21/23 20:52 Assessment & Plan Assessment & Plan (1) Schizophrenia: Status: Acute Code(s): F20.9 - Schizophrenia, unspecified (2) Abdominal wall hernia: Status: Acute Code(s): K43.9 - Ventral hernia without obstruction or gangrene Plan 63-year-old male patient with an apparent prior abdominal wall hernia repair, reported by his sister to have a collapsed hernia mesh. I am able to confirm the presence of a hernia. If the patient is symptomatic from this hernia, a CT abdomen and pelvis could be requested to evaluate further. Psychiatry The patient is a 63-year-old male with pervasive developmental disorder, schizophrenia and other medical comorbidities admitted for noncompliance. The patient had been in the hospital several times in the last 6 months due to disorganized behavior and noncompliance with no insight into his condition. 09/13 staff reports patient doing better now that he is on Zyprexa; continue current treatment plan 09/14 said zyprexa makes his head spin but staff reports he seems to be tolerating med well and clinically, is demonstrating significant improvement, attending to ADL's, group, calm, more pleasant; otherwise, refuses other meds and no insight Plan 1. We have a Section 7 and 8 and at this moment the patient is committed to the hospital. 2. Continue with Zyprexa Zydis 10 mg p.o. q.h.s. as per court order. 3. We have filed for guardianship since the patient can not take care of himself. 4. Waiting for placement. Reason for continued inpatient stay Substantial Risk for: inability to function, rapid decompensation and med/psych decompensation Time Spent With Patient Time: Total time managing care of this patient today _20___ minutes.
[2023-10-02] MEDS: OLANZapine ODT 10 MG TAB.RAPDIS TRANSLINGU (17:26)
[2023-10-02 20:00] VITALS: BP 97/59; PULSE 64; RESP 16; TEMP 36.7; O2SAT 99
[2023-10-03 07:00] VITALS: BMI 19.1
[2023-10-03 08:00] VITALS: RESP 16
--- NOTE | 2023-10-03 15:55 | PC.NURSE ---
Declined vital signs and morning medications despite education. Dr. Sahu notified.
[2023-10-03] MEDS: OLANZapine ODT 10 MG TAB.RAPDIS TRANSLINGU (17:14)
--- NOTE | 2023-10-03 19:18 | HO.PSYCHPN ---
Subjective Subjective Date of Service: 10/03/23 Reason For Visit: Psychosis Interim History: Met with patient; discussed with team Patient wandering the sanders, denies psychiatric illness. Earlier with nurse, Patient's slammed the door and threw a cup and then told the nurse the medications made me do it. Dipper Operator inquired about this and patient said that it was wrong of the nurse to time him... And, why was she timing him. He then said he was worried he was going to get injected with a medication. Patient struggled to understand that he is court ordered to take medications Mental Status Exam Mental Status Exam Patient Appearance: Appropriate Patient Orientation: Person and Situation Level of Consciousness: Awake and Appropriate Patient Behavior: Guarded and Passive Mood Description: Withdrawn Affect Description: Constricted Patient Cognition Impaired: Yes Ability to Follow Directions: Good Speech Pattern: Clear Hallucinations: None Delusions: Not Present Thought Process: Distracted and Slowed Thinking Thought Content: positive for Circumstantial Judgement: Poor Diagnostics Vital Signs (24Hr): Vital Signs - 24 hr 10/02/23 20:00 10/03/23 08:00 Temperature 98.1 F Pulse Rate 64 Respiratory Rate 16 16 Blood Pressure 97/59 L Pulse Oximetry 99 Oxygen Delivery Method Room Air BMI result Body Mass Index 19.1 Labs 10/20/23 13:26 10/20/23 13:26 Medications Medications Current Medications Acetaminophen (Acetaminophen 325 Mg Tablet) 325 mg PO Q4H PRN PRN Reason: Mild Pain (Scale Score 1-4) Al Hydroxide/Mg Hydroxide (Magnesium Hydrox/Alum Hydrox 30 Ml Oral.Susp) 30 ml PO Q6H PRN PRN Reason: Heartburn/Nausea Atorvastatin Calcium (Atorvastatin Calcium 10 Mg Tablet) 10 mg PO BEDTIME [facility] Last Admin: 10/02/23 21:03 Dose: Not Given Hydroxyzine HCl (Hydroxyzine Hcl 50 Mg Tablet) 100 mg PO BID [facility] Last Admin: 10/03/23 08:22 Dose: Not Given Magnesium Hydroxide (Milk Of Magnesia 30 Ml Oral.Susp) 30 ml PO DAILY PRN PRN Reason: Constipation Olanzapine (Olanzapine 10 Mg Vial) 15 mg IM BEDTIME PRN PRN Reason: refusal of PO Olanzapine (Olanzapine Odt 10 Mg Tab.Rapdis) 10 mg TRANSLINGU DAILY@1700 [facility] Last Admin: 10/03/23 17:14 Dose: 10 mg Trazodone HCl (Trazodone Hcl 50 Mg Tablet) 50 mg PO BEDTIME MRX1 PRN PRN Reason: Insomnia Vitamin D (Cholecalciferol (Vitamin D3) 25 Mcg Tablet) 25 mcg PO DAILY [facility] Last Admin: 10/03/23 08:22 Dose: Not Given Allergies Allergies Allergy/AdvReac Type Severity Reaction Status Date / Time lactose AdvReac Intermediate Unknown Verified 08/21/23 20:52 Penicillins AdvReac Intermediate Unknown Verified 08/21/23 20:52 Assessment & Plan Assessment & Plan (1) Schizophrenia: Status: Acute Code(s): F20.9 - Schizophrenia, unspecified (2) Abdominal wall hernia: Status: Acute Code(s): K43.9 - Ventral hernia without obstruction or gangrene Plan 63-year-old male patient with an apparent prior abdominal wall hernia repair, reported by his sister to have a collapsed hernia mesh. I am able to confirm the presence of a hernia. If the patient is symptomatic from this hernia, a CT abdomen and pelvis could be requested to evaluate further. Psychiatry The patient is a 63-year-old male with pervasive developmental disorder, schizophrenia and other medical comorbidities admitted for noncompliance. The patient had been in the hospital several times in the last 6 months due to disorganized behavior and noncompliance with no insight into his condition. 09/13 staff reports patient doing better now that he is on Zyprexa; continue current treatment plan 09/14 said zyprexa makes his head spin but staff reports he seems to be tolerating med well and clinically, is demonstrating significant improvement, attending to ADL's, group, calm, more pleasant; otherwise, refuses other meds and no insight Plan 1. We have a Section 7 and 8 and at this moment the patient is committed to the hospital. 2. Continue with Zyprexa Zydis 10 mg p.o. q.h.s. as per court order. 3. We have filed for guardianship since the patient can not take care of himself. 4. Waiting for placement. Patient educated on: diagnosis and medication risk/benefits Informed Consent: does not understand Reason for continued inpatient stay Substantial Risk for: inability to function Time Spent With Patient Time: Total time managing care of this patient today ____ minutes.
[2023-10-03 20:00] VITALS: BP 97/64; PULSE 69; RESP 18; TEMP 36.8; O2SAT 97
[2023-10-04 08:00] VITALS: BP 111/68; PULSE 77; RESP 18; TEMP 36.7; O2SAT 99
[2023-10-04] MEDS: OLANZapine ODT 10 MG TAB.RAPDIS TRANSLINGU (17:23)
[2023-10-04 20:00] VITALS: BP 132/88; PULSE 74; RESP 18; TEMP 36.1; O2SAT 95
--- NOTE | 2023-10-04 23:06 | HO.PSYCHPN ---
Subjective Subjective Date of Service: 10/04/23 Reason For Visit: Psychosis Interim History: Met with patient; discussed with team No change in presentation; remains difficult with which to engage Mental Status Exam Mental Status Exam Patient Appearance: Unkempt Patient Orientation: Person and Place Level of Consciousness: Awake and Appropriate Patient Behavior: Guarded and Passive Mood Description: Suspicious and Constricted Affect Description: Constricted Patient Cognition Impaired: Yes Ability to Follow Directions: Fair Speech Pattern: Clear Hallucinations: None Delusions: Paranoid Ideation Thought Process: Distracted, Goal Oriented and Slowed Thinking Thought Content: positive for Circumstantial Judgement: Poor Diagnostics Vital Signs (24Hr): Vital Signs - 24 hr 10/04/23 08:00 10/04/23 20:00 Temperature 98.0 F 96.9 F Pulse Rate 77 74 Respiratory Rate 18 18 Blood Pressure 111/68 132/88 Pulse Oximetry 99 95 Oxygen Delivery Method Room Air Room Air BMI result Body Mass Index 19.1 Labs 10/20/23 13:26 10/20/23 13:26 Medications Medications Current Medications Acetaminophen (Acetaminophen 325 Mg Tablet) 325 mg PO Q4H PRN PRN Reason: Mild Pain (Scale Score 1-4) Al Hydroxide/Mg Hydroxide (Magnesium Hydrox/Alum Hydrox 30 Ml Oral.Susp) 30 ml PO Q6H PRN PRN Reason: Heartburn/Nausea Atorvastatin Calcium (Atorvastatin Calcium 10 Mg Tablet) 10 mg PO BEDTIME [facility] Last Admin: 10/04/23 20:14 Dose: Not Given Hydroxyzine HCl (Hydroxyzine Hcl 50 Mg Tablet) 100 mg PO BID [facility] Last Admin: 10/04/23 20:14 Dose: Not Given Magnesium Hydroxide (Milk Of Magnesia 30 Ml Oral.Susp) 30 ml PO DAILY PRN PRN Reason: Constipation Olanzapine (Olanzapine 10 Mg Vial) 15 mg IM BEDTIME PRN PRN Reason: refusal of PO Olanzapine (Olanzapine Odt 10 Mg Tab.Rapdis) 10 mg TRANSLINGU DAILY@1700 [facility] Last Admin: 10/04/23 17:23 Dose: 10 mg Trazodone HCl (Trazodone Hcl 50 Mg Tablet) 50 mg PO BEDTIME MRX1 PRN PRN Reason: Insomnia Vitamin D (Cholecalciferol (Vitamin D3) 25 Mcg Tablet) 25 mcg PO DAILY [facility] Last Admin: 10/04/23 08:44 Dose: Not Given Allergies Allergies Allergy/AdvReac Type Severity Reaction Status Date / Time lactose AdvReac Intermediate Unknown Verified 08/21/23 20:52 Penicillins AdvReac Intermediate Unknown Verified 08/21/23 20:52 Assessment & Plan Assessment & Plan (1) Schizophrenia: Status: Acute Code(s): F20.9 - Schizophrenia, unspecified (2) Abdominal wall hernia: Status: Acute Code(s): K43.9 - Ventral hernia without obstruction or gangrene Plan 63-year-old male patient with an apparent prior abdominal wall hernia repair, reported by his sister to have a collapsed hernia mesh. I am able to confirm the presence of a hernia. If the patient is symptomatic from this hernia, a CT abdomen and pelvis could be requested to evaluate further. Psychiatry The patient is a 63-year-old male with pervasive developmental disorder, schizophrenia and other medical comorbidities admitted for noncompliance. The patient had been in the hospital several times in the last 6 months due to disorganized behavior and noncompliance with no insight into his condition. 09/13 staff reports patient doing better now that he is on Zyprexa; continue current treatment plan 09/14 said zyprexa makes his head spin but staff reports he seems to be tolerating med well and clinically, is demonstrating significant improvement, attending to ADL's, group, calm, more pleasant; otherwise, refuses other meds and no insight Plan 1. We have a Section 7 and 8 and at this moment the patient is committed to the hospital. 2. Continue with Zyprexa Zydis 10 mg p.o. q.h.s. as per court order. 3. We have filed for guardianship since the patient can not take care of himself. 4. Waiting for placement. Reason for continued inpatient stay Substantial Risk for: inability to function Time Spent With Patient Time: Total time managing care of this patient today ____ minutes.
[2023-10-05 07:47] VITALS: RESP 16
--- NOTE | 2023-10-05 08:00 | P.PNPSI_ITS ---
Subjective Subjective Date of Service: 10/05/23 Reason For Visit: Psychosis Interim History: met with patient. Discussed with nursing. Ongoing partial med adherence. Section 8. minimal engagement Medication Compliance: Intermittent Side effects from medications: No Attending Groups: No Review of Systems Acute medical concerns: No Mental Status Exam Mental Status Exam Narrative: minimal engagement with interview. Patient Appearance: Appropriate Patient Orientation: Person and Situation Level of Consciousness: Awake and Appropriate Patient Behavior: Guarded and Passive Mood Description: Withdrawn Affect Description: Constricted Patient Cognition Impaired: Yes Ability to Follow Directions: Good Speech Pattern: Clear Hallucinations: None Delusions: Not Present Thought Process: Distracted and Slowed Thinking Thought Content: positive for Circumstantial Judgement: Poor Diagnostics Vital Signs (24Hr): Vital Signs - 24 hr 10/04/23 20:00 10/05/23 07:47 Temperature 96.9 F Pulse Rate 74 Respiratory Rate 18 16 Blood Pressure 132/88 Pulse Oximetry 95 Oxygen Delivery Method Room Air BMI result Body Mass Index 19.1 Labs 08/21/23 21:20 08/21/23 21:21 Medications Medications Current Medications Acetaminophen (Acetaminophen 325 Mg Tablet) 325 mg PO Q4H PRN PRN Reason: Mild Pain (Scale Score 1-4) Al Hydroxide/Mg Hydroxide (Magnesium Hydrox/Alum Hydrox 30 Ml Oral.Susp) 30 ml PO Q6H PRN PRN Reason: Heartburn/Nausea Atorvastatin Calcium (Atorvastatin Calcium 10 Mg Tablet) 10 mg PO BEDTIME [facility] Last Admin: 10/04/23 20:14 Dose: Not Given Hydroxyzine HCl (Hydroxyzine Hcl 50 Mg Tablet) 100 mg PO BID [facility] Last Admin: 10/05/23 07:47 Dose: Not Given Magnesium Hydroxide (Milk Of Magnesia 30 Ml Oral.Susp) 30 ml PO DAILY PRN PRN Reason: Constipation Olanzapine (Olanzapine 10 Mg Vial) 15 mg IM BEDTIME PRN PRN Reason: refusal of PO Olanzapine (Olanzapine Odt 10 Mg Tab.Rapdis) 10 mg TRANSLINGU DAILY@1700 [facility] Last Admin: 10/04/23 17:23 Dose: 10 mg Trazodone HCl (Trazodone Hcl 50 Mg Tablet) 50 mg PO BEDTIME MRX1 PRN PRN Reason: Insomnia Vitamin D (Cholecalciferol (Vitamin D3) 25 Mcg Tablet) 25 mcg PO DAILY [facility] Last Admin: 10/05/23 07:47 Dose: Not Given Allergies Allergies Allergy/AdvReac Type Severity Reaction Status Date / Time lactose AdvReac Intermediate Unknown Verified 08/21/23 20:52 Penicillins AdvReac Intermediate Unknown Verified 08/21/23 20:52 Assessment & Plan Assessment & Plan (1) Schizophrenia: Status: Acute Code(s): F20.9 - Schizophrenia, unspecified (2) Abdominal wall hernia: Status: Acute Code(s): K43.9 - Ventral hernia without obstruction or gangrene Plan 63-year-old male patient with an apparent prior abdominal wall hernia repair, reported by his sister to have a collapsed hernia mesh. I am able to confirm the presence of a hernia. If the patient is symptomatic from this hernia, a CT abdomen and pelvis could be requested to evaluate further. Psychiatry The patient is a 63-year-old male with pervasive developmental disorder, schizophrenia and other medical comorbidities admitted for noncompliance. The patient had been in the hospital several times in the last 6 months due to disorganized behavior and noncompliance with no insight into his condition. 09/13 staff reports patient doing better now that he is on Zyprexa; continue current treatment plan 09/14 said zyprexa makes his head spin but staff reports he seems to be tolerating med well and clinically, is demonstrating significant improvement, attending to ADL's, group, calm, more pleasant; otherwise, refuses other meds and no insight Plan 1. We have a Section 7 and 8 and at this moment the patient is committed to the hospital. 2. Continue with Zyprexa Zydis 10 mg p.o. q.h.s. as per court order. 3. We have filed for guardianship since the patient can not take care of himself. 4. Waiting for placement. 10/05/2023: No changes Reason for continued inpatient stay Substantial Risk for: inability to function Time Spent With Patient Time: Total time managing care of this patient today ____ minutes.
[2023-10-05] MEDS: OLANZapine ODT 10 MG TAB.RAPDIS TRANSLINGU (17:30)
[2023-10-05 20:00] VITALS: RESP 16
[2023-10-06 08:44] VITALS: BP 88/51; PULSE 73; RESP 16; TEMP 36.8; O2SAT 100
--- NOTE | 2023-10-06 10:52 | HO.PSYCHPN ---
Subjective Subjective Date of Service: 10/06/23 Reason For Visit: Psychosis Interim History: Met with patient. Discussed with Nursing. Very pleasant. Engaging in the milieu. Focused on giving senior underwriter contact details for his associate attorney. Redirected to primary team. Excepting olanzapine as per [place] order, declining all other medications. Declined to engage in discussion around symptoms, hospital admission and circumstances etc.. Medication Compliance: Intermittent Side effects from medications: No Attending Groups: Intermittent Review of Systems Acute medical concerns: No Review of Systems Review of Systems Unremarkable Mental Status Exam Mental Status Exam Patient Appearance: Appropriate Patient Orientation: Person and Situation Level of Consciousness: Awake and Appropriate Patient Behavior: Guarded and Passive Mood Description: Withdrawn Affect Description: Constricted Patient Cognition Impaired: Yes Ability to Follow Directions: Good Speech Pattern: Clear Hallucinations: None Delusions: Not Present Thought Process: Distracted and Slowed Thinking Thought Content: positive for Circumstantial Judgement: Poor Diagnostics Vital Signs (24Hr): Vital Signs - 24 hr 10/05/23 20:00 10/06/23 08:44 Temperature 98.3 F Pulse Rate 73 Respiratory Rate 16 16 Blood Pressure 88/51 L Pulse Oximetry 100 Oxygen Delivery Method Room Air BMI result Body Mass Index 19.1 Labs 08/21/23 21:20 08/21/23 21:21 Medications Medications Current Medications Acetaminophen (Acetaminophen 325 Mg Tablet) 325 mg PO Q4H PRN PRN Reason: Mild Pain (Scale Score 1-4) Al Hydroxide/Mg Hydroxide (Magnesium Hydrox/Alum Hydrox 30 Ml Oral.Susp) 30 ml PO Q6H PRN PRN Reason: Heartburn/Nausea Atorvastatin Calcium (Atorvastatin Calcium 10 Mg Tablet) 10 mg PO BEDTIME [facility] Last Admin: 10/05/23 21:26 Dose: Not Given Hydroxyzine HCl (Hydroxyzine Hcl 50 Mg Tablet) 100 mg PO BID [facility] Last Admin: 10/06/23 08:46 Dose: Not Given Magnesium Hydroxide (Milk Of Magnesia 30 Ml Oral.Susp) 30 ml PO DAILY PRN PRN Reason: Constipation Olanzapine (Olanzapine 10 Mg Vial) 15 mg IM BEDTIME PRN PRN Reason: refusal of PO Olanzapine (Olanzapine Odt 10 Mg Tab.Rapdis) 10 mg TRANSLINGU DAILY@1700 [facility] Last Admin: 10/05/23 17:30 Dose: 10 mg Trazodone HCl (Trazodone Hcl 50 Mg Tablet) 50 mg PO BEDTIME MRX1 PRN PRN Reason: Insomnia Vitamin D (Cholecalciferol (Vitamin D3) 25 Mcg Tablet) 25 mcg PO DAILY [facility] Last Admin: 10/06/23 08:46 Dose: Not Given Allergies Allergies Allergy/AdvReac Type Severity Reaction Status Date / Time lactose AdvReac Intermediate Unknown Verified 08/21/23 20:52 Penicillins AdvReac Intermediate Unknown Verified 08/21/23 20:52 Assessment & Plan Assessment & Plan (1) Schizophrenia: Status: Acute Code(s): F20.9 - Schizophrenia, unspecified (2) Abdominal wall hernia: Status: Acute Code(s): K43.9 - Ventral hernia without obstruction or gangrene Plan 63-year-old male patient with an apparent prior abdominal wall hernia repair, reported by his sister to have a collapsed hernia mesh. I am able to confirm the presence of a hernia. If the patient is symptomatic from this hernia, a CT abdomen and pelvis could be requested to evaluate further. Psychiatry The patient is a 63-year-old male with pervasive developmental disorder, schizophrenia and other medical comorbidities admitted for noncompliance. The patient had been in the hospital several times in the last 6 months due to disorganized behavior and noncompliance with no insight into his condition. 09/13 staff reports patient doing better now that he is on Zyprexa; continue current treatment plan 09/14 said zyprexa makes his head spin but staff reports he seems to be tolerating med well and clinically, is demonstrating significant improvement, attending to ADL's, group, calm, more pleasant; otherwise, refuses other meds and no insight Plan 1. We have a Section 7 and 8 and at this moment the patient is committed to the hospital. 2. Continue with Zyprexa Zydis 10 mg p.o. q.h.s. as per court order. 3. We have filed for guardianship since the patient can not take care of himself. 4. Waiting for placement. 10/06/2023: No changes Reason for continued inpatient stay Substantial Risk for: rapid decompensation Time Spent With Patient Time: Total time managing care of this patient today ____ minutes.
[2023-10-06] MEDS: OLANZapine ODT 10 MG TAB.RAPDIS TRANSLINGU (17:10)
[2023-10-07 08:15] VITALS: BP 112/71; PULSE 85; RESP 16; TEMP 36.8; O2SAT 99
--- NOTE | 2023-10-07 15:23 | P.PNPSI_ITS ---
Subjective Subjective Date of Service: 10/07/23 Reason For Visit: Psychosis Subjective Notes: Section 7 and Section 8 Interim History: The nursing staff reported the patient only takes Zyprexa as per court order but refused other medications. The nursing home social worker is waiting for guardianship. On interview the patient denies new symptoms he is more social but no insight into his condition. Mental Status Exam Mental Status Exam Patient Appearance: Appropriate Patient Orientation: Person Level of Consciousness: Awake and Appropriate Patient Behavior: Guarded and Passive Mood Description: Withdrawn Affect Description: Constricted Patient Cognition Impaired: Yes Ability to Follow Directions: Good Speech Pattern: Clear Hallucinations: None Delusions: Not Present Thought Process: Distracted and Evasive Thought Content: positive for [place] and positive for Poverty of Content Judgement: Fair Diagnostics Vital Signs (24Hr): Vital Signs - 24 hr 10/07/23 08:15 Temperature 98.2 F Pulse Rate 85 Respiratory Rate 16 Blood Pressure 112/71 Pulse Oximetry 99 Oxygen Delivery Method Room Air BMI result Body Mass Index 19.1 Labs 08/21/23 21:20 08/21/23 21:21 Medications Medications Current Medications Acetaminophen (Acetaminophen 325 Mg Tablet) 325 mg PO Q4H PRN PRN Reason: Mild Pain (Scale Score 1-4) Al Hydroxide/Mg Hydroxide (Magnesium Hydrox/Alum Hydrox 30 Ml Oral.Susp) 30 ml PO Q6H PRN PRN Reason: Heartburn/Nausea Atorvastatin Calcium (Atorvastatin Calcium 10 Mg Tablet) 10 mg PO BEDTIME [facility] Last Admin: 10/06/23 20:04 Dose: Not Given Hydroxyzine HCl (Hydroxyzine Hcl 50 Mg Tablet) 100 mg PO BID [facility] Last Admin: 10/07/23 08:33 Dose: Not Given Magnesium Hydroxide (Milk Of Magnesia 30 Ml Oral.Susp) 30 ml PO DAILY PRN PRN Reason: Constipation Olanzapine (Olanzapine 10 Mg Vial) 15 mg IM BEDTIME PRN PRN Reason: refusal of PO Olanzapine (Olanzapine Odt 10 Mg Tab.Rapdis) 10 mg TRANSLINGU DAILY@1700 [facility] Last Admin: 10/06/23 17:10 Dose: 10 mg Trazodone HCl (Trazodone Hcl 50 Mg Tablet) 50 mg PO BEDTIME MRX1 PRN PRN Reason: Insomnia Vitamin D (Cholecalciferol (Vitamin D3) 25 Mcg Tablet) 25 mcg PO DAILY [facility] Last Admin: 10/07/23 08:33 Dose: Not Given Allergies Allergies Allergy/AdvReac Type Severity Reaction Status Date / Time lactose AdvReac Intermediate Unknown Verified 08/21/23 20:52 Penicillins AdvReac Intermediate Unknown Verified 08/21/23 20:52 Assessment & Plan Assessment & Plan (1) Schizophrenia: Status: Acute Code(s): F20.9 - Schizophrenia, unspecified (2) Abdominal wall hernia: Status: Acute Code(s): K43.9 - Ventral hernia without obstruction or gangrene Plan 63-year-old male patient with an apparent prior abdominal wall hernia repair, reported by his sister to have a collapsed hernia mesh. I am able to confirm the presence of a hernia. If the patient is symptomatic from this hernia, a CT abdomen and pelvis could be requested to evaluate further. Psychiatry The patient is a 63-year-old male with pervasive developmental disorder, schizophrenia and other medical comorbidities admitted for noncompliance. The patient had been in the hospital several times in the last 6 months due to disorganized behavior and noncompliance with no insight into his condition. 09/13 staff reports patient doing better now that he is on Zyprexa; continue current treatment plan 09/14 said zyprexa makes his head spin but staff reports he seems to be tolerating med well and clinically, is demonstrating significant improvement, attending to ADL's, group, calm, more pleasant; otherwise, refuses other meds and no insight Plan 1. We have a Section 7 and 8 and at this moment the patient is committed to the hospital. 2. Continue with Zyprexa Zydis 10 mg p.o. q.h.s. as per court order. 3. We have filed for guardianship since the patient can not take care of himself. 4. Waiting for placement. Reason for continued inpatient stay Substantial Risk for: inability to function, rapid decompensation and med/psych decompensation Time Spent With Patient Time: Total time managing care of this patient today _20___ minutes.
[2023-10-07] MEDS: OLANZapine ODT 10 MG TAB.RAPDIS TRANSLINGU (17:27)
[2023-10-07 20:00] VITALS: BP 103/60; PULSE 72; RESP 16; TEMP 36.9; O2SAT 98
[2023-10-08 08:33] VITALS: BP 106/63; PULSE 73; RESP 18; TEMP 36.8; O2SAT 98
--- NOTE | 2023-10-08 16:37 | P.PNPSI_ITS ---
Subjective Subjective Date of Service: 10/08/23 Reason For Visit: Psychosis Subjective Notes: Section 7 and Section 8 Interim History: The nursing staff reported the patient took only Zyprexa. The staff has noticed that he is more visible in the unit. On interview the patient showed me his several pieces of coloring that he did the unit. He looks more engageable but still perseverative. No insight Mental Status Exam Mental Status Exam Patient Appearance: Appropriate Patient Orientation: Person and Situation Level of Consciousness: Awake and Appropriate Patient Behavior: Guarded and Passive Mood Description: Withdrawn Affect Description: Constricted Patient Cognition Impaired: Yes Ability to Follow Directions: Good Speech Pattern: Clear Hallucinations: None Delusions: Paranoid Ideation and Ideas of Reference Thought Process: Distracted and Slowed Thinking Thought Content: positive for [place] and positive for Poverty of Content Judgement: Poor Diagnostics Vital Signs (24Hr): Vital Signs - 24 hr 10/07/23 20:00 10/08/23 08:33 Temperature 98.5 F 98.3 F Pulse Rate 72 73 Respiratory Rate 16 18 Blood Pressure 103/60 106/63 Pulse Oximetry 98 98 Oxygen Delivery Method Room Air Room Air BMI result Body Mass Index 19.1 Labs 08/21/23 21:20 08/21/23 21:21 Medications Medications Current Medications Acetaminophen (Acetaminophen 325 Mg Tablet) 325 mg PO Q4H PRN PRN Reason: Mild Pain (Scale Score 1-4) Al Hydroxide/Mg Hydroxide (Magnesium Hydrox/Alum Hydrox 30 Ml Oral.Susp) 30 ml PO Q6H PRN PRN Reason: Heartburn/Nausea Atorvastatin Calcium (Atorvastatin Calcium 10 Mg Tablet) 10 mg PO BEDTIME [facility] Last Admin: 10/07/23 22:08 Dose: Not Given Hydroxyzine HCl (Hydroxyzine Hcl 50 Mg Tablet) 100 mg PO BID [facility] Last Admin: 10/08/23 08:55 Dose: Not Given Magnesium Hydroxide (Milk Of Magnesia 30 Ml Oral.Susp) 30 ml PO DAILY PRN PRN Reason: Constipation Olanzapine (Olanzapine 10 Mg Vial) 15 mg IM BEDTIME PRN PRN Reason: refusal of PO Olanzapine (Olanzapine Odt 10 Mg Tab.Rapdis) 10 mg TRANSLINGU DAILY@1700 [facility] Last Admin: 10/07/23 17:27 Dose: 10 mg Trazodone HCl (Trazodone Hcl 50 Mg Tablet) 50 mg PO BEDTIME MRX1 PRN PRN Reason: Insomnia Vitamin D (Cholecalciferol (Vitamin D3) 25 Mcg Tablet) 25 mcg PO DAILY [facility] Last Admin: 10/08/23 08:55 Dose: Not Given Allergies Allergies Allergy/AdvReac Type Severity Reaction Status Date / Time lactose AdvReac Intermediate Unknown Verified 08/21/23 20:52 Penicillins AdvReac Intermediate Unknown Verified 08/21/23 20:52 Assessment & Plan Assessment & Plan (1) Schizophrenia: Status: Acute Code(s): F20.9 - Schizophrenia, unspecified (2) Abdominal wall hernia: Status: Acute Code(s): K43.9 - Ventral hernia without obstruction or gangrene Plan 63-year-old male patient with an apparent prior abdominal wall hernia repair, reported by his sister to have a collapsed hernia mesh. I am able to confirm the presence of a hernia. If the patient is symptomatic from this hernia, a CT abdomen and pelvis could be requested to evaluate further. Psychiatry The patient is a 63-year-old male with pervasive developmental disorder, schizophrenia and other medical comorbidities admitted for noncompliance. The patient had been in the hospital several times in the last 6 months due to disorganized behavior and noncompliance with no insight into his condition. 09/13 staff reports patient doing better now that he is on Zyprexa; continue current treatment plan 09/14 said zyprexa makes his head spin but staff reports he seems to be tolerating med well and clinically, is demonstrating significant improvement, attending to ADL's, group, calm, more pleasant; otherwise, refuses other meds and no insight Plan 1. We have a Section 7 and 8 and at this moment the patient is committed to the hospital. 2. Continue with Zyprexa Zydis 10 mg p.o. q.h.s. as per court order. 3. We have filed for guardianship since the patient can not take care of himself. 4. Waiting for placement. Reason for continued inpatient stay Substantial Risk for: inability to function, rapid decompensation and med/psych decompensation Time Spent With Patient Time: Total time managing care of this patient today __20__ minutes.
[2023-10-08] MEDS: OLANZapine ODT 10 MG TAB.RAPDIS TRANSLINGU (17:02)
[2023-10-09 08:00] VITALS: BP 104/65; PULSE 69; RESP 19; TEMP 36.6; O2SAT 99
--- NOTE | 2023-10-09 13:40 | HO.PSYCHPN ---
Subjective Subjective Date of Service: 10/09/23 Reason For Visit: Psychosis Subjective Notes: Section 7 and Section 8 Interim History: The nursing staff reported the patient had been compliant only with Zyprexa, he had being coloring actively. On interview the patient denies new symptoms, waiting for placement. The patient does not have insight that he has already lost her apartment Mental Status Exam Mental Status Exam Patient Appearance: Unkempt Patient Orientation: Person and Situation Level of Consciousness: Awake and Appropriate Patient Behavior: Guarded and Passive Mood Description: Withdrawn Affect Description: Constricted Patient Cognition Impaired: Yes Ability to Follow Directions: Good Speech Pattern: Clear Hallucinations: None Delusions: Paranoid Ideation and Ideas of Reference Thought Process: Distracted and Slowed Thinking Thought Content: positive for [place] and positive for Poverty of Content Judgement: Fair Diagnostics Vital Signs (24Hr): Vital Signs - 24 hr 10/09/23 08:00 Temperature 97.8 F Pulse Rate 69 Respiratory Rate 19 Blood Pressure 104/65 Pulse Oximetry 99 Oxygen Delivery Method Room Air BMI result Body Mass Index 19.1 Labs 08/21/23 21:20 08/21/23 21:21 Medications Medications Current Medications Acetaminophen (Acetaminophen 325 Mg Tablet) 325 mg PO Q4H PRN PRN Reason: Mild Pain (Scale Score 1-4) Al Hydroxide/Mg Hydroxide (Magnesium Hydrox/Alum Hydrox 30 Ml Oral.Susp) 30 ml PO Q6H PRN PRN Reason: Heartburn/Nausea Atorvastatin Calcium (Atorvastatin Calcium 10 Mg Tablet) 10 mg PO BEDTIME [facility] Last Admin: 10/08/23 20:06 Dose: Not Given Hydroxyzine HCl (Hydroxyzine Hcl 50 Mg Tablet) 100 mg PO BID [facility] Last Admin: 10/09/23 08:46 Dose: Not Given Magnesium Hydroxide (Milk Of Magnesia 30 Ml Oral.Susp) 30 ml PO DAILY PRN PRN Reason: Constipation Olanzapine (Olanzapine 10 Mg Vial) 15 mg IM BEDTIME PRN PRN Reason: refusal of PO Olanzapine (Olanzapine Odt 10 Mg Tab.Rapdis) 10 mg TRANSLINGU DAILY@1700 [facility] Last Admin: 10/08/23 17:02 Dose: 10 mg Trazodone HCl (Trazodone Hcl 50 Mg Tablet) 50 mg PO BEDTIME MRX1 PRN PRN Reason: Insomnia Vitamin D (Cholecalciferol (Vitamin D3) 25 Mcg Tablet) 25 mcg PO DAILY [facility] Last Admin: 10/09/23 08:46 Dose: Not Given Allergies Allergies Allergy/AdvReac Type Severity Reaction Status Date / Time lactose AdvReac Intermediate Unknown Verified 08/21/23 20:52 Penicillins AdvReac Intermediate Unknown Verified 08/21/23 20:52 Assessment & Plan Assessment & Plan (1) Schizophrenia: Status: Acute Code(s): F20.9 - Schizophrenia, unspecified (2) Abdominal wall hernia: Status: Acute Code(s): K43.9 - Ventral hernia without obstruction or gangrene Plan 63-year-old male patient with an apparent prior abdominal wall hernia repair, reported by his sister to have a collapsed hernia mesh. I am able to confirm the presence of a hernia. If the patient is symptomatic from this hernia, a CT abdomen and pelvis could be requested to evaluate further. Psychiatry The patient is a 63-year-old male with pervasive developmental disorder, schizophrenia and other medical comorbidities admitted for noncompliance. The patient had been in the hospital several times in the last 6 months due to disorganized behavior and noncompliance with no insight into his condition. 09/13 staff reports patient doing better now that he is on Zyprexa; continue current treatment plan 09/14 said zyprexa makes his head spin but staff reports he seems to be tolerating med well and clinically, is demonstrating significant improvement, attending to ADL's, group, calm, more pleasant; otherwise, refuses other meds and no insight Plan 1. We have a Section 7 and 8 and at this moment the patient is committed to the hospital. 2. Continue with Zyprexa Zydis 10 mg p.o. q.h.s. as per court order. 3. We have filed for guardianship since the patient can not take care of himself. 4. Waiting for placement. Reason for continued inpatient stay Substantial Risk for: inability to function, rapid decompensation and med/psych decompensation Time Spent With Patient Time: Total time managing care of this patient today __20__ minutes.
[2023-10-09] MEDS: OLANZapine ODT 10 MG TAB.RAPDIS TRANSLINGU (16:47)
[2023-10-09 20:00] VITALS: RESP 16
[2023-10-10 08:20] VITALS: BP 126/73; PULSE 68; RESP 16; TEMP 36.9; O2SAT 99
[2023-10-10 09:58] VITALS: BMI 19.4
--- NOTE | 2023-10-10 15:01 | P.PNPSI_ITS ---
Subjective Subjective Date of Service: 10/10/23 Reason For Visit: Psychosis Subjective Notes: Section 7 and Section 8 Interim History: The nursing staff reported that he has taken only Zyprexa as per court order, denies new symptoms. On interview, he denies new symptoms, still with poor intake. Mental Status Exam Mental Status Exam Patient Appearance: Appropriate Patient Orientation: Person and Situation Level of Consciousness: Awake and Appropriate Patient Behavior: Guarded and Passive Mood Description: Withdrawn Affect Description: Constricted Patient Cognition Impaired: Yes Ability to Follow Directions: Good Speech Pattern: Clear Hallucinations: None Delusions: Paranoid Ideation Thought Process: Illogical and Slowed Thinking Thought Content: positive for [place] and positive for Poverty of Content Judgement: Poor Diagnostics Vital Signs (24Hr): Vital Signs - 24 hr 10/09/23 20:00 10/10/23 08:20 Temperature 98.4 F Pulse Rate 68 Respiratory Rate 16 16 Blood Pressure 126/73 Pulse Oximetry 99 Oxygen Delivery Method Room Air BMI result Body Mass Index 19.4 Labs 08/21/23 21:20 08/21/23 21:21 Medications Medications Current Medications Acetaminophen (Acetaminophen 325 Mg Tablet) 325 mg PO Q4H PRN PRN Reason: Mild Pain (Scale Score 1-4) Al Hydroxide/Mg Hydroxide (Magnesium Hydrox/Alum Hydrox 30 Ml Oral.Susp) 30 ml PO Q6H PRN PRN Reason: Heartburn/Nausea Atorvastatin Calcium (Atorvastatin Calcium 10 Mg Tablet) 10 mg PO BEDTIME [facility] Last Admin: 10/09/23 20:22 Dose: Not Given Hydroxyzine HCl (Hydroxyzine Hcl 50 Mg Tablet) 100 mg PO BID [facility] Last Admin: 10/10/23 08:20 Dose: Not Given Magnesium Hydroxide (Milk Of Magnesia 30 Ml Oral.Susp) 30 ml PO DAILY PRN PRN Reason: Constipation Olanzapine (Olanzapine 10 Mg Vial) 15 mg IM BEDTIME PRN PRN Reason: refusal of PO Olanzapine (Olanzapine Odt 10 Mg Tab.Rapdis) 10 mg TRANSLINGU DAILY@1700 [facility] Last Admin: 10/09/23 16:47 Dose: 10 mg Trazodone HCl (Trazodone Hcl 50 Mg Tablet) 50 mg PO BEDTIME MRX1 PRN PRN Reason: Insomnia Vitamin D (Cholecalciferol (Vitamin D3) 25 Mcg Tablet) 25 mcg PO DAILY [facility] Last Admin: 10/10/23 08:19 Dose: Not Given Allergies Allergies Allergy/AdvReac Type Severity Reaction Status Date / Time lactose AdvReac Intermediate Unknown Verified 08/21/23 20:52 Penicillins AdvReac Intermediate Unknown Verified 08/21/23 20:52 Assessment & Plan Assessment & Plan (1) Schizophrenia: Status: Acute Code(s): F20.9 - Schizophrenia, unspecified (2) Abdominal wall hernia: Status: Acute Code(s): K43.9 - Ventral hernia without obstruction or gangrene Plan 63-year-old male patient with an apparent prior abdominal wall hernia repair, reported by his sister to have a collapsed hernia mesh. I am able to confirm the presence of a hernia. If the patient is symptomatic from this hernia, a CT abdomen and pelvis could be requested to evaluate further. Psychiatry The patient is a 63-year-old male with pervasive developmental disorder, schizophrenia and other medical comorbidities admitted for noncompliance. The patient had been in the hospital several times in the last 6 months due to disorganized behavior and noncompliance with no insight into his condition. 09/13 staff reports patient doing better now that he is on Zyprexa; continue current treatment plan 09/14 said zyprexa makes his head spin but staff reports he seems to be tolerating med well and clinically, is demonstrating significant improvement, attending to ADL's, group, calm, more pleasant; otherwise, refuses other meds and no insight Plan 1. We have a Section 7 and 8 and at this moment the patient is committed to the hospital. 2. Continue with Zyprexa Zydis 10 mg p.o. q.h.s. as per court order. 3. We have filed for guardianship since the patient can not take care of himself. 4. Waiting for placement. Reason for continued inpatient stay Substantial Risk for: inability to function, rapid decompensation and med/psych decompensation Time Spent With Patient Time: Total time managing care of this patient today __20__ minutes.
[2023-10-10] MEDS: OLANZapine ODT 10 MG TAB.RAPDIS TRANSLINGU (17:18)
[2023-10-11 08:12] VITALS: BP 144/70; PULSE 73; RESP 16; TEMP 36.6; O2SAT 100
--- NOTE | 2023-10-11 15:12 | HO.PSYCHPN ---
Subjective Subjective Date of Service: 10/11/23 Reason For Visit: Psychosis Subjective Notes: Section 7 and Section 8 Interim History: The nursing staff reported the patient remains as usual, taking only Zyprexa Zydis as per court order. The vp digital marketing social media and crm reported that next Saturday her sister will come up and tried to convince him to have the medical workout here. Today on interview the patient refused to have the CT scan or any intervention here he wants to be transferring a different hospital I explained him that is not going to be possible. Unable to understand or process this information. Mental Status Exam Mental Status Exam Patient Appearance: Unkempt Patient Orientation: Person and Situation Level of Consciousness: Awake and Appropriate Patient Behavior: Guarded and Passive Mood Description: Withdrawn Affect Description: Constricted Patient Cognition Impaired: Yes Ability to Follow Directions: Fair Speech Pattern: Clear Hallucinations: None Delusions: Paranoid Ideation and Ideas of Reference Thought Process: Illogical and Distracted Thought Content: positive for [place] and positive for [place]severation Judgement: Poor Diagnostics Vital Signs (24Hr): Vital Signs - 24 hr 10/11/23 08:12 Temperature 97.9 F Pulse Rate 73 Respiratory Rate 16 Blood Pressure 144/70 H Pulse Oximetry 100 Oxygen Delivery Method Room Air BMI result Body Mass Index 19.4 Labs 08/21/23 21:20 08/21/23 21:21 Medications Medications Current Medications Acetaminophen (Acetaminophen 325 Mg Tablet) 325 mg PO Q4H PRN PRN Reason: Mild Pain (Scale Score 1-4) Al Hydroxide/Mg Hydroxide (Magnesium Hydrox/Alum Hydrox 30 Ml Oral.Susp) 30 ml PO Q6H PRN PRN Reason: Heartburn/Nausea Atorvastatin Calcium (Atorvastatin Calcium 10 Mg Tablet) 10 mg PO BEDTIME [facility] Last Admin: 10/10/23 22:15 Dose: Not Given Hydroxyzine HCl (Hydroxyzine Hcl 50 Mg Tablet) 100 mg PO BID [facility] Last Admin: 10/11/23 08:12 Dose: Not Given Magnesium Hydroxide (Milk Of Magnesia 30 Ml Oral.Susp) 30 ml PO DAILY PRN PRN Reason: Constipation Olanzapine (Olanzapine 10 Mg Vial) 15 mg IM BEDTIME PRN PRN Reason: refusal of PO Olanzapine (Olanzapine Odt 10 Mg Tab.Rapdis) 10 mg TRANSLINGU DAILY@1700 [facility] Last Admin: 10/10/23 17:18 Dose: 10 mg Trazodone HCl (Trazodone Hcl 50 Mg Tablet) 50 mg PO BEDTIME MRX1 PRN PRN Reason: Insomnia Vitamin D (Cholecalciferol (Vitamin D3) 25 Mcg Tablet) 25 mcg PO DAILY [facility] Last Admin: 10/11/23 08:12 Dose: Not Given Allergies Allergies Allergy/AdvReac Type Severity Reaction Status Date / Time lactose AdvReac Intermediate Unknown Verified 08/21/23 20:52 Penicillins AdvReac Intermediate Unknown Verified 08/21/23 20:52 Assessment & Plan Assessment & Plan (1) Schizophrenia: Status: Acute Code(s): F20.9 - Schizophrenia, unspecified (2) Abdominal wall hernia: Status: Acute Code(s): K43.9 - Ventral hernia without obstruction or gangrene Plan 63-year-old male patient with an apparent prior abdominal wall hernia repair, reported by his sister to have a collapsed hernia mesh. I am able to confirm the presence of a hernia. If the patient is symptomatic from this hernia, a CT abdomen and pelvis could be requested to evaluate further. Psychiatry The patient is a 63-year-old male with pervasive developmental disorder, schizophrenia and other medical comorbidities admitted for noncompliance. The patient had been in the hospital several times in the last 6 months due to disorganized behavior and noncompliance with no insight into his condition. 09/13 staff reports patient doing better now that he is on Zyprexa; continue current treatment plan 09/14 said zyprexa makes his head spin but staff reports he seems to be tolerating med well and clinically, is demonstrating significant improvement, attending to ADL's, group, calm, more pleasant; otherwise, refuses other meds and no insight Plan 1. We have a Section 7 and 8 and at this moment the patient is committed to the hospital. 2. Continue with Zyprexa Zydis 10 mg p.o. q.h.s. as per court order. 3. We have filed for guardianship since the patient can not take care of himself. 4. Waiting for placement. Reason for continued inpatient stay Substantial Risk for: inability to function, rapid decompensation and med/psych decompensation Time Spent With Patient Time: Total time managing care of this patient today __20__ minutes.
[2023-10-11] MEDS: OLANZapine ODT 10 MG TAB.RAPDIS TRANSLINGU (17:18)
[2023-10-11 19:54] VITALS: BP 102/60; PULSE 68; RESP 16; TEMP 36.6; O2SAT 99
[2023-10-12 09:17] VITALS: BP 110/64; PULSE 70; RESP 18; TEMP 36.6; O2SAT 99
--- NOTE | 2023-10-12 10:15 | HO.PSYCHPN ---
Subjective Subjective Date of Service: 10/12/23 Reason For Visit: Psychosis Subjective Notes: Section 7 and Section 8 Interim History: The nursing staff reported the patient remains as usual, taking only Zyprexa Zydis as per court order. The addiction social worker reported that next Saturday her sister will come up and tried to convince him to have the medical workout here. Today on interview the patient refused to have the CT scan or any intervention here he wants to be transferring a different hospital I explained him that is not going to be possible. Unable to understand or process this information. 10/12/23 Pt flat guarded but not agitated illogical Mental Status Exam Mental Status Exam Patient Appearance: Unkempt Patient Orientation: Person and Situation Level of Consciousness: Awake and Appropriate Patient Behavior: Guarded and Passive Mood Description: Withdrawn Affect Description: Constricted Patient Cognition Impaired: Yes Ability to Follow Directions: Fair Speech Pattern: Clear Hallucinations: None Delusions: Paranoid Ideation and Ideas of Reference Thought Process: Illogical and Distracted Thought Content: positive for [place] and positive for Perseveration Judgement: Poor Diagnostics Vital Signs (24Hr): Vital Signs - 24 hr 10/11/23 19:54 10/12/23 09:17 Temperature 98 F 98 F Pulse Rate 68 70 Respiratory Rate 16 18 Blood Pressure 102/60 110/64 Pulse Oximetry 99 99 Oxygen Delivery Method Room Air Room Air BMI result Body Mass Index 19.4 Labs 08/21/23 21:20 08/21/23 21:21 Medications Medications Current Medications Acetaminophen (Acetaminophen 325 Mg Tablet) 325 mg PO Q4H PRN PRN Reason: Mild Pain (Scale Score 1-4) Al Hydroxide/Mg Hydroxide (Magnesium Hydrox/Alum Hydrox 30 Ml Oral.Susp) 30 ml PO Q6H PRN PRN Reason: Heartburn/Nausea Atorvastatin Calcium (Atorvastatin Calcium 10 Mg Tablet) 10 mg PO BEDTIME [facility] Last Admin: 10/10/23 22:15 Dose: Not Given Hydroxyzine HCl (Hydroxyzine Hcl 50 Mg Tablet) 100 mg PO BID [facility] Last Admin: 10/12/23 09:38 Dose: Not Given Magnesium Hydroxide (Milk Of Magnesia 30 Ml Oral.Susp) 30 ml PO DAILY PRN PRN Reason: Constipation Olanzapine (Olanzapine 10 Mg Vial) 15 mg IM BEDTIME PRN PRN Reason: refusal of PO Olanzapine (Olanzapine Odt 10 Mg Tab.Rapdis) 10 mg TRANSLINGU DAILY@1700 [facility] Last Admin: 10/11/23 17:18 Dose: 10 mg Trazodone HCl (Trazodone Hcl 50 Mg Tablet) 50 mg PO BEDTIME MRX1 PRN PRN Reason: Insomnia Vitamin D (Cholecalciferol (Vitamin D3) 25 Mcg Tablet) 25 mcg PO DAILY [facility] Last Admin: 10/12/23 09:37 Dose: Not Given Allergies Allergies Allergy/AdvReac Type Severity Reaction Status Date / Time lactose AdvReac Intermediate Unknown Verified 08/21/23 20:52 Penicillins AdvReac Intermediate Unknown Verified 08/21/23 20:52 Assessment & Plan Assessment & Plan (1) Schizophrenia: Status: Acute Code(s): F20.9 - Schizophrenia, unspecified (2) Abdominal wall hernia: Status: Acute Code(s): K43.9 - Ventral hernia without obstruction or gangrene Plan 63-year-old male patient with an apparent prior abdominal wall hernia repair, reported by his sister to have a collapsed hernia mesh. I am able to confirm the presence of a hernia. If the patient is symptomatic from this hernia, a CT abdomen and pelvis could be requested to evaluate further. Psychiatry The patient is a 63-year-old male with pervasive developmental disorder, schizophrenia and other medical comorbidities admitted for noncompliance. The patient had been in the hospital several times in the last 6 months due to disorganized behavior and noncompliance with no insight into his condition. 09/13 staff reports patient doing better now that he is on Zyprexa; continue current treatment plan 09/14 said zyprexa makes his head spin but staff reports he seems to be tolerating med well and clinically, is demonstrating significant improvement, attending to ADL's, group, calm, more pleasant; otherwise, refuses other meds and no insight Plan 1. We have a Section 7 and 8 and at this moment the patient is committed to the hospital. 2. Continue with Zyprexa Zydis 10 mg p.o. q.h.s. as per court order. 3. We have filed for guardianship since the patient can not take care of himself. 4. Waiting for placement. 10/12/23 Cont plan of care olanzapine Reason for continued inpatient stay Substantial Risk for: inability to function and med/psych decompensation Time Spent With Patient Time: Total time managing care of this patient today ____ minutes.
[2023-10-12] MEDS: OLANZapine ODT 10 MG TAB.RAPDIS TRANSLINGU (17:01)
[2023-10-12 20:08] VITALS: BP 113/63; PULSE 70; RESP 16; TEMP 36.6; O2SAT 95
[2023-10-13 08:04] VITALS: BP 111/62; PULSE 74; RESP 16; TEMP 36.7; O2SAT 100
--- NOTE | 2023-10-13 11:30 | HO.PSYCHPN ---
Subjective Subjective Date of Service: 10/13/23 Reason For Visit: Psychosis Interim History: Patient is somewhat somatically preoccupied on in manner some anxiety otherwise stable discharge planning patient on olanzapine Mental Status Exam Mental Status Exam Patient Appearance: Appropriate Patient Orientation: Person, Place and Situation Level of Consciousness: Awake and Appropriate Patient Behavior: Guarded and Passive Mood Description: Withdrawn Affect Description: Constricted Patient Cognition Impaired: Yes Ability to Follow Directions: Fair Speech Pattern: Clear Hallucinations: None Delusions: Paranoid Ideation and Ideas of Reference Thought Process: Illogical and Distracted Thought Content: positive for [place] and positive for Perseveration Judgement: Poor Diagnostics Vital Signs (24Hr): Vital Signs - 24 hr 10/12/23 20:08 10/13/23 08:04 Temperature 97.9 F 98.1 F Pulse Rate 70 74 Respiratory Rate 16 16 Blood Pressure 113/63 111/62 Pulse Oximetry 95 100 Oxygen Delivery Method Room Air Room Air BMI result Body Mass Index 19.4 Labs 08/21/23 21:20 08/21/23 21:21 Medications Medications Current Medications Acetaminophen (Acetaminophen 325 Mg Tablet) 325 mg PO Q4H PRN PRN Reason: Mild Pain (Scale Score 1-4) Al Hydroxide/Mg Hydroxide (Magnesium Hydrox/Alum Hydrox 30 Ml Oral.Susp) 30 ml PO Q6H PRN PRN Reason: Heartburn/Nausea Atorvastatin Calcium (Atorvastatin Calcium 10 Mg Tablet) 10 mg PO BEDTIME [facility] Last Admin: 10/12/23 20:06 Dose: Not Given Hydroxyzine HCl (Hydroxyzine Hcl 50 Mg Tablet) 100 mg PO BID [facility] Last Admin: 10/13/23 08:33 Dose: Not Given Magnesium Hydroxide (Milk Of Magnesia 30 Ml Oral.Susp) 30 ml PO DAILY PRN PRN Reason: Constipation Olanzapine (Olanzapine 10 Mg Vial) 15 mg IM BEDTIME PRN PRN Reason: refusal of PO Olanzapine (Olanzapine Odt 10 Mg Tab.Rapdis) 10 mg TRANSLINGU DAILY@1700 [facility] Last Admin: 10/12/23 17:01 Dose: 10 mg Trazodone HCl (Trazodone Hcl 50 Mg Tablet) 50 mg PO BEDTIME MRX1 PRN PRN Reason: Insomnia Vitamin D (Cholecalciferol (Vitamin D3) 25 Mcg Tablet) 25 mcg PO DAILY [facility] Last Admin: 10/13/23 08:33 Dose: Not Given Allergies Allergies Allergy/AdvReac Type Severity Reaction Status Date / Time lactose AdvReac Intermediate Unknown Verified 08/21/23 20:52 Penicillins AdvReac Intermediate Unknown Verified 08/21/23 20:52 Assessment & Plan Assessment & Plan (1) Schizophrenia: Status: Acute Code(s): F20.9 - Schizophrenia, unspecified (2) Abdominal wall hernia: Status: Acute Code(s): K43.9 - Ventral hernia without obstruction or gangrene Plan 63-year-old male patient with an apparent prior abdominal wall hernia repair, reported by his sister to have a collapsed hernia mesh. I am able to confirm the presence of a hernia. If the patient is symptomatic from this hernia, a CT abdomen and pelvis could be requested to evaluate further. Psychiatry The patient is a 63-year-old male with pervasive developmental disorder, schizophrenia and other medical comorbidities admitted for noncompliance. The patient had been in the hospital several times in the last 6 months due to disorganized behavior and noncompliance with no insight into his condition. 09/13 staff reports patient doing better now that he is on Zyprexa; continue current treatment plan 09/14 said zyprexa makes his head spin but staff reports he seems to be tolerating med well and clinically, is demonstrating significant improvement, attending to ADL's, group, calm, more pleasant; otherwise, refuses other meds and no insight Plan 1. We have a Section 7 and 8 and at this moment the patient is committed to the hospital. 2. Continue with Zyprexa Zydis 10 mg p.o. q.h.s. as per court order. 3. We have filed for guardianship since the patient can not take care of himself. 4. Waiting for placement. 10/12/23 Cont plan of care olanzapine 10/13/2023 Continue plan of care discharge planning continue olanzapine Reason for continued inpatient stay Substantial Risk for: inability to function, rapid decompensation and med/psych decompensation Time Spent With Patient Time: Total time managing care of this patient today ____ minutes.
[2023-10-13] MEDS: OLANZapine ODT 10 MG TAB.RAPDIS TRANSLINGU (17:17)
[2023-10-13 20:00] VITALS: BP 110/58; PULSE 68; RESP 16; TEMP 36.5; O2SAT 100
[2023-10-14 08:00] VITALS: BP 102/66; PULSE 72; RESP 18; TEMP 36.6; O2SAT 100
--- NOTE | 2023-10-14 10:53 | P.PNPSI_ITS ---
Subjective Subjective Date of Service: 10/14/23 Reason For Visit: Psychosis Interim History: Patient is somewhat somatically preoccupied and anxious. otherwise stable discharge planning Medication Compliance: Yes Side effects from medications: No Attending Groups: No Review of Systems Acute medical concerns: No Medical Review of Systems: unchanged Review of Systems Review of Systems Unremarkable Yes all other systems are reviewed and are negative, Unobtainable due to mental condition and Unobtainable due to mental status Mental Status Exam Mental Status Exam Narrative: minimal engagement with interview. Patient Appearance: Appropriate Patient Orientation: Person, Place and Situation Level of Consciousness: Awake and Appropriate Patient Behavior: Guarded and Passive Mood Description: Withdrawn Affect Description: Constricted Patient Cognition Impaired: Yes Ability to Follow Directions: Fair Speech Pattern: Clear Diagnostics Vital Signs (24Hr): Vital Signs - 24 hr 10/13/23 20:00 10/14/23 08:00 Temperature 97.7 F 97.8 F Pulse Rate 68 72 Respiratory Rate 16 18 Blood Pressure 110/58 L 102/66 Pulse Oximetry 100 100 Oxygen Delivery Method Room Air Room Air BMI result Body Mass Index 19.4 Labs 08/21/23 21:20 08/21/23 21:21 Medications Medications Current Medications Acetaminophen (Acetaminophen 325 Mg Tablet) 325 mg PO Q4H PRN PRN Reason: Mild Pain (Scale Score 1-4) Al Hydroxide/Mg Hydroxide (Magnesium Hydrox/Alum Hydrox 30 Ml Oral.Susp) 30 ml PO Q6H PRN PRN Reason: Heartburn/Nausea Atorvastatin Calcium (Atorvastatin Calcium 10 Mg Tablet) 10 mg PO BEDTIME [facility] Last Admin: 10/13/23 20:03 Dose: Not Given Hydroxyzine HCl (Hydroxyzine Hcl 50 Mg Tablet) 100 mg PO BID [facility] Last Admin: 10/14/23 08:50 Dose: Not Given Magnesium Hydroxide (Milk Of Magnesia 30 Ml Oral.Susp) 30 ml PO DAILY PRN PRN Reason: Constipation Olanzapine (Olanzapine 10 Mg Vial) 15 mg IM BEDTIME PRN PRN Reason: refusal of PO Olanzapine (Olanzapine Odt 10 Mg Tab.Rapdis) 10 mg TRANSLINGU DAILY@1700 [facility] Last Admin: 10/13/23 17:17 Dose: 10 mg Trazodone HCl (Trazodone Hcl 50 Mg Tablet) 50 mg PO BEDTIME MRX1 PRN PRN Reason: Insomnia Vitamin D (Cholecalciferol (Vitamin D3) 25 Mcg Tablet) 25 mcg PO DAILY [facility] Last Admin: 10/14/23 08:50 Dose: Not Given Allergies Allergies Allergy/AdvReac Type Severity Reaction Status Date / Time lactose AdvReac Intermediate Unknown Verified 08/21/23 20:52 Penicillins AdvReac Intermediate Unknown Verified 08/21/23 20:52 Assessment & Plan Assessment & Plan (1) Schizophrenia: Status: Acute Code(s): F20.9 - Schizophrenia, unspecified (2) Abdominal wall hernia: Status: Acute Code(s): K43.9 - Ventral hernia without obstruction or gangrene Plan 63-year-old male patient with an apparent prior abdominal wall hernia repair, reported by his sister to have a collapsed hernia mesh. I am able to confirm the presence of a hernia. If the patient is symptomatic from this hernia, a CT abdomen and pelvis could be requested to evaluate further. Psychiatry The patient is a 63-year-old male with pervasive developmental disorder, schizophrenia and other medical comorbidities admitted for noncompliance. The patient had been in the hospital several times in the last 6 months due to disorganized behavior and noncompliance with no insight into his condition. 09/13 staff reports patient doing better now that he is on Zyprexa; continue current treatment plan 09/14 said zyprexa makes his head spin but staff reports he seems to be tolerating med well and clinically, is demonstrating significant improvement, attending to ADL's, group, calm, more pleasant; otherwise, refuses other meds and no insight Plan 1. We have a Section 7 and 8 and at this moment the patient is committed to the hospital. 2. Continue with Zyprexa Zydis 10 mg p.o. q.h.s. as per court order. 3. We have filed for guardianship since the patient can not take care of himself. 4. Waiting for placement. 10/12/23 Cont plan of care olanzapine 10/13/2023 Continue plan of care discharge planning continue olanzapine 10/13 continue treatment plan Patient educated on: diagnosis, medication risk/benefits and therapeutic strategies Reason for continued inpatient stay Substantial Risk for: harm to self and rapid decompensation Time Spent With Patient Time: Total time managing care of this patient today ____ minutes.
[2023-10-14] MEDS: OLANZapine ODT 10 MG TAB.RAPDIS TRANSLINGU (17:41)
[2023-10-14 20:00] VITALS: BP 104/63; PULSE 71; RESP 18; TEMP 35.8; O2SAT 99
[2023-10-15 08:05] VITALS: BP 108/68; PULSE 70; RESP 17; TEMP 36.6; O2SAT 100
[2023-10-15] MEDS: OLANZapine ODT 10 MG TAB.RAPDIS TRANSLINGU (17:04)
[2023-10-15 19:41] VITALS: RESP 18
--- NOTE | 2023-10-15 21:49 | P.PNPSI_ITS ---
Subjective Subjective Date of Service: 10/15/23 Reason For Visit: Psychosis Interim History: Patient is somewhat somatically preoccupied and anxious. otherwise stable discharge planning tends to ruminate Medication Compliance: Yes Side effects from medications: No Attending Groups: No Review of Systems Acute medical concerns: No Medical Review of Systems: unchanged Mental Status Exam Mental Status Exam Narrative: odd manerisms Patient Appearance: Appropriate Patient Orientation: Person, Place and Situation Level of Consciousness: Awake and Appropriate Patient Behavior: Guarded and Passive Mood Description: Withdrawn Affect Description: Constricted Patient Cognition Impaired: Yes Ability to Follow Directions: Fair Speech Pattern: Clear Diagnostics Vital Signs (24Hr): Vital Signs - 24 hr 10/15/23 08:05 10/15/23 19:41 Temperature 97.8 F Pulse Rate 70 Respiratory Rate 17 18 Blood Pressure 108/68 Pulse Oximetry 100 Oxygen Delivery Method Room Air BMI result Body Mass Index 19.4 Labs 08/21/23 21:20 08/21/23 21:21 Medications Medications Current Medications Acetaminophen (Acetaminophen 325 Mg Tablet) 325 mg PO Q4H PRN PRN Reason: Mild Pain (Scale Score 1-4) Al Hydroxide/Mg Hydroxide (Magnesium Hydrox/Alum Hydrox 30 Ml Oral.Susp) 30 ml PO Q6H PRN PRN Reason: Heartburn/Nausea Atorvastatin Calcium (Atorvastatin Calcium 10 Mg Tablet) 10 mg PO BEDTIME [facility] Last Admin: 10/15/23 20:07 Dose: Not Given Hydroxyzine HCl (Hydroxyzine Hcl 50 Mg Tablet) 100 mg PO BID [facility] Last Admin: 10/15/23 20:07 Dose: Not Given Magnesium Hydroxide (Milk Of Magnesia 30 Ml Oral.Susp) 30 ml PO DAILY PRN PRN Reason: Constipation Olanzapine (Olanzapine 10 Mg Vial) 15 mg IM BEDTIME PRN PRN Reason: refusal of PO Olanzapine (Olanzapine Odt 10 Mg Tab.Rapdis) 10 mg TRANSLINGU DAILY@1700 [facility] Last Admin: 10/15/23 17:04 Dose: 10 mg Trazodone HCl (Trazodone Hcl 50 Mg Tablet) 50 mg PO BEDTIME MRX1 PRN PRN Reason: Insomnia Vitamin D (Cholecalciferol (Vitamin D3) 25 Mcg Tablet) 25 mcg PO DAILY [facility] Last Admin: 10/15/23 08:05 Dose: Not Given Allergies Allergies Allergy/AdvReac Type Severity Reaction Status Date / Time lactose AdvReac Intermediate Unknown Verified 08/21/23 20:52 Penicillins AdvReac Intermediate Unknown Verified 08/21/23 20:52 Assessment & Plan Assessment & Plan (1) Schizophrenia: Status: Acute Code(s): F20.9 - Schizophrenia, unspecified (2) Abdominal wall hernia: Status: Acute Code(s): K43.9 - Ventral hernia without obstruction or gangrene Plan 63-year-old male patient with an apparent prior abdominal wall hernia repair, reported by his sister to have a collapsed hernia mesh. I am able to confirm the presence of a hernia. If the patient is symptomatic from this hernia, a CT abdomen and pelvis could be requested to evaluate further. Psychiatry The patient is a 63-year-old male with pervasive developmental disorder, schizophrenia and other medical comorbidities admitted for noncompliance. The patient had been in the hospital several times in the last 6 months due to disorganized behavior and noncompliance with no insight into his condition. 09/13 staff reports patient doing better now that he is on Zyprexa; continue current treatment plan 09/14 said zyprexa makes his head spin but staff reports he seems to be tolerating med well and clinically, is demonstrating significant improvement, attending to ADL's, group, calm, more pleasant; otherwise, refuses other meds and no insight Plan 1. We have a Section 7 and 8 and at this moment the patient is committed to the hospital. 2. Continue with Zyprexa Zydis 10 mg p.o. q.h.s. as per court order. 3. We have filed for guardianship since the patient can not take care of himself. 4. Waiting for placement. 10/12/23 Cont plan of care olanzapine 10/13/2023 Continue plan of care discharge planning continue olanzapine 10/13 continue treatment plan 10/15/23 cont plan of care Reason for continued inpatient stay Substantial Risk for: inability to function and rapid decompensation Time Spent With Patient Time: Total time managing care of this patient today ____ minutes.
[2023-10-16 08:00] VITALS: BP 108/64; PULSE 78; RESP 18; TEMP 36.4; O2SAT 98
--- NOTE | 2023-10-16 12:35 | HO.PSYCHPN ---
Subjective Subjective Date of Service: 10/16/23 Reason For Visit: Psychosis Interim History: states he is supposed to leave today or tomorrow and that he was promised a CT of his arm, which he believes is broken. per staff, the arm complaint is chronic and there is no evidence that it is broken. there is also no plan to discharge pt. no other issues or concerns. Mental Status Exam Mental Status Exam Narrative: odd manerisms Patient Appearance: Appropriate Patient Orientation: Person, Place and Situation Level of Consciousness: Awake and Appropriate Patient Behavior: Guarded and Passive Mood Description: Withdrawn Affect Description: Constricted Patient Cognition Impaired: Yes Ability to Follow Directions: Fair Speech Pattern: Clear Diagnostics Vital Signs (24Hr): Vital Signs - 24 hr 10/15/23 19:41 10/16/23 08:00 Temperature 97.5 F Pulse Rate 78 Respiratory Rate 18 18 Blood Pressure 108/64 Pulse Oximetry 98 Oxygen Delivery Method Room Air BMI result Body Mass Index 19.4 Labs 08/21/23 21:20 08/21/23 21:21 Medications Medications Current Medications Acetaminophen (Acetaminophen 325 Mg Tablet) 325 mg PO Q4H PRN PRN Reason: Mild Pain (Scale Score 1-4) Al Hydroxide/Mg Hydroxide (Magnesium Hydrox/Alum Hydrox 30 Ml Oral.Susp) 30 ml PO Q6H PRN PRN Reason: Heartburn/Nausea Atorvastatin Calcium (Atorvastatin Calcium 10 Mg Tablet) 10 mg PO BEDTIME COUNT [facility]CLUD[facility] Last Admin: 10/15/23 20:07 Dose: Not Given Hydroxyzine HCl (Hydroxyzine Hcl 50 Mg Tablet) 100 mg PO BID COUNT INCLUDES [facility] Last Admin: 10/16/23 08:38 Dose: Not Given Magnesium Hydroxide (Milk Of Magnesia 30 Ml Oral.Susp) 30 ml PO DAILY PRN PRN Reason: Constipation Olanzapine (Olanzapine 10 Mg Vial) 15 mg IM BEDTIME PRN PRN Reason: refusal of PO Olanzapine (Olanzapine Odt 10 Mg Tab.Rapdis) 10 mg TRANSLINGU DAILY@1700 COUNT [facility]CLUD[facility] Last Admin: 10/15/23 17:04 Dose: 10 mg Trazodone HCl (Trazodone Hcl 50 Mg Tablet) 50 mg PO BEDTIME MRX1 PRN PRN Reason: Insomnia Vitamin D (Cholecalciferol (Vitamin D3) 25 Mcg Tablet) 25 mcg PO DAILY COUNT [facility]CLUDES [facility] Last Admin: 10/16/23 08:38 Dose: Not Given Allergies Allergies Allergy/AdvReac Type Severity Reaction Status Date / Time lactose AdvReac Intermediate Unknown Verified 08/21/23 20:52 Penicillins AdvReac Intermediate Unknown Verified 08/21/23 20:52 Assessment & Plan Assessment & Plan (1) Schizophrenia: Status: Acute Code(s): F20.9 - Schizophrenia, unspecified (2) Abdominal wall hernia: Status: Acute Code(s): K43.9 - Ventral hernia without obstruction or gangrene Plan 63-year-old male patient with an apparent prior abdominal wall hernia repair, reported by his sister to have a collapsed hernia mesh. I am able to confirm the presence of a hernia. If the patient is symptomatic from this hernia, a CT abdomen and pelvis could be requested to evaluate further. Psychiatry The patient is a 63-year-old male with pervasive developmental disorder, schizophrenia and other medical comorbidities admitted for noncompliance. The patient had been in the hospital several times in the last 6 months due to disorganized behavior and noncompliance with no insight into his condition. 09/13 staff reports patient doing better now that he is on Zyprexa; continue current treatment plan 09/14 said zyprexa makes his head spin but staff reports he seems to be tolerating med well and clinically, is demonstrating significant improvement, attending to ADL's, group, calm, more pleasant; otherwise, refuses other meds and no insight Plan 1. We have a Section 7 and 8 and at this moment the patient is committed to the hospital. 2. Continue with Zyprexa Zydis 10 mg p.o. q.h.s. as per court order. 3. We have filed for guardianship since the patient can not take care of himself. 4. Waiting for placement. 10/12/23 Cont plan of care olanzapine 10/13/2023 Continue plan of care discharge planning continue olanzapine 10/13 continue treatment plan 10/15/23 cont plan of care 10/15: delusional. stable. continue current mgmt. Reason for continued inpatient stay Substantial Risk for: inability to function and rapid decompensation Time Spent With Patient Time: Total time managing care of this patient today ____ minutes.
[2023-10-16] MEDS: OLANZapine ODT 10 MG TAB.RAPDIS TRANSLINGU (17:13)
[2023-10-16 20:00] VITALS: BP 105/65; PULSE 76; RESP 18; TEMP 37.2; O2SAT 99
[2023-10-17 08:00] VITALS: BP 99/64; PULSE 82; RESP 16; TEMP 36.3; O2SAT 98
[2023-10-17 13:17] VITALS: BMI 19.7
[2023-10-17] MEDS: Acetaminophen 325 MG TABLET PO ×2 (14:19→20:29)
[2023-10-17] MEDS: OLANZapine ODT 10 MG TAB.RAPDIS TRANSLINGU (17:09)
--- NOTE | 2023-10-17 17:18 | HO.PSYCHPN ---
Subjective Subjective Date of Service: 10/17/23 Reason For Visit: Psychosis Interim History: do you know when i am discharging? no, i don't. thank you, good bye. direct and business-like. per staff, no behavioral events or concerns. Mental Status Exam Mental Status Exam Narrative: odd manerisms Patient Appearance: Appropriate Patient Orientation: Person, Place and Situation Level of Consciousness: Awake and Appropriate Patient Behavior: Guarded and Passive Mood Description: Withdrawn Affect Description: Constricted Patient Cognition Impaired: Yes Ability to Follow Directions: Fair Speech Pattern: Clear Diagnostics Vital Signs (24Hr): Vital Signs - 24 hr 10/16/23 20:00 10/17/23 08:00 Temperature 99 F 97.3 F Pulse Rate 76 82 Respiratory Rate 18 16 Blood Pressure 105/65 99/64 Pulse Oximetry 99 98 Oxygen Delivery Method Room Air Room Air BMI result Body Mass Index 19.7 Labs 08/21/23 21:20 08/21/23 21:21 Medications Medications Current Medications Acetaminophen (Acetaminophen 325 Mg Tablet) 325 mg PO Q4H PRN PRN Reason: Mild Pain (Scale Score 1-4) Last Admin: 10/17/23 14:19 Dose: 325 mg Al Hydroxide/Mg Hydroxide (Magnesium Hydrox/Alum Hydrox 30 Ml Oral.Susp) 30 ml PO Q6H PRN PRN Reason: Heartburn/Nausea Atorvastatin Calcium (Atorvastatin Calcium 10 Mg Tablet) 10 mg PO BEDTIME [facility] Last Admin: 10/16/23 21:22 Dose: Not Given Hydroxyzine HCl (Hydroxyzine Hcl 50 Mg Tablet) 100 mg PO BID [facility] Last Admin: 10/17/23 08:04 Dose: Not Given Magnesium Hydroxide (Milk Of Magnesia 30 Ml Oral.Susp) 30 ml PO DAILY PRN PRN Reason: Constipation Olanzapine (Olanzapine 10 Mg Vial) 15 mg IM BEDTIME PRN PRN Reason: refusal of PO Olanzapine (Olanzapine Odt 10 Mg Tab.Rapdis) 10 mg TRANSLINGU DAILY@1700 [facility] Last Admin: 10/16/23 17:13 Dose: 10 mg Trazodone HCl (Trazodone Hcl 50 Mg Tablet) 50 mg PO BEDTIME MRX1 PRN PRN Reason: Insomnia Vitamin D (Cholecalciferol (Vitamin D3) 25 Mcg Tablet) 25 mcg PO DAILY [facility] Last Admin: 10/17/23 08:04 Dose: Not Given Allergies Allergies Allergy/AdvReac Type Severity Reaction Status Date / Time lactose AdvReac Intermediate Unknown Verified 08/21/23 20:52 Penicillins AdvReac Intermediate Unknown Verified 08/21/23 20:52 Assessment & Plan Assessment & Plan (1) Schizophrenia: Status: Acute Code(s): F20.9 - Schizophrenia, unspecified (2) Abdominal wall hernia: Status: Acute Code(s): K43.9 - Ventral hernia without obstruction or gangrene Plan 63-year-old male patient with an apparent prior abdominal wall hernia repair, reported by his sister to have a collapsed hernia mesh. I am able to confirm the presence of a hernia. If the patient is symptomatic from this hernia, a CT abdomen and pelvis could be requested to evaluate further. Psychiatry The patient is a 63-year-old male with pervasive developmental disorder, schizophrenia and other medical comorbidities admitted for noncompliance. The patient had been in the hospital several times in the last 6 months due to disorganized behavior and noncompliance with no insight into his condition. 09/13 staff reports patient doing better now that he is on Zyprexa; continue current treatment plan 09/14 said zyprexa makes his head spin but staff reports he seems to be tolerating med well and clinically, is demonstrating significant improvement, attending to ADL's, group, calm, more pleasant; otherwise, refuses other meds and no insight Plan 1. We have a Section 7 and 8 and at this moment the patient is committed to the hospital. 2. Continue with Zyprexa Zydis 10 mg p.o. q.h.s. as per court order. 3. We have filed for guardianship since the patient can not take care of himself. 4. Waiting for placement. 10/12/23 Cont plan of care olanzapine 10/13/2023 Continue plan of care discharge planning continue olanzapine 10/13 continue treatment plan 10/15/23 cont plan of care 10/15: delusional. stable. continue current mgmt. 10/16: no change from yesterday. continue current mgmt. Reason for continued inpatient stay Substantial Risk for: inability to function and rapid decompensation Time Spent With Patient Time: Total time managing care of this patient today ____ minutes.
[2023-10-17 20:00] VITALS: BP 148/75; PULSE 71; RESP 16; TEMP 36.6; O2SAT 100
[2023-10-18] MEDS: Acetaminophen 325 MG TABLET PO ×2 (00:33→06:26)
[2023-10-18 07:55] VITALS: BP 119/68; PULSE 97; RESP 18; TEMP 37.1; O2SAT 96
--- NOTE | 2023-10-18 17:10 | HO.PSYCHPN ---
Subjective Subjective Date of Service: 10/18/23 Reason For Visit: Psychosis Subjective Notes: Section 7 and Section 8 Interim History: The nursing staff reported the patient has refused all his medications besides Zyprexa as per court order. He have presented with tooth ache and he looks at it the areas very swollen. Today we had a conversation over the phone with his sister and she convinced him to have the CT scan and start antibiotics. I called the medical team regarding antibiotics for his toothache since he is allergic to penicillin. Mental Status Exam Mental Status Exam Patient Appearance: Appropriate Patient Orientation: Person and Situation Level of Consciousness: Awake and Appropriate Patient Behavior: Guarded and Passive Mood Description: Withdrawn Affect Description: Constricted Patient Cognition Impaired: Yes Ability to Follow Directions: Fair Speech Pattern: Clear Hallucinations: None Delusions: Not Present Thought Process: Distracted and Slowed Thinking Thought Content: positive for Burnett and positive for Poverty of Content Judgement: Poor Diagnostics Vital Signs (24Hr): Vital Signs - 24 hr 10/17/23 20:00 10/18/23 07:55 Temperature 97.9 F 98.7 F Pulse Rate 71 97 Respiratory Rate 16 18 Blood Pressure 148/75 H 119/68 Pulse Oximetry 100 96 Oxygen Delivery Method Room Air Room Air BMI result Body Mass Index 19.7 Labs 08/21/23 21:20 08/21/23 21:21 Medications Medications Current Medications Acetaminophen (Acetaminophen 325 Mg Tablet) 325 mg PO Q4H PRN PRN Reason: Mild Pain (Scale Score 1-4) Last Admin: 10/18/23 06:26 Dose: 325 mg Al Hydroxide/Mg Hydroxide (Magnesium Hydrox/Alum Hydrox 30 Ml Oral.Susp) 30 ml PO Q6H PRN PRN Reason: Heartburn/Nausea Atorvastatin Calcium (Atorvastatin Calcium 10 Mg Tablet) 10 mg PO BEDTIME [facility] Last Admin: 10/17/23 21:22 Dose: Not Given Hydroxyzine HCl (Hydroxyzine Hcl 50 Mg Tablet) 100 mg PO BID [facility] Last Admin: 10/18/23 13:22 Dose: Not Given Magnesium Hydroxide (Milk Of Magnesia 30 Ml Oral.Susp) 30 ml PO DAILY PRN PRN Reason: Constipation Olanzapine (Olanzapine 10 Mg Vial) 15 mg IM BEDTIME PRN PRN Reason: refusal of PO Olanzapine (Olanzapine Odt 10 Mg Tab.Rapdis) 10 mg TRANSLINGU DAILY@1700 [facility] Last Admin: 10/17/23 17:09 Dose: 10 mg Trazodone HCl (Trazodone Hcl 50 Mg Tablet) 50 mg PO BEDTIME MRX1 PRN PRN Reason: Insomnia Vitamin D (Cholecalciferol (Vitamin D3) 25 Mcg Tablet) 25 mcg PO DAILY [facility] Last Admin: 10/18/23 13:22 Dose: Not Given Allergies Allergies Allergy/AdvReac Type Severity Reaction Status Date / Time lactose AdvReac Intermediate Unknown Verified 08/21/23 20:52 Penicillins AdvReac Intermediate Unknown Verified 08/21/23 20:52 Assessment & Plan Assessment & Plan (1) Schizophrenia: Status: Acute Code(s): F20.9 - Schizophrenia, unspecified (2) Abdominal wall hernia: Status: Acute Code(s): K43.9 - Ventral hernia without obstruction or gangrene Plan 63-year-old male patient with an apparent prior abdominal wall hernia repair, reported by his sister to have a collapsed hernia mesh. I am able to confirm the presence of a hernia. If the patient is symptomatic from this hernia, a CT abdomen and pelvis could be requested to evaluate further. Psychiatry The patient is a 63-year-old male with pervasive developmental disorder, schizophrenia and other medical comorbidities admitted for noncompliance. The patient had been in the hospital several times in the last 6 months due to disorganized behavior and noncompliance with no insight into his condition. 09/13 staff reports patient doing better now that he is on Zyprexa; continue current treatment plan 09/14 said zyprexa makes his head spin but staff reports he seems to be tolerating med well and clinically, is demonstrating significant improvement, attending to ADL's, group, calm, more pleasant; otherwise, refuses other meds and no insight Plan 1. We have a Section 7 and 8 and at this moment the patient is committed to the hospital. 2. Continue with Zyprexa Zydis 10 mg p.o. q.h.s. as per court order. 3. We have filed for guardianship since the patient can not take care of himself. 4. Waiting for placement. 5. On October 17 I contact the medical team since he had an infection on his tooth. Reason for continued inpatient stay Substantial Risk for: inability to function, rapid decompensation and med/psych decompensation Time Spent With Patient Time: Total time managing care of this patient today ___20_ minutes.
--- NOTE | 2023-10-18 17:46 | PM.EVENT ---
Event Note Date of Service: 10/18/23 Event Note: Patient is a 63 year old male admitted to [facility] who was seen for hospitalist consult for dental infection. Patient states he has been experiencing swelling and pain in his left lower jaw x3 days, worse with movement. Has had difficulty chewing secondary to pain. Denies difficulty swallowing or breathing. No shortness a breath. Denies tongue swelling. Upon physical examination patient has a large, 2-3 cm area of fluctuance on left lower jaw with overlying erythema. See picture below. Mouth floor nontender to palpation. No obvious dental isa noted or area of erythema on in her mouth, but patient unable to open jaw very wide or tolerate physical examination secondary to pain. Will start on clindamycin 300 mg p.o. t.i.d. due to penicillin allergy. Oxy 5 mg p.r.n. for pain. Will get CT of face to evaluate for periodontal abscess and possible Cody's angina. Time Spent With Patient Time: Total time managing care of this patient today ____ minutes.
[2023-10-18] MEDS: oxyCODONE HCl Immed Release 5 MG TABLET PO (18:04)
[2023-10-18] MEDS: Clindamycin HCL 300 MG CAPSULE PO (18:04)
[2023-10-18] MEDS: OLANZapine ODT 10 MG TAB.RAPDIS TRANSLINGU (18:08)
[2023-10-18 20:00] VITALS: BP 126/75; PULSE 96; RESP 16; TEMP 36.1; O2SAT 100
[2023-10-19] MEDS: Clindamycin HCL 300 MG CAPSULE PO ×3 (01:09→18:02)
[2023-10-19 08:25] VITALS: BP 117/76; PULSE 84; RESP 17; TEMP 36.6; O2SAT 97
[2023-10-19] MEDS: Acetaminophen 325 MG TABLET PO ×2 (08:27→20:18)
--- NOTE | 2023-10-19 08:49 | HO.PSYCHPN ---
Subjective Subjective Date of Service: 10/19/23 Reason For Visit: Psychosis Interim History: Care review with team. Pt has periapical Abscesses. Dr. Soctt has initiated clindamycin po, chlorhexidine rinses, soft diet. No sepsis and no current need for IV abx. He will need dental appt. Pt is awake, alert, in bed. He is talkative, willing to attend a dental appt. Pain is there he is not able to rate. He is quiet, alert, engaged. Medication Compliance: Yes Side effects from medications: No Review of Systems Acute medical concerns: Yes as noted Medical Review of Systems: changed Review of Systems: as noted Review of Systems Review of Systems periapical abscesses Mental Status Exam Mental Status Exam Patient Appearance: Appropriate Patient Orientation: Person and Situation Level of Consciousness: Awake and Appropriate Patient Behavior: Guarded and Passive Mood Description: Withdrawn Affect Description: Constricted Patient Cognition Impaired: Yes Ability to Follow Directions: Fair Speech Pattern: Clear Hallucinations: None Delusions: Not Present Thought Process: Distracted and Slowed Thinking Thought Content: positive for [place] and positive for Poverty of Content Judgement: Poor Diagnostics Vital Signs (24Hr): Vital Signs - 24 hr 10/18/23 20:00 10/19/23 08:25 Temperature 97 F 97.8 F Pulse Rate 96 84 Respiratory Rate 16 17 Blood Pressure 126/75 117/76 Pulse Oximetry 100 97 Oxygen Delivery Method Room Air Room Air BMI result Body Mass Index 19.7 Labs 08/21/23 21:20 08/21/23 21:21 Imaging Radiology Impressions: ITS Impressions Abdomen CT 10/18/23 14:30 IMPRESSION: * Bilateral nephrolithiasis without hydronephrosis. * There is diastases of rectus abdominis muscles of up to 4 cm. Prior placement of mesh at the midline abdominal wall. Although there is anterior bulging of the mesh between rectus abdominis muscles, the omental fat remains deep to the mesh, and there is no herniation of bowel or fat around the periphery of the mesh. Face CT 10/18/23 18:18 IMPRESSION: 1. Periapical abscesses adjacent to the left maxillary first premolar and first molar as well as the left mandibular first and second premolars. Adjacent inflammatory change and probable early phlegmonous change without a discrete abscess. 2. Mild right temporomandibular joint osteoarthritis. Medications Medications Current Medications Acetaminophen (Acetaminophen 325 Mg Tablet) 325 mg PO Q4H PRN PRN Reason: Mild Pain (Scale Score 1-4) Last Admin: 10/19/23 08:27 Dose: 325 mg Al Hydroxide/Mg Hydroxide (Magnesium Hydrox/Alum Hydrox 30 Ml Oral.Susp) 30 ml PO Q6H PRN PRN Reason: Heartburn/Nausea Atorvastatin Calcium (Atorvastatin Calcium 10 Mg Tablet) 10 mg PO BEDTIME [facility] Last Admin: 10/18/23 21:16 Dose: Not Given Clindamycin HCl (Clindamycin Hcl 300 Mg Capsule) 300 mg PO Q8H [facility] Last Admin: 10/19/23 01:09 Dose: 300 mg Hydroxyzine HCl (Hydroxyzine Hcl 50 Mg Tablet) 100 mg PO BID [facility] Last Admin: 10/19/23 08:28 Dose: Not Given Magnesium Hydroxide (Milk Of Magnesia 30 Ml Oral.Susp) 30 ml PO DAILY PRN PRN Reason: Constipation Olanzapine (Olanzapine 10 Mg Vial) 15 mg IM BEDTIME PRN PRN Reason: refusal of PO Olanzapine (Olanzapine Odt 10 Mg Tab.Rapdis) 10 mg TRANSLINGU DAILY@1700 [facility] Last Admin: 10/18/23 18:08 Dose: 10 mg Oxycodone HCl (Oxycodone Hcl Immed Release 5 Mg Tablet) 5 mg PO Q4H PRN PRN Reason: Pain, Moderate(Pain Scale 4-6) Last Admin: 10/18/23 18:04 Dose: 5 mg Trazodone HCl (Trazodone Hcl 50 Mg Tablet) 50 mg PO BEDTIME MRX1 PRN PRN Reason: Insomnia Vitamin D (Cholecalciferol (Vitamin D3) 25 Mcg Tablet) 25 mcg PO DAILY [facility] Last Admin: 10/19/23 08:28 Dose: Not Given Allergies Allergies Allergy/AdvReac Type Severity Reaction Status Date / Time lactose AdvReac Intermediate Unknown Verified 08/21/23 20:52 Penicillins AdvReac Intermediate Unknown Verified 08/21/23 20:52 Assessment & Plan Assessment & Plan (1) Schizophrenia: Status: Acute Code(s): F20.9 - Schizophrenia, unspecified (2) Abdominal wall hernia: Status: Acute Code(s): K43.9 - Ventral hernia without obstruction or gangrene Plan 63-year-old male patient with an apparent prior abdominal wall hernia repair, reported by his sister to have a collapsed hernia mesh. I am able to confirm the presence of a hernia. If the patient is symptomatic from this hernia, a CT abdomen and pelvis could be requested to evaluate further. Psychiatry The patient is a 63-year-old male with pervasive developmental disorder, schizophrenia and other medical comorbidities admitted for noncompliance. The patient had been in the hospital several times in the last 6 months due to disorganized behavior and noncompliance with no insight into his condition. 09/13 staff reports patient doing better now that he is on Zyprexa; continue current treatment plan 09/14 said zyprexa makes his head spin but staff reports he seems to be tolerating med well and clinically, is demonstrating significant improvement, attending to ADL's, group, calm, more pleasant; otherwise, refuses other meds and no insight Plan 1. We have a Section 7 and 8 and at this moment the patient is committed to the hospital. 2. Continue with Zyprexa Zydis 10 mg p.o. q.h.s. as per court order. 3. We have filed for guardianship since the patient can not take care of himself. 4. Waiting for placement. 5. On October 17 I contact the medical team since he had an infection on his tooth. 10/18: Continue to monitor dental sx. Reason for continued inpatient stay Substantial Risk for: med/psych decompensation Time Spent With Patient Time: Total time managing care of this patient today ____ minutes.
--- NOTE | 2023-10-19 10:31 | PM.EVENT ---
Event Note Date of Service: 10/19/23 Event Note: CT with periapical abscesses continue clinda, chlorhexidene rinses, soft diet will need dental referal currently no sepsis, appears comfortable, no need of iv abx for now Time Spent With Patient Time: Total time managing care of this patient today ____ minutes.
[2023-10-19] MEDS: Chlorhexidine Gluc Oral Rinse 15 ML MOUTHWASH BUCCAL ×2 (11:26→20:18)
[2023-10-19] MEDS: OLANZapine ODT 10 MG TAB.RAPDIS TRANSLINGU (16:51)
[2023-10-19 20:00] VITALS: BP 111/70; PULSE 86; RESP 18; TEMP 36.6; O2SAT 99
[2023-10-20] MEDS: Clindamycin HCL 300 MG CAPSULE PO ×3 (02:14→17:50)
[2023-10-20 08:00] VITALS: BP 105/61; PULSE 103; RESP 17; TEMP 36.6; O2SAT 97
[2023-10-20] MEDS: Chlorhexidine Gluc Oral Rinse 15 ML MOUTHWASH BUCCAL ×2 (08:25→20:35)
[2023-10-20] MEDS: Acetaminophen 325 MG TABLET PO ×2 (08:26→20:36)
--- NOTE | 2023-10-20 12:43 | HO.PSYCHPN ---
Subjective Subjective Date of Service: 10/20/23 Reason For Visit: Psychosis Interim History: Reviewed with team Pt allowed lab draw to evaluate dental infection. Reports pain 8/. Accepting of pain meds from team. Hopes to discharge so friend Silverio can take him to the dentist. Discussed PCN allergy-asks if PCN was put in his psych meds to cause dental infection. Education attempted. Medication Compliance: Yes Side effects from medications: No Review of Systems periapical abscesses Medical Review of Systems: unchanged Review of Systems Review of Systems dental pain Mental Status Exam Mental Status Exam Patient Appearance: Appropriate Patient Orientation: Person and Situation Level of Consciousness: Awake and Appropriate Patient Behavior: Guarded and Passive Mood Description: Withdrawn Affect Description: Constricted Patient Cognition Impaired: Yes Ability to Follow Directions: Fair Speech Pattern: Clear Hallucinations: None Delusions: Not Present Thought Process: Distracted and Slowed Thinking Thought Content: positive for [place] and positive for Poverty of Content Judgement: Poor Diagnostics Vital Signs (24Hr): Vital Signs - 24 hr 10/19/23 20:00 10/20/23 08:00 Temperature 97.8 F 97.9 F Pulse Rate 86 103 H Respiratory Rate 18 17 Blood Pressure 111/70 105/61 Pulse Oximetry 99 97 Oxygen Delivery Method Room Air Room Air BMI result Body Mass Index 19.7 Labs 10/20/23 13:26 10/20/23 13:26 Imaging Radiology Impressions: ITS Impressions Abdomen CT 10/18/23 14:30 IMPRESSION: * Bilateral nephrolithiasis without hydronephrosis. * There is diastases of rectus abdominis muscles of up to 4 cm. Prior placement of mesh at the midline abdominal wall. Although there is anterior bulging of the mesh between rectus abdominis muscles, the omental fat remains deep to the mesh, and there is no herniation of bowel or fat around the periphery of the mesh. Face CT 10/18/23 18:18 IMPRESSION: 1. Periapical abscesses adjacent to the left maxillary first premolar and first molar as well as the left mandibular first and second premolars. Adjacent inflammatory change and probable early phlegmonous change without a discrete abscess. 2. Mild right temporomandibular joint osteoarthritis. Medications Medications Current Medications Acetaminophen (Acetaminophen 325 Mg Tablet) 325 mg PO Q4H PRN PRN Reason: Mild Pain (Scale Score 1-4) Last Admin: 10/20/23 08:26 Dose: 325 mg Al Hydroxide/Mg Hydroxide (Magnesium Hydrox/Alum Hydrox 30 Ml Oral.Susp) 30 ml PO Q6H PRN PRN Reason: Heartburn/Nausea Atorvastatin Calcium (Atorvastatin Calcium 10 Mg Tablet) 10 mg PO BEDTIME [facility] Last Admin: 10/19/23 20:12 Dose: Not Given Chlorhexidine Gluconate (Chlorhexidine Gluc Oral Rinse 15 Ml Mouthwash) 15 ml BUCCAL BID [facility] Last Admin: 10/20/23 08:25 Dose: 15 ml Clindamycin HCl (Clindamycin Hcl 300 Mg Capsule) 300 mg PO Q8H [facility] Last Admin: 10/20/23 10:47 Dose: 300 mg Hydroxyzine HCl (Hydroxyzine Hcl 50 Mg Tablet) 100 mg PO BID [facility] Last Admin: 10/20/23 08:28 Dose: Not Given Magnesium Hydroxide (Milk Of Magnesia 30 Ml Oral.Susp) 30 ml PO DAILY PRN PRN Reason: Constipation Olanzapine (Olanzapine 10 Mg Vial) 15 mg IM BEDTIME PRN PRN Reason: refusal of PO Olanzapine (Olanzapine Odt 10 Mg Tab.Rapdis) 10 mg TRANSLINGU DAILY@1700 [facility] Last Admin: 10/19/23 16:51 Dose: 10 mg Oxycodone HCl (Oxycodone Hcl Immed Release 5 Mg Tablet) 5 mg PO Q4H PRN PRN Reason: Pain, Moderate(Pain Scale 4-6) Last Admin: 10/18/23 18:04 Dose: 5 mg Trazodone HCl (Trazodone Hcl 50 Mg Tablet) 50 mg PO BEDTIME MRX1 PRN PRN Reason: Insomnia Vitamin D (Cholecalciferol (Vitamin D3) 25 Mcg Tablet) 25 mcg PO DAILY [facility] Last Admin: 10/20/23 08:28 Dose: Not Given Allergies Allergies Allergy/AdvReac Type Severity Reaction Status Date / Time lactose AdvReac Intermediate Unknown Verified 08/21/23 20:52 Penicillins AdvReac Intermediate Unknown Verified 08/21/23 20:52 Assessment & Plan Assessment & Plan (1) Schizophrenia: Status: Acute Code(s): F20.9 - Schizophrenia, unspecified (2) Abdominal wall hernia: Status: Acute Code(s): K43.9 - Ventral hernia without obstruction or gangrene Plan 63-year-old male patient with an apparent prior abdominal wall hernia repair, reported by his sister to have a collapsed hernia mesh. I am able to confirm the presence of a hernia. If the patient is symptomatic from this hernia, a CT abdomen and pelvis could be requested to evaluate further. Psychiatry The patient is a 63-year-old male with pervasive developmental disorder, schizophrenia and other medical comorbidities admitted for noncompliance. The patient had been in the hospital several times in the last 6 months due to disorganized behavior and noncompliance with no insight into his condition. 09/13 staff reports patient doing better now that he is on Zyprexa; continue current treatment plan 09/14 said zyprexa makes his head spin but staff reports he seems to be tolerating med well and clinically, is demonstrating significant improvement, attending to ADL's, group, calm, more pleasant; otherwise, refuses other meds and no insight Plan 1. We have a Section 7 and 8 and at this moment the patient is committed to the hospital. 2. Continue with Zyprexa Zydis 10 mg p.o. q.h.s. as per court order. 3. We have filed for guardianship since the patient can not take care of himself. 4. Waiting for placement. 5. On October 17 I contact the medical team since he had an infection on his tooth. 10/18: Continue to monitor dental sx. 10/19: Continue tx Reason for continued inpatient stay Substantial Risk for: rapid decompensation Time Spent With Patient Time: Total time managing care of this patient today ____ minutes.
[2023-10-20 13:33] LABS: MANUAL DIFF FLAG NO
[2023-10-20 13:41] LABS: Basophils Percent Auto 0.5 % (0-2); Eosinophils Absolute Auto 0.2 X10*3/uL (0.0-0.4); Eosinophils Percent Auto 1.8 % (0-4); Hematocrit 42.4 % (42.0-52.0); Hemoglobin 13.9 g/dl (14.0-18.0); Imm Gran Abs Auto 0.02 X10*3/uL (0.00-0.03); Imm Gran Pct Auto 0.2 % (0.0-0.4); Lymphocytes Absolute Auto 2.1 X10*3/uL (1.2-4.9); Mean Corpuscular HGB Conc 32.8 g/dl (31.0-36.0); Mean Corpuscular Hemoglobin 28.7 pg (27.0-33.0); Mean Corpuscular Volume 87.6 fL (80.0-98.0); Mean Platelet Volume 12.2 fL (9.4-12.4); Monocytes Absolute Auto 0.5 X10*3/uL (0.1-1.2); Monocytes Percent Auto 5.7 % (2-11); Neutrophils Absolute Auto 5.9 x10*3/uL (2.0-8.3); Neutrophils Percent Auto 67.8 % (45-73); Platelet Count 161 X10*3/uL (160-400); Red Blood Count 4.84 X10*6/uL (4.60-5.80); Red Cell Distribution Width 13.9 % (11.0-16.0); White Blood Count 8.7 X10*3/uL (4.8-10.8)
[2023-10-20 13:46] LABS: Anion Gap 12 (12-20); Blood Urea Nitrogen 12 mg/dL (9-16); Calcium 9.7 mg/dL (8.4-10.2); Carbon Dioxide 26 mmol/L (22-29); Chloride 105 mmol/L (96-108); Creatinine Clr Calc Pharmacy 79.9; Estimated Glomerular Filt Rate > 60; Glucose Random 98 mg/dL (60-115); Potassium 4.8 mmol/L (3.3-5.1); Sodium 138 mmol/L (135-145)
[2023-10-20] MEDS: OLANZapine ODT 10 MG TAB.RAPDIS TRANSLINGU (17:05)
[2023-10-20 20:00] VITALS: BP 109/61; PULSE 79; RESP 18; TEMP 36.1; O2SAT 97
[2023-10-21] MEDS: Clindamycin HCL 300 MG CAPSULE PO ×2 (02:58→08:55)
[2023-10-21 08:43] VITALS: BP 102/71; PULSE 79; RESP 18; TEMP 36.9; O2SAT 97
[2023-10-21] MEDS: Acetaminophen 325 MG TABLET PO (08:56)
--- NOTE | 2023-10-21 09:50 | PC.NURSE ---
Mynor declined to take hydroxyzine, vitamin D, and chlorhexidine mouthwash. Educated Mynor on the importance of using chlorhexidine mouthwash as it help decrease bacteria in his mouth and with his dental infection using the mouthwash would be beneficial. Mynor continued to decline to use chlorhexidine mouthwash despite education by this typewriter assembly and parts inspector. Dr. De La Vega notified.
--- NOTE | 2023-10-21 15:35 | P.PNPSI_ITS ---
Subjective Subjective Date of Service: 10/21/23 Reason For Visit: Psychosis Subjective Notes: Section 7 and Section 8 Interim History: The nursing staff reported the patient had been receiving antibiotics, he slept 8 hours. The patient reports improvement of his pain on his mouth. Mental Status Exam Mental Status Exam Patient Appearance: Appropriate Patient Orientation: Person and Situation Level of Consciousness: Awake and Appropriate Patient Behavior: Guarded and Passive Mood Description: Withdrawn Affect Description: Constricted Patient Cognition Impaired: Yes Ability to Follow Directions: Good Speech Pattern: Clear Hallucinations: None Delusions: Not Present Thought Content: positive for [place] and positive for Poverty of Content Judgement: Fair Diagnostics Vital Signs (24Hr): Vital Signs - 24 hr 10/20/23 20:00 10/21/23 08:43 Temperature 97 F 98.4 F Pulse Rate 79 79 Respiratory Rate 18 18 Blood Pressure 109/61 102/71 Pulse Oximetry 97 97 Oxygen Delivery Method Room Air Room Air BMI result Body Mass Index 19.7 Labs 10/20/23 13:26 10/20/23 13:26 Labs: Laboratory Results - last 48 hr 10/20/23 13:26 WBC 8.7 RBC 4.84 Hgb 13.9 L Hct 42.4 MCV 87.6 MCH 28.7 MCHC 32.8 RDW 13.9 Plt Count 161 MPV 12.2 Immature Gran % (Auto) 0.2 Neut % (Auto) 67.8 Lymph % (Auto) 24.0 [place] % (Auto) 5.7 Eos % (Auto) 1.8 Baso % (Auto) 0.5 Lymph # (Auto) 2.1 [facility] # (Auto) 0.5 Eos # (Auto) 0.2 Baso # (Auto) 0.0 Abs Immat Gran (auto) 0.02 Absolute Neuts (auto) 5.9 Absolute Nucleated RBC 0.000 Nucleated RBC % (auto) 0.0 Sodium 138 Potassium 4.8 Chloride 105 Carbon Dioxide 26 Anion Gap 12 BUN 12 Creatinine 0.88 Estim Creat Clear Calc 79.9 Estimated GFR > 60 Random Glucose 98 Calcium 9.7 Imaging Radiology Impressions: ITS Impressions Abdomen CT 10/18/23 14:30 IMPRESSION: * Bilateral nephrolithiasis without hydronephrosis. * There is diastases of rectus abdominis muscles of up to 4 cm. Prior placement of mesh at the midline abdominal wall. Although there is anterior bulging of the mesh between rectus abdominis muscles, the omental fat remains deep to the mesh, and there is no herniation of bowel or fat around the periphery of the mesh. Face CT 10/18/23 18:18 IMPRESSION: 1. Periapical abscesses adjacent to the left maxillary first premolar and first molar as well as the left mandibular first and second premolars. Adjacent inflammatory change and probable early phlegmonous change without a discrete abscess. 2. Mild right temporomandibular joint osteoarthritis. Medications Medications Current Medications Acetaminophen (Acetaminophen 325 Mg Tablet) 325 mg PO Q4H PRN PRN Reason: Mild Pain (Scale Score 1-4) Last Admin: 10/21/23 08:56 Dose: 325 mg Al Hydroxide/Mg Hydroxide (Magnesium Hydrox/Alum Hydrox 30 Ml Oral.Susp) 30 ml PO Q6H PRN PRN Reason: Heartburn/Nausea Atorvastatin Calcium (Atorvastatin Calcium 10 Mg Tablet) 10 mg PO BEDTIME [facility] Last Admin: 10/20/23 20:40 Dose: Not Given Chlorhexidine Gluconate (Chlorhexidine Gluc Oral Rinse 15 Ml Mouthwash) 15 ml BUCCAL BID [facility] Last Admin: 10/21/23 09:05 Dose: Not Given Clindamycin HCl (Clindamycin Hcl 300 Mg Capsule) 300 mg PO Q8H [facility] Last Admin: 10/21/23 08:55 Dose: 300 mg Hydroxyzine HCl (Hydroxyzine Hcl 50 Mg Tablet) 100 mg PO BID [facility] Last Admin: 10/21/23 09:05 Dose: Not Given Magnesium Hydroxide (Milk Of Magnesia 30 Ml Oral.Susp) 30 ml PO DAILY PRN PRN Reason: Constipation Olanzapine (Olanzapine 10 Mg Vial) 15 mg IM BEDTIME PRN PRN Reason: refusal of PO Olanzapine (Olanzapine Odt 10 Mg Tab.Rapdis) 10 mg TRANSLINGU DAILY@1700 [facility] Last Admin: 10/20/23 17:05 Dose: 10 mg Oxycodone HCl (Oxycodone Hcl Immed Release 5 Mg Tablet) 5 mg PO Q4H PRN PRN Reason: Pain, Moderate(Pain Scale 4-6) Last Admin: 10/18/23 18:04 Dose: 5 mg Trazodone HCl (Trazodone Hcl 50 Mg Tablet) 50 mg PO BEDTIME MRX1 PRN PRN Reason: Insomnia Vitamin D (Cholecalciferol (Vitamin D3) 25 Mcg Tablet) 25 mcg PO DAILY [facility] Last Admin: 10/21/23 09:05 Dose: Not Given Allergies Allergies Allergy/AdvReac Type Severity Reaction Status Date / Time lactose AdvReac Intermediate Unknown Verified 08/21/23 20:52 Penicillins AdvReac Intermediate Unknown Verified 08/21/23 20:52 Assessment & Plan Assessment & Plan (1) Schizophrenia: Status: Acute Code(s): F20.9 - Schizophrenia, unspecified (2) Abdominal wall hernia: Status: Acute Code(s): K43.9 - Ventral hernia without obstruction or gangrene Plan 63-year-old male patient with an apparent prior abdominal wall hernia repair, reported by his sister to have a collapsed hernia mesh. I am able to confirm the presence of a hernia. If the patient is symptomatic from this hernia, a CT abdomen and pelvis could be requested to evaluate further. Psychiatry The patient is a 63-year-old male with pervasive developmental disorder, schizophrenia and other medical comorbidities admitted for noncompliance. The patient had been in the hospital several times in the last 6 months due to disorganized behavior and noncompliance with no insight into his condition. 09/13 staff reports patient doing better now that he is on Zyprexa; continue current treatment plan 09/14 said zyprexa makes his head spin but staff reports he seems to be tolerating med well and clinically, is demonstrating significant improvement, attending to ADL's, group, calm, more pleasant; otherwise, refuses other meds and no insight Plan 1. We have a Section 7 and 8 and at this moment the patient is committed to the hospital. 2. Continue with Zyprexa Zydis 10 mg p.o. q.h.s. as per court order. 3. We have filed for guardianship since the patient can not take care of himself. 4. Waiting for placement. 5. On October 17 I contact the medical team since he had an infection on his tooth. On antibiotics with some improvement Reason for continued inpatient stay Substantial Risk for: inability to function, rapid decompensation and med/psych decompensation Time Spent With Patient Time: Total time managing care of this patient today __20__ minutes.
[2023-10-21] MEDS: OLANZapine ODT 10 MG TAB.RAPDIS TRANSLINGU (16:58)
--- NOTE | 2023-10-21 17:00 | PC.NURSE ---
Declined to to Clindamycin despite education from this automotive service writer about how it is necessary for oral infection and educated Mynor on risk of sepsis. Mynor continued to decline antibiotic and Dr. De La Vega notified.
[2023-10-22 08:05] VITALS: BP 122/71; PULSE 104; RESP 20; TEMP 36.8; O2SAT 99
--- NOTE | 2023-10-22 13:53 | P.PNPSI_ITS ---
Subjective Subjective Date of Service: 10/22/23 Reason For Visit: Psychosis Subjective Notes: Section 7 and Section 8 Interim History: The nursing staff reported the patient has refused to take his antibiotic stating that he does not have pain. I tried to educated on the need to be compliant with his treatment but he was unable to process. Mental Status Exam Mental Status Exam Patient Appearance: Unkempt Patient Orientation: Person and Situation Level of Consciousness: Awake and Appropriate Patient Behavior: Guarded and Passive Mood Description: Withdrawn Affect Description: Constricted Patient Cognition Impaired: Yes Ability to Follow Directions: Good Speech Pattern: Clear Hallucinations: None Delusions: Not Present Thought Process: Distracted and Slowed Thinking Thought Content: positive for [place] and positive for Poverty of Content Judgement: Poor Diagnostics Vital Signs (24Hr): Vital Signs - 24 hr 10/22/23 08:05 Temperature 98.2 F Pulse Rate 104 H Respiratory Rate 20 Blood Pressure 122/71 Pulse Oximetry 99 Oxygen Delivery Method Room Air BMI result Body Mass Index 19.7 Labs 10/20/23 13:26 10/20/23 13:26 Imaging Radiology Impressions: ITS Impressions Abdomen CT 10/18/23 14:30 IMPRESSION: * Bilateral nephrolithiasis without hydronephrosis. * There is diastases of rectus abdominis muscles of up to 4 cm. Prior placement of mesh at the midline abdominal wall. Although there is anterior bulging of the mesh between rectus abdominis muscles, the omental fat remains deep to the mesh, and there is no herniation of bowel or fat around the periphery of the mesh. Face CT 10/18/23 18:18 IMPRESSION: 1. Periapical abscesses adjacent to the left maxillary first premolar and first molar as well as the left mandibular first and second premolars. Adjacent inflammatory change and probable early phlegmonous change without a discrete abscess. 2. Mild right temporomandibular joint osteoarthritis. Medications Medications Current Medications Acetaminophen (Acetaminophen 325 Mg Tablet) 325 mg PO Q4H PRN PRN Reason: Mild Pain (Scale Score 1-4) Last Admin: 10/21/23 08:56 Dose: 325 mg Al Hydroxide/Mg Hydroxide (Magnesium Hydrox/Alum Hydrox 30 Ml Oral.Susp) 30 ml PO Q6H PRN PRN Reason: Heartburn/Nausea Atorvastatin Calcium (Atorvastatin Calcium 10 Mg Tablet) 10 mg PO BEDTIME BRI Last Admin: 10/21/23 20:52 Dose: Not Given Chlorhexidine Gluconate (Chlorhexidine Gluc Oral Rinse 15 Ml Mouthwash) 15 ml BUCCAL BID [facility] Last Admin: 10/22/23 08:28 Dose: Not Given Clindamycin HCl (Clindamycin Hcl 300 Mg Capsule) 300 mg PO Q8H [facility] Stop: 10/25/23 17:59 Last Admin: 10/22/23 09:56 Dose: Not Given Hydroxyzine HCl (Hydroxyzine Hcl 50 Mg Tablet) 100 mg PO BID [facility] Last Admin: 10/22/23 08:28 Dose: Not Given Magnesium Hydroxide (Milk Of Magnesia 30 Ml Oral.Susp) 30 ml PO DAILY PRN PRN Reason: Constipation Olanzapine (Olanzapine 10 Mg Vial) 15 mg IM BEDTIME PRN PRN Reason: refusal of PO Olanzapine (Olanzapine Odt 10 Mg Tab.Rapdis) 10 mg TRANSLINGU DAILY@1700 [facility] Last Admin: 10/21/23 16:58 Dose: 10 mg Oxycodone HCl (Oxycodone Hcl Immed Release 5 Mg Tablet) 5 mg PO Q4H PRN PRN Reason: Pain, Moderate(Pain Scale 4-6) Last Admin: 10/18/23 18:04 Dose: 5 mg Trazodone HCl (Trazodone Hcl 50 Mg Tablet) 50 mg PO BEDTIME MRX1 PRN PRN Reason: Insomnia Vitamin D (Cholecalciferol (Vitamin D3) 25 Mcg Tablet) 25 mcg PO DAILY [facility] Last Admin: 10/22/23 08:28 Dose: Not Given Allergies Allergies Allergy/AdvReac Type Severity Reaction Status Date / Time lactose AdvReac Intermediate Unknown Verified 08/21/23 20:52 Penicillins AdvReac Intermediate Unknown Verified 08/21/23 20:52 Assessment & Plan Assessment & Plan (1) Schizophrenia: Status: Acute Code(s): F20.9 - Schizophrenia, unspecified (2) Abdominal wall hernia: Status: Acute Code(s): K43.9 - Ventral hernia without obstruction or gangrene Plan 63-year-old male patient with an apparent prior abdominal wall hernia repair, reported by his sister to have a collapsed hernia mesh. I am able to confirm the presence of a hernia. If the patient is symptomatic from this hernia, a CT abdomen and pelvis could be requested to evaluate further. Psychiatry The patient is a 63-year-old male with pervasive developmental disorder, schizophrenia and other medical comorbidities admitted for noncompliance. The patient had been in the hospital several times in the last 6 months due to disorganized behavior and noncompliance with no insight into his condition. 09/13 staff reports patient doing better now that he is on Zyprexa; continue current treatment plan 09/14 said zyprexa makes his head spin but staff reports he seems to be tolerating med well and clinically, is demonstrating significant improvement, attending to ADL's, group, calm, more pleasant; otherwise, refuses other meds and no insight Plan 1. We have a Section 7 and 8 and at this moment the patient is committed to the hospital. 2. Continue with Zyprexa Zydis 10 mg p.o. q.h.s. as per court order. 3. We have filed for guardianship since the patient can not take care of himself. 4. Waiting for placement. 5. On October 17 I contact the medical team since he had an infection on his tooth. On antibiotics with some improvement Reason for continued inpatient stay Substantial Risk for: inability to function, rapid decompensation and med/psych decompensation Time Spent With Patient Time: Total time managing care of this patient today __20__ minutes.
[2023-10-22] MEDS: OLANZapine ODT 10 MG TAB.RAPDIS TRANSLINGU (16:52)
[2023-10-22 20:00] VITALS: RESP 16
[2023-10-23 08:00] VITALS: BP 121/75; PULSE 85; RESP 20; TEMP 36.9; O2SAT 98
--- NOTE | 2023-10-23 12:31 | MHC.CLN ---
NUTRITION PATIENT WITH DENTAL INFECTION. DIET CHANGED TO GROUND CONSISTENCY FOR EASE OF CHEWING. MOST RECENT INTAKE 0-100%. WEIGHT STABLE SINCE 09/11. RD TO FOLLOW WEEKLY FOR INTAKE, WEIGHT, DIET TOLERANCE.
--- NOTE | 2023-10-23 15:38 | HO.PSYCHPN ---
Subjective Subjective Date of Service: 10/23/23 Reason For Visit: Psychosis Subjective Notes: Section 7 and Section 8 Interim History: The patient had been refusing his antibiotic and pain medications stating that he is okay. On interview I tried to explain him that he needs to continue his antibiotics but he stated that he knows what he is doing. At this moment no active symptoms of infection Mental Status Exam Mental Status Exam Patient Appearance: Unkempt Patient Orientation: Person and Situation Level of Consciousness: Awake Patient Behavior: Guarded and Passive Mood Description: Withdrawn Affect Description: Blunted Patient Cognition Impaired: Yes Ability to Follow Directions: Good Speech Pattern: Clear Hallucinations: None Delusions: Ideas of Reference Thought Process: Distracted and Slowed Thinking Thought Content: positive for [place] and positive for Poverty of Content Judgement: Poor Diagnostics Vital Signs (24Hr): Vital Signs - 24 hr 10/22/23 20:00 10/23/23 08:00 Temperature 98.4 F Pulse Rate 85 Respiratory Rate 16 20 Blood Pressure 121/75 Pulse Oximetry 98 Oxygen Delivery Method Room Air BMI result Body Mass Index 19.7 Labs 10/20/23 13:26 10/20/23 13:26 Imaging Radiology Impressions: ITS Impressions Abdomen CT 10/18/23 14:30 IMPRESSION: * Bilateral nephrolithiasis without hydronephrosis. * There is diastases of rectus abdominis muscles of up to 4 cm. Prior placement of mesh at the midline abdominal wall. Although there is anterior bulging of the mesh between rectus abdominis muscles, the omental fat remains deep to the mesh, and there is no herniation of bowel or fat around the periphery of the mesh. Face CT 10/18/23 18:18 IMPRESSION: 1. Periapical abscesses adjacent to the left maxillary first premolar and first molar as well as the left mandibular first and second premolars. Adjacent inflammatory change and probable early phlegmonous change without a discrete abscess. 2. Mild right temporomandibular joint osteoarthritis. Medications Medications Current Medications Acetaminophen (Acetaminophen 325 Mg Tablet) 325 mg PO Q4H PRN PRN Reason: Mild Pain (Scale Score 1-4) Last Admin: 10/21/23 08:56 Dose: 325 mg Al Hydroxide/Mg Hydroxide (Magnesium Hydrox/Alum Hydrox 30 Ml Oral.Susp) 30 ml PO Q6H PRN PRN Reason: Heartburn/Nausea Atorvastatin Calcium (Atorvastatin Calcium 10 Mg Tablet) 10 mg PO BEDTIME BRI Last Admin: 10/22/23 21:38 Dose: Not Given Chlorhexidine Gluconate (Chlorhexidine Gluc Oral Rinse 15 Ml Mouthwash) 15 ml BUCCAL BID [facility] Last Admin: 10/23/23 08:37 Dose: Not Given Clindamycin HCl (Clindamycin Hcl 300 Mg Capsule) 300 mg PO Q8H [facility] Stop: 10/25/23 17:59 Last Admin: 10/23/23 09:52 Dose: Not Given Hydroxyzine HCl (Hydroxyzine Hcl 50 Mg Tablet) 100 mg PO BID [facility] Last Admin: 10/23/23 08:37 Dose: Not Given Magnesium Hydroxide (Milk Of Magnesia 30 Ml Oral.Susp) 30 ml PO DAILY PRN PRN Reason: Constipation Olanzapine (Olanzapine 10 Mg Vial) 15 mg IM BEDTIME PRN PRN Reason: refusal of PO Olanzapine (Olanzapine Odt 10 Mg Tab.Rapdis) 10 mg TRANSLINGU DAILY@1700 [facility] Last Admin: 10/22/23 16:52 Dose: 10 mg Oxycodone HCl (Oxycodone Hcl Immed Release 5 Mg Tablet) 5 mg PO Q4H PRN PRN Reason: Pain, Moderate(Pain Scale 4-6) Last Admin: 10/18/23 18:04 Dose: 5 mg Trazodone HCl (Trazodone Hcl 50 Mg Tablet) 50 mg PO BEDTIME MRX1 PRN PRN Reason: Insomnia Vitamin D (Cholecalciferol (Vitamin D3) 25 Mcg Tablet) 25 mcg PO DAILY [facility] Last Admin: 10/23/23 08:37 Dose: Not Given Allergies Allergies Allergy/AdvReac Type Severity Reaction Status Date / Time lactose AdvReac Intermediate Unknown Verified 08/21/23 20:52 Penicillins AdvReac Intermediate Unknown Verified 08/21/23 20:52 Assessment & Plan Assessment & Plan (1) Schizophrenia: Status: Acute Code(s): F20.9 - Schizophrenia, unspecified (2) Abdominal wall hernia: Status: Acute Code(s): K43.9 - Ventral hernia without obstruction or gangrene Plan 63-year-old male patient with an apparent prior abdominal wall hernia repair, reported by his sister to have a collapsed hernia mesh. I am able to confirm the presence of a hernia. If the patient is symptomatic from this hernia, a CT abdomen and pelvis could be requested to evaluate further. Psychiatry The patient is a 63-year-old male with pervasive developmental disorder, schizophrenia and other medical comorbidities admitted for noncompliance. The patient had been in the hospital several times in the last 6 months due to disorganized behavior and noncompliance with no insight into his condition. 09/13 staff reports patient doing better now that he is on Zyprexa; continue current treatment plan 09/14 said zyprexa makes his head spin but staff reports he seems to be tolerating med well and clinically, is demonstrating significant improvement, attending to ADL's, group, calm, more pleasant; otherwise, refuses other meds and no insight Plan 1. We have a Section 7 and 8 and at this moment the patient is committed to the hospital. 2. Continue with Zyprexa Zydis 10 mg p.o. q.h.s. as per court order. 3. We have filed for guardianship since the patient can not take care of himself. 4. Waiting for placement. 5. On October 17 I contact the medical team since he had an infection on his tooth. On antibiotics with some improvement Reason for continued inpatient stay Substantial Risk for: inability to function, rapid decompensation and med/psych decompensation Time Spent With Patient Time: Total time managing care of this patient today __20__ minutes.
[2023-10-23] MEDS: OLANZapine ODT 10 MG TAB.RAPDIS TRANSLINGU (17:15)
[2023-10-23 20:00] VITALS: BP 107/66; PULSE 64; RESP 17; TEMP 36.8; O2SAT 98
[2023-10-24 07:00] VITALS: BMI 19.8
[2023-10-24 07:55] VITALS: BP 117/72; PULSE 82; RESP 18; TEMP 36.6; O2SAT 82
--- NOTE | 2023-10-24 11:35 | HO.PSYCHPN ---
Subjective Subjective Date of Service: 10/24/23 Reason For Visit: Psychosis Subjective Notes: Conditional Voluntary Interim History: Pt slept through the night. Pt is visible on the unit. He reports he is sad because he has been medically mismanaged. He continues to decline antibiotic for oral abscess, stating he does not need to take it. He denies SI/HI. No behavioral concerns. Medication Compliance: No Review of Systems Review of Systems dental pain Yes all other systems are reviewed and are negative, Unobtainable due to mental condition and Unobtainable due to mental status Mental Status Exam Mental Status Exam Patient Appearance: Unkempt Patient Orientation: Person and Situation Level of Consciousness: Awake Patient Behavior: Guarded and Passive Mood Description: Withdrawn Affect Description: Blunted Patient Cognition Impaired: Yes Ability to Follow Directions: Good Speech Pattern: Clear Diagnostics Vital Signs (24Hr): Vital Signs - 24 hr 10/23/23 20:00 10/24/23 07:55 Temperature 98.2 F 97.9 F Pulse Rate 64 82 Respiratory Rate 17 18 Blood Pressure 107/66 117/72 Pulse Oximetry 98 82 L Oxygen Delivery Method Room Air Room Air BMI result Body Mass Index 19.8 Labs 10/20/23 13:26 10/20/23 13:26 Imaging Radiology Impressions: ITS Impressions Abdomen CT 10/18/23 14:30 IMPRESSION: * Bilateral nephrolithiasis without hydronephrosis. * There is diastases of rectus abdominis muscles of up to 4 cm. Prior placement of mesh at the midline abdominal wall. Although there is anterior bulging of the mesh between rectus abdominis muscles, the omental fat remains deep to the mesh, and there is no herniation of bowel or fat around the periphery of the mesh. Face CT 10/18/23 18:18 IMPRESSION: 1. Periapical abscesses adjacent to the left maxillary first premolar and first molar as well as the left mandibular first and second premolars. Adjacent inflammatory change and probable early phlegmonous change without a discrete abscess. 2. Mild right temporomandibular joint osteoarthritis. Medications Medications Current Medications Acetaminophen (Acetaminophen 325 Mg Tablet) 325 mg PO Q4H PRN PRN Reason: Mild Pain (Scale Score 1-4) Last Admin: 10/21/23 08:56 Dose: 325 mg Al Hydroxide/Mg Hydroxide (Magnesium Hydrox/Alum Hydrox 30 Ml Oral.Susp) 30 ml PO Q6H PRN PRN Reason: Heartburn/Nausea Atorvastatin Calcium (Atorvastatin Calcium 10 Mg Tablet) 10 mg PO BEDTIME [facility] Last Admin: 10/23/23 20:44 Dose: Not Given Chlorhexidine Gluconate (Chlorhexidine Gluc Oral Rinse 15 Ml Mouthwash) 15 ml BUCCAL BID [facility] Last Admin: 10/24/23 08:13 Dose: Not Given Clindamycin HCl (Clindamycin Hcl 300 Mg Capsule) 300 mg PO Q8H [facility] Stop: 10/25/23 17:59 Last Admin: 10/24/23 10:04 Dose: Not Given Hydroxyzine HCl (Hydroxyzine Hcl 50 Mg Tablet) 100 mg PO BID [facility] Last Admin: 10/24/23 08:13 Dose: Not Given Magnesium Hydroxide (Milk Of Magnesia 30 Ml Oral.Susp) 30 ml PO DAILY PRN PRN Reason: Constipation Olanzapine (Olanzapine 10 Mg Vial) 15 mg IM BEDTIME PRN PRN Reason: refusal of PO Olanzapine (Olanzapine Odt 10 Mg Tab.Rapdis) 10 mg TRANSLINGU DAILY@1700 [facility] Last Admin: 10/23/23 17:15 Dose: 10 mg Oxycodone HCl (Oxycodone Hcl Immed Release 5 Mg Tablet) 5 mg PO Q4H PRN PRN Reason: Pain, Moderate(Pain Scale 4-6) Last Admin: 10/18/23 18:04 Dose: 5 mg Trazodone HCl (Trazodone Hcl 50 Mg Tablet) 50 mg PO BEDTIME MRX1 PRN PRN Reason: Insomnia Vitamin D (Cholecalciferol (Vitamin D3) 25 Mcg Tablet) 25 mcg PO DAILY [facility] Last Admin: 10/24/23 08:13 Dose: Not Given Allergies Allergies Allergy/AdvReac Type Severity Reaction Status Date / Time lactose AdvReac Intermediate Unknown Verified 08/21/23 20:52 Penicillins AdvReac Intermediate Unknown Verified 08/21/23 20:52 Assessment & Plan Assessment & Plan (1) Schizophrenia: Status: Acute Code(s): F20.9 - Schizophrenia, unspecified (2) Abdominal wall hernia: Status: Acute Code(s): K43.9 - Ventral hernia without obstruction or gangrene Plan 63-year-old male patient with an apparent prior abdominal wall hernia repair, reported by his sister to have a collapsed hernia mesh. I am able to confirm the presence of a hernia. If the patient is symptomatic from this hernia, a CT abdomen and pelvis could be requested to evaluate further. Psychiatry The patient is a 63-year-old male with pervasive developmental disorder, schizophrenia and other medical comorbidities admitted for noncompliance. The patient had been in the hospital several times in the last 6 months due to disorganized behavior and noncompliance with no insight into his condition. 09/13 staff reports patient doing better now that he is on Zyprexa; continue current treatment plan 09/14 said zyprexa makes his head spin but staff reports he seems to be tolerating med well and clinically, is demonstrating significant improvement, attending to ADL's, group, calm, more pleasant; otherwise, refuses other meds and no insight Plan 10/23 continue tx Reason for continued inpatient stay Substantial Risk for: inability to function Time Spent With Patient Time: Total time managing care of this patient today ____ minutes.
[2023-10-24] MEDS: OLANZapine ODT 10 MG TAB.RAPDIS TRANSLINGU (16:50)
[2023-10-24 20:00] VITALS: BP 100/64; PULSE 68; RESP 18; TEMP 36.4; O2SAT 97
[2023-10-25 08:00] VITALS: BP 133/72; PULSE 73; RESP 17; TEMP 36.4; O2SAT 98
--- NOTE | 2023-10-25 15:19 | HO.PSYCHPN ---
Subjective Subjective Date of Service: 10/25/23 Reason For Visit: Psychosis Subjective Notes: Section 7 and Section 8 Interim History: The nursing staff reported the patient has refused his antibiotics, he is taking his Zyprexa as per court order. Waiting for placement. Mental Status Exam Mental Status Exam Patient Appearance: Appropriate and Unkempt Patient Orientation: Person and Situation Level of Consciousness: Awake Patient Behavior: Guarded and Passive Mood Description: Withdrawn Affect Description: Constricted Patient Cognition Impaired: Yes Ability to Follow Directions: Good Speech Pattern: Clear Hallucinations: None Delusions: Not Present Thought Process: Distracted and Slowed Thinking Thought Content: positive for [place] and positive for Poverty of Content Judgement: Poor Diagnostics Vital Signs (24Hr): Vital Signs - 24 hr 10/24/23 20:00 10/25/23 08:00 Temperature 97.6 F 97.5 F Pulse Rate 68 73 Respiratory Rate 18 17 Blood Pressure 100/64 133/72 Pulse Oximetry 97 98 Oxygen Delivery Method Room Air Room Air BMI result Body Mass Index 19.8 Labs 10/20/23 13:26 10/20/23 13:26 Imaging Radiology Impressions: ITS Impressions Abdomen CT 10/18/23 14:30 IMPRESSION: * Bilateral nephrolithiasis without hydronephrosis. * There is diastases of rectus abdominis muscles of up to 4 cm. Prior placement of mesh at the midline abdominal wall. Although there is anterior bulging of the mesh between rectus abdominis muscles, the omental fat remains deep to the mesh, and there is no herniation of bowel or fat around the periphery of the mesh. Face CT 10/18/23 18:18 IMPRESSION: 1. Periapical abscesses adjacent to the left maxillary first premolar and first molar as well as the left mandibular first and second premolars. Adjacent inflammatory change and probable early phlegmonous change without a discrete abscess. 2. Mild right temporomandibular joint osteoarthritis. Medications Medications Current Medications Acetaminophen (Acetaminophen 325 Mg Tablet) 325 mg PO Q4H PRN PRN Reason: Mild Pain (Scale Score 1-4) Last Admin: 10/21/23 08:56 Dose: 325 mg Al Hydroxide/Mg Hydroxide (Magnesium Hydrox/Alum Hydrox 30 Ml Oral.Susp) 30 ml PO Q6H PRN PRN Reason: Heartburn/Nausea Atorvastatin Calcium (Atorvastatin Calcium 10 Mg Tablet) 10 mg PO BEDTIME [facility] Last Admin: 10/24/23 20:43 Dose: Not Given Chlorhexidine Gluconate (Chlorhexidine Gluc Oral Rinse 15 Ml Mouthwash) 15 ml BUCCAL BID [facility] Last Admin: 10/25/23 08:23 Dose: Not Given Clindamycin HCl (Clindamycin Hcl 300 Mg Capsule) 300 mg PO Q8H [facility] Stop: 10/25/23 17:59 Last Admin: 10/25/23 10:18 Dose: Not Given Hydroxyzine HCl (Hydroxyzine Hcl 50 Mg Tablet) 100 mg PO BID [facility] Last Admin: 10/25/23 08:23 Dose: Not Given Magnesium Hydroxide (Milk Of Magnesia 30 Ml Oral.Susp) 30 ml PO DAILY PRN PRN Reason: Constipation Olanzapine (Olanzapine 10 Mg Vial) 15 mg IM BEDTIME PRN PRN Reason: refusal of PO Olanzapine (Olanzapine Odt 10 Mg Tab.Rapdis) 10 mg TRANSLINGU DAILY@1700 [facility] Last Admin: 10/24/23 16:50 Dose: 10 mg Oxycodone HCl (Oxycodone Hcl Immed Release 5 Mg Tablet) 5 mg PO Q4H PRN PRN Reason: Pain, Moderate(Pain Scale 4-6) Last Admin: 10/18/23 18:04 Dose: 5 mg Trazodone HCl (Trazodone Hcl 50 Mg Tablet) 50 mg PO BEDTIME MRX1 PRN PRN Reason: Insomnia Vitamin D (Cholecalciferol (Vitamin D3) 25 Mcg Tablet) 25 mcg PO DAILY [facility] Last Admin: 10/25/23 08:23 Dose: Not Given Allergies Allergies Allergy/AdvReac Type Severity Reaction Status Date / Time lactose AdvReac Intermediate Unknown Verified 08/21/23 20:52 Penicillins AdvReac Intermediate Unknown Verified 08/21/23 20:52 Assessment & Plan Assessment & Plan (1) Schizophrenia: Status: Acute Code(s): F20.9 - Schizophrenia, unspecified (2) Abdominal wall hernia: Status: Acute Code(s): K43.9 - Ventral hernia without obstruction or gangrene Plan 63-year-old male patient with an apparent prior abdominal wall hernia repair, reported by his sister to have a collapsed hernia mesh. I am able to confirm the presence of a hernia. If the patient is symptomatic from this hernia, a CT abdomen and pelvis could be requested to evaluate further. Psychiatry The patient is a 63-year-old male with pervasive developmental disorder, schizophrenia and other medical comorbidities admitted for noncompliance. The patient had been in the hospital several times in the last 6 months due to disorganized behavior and noncompliance with no insight into his condition. 09/13 staff reports patient doing better now that he is on Zyprexa; continue current treatment plan 09/14 said zyprexa makes his head spin but staff reports he seems to be tolerating med well and clinically, is demonstrating significant improvement, attending to ADL's, group, calm, more pleasant; otherwise, refuses other meds and no insight Plan 10/23 continue tx 10/24 continue treatment Reason for continued inpatient stay Substantial Risk for: inability to function, rapid decompensation and med/psych decompensation Time Spent With Patient Time: Total time managing care of this patient today _20___ minutes.
[2023-10-25] MEDS: OLANZapine ODT 10 MG TAB.RAPDIS TRANSLINGU (17:00)
[2023-10-25 20:00] VITALS: BP 107/66; PULSE 60; RESP 16; TEMP 36.8; O2SAT 100
[2023-10-26 08:55] VITALS: BP 106/67; PULSE 82; RESP 20; TEMP 36.9; O2SAT 98
[2023-10-26] MEDS: OLANZapine ODT 10 MG TAB.RAPDIS TRANSLINGU (16:54)
--- NOTE | 2023-10-26 18:44 | P.PNPSI_ITS ---
Subjective Subjective Date of Service: 10/26/23 Reason For Visit: Psychosis Interim History: Met with patient; discussed with team Patient reports that he so-so. He stays in bed most of the time, only taking medications court ordered. Difficult with which to engage Mental Status Exam Mental Status Exam Patient Appearance: Appropriate and Unkempt Patient Orientation: Person and Situation Level of Consciousness: Awake Patient Behavior: Guarded and Passive Mood Description: Withdrawn Affect Description: Constricted Patient Cognition Impaired: Yes Ability to Follow Directions: Good Speech Pattern: Clear Hallucinations: None Delusions: Not Present Thought Process: Distracted and Slowed Thinking Thought Content: positive for [place] and positive for Poverty of Content Judgement: Poor Diagnostics Vital Signs (24Hr): Vital Signs - 24 hr 10/25/23 20:00 10/26/23 08:55 Temperature 98.2 F 98.4 F Pulse Rate 60 82 Respiratory Rate 16 20 Blood Pressure 107/66 106/67 Pulse Oximetry 100 98 Oxygen Delivery Method Room Air Room Air BMI result Body Mass Index 19.8 Labs 10/20/23 13:26 10/20/23 13:26 Imaging Radiology Impressions: ITS Impressions Abdomen CT 10/18/23 14:30 IMPRESSION: * Bilateral nephrolithiasis without hydronephrosis. * There is diastases of rectus abdominis muscles of up to 4 cm. Prior placement of mesh at the midline abdominal wall. Although there is anterior bulging of the mesh between rectus abdominis muscles, the omental fat remains deep to the mesh, and there is no herniation of bowel or fat around the periphery of the mesh. Face CT 10/18/23 18:18 IMPRESSION: 1. Periapical abscesses adjacent to the left maxillary first premolar and first molar as well as the left mandibular first and second premolars. Adjacent inflammatory change and probable early phlegmonous change without a discrete abscess. 2. Mild right temporomandibular joint osteoarthritis. Medications Medications Current Medications Acetaminophen (Acetaminophen 325 Mg Tablet) 325 mg PO Q4H PRN PRN Reason: Mild Pain (Scale Score 1-4) Last Admin: 10/21/23 08:56 Dose: 325 mg Al Hydroxide/Mg Hydroxide (Magnesium Hydrox/Alum Hydrox 30 Ml Oral.Susp) 30 ml PO Q6H PRN PRN Reason: Heartburn/Nausea Atorvastatin Calcium (Atorvastatin Calcium 10 Mg Tablet) 10 mg PO BEDTIME [facility] Last Admin: 10/25/23 21:19 Dose: Not Given Chlorhexidine Gluconate (Chlorhexidine Gluc Oral Rinse 15 Ml Mouthwash) 15 ml BUCCAL BID [facility] Last Admin: 10/26/23 09:26 Dose: Not Given Hydroxyzine HCl (Hydroxyzine Hcl 50 Mg Tablet) 100 mg PO BID [facility] Last Admin: 10/26/23 09:26 Dose: Not Given Magnesium Hydroxide (Milk Of Magnesia 30 Ml Oral.Susp) 30 ml PO DAILY PRN PRN Reason: Constipation Olanzapine (Olanzapine 10 Mg Vial) 15 mg IM BEDTIME PRN PRN Reason: refusal of PO Olanzapine (Olanzapine Odt 10 Mg Tab.Rapdis) 10 mg TRANSLINGU DAILY@1700 [facility] Last Admin: 10/26/23 16:54 Dose: 10 mg Oxycodone HCl (Oxycodone Hcl Immed Release 5 Mg Tablet) 5 mg PO Q4H PRN PRN Reason: Pain, Moderate(Pain Scale 4-6) Last Admin: 10/18/23 18:04 Dose: 5 mg Trazodone HCl (Trazodone Hcl 50 Mg Tablet) 50 mg PO BEDTIME MRX1 PRN PRN Reason: Insomnia Vitamin D (Cholecalciferol (Vitamin D3) 25 Mcg Tablet) 25 mcg PO DAILY [facility] Last Admin: 10/26/23 09:26 Dose: Not Given Allergies Allergies Allergy/AdvReac Type Severity Reaction Status Date / Time lactose AdvReac Intermediate Unknown Verified 08/21/23 20:52 Penicillins AdvReac Intermediate Unknown Verified 08/21/23 20:52 Assessment & Plan Assessment & Plan (1) Schizophrenia: Status: Acute Code(s): F20.9 - Schizophrenia, unspecified (2) Abdominal wall hernia: Status: Acute Code(s): K43.9 - Ventral hernia without obstruction or gangrene Plan 63-year-old male patient with an apparent prior abdominal wall hernia repair, reported by his sister to have a collapsed hernia mesh. I am able to confirm the presence of a hernia. If the patient is symptomatic from this hernia, a CT abdomen and pelvis could be requested to evaluate further. Psychiatry The patient is a 63-year-old male with pervasive developmental disorder, schizophrenia and other medical comorbidities admitted for noncompliance. The patient had been in the hospital several times in the last 6 months due to disorganized behavior and noncompliance with no insight into his condition. 09/13 staff reports patient doing better now that he is on Zyprexa; continue current treatment plan 09/14 said zyprexa makes his head spin but staff reports he seems to be tolerating med well and clinically, is demonstrating significant improvement, attending to ADL's, group, calm, more pleasant; otherwise, refuses other meds and no insight Plan 10/23 continue tx 10/24 continue treatment 10/25 continue treatment plan Patient educated on: diagnosis Informed Consent: does not understand Reason for continued inpatient stay Substantial Risk for: inability to function Time Spent With Patient Time: Total time managing care of this patient today ____ minutes.
[2023-10-26 20:00] VITALS: BP 98/59; PULSE 75; RESP 20; TEMP 37.1; O2SAT 100
[2023-10-27 08:26] VITALS: BP 102/62; PULSE 74; RESP 18; TEMP 36.7; O2SAT 99
--- NOTE | 2023-10-27 16:49 | HO.PSYCHPN ---
Subjective Subjective Date of Service: 10/27/23 Reason For Visit: Psychosis Interim History: Met with patient; discussed with team Same presentation Mental Status Exam Mental Status Exam Patient Appearance: Appropriate and Unkempt Patient Orientation: Person and Situation Level of Consciousness: Awake Patient Behavior: Guarded and Passive Mood Description: Withdrawn Affect Description: Constricted Patient Cognition Impaired: Yes Ability to Follow Directions: Good Speech Pattern: Clear Hallucinations: None Delusions: Not Present Thought Process: Distracted and Slowed Thinking Thought Content: positive for [place] and positive for Poverty of Content Judgement: Poor Diagnostics Vital Signs (24Hr): Vital Signs - 24 hr 10/26/23 20:00 10/27/23 08:26 Temperature 98.7 F 98.1 F Pulse Rate 75 74 Respiratory Rate 20 18 Blood Pressure 98/59 L 102/62 Pulse Oximetry 100 99 Oxygen Delivery Method Room Air Room Air BMI result Body Mass Index 19.8 Labs 10/20/23 13:26 10/20/23 13:26 Imaging Radiology Impressions: ITS Impressions Abdomen CT 10/18/23 14:30 IMPRESSION: * Bilateral nephrolithiasis without hydronephrosis. * There is diastases of rectus abdominis muscles of up to 4 cm. Prior placement of mesh at the midline abdominal wall. Although there is anterior bulging of the mesh between rectus abdominis muscles, the omental fat remains deep to the mesh, and there is no herniation of bowel or fat around the periphery of the mesh. Face CT 10/18/23 18:18 IMPRESSION: 1. Periapical abscesses adjacent to the left maxillary first premolar and first molar as well as the left mandibular first and second premolars. Adjacent inflammatory change and probable early phlegmonous change without a discrete abscess. 2. Mild right temporomandibular joint osteoarthritis. Medications Medications Current Medications Acetaminophen (Acetaminophen 325 Mg Tablet) 325 mg PO Q4H PRN PRN Reason: Mild Pain (Scale Score 1-4) Last Admin: 10/21/23 08:56 Dose: 325 mg Al Hydroxide/Mg Hydroxide (Magnesium Hydrox/Alum Hydrox 30 Ml Oral.Susp) 30 ml PO Q6H PRN PRN Reason: Heartburn/Nausea Atorvastatin Calcium (Atorvastatin Calcium 10 Mg Tablet) 10 mg PO BEDTIME [facility] Last Admin: 10/26/23 20:45 Dose: Not Given Chlorhexidine Gluconate (Chlorhexidine Gluc Oral Rinse 15 Ml Mouthwash) 15 ml BUCCAL BID [facility] Last Admin: 10/27/23 09:55 Dose: Not Given Hydroxyzine HCl (Hydroxyzine Hcl 50 Mg Tablet) 100 mg PO BID [facility] Last Admin: 10/27/23 09:55 Dose: Not Given Magnesium Hydroxide (Milk Of Magnesia 30 Ml Oral.Susp) 30 ml PO DAILY PRN PRN Reason: Constipation Olanzapine (Olanzapine 10 Mg Vial) 15 mg IM BEDTIME PRN PRN Reason: refusal of PO Olanzapine (Olanzapine Odt 10 Mg Tab.Rapdis) 10 mg TRANSLINGU DAILY@1700 [facility] Last Admin: 10/26/23 16:54 Dose: 10 mg Trazodone HCl (Trazodone Hcl 50 Mg Tablet) 50 mg PO BEDTIME MRX1 PRN PRN Reason: Insomnia Vitamin D (Cholecalciferol (Vitamin D3) 25 Mcg Tablet) 25 mcg PO DAILY [facility] Last Admin: 10/27/23 09:55 Dose: Not Given Allergies Allergies Allergy/AdvReac Type Severity Reaction Status Date / Time lactose AdvReac Intermediate Unknown Verified 08/21/23 20:52 Penicillins AdvReac Intermediate Unknown Verified 08/21/23 20:52 Assessment & Plan Assessment & Plan (1) Schizophrenia: Status: Acute Code(s): F20.9 - Schizophrenia, unspecified (2) Abdominal wall hernia: Status: Acute Code(s): K43.9 - Ventral hernia without obstruction or gangrene Plan 63-year-old male patient with an apparent prior abdominal wall hernia repair, reported by his sister to have a collapsed hernia mesh. I am able to confirm the presence of a hernia. If the patient is symptomatic from this hernia, a CT abdomen and pelvis could be requested to evaluate further. Psychiatry The patient is a 63-year-old male with pervasive developmental disorder, schizophrenia and other medical comorbidities admitted for noncompliance. The patient had been in the hospital several times in the last 6 months due to disorganized behavior and noncompliance with no insight into his condition. 09/13 staff reports patient doing better now that he is on Zyprexa; continue current treatment plan 09/14 said zyprexa makes his head spin but staff reports he seems to be tolerating med well and clinically, is demonstrating significant improvement, attending to ADL's, group, calm, more pleasant; otherwise, refuses other meds and no insight Plan 1. We have a Section 7 and 8 and at this moment the patient is committed to the hospital. 2. Continue with Zyprexa Zydis 10 mg p.o. q.h.s. as per court order. 3. We have filed for guardianship since the patient can not take care of himself. 4. Waiting for placement. Reason for continued inpatient stay Substantial Risk for: med/psych decompensation Time Spent With Patient Time: Total time managing care of this patient today ____ minutes.
[2023-10-27] MEDS: OLANZapine ODT 10 MG TAB.RAPDIS TRANSLINGU (16:58)
[2023-10-27 20:00] VITALS: BP 100/66; PULSE 65; RESP 18; TEMP 36.9; O2SAT 97
[2023-10-28 07:50] VITALS: BP 111/78; PULSE 75; RESP 18; TEMP 36.6; O2SAT 99
--- NOTE | 2023-10-28 15:32 | P.PNPSI_ITS ---
Subjective Subjective Date of Service: 10/28/23 Reason For Visit: Psychosis Subjective Notes: Section 7 and Section 8 Interim History: The nursing staff reported the patient had been compliant only with Zyprexa, refused antibiotics or pain medication. On interview the patient denies pain in his tooth. He is perseverative going back to his apartment even though that he lost it several months ago. Waiting for placement. Mental Status Exam Mental Status Exam Patient Appearance: Unkempt Patient Orientation: Person and Situation Level of Consciousness: Awake and Appropriate Patient Behavior: Guarded and Passive Mood Description: Withdrawn Affect Description: Constricted Patient Cognition Impaired: Yes Ability to Follow Directions: Good Speech Pattern: Clear Hallucinations: None Delusions: Not Present Thought Process: Distracted and Slowed Thinking Thought Content: positive for [place] and positive for Poverty of Content Judgement: Poor Diagnostics Vital Signs (24Hr): Vital Signs - 24 hr 10/27/23 20:00 10/28/23 07:50 Temperature 98.4 F 97.9 F Pulse Rate 65 75 Respiratory Rate 18 18 Blood Pressure 100/66 111/78 Pulse Oximetry 97 99 Oxygen Delivery Method Room Air Room Air BMI result Body Mass Index 19.8 Labs 10/20/23 13:26 10/20/23 13:26 Imaging Radiology Impressions: ITS Impressions Abdomen CT 10/18/23 14:30 IMPRESSION: * Bilateral nephrolithiasis without hydronephrosis. * There is diastases of rectus abdominis muscles of up to 4 cm. Prior placement of mesh at the midline abdominal wall. Although there is anterior bulging of the mesh between rectus abdominis muscles, the omental fat remains deep to the mesh, and there is no herniation of bowel or fat around the periphery of the mesh. Face CT 10/18/23 18:18 IMPRESSION: 1. Periapical abscesses adjacent to the left maxillary first premolar and first molar as well as the left mandibular first and second premolars. Adjacent inflammatory change and probable early phlegmonous change without a discrete abscess. 2. Mild right temporomandibular joint osteoarthritis. Medications Medications Current Medications Acetaminophen (Acetaminophen 325 Mg Tablet) 325 mg PO Q4H PRN PRN Reason: Mild Pain (Scale Score 1-4) Last Admin: 10/21/23 08:56 Dose: 325 mg Al Hydroxide/Mg Hydroxide (Magnesium Hydrox/Alum Hydrox 30 Ml Oral.Susp) 30 ml PO Q6H PRN PRN Reason: Heartburn/Nausea Atorvastatin Calcium (Atorvastatin Calcium 10 Mg Tablet) 10 mg PO BEDTIME [facility] Last Admin: 10/27/23 20:40 Dose: Not Given Chlorhexidine Gluconate (Chlorhexidine Gluc Oral Rinse 15 Ml Mouthwash) 15 ml BUCCAL BID [facility] Last Admin: 10/28/23 09:25 Dose: Not Given Hydroxyzine HCl (Hydroxyzine Hcl 50 Mg Tablet) 100 mg PO BID [facility] Last Admin: 10/28/23 09:25 Dose: Not Given Magnesium Hydroxide (Milk Of Magnesia 30 Ml Oral.Susp) 30 ml PO DAILY PRN PRN Reason: Constipation Olanzapine (Olanzapine 10 Mg Vial) 15 mg IM BEDTIME PRN PRN Reason: refusal of PO Olanzapine (Olanzapine Odt 10 Mg Tab.Rapdis) 10 mg TRANSLINGU DAILY@1700 [facility] Last Admin: 10/27/23 16:58 Dose: 10 mg Trazodone HCl (Trazodone Hcl 50 Mg Tablet) 50 mg PO BEDTIME MRX1 PRN PRN Reason: Insomnia Vitamin D (Cholecalciferol (Vitamin D3) 25 Mcg Tablet) 25 mcg PO DAILY [facility] Last Admin: 10/28/23 09:25 Dose: Not Given Allergies Allergies Allergy/AdvReac Type Severity Reaction Status Date / Time lactose AdvReac Intermediate Unknown Verified 08/21/23 20:52 Penicillins AdvReac Intermediate Unknown Verified 08/21/23 20:52 Assessment & Plan Assessment & Plan (1) Schizophrenia: Status: Acute Code(s): F20.9 - Schizophrenia, unspecified (2) Abdominal wall hernia: Status: Acute Code(s): K43.9 - Ventral hernia without obstruction or gangrene Plan 63-year-old male patient with an apparent prior abdominal wall hernia repair, reported by his sister to have a collapsed hernia mesh. I am able to confirm the presence of a hernia. If the patient is symptomatic from this hernia, a CT abdomen and pelvis could be requested to evaluate further. Psychiatry The patient is a 63-year-old male with pervasive developmental disorder, schizophrenia and other medical comorbidities admitted for noncompliance. The patient had been in the hospital several times in the last 6 months due to disorganized behavior and noncompliance with no insight into his condition. 09/13 staff reports patient doing better now that he is on Zyprexa; continue current treatment plan 6/16 said zyprexa makes his head spin but staff reports he seems to be tolerating med well and clinically, is demonstrating significant improvement, attending to ADL's, group, calm, more pleasant; otherwise, refuses other meds and no insight Plan 1. We have a Section 7 and 8 and at this moment the patient is committed to the hospital. 2. Continue with Zyprexa Zydis 10 mg p.o. q.h.s. as per court order. 3. We have filed for guardianship since the patient can not take care of himself. 4. Waiting for placement. Reason for continued inpatient stay Substantial Risk for: inability to function, rapid decompensation and med/psych decompensation Time Spent With Patient Time: Total time managing care of this patient today ___20_ minutes.
[2023-10-28] MEDS: OLANZapine ODT 10 MG TAB.RAPDIS TRANSLINGU (16:59)
[2023-10-28 20:00] VITALS: BP 95/58; PULSE 65; RESP 17; TEMP 36.8; O2SAT 99
[2023-10-29 08:00] VITALS: BP 143/71; PULSE 93; RESP 17; TEMP 36.4; O2SAT 100
--- NOTE | 2023-10-29 15:16 | P.PNPSI_ITS ---
Subjective Subjective Date of Service: 10/29/23 Reason For Visit: Psychosis Subjective Notes: Section 7 and Section 8 Interim History: The nursing staff reported the patient had been refusing all his medications besides Zyprexa this court order. On interview the patient was persistent stating that he is going back to his apartment unable to process new information. Mental Status Exam Mental Status Exam Patient Appearance: Unkempt Patient Orientation: Person and Situation Level of Consciousness: Awake and Appropriate Patient Behavior: Guarded and Passive Mood Description: Withdrawn Affect Description: Blunted Patient Cognition Impaired: Yes Ability to Follow Directions: Fair Speech Pattern: Clear Hallucinations: None Delusions: Not Present Thought Process: Distracted and Slowed Thinking Thought Content: positive for [place] and positive for Thought Blocking Judgement: Poor Diagnostics Vital Signs (24Hr): Vital Signs - 24 hr 10/28/23 20:00 10/29/23 08:00 Temperature 98.3 F 97.6 F Pulse Rate 65 93 Respiratory Rate 17 17 Blood Pressure 95/58 L 143/71 H Pulse Oximetry 99 100 Oxygen Delivery Method Room Air Room Air BMI result Body Mass Index 19.8 Labs 10/20/23 13:26 10/20/23 13:26 Imaging Radiology Impressions: ITS Impressions Abdomen CT 10/18/23 14:30 IMPRESSION: * Bilateral nephrolithiasis without hydronephrosis. * There is diastases of rectus abdominis muscles of up to 4 cm. Prior placement of mesh at the midline abdominal wall. Although there is anterior bulging of the mesh between rectus abdominis muscles, the omental fat remains deep to the mesh, and there is no herniation of bowel or fat around the periphery of the mesh. Face CT 10/18/23 18:18 IMPRESSION: 1. Periapical abscesses adjacent to the left maxillary first premolar and first molar as well as the left mandibular first and second premolars. Adjacent inflammatory change and probable early phlegmonous change without a discrete abscess. 2. Mild right temporomandibular joint osteoarthritis. Medications Medications Current Medications Acetaminophen (Acetaminophen 325 Mg Tablet) 325 mg PO Q4H PRN PRN Reason: Mild Pain (Scale Score 1-4) Last Admin: 10/21/23 08:56 Dose: 325 mg Al Hydroxide/Mg Hydroxide (Magnesium Hydrox/Alum Hydrox 30 Ml Oral.Susp) 30 ml PO Q6H PRN PRN Reason: Heartburn/Nausea Atorvastatin Calcium (Atorvastatin Calcium 10 Mg Tablet) 10 mg PO BEDTIME [facility] Last Admin: 10/28/23 21:00 Dose: Not Given Chlorhexidine Gluconate (Chlorhexidine Gluc Oral Rinse 15 Ml Mouthwash) 15 ml BUCCAL BID [facility] Last Admin: 10/29/23 08:25 Dose: Not Given Hydroxyzine HCl (Hydroxyzine Hcl 50 Mg Tablet) 100 mg PO BID [facility] Last Admin: 10/29/23 08:25 Dose: Not Given Magnesium Hydroxide (Milk Of Magnesia 30 Ml Oral.Susp) 30 ml PO DAILY PRN PRN Reason: Constipation Olanzapine (Olanzapine 10 Mg Vial) 15 mg IM BEDTIME PRN PRN Reason: refusal of PO Olanzapine (Olanzapine Odt 10 Mg Tab.Rapdis) 10 mg TRANSLINGU DAILY@1700 [facility] Last Admin: 10/28/23 16:59 Dose: 10 mg Trazodone HCl (Trazodone Hcl 50 Mg Tablet) 50 mg PO BEDTIME MRX1 PRN PRN Reason: Insomnia Vitamin D (Cholecalciferol (Vitamin D3) 25 Mcg Tablet) 25 mcg PO DAILY [facility] Last Admin: 10/29/23 08:25 Dose: Not Given Allergies Allergies Allergy/AdvReac Type Severity Reaction Status Date / Time lactose AdvReac Intermediate Unknown Verified 08/21/23 20:52 Penicillins AdvReac Intermediate Unknown Verified 08/21/23 20:52 Assessment & Plan Assessment & Plan (1) Schizophrenia: Status: Acute Code(s): F20.9 - Schizophrenia, unspecified (2) Abdominal wall hernia: Status: Acute Code(s): K43.9 - Ventral hernia without obstruction or gangrene Plan 63-year-old male patient with an apparent prior abdominal wall hernia repair, reported by his sister to have a collapsed hernia mesh. I am able to confirm the presence of a hernia. If the patient is symptomatic from this hernia, a CT abdomen and pelvis could be requested to evaluate further. Psychiatry The patient is a 63-year-old male with pervasive developmental disorder, schizophrenia and other medical comorbidities admitted for noncompliance. The patient had been in the hospital several times in the last 6 months due to disorganized behavior and noncompliance with no insight into his condition. 09/13 staff reports patient doing better now that he is on Zyprexa; continue current treatment plan 09/14 said zyprexa makes his head spin but staff reports he seems to be tolerating med well and clinically, is demonstrating significant improvement, attending to ADL's, group, calm, more pleasant; otherwise, refuses other meds and no insight Plan 1. We have a Section 7 and 8 and at this moment the patient is committed to the hospital. 2. Continue with Zyprexa Zydis 10 mg p.o. q.h.s. as per court order. 3. We have filed for guardianship since the patient can not take care of himself. 4. Waiting for placement. Reason for continued inpatient stay Substantial Risk for: inability to function, rapid decompensation and med/psych decompensation Time Spent With Patient Time: Total time managing care of this patient today __20__ minutes.
[2023-10-29] MEDS: OLANZapine ODT 10 MG TAB.RAPDIS TRANSLINGU (16:52)
[2023-10-29 20:00] VITALS: BP 110/81; PULSE 66; RESP 16; TEMP 36.4; O2SAT 98
[2023-10-30 08:00] VITALS: BP 121/63; PULSE 88; RESP 16; TEMP 36.4; O2SAT 99
--- NOTE | 2023-10-30 15:26 | HO.PSYCHPN ---
Subjective Subjective Date of Service: 10/30/23 Reason For Visit: Psychosis Subjective Notes: Section 7 and Section 8 Interim History: The nursing staff reported the patient had been fully compliant with Zyprexa as per court order. On interview the patient remains perseverative unable to process that he is now technically homeless waiting for placement. Mental Status Exam Mental Status Exam Patient Appearance: Unkempt Patient Orientation: Person and Situation Level of Consciousness: Awake and Appropriate Patient Behavior: Guarded and Passive Mood Description: Withdrawn Affect Description: Constricted Patient Cognition Impaired: Yes Ability to Follow Directions: Good Speech Pattern: Clear Hallucinations: None Delusions: Ideas of Reference Thought Process: Distracted and Slowed Thinking Judgement: Poor Diagnostics Vital Signs (24Hr): Vital Signs - 24 hr 10/29/23 20:00 10/30/23 08:00 Temperature 97.6 F 97.6 F Pulse Rate 66 88 Respiratory Rate 16 16 Blood Pressure 110/81 121/63 Pulse Oximetry 98 99 Oxygen Delivery Method Room Air Room Air BMI result Body Mass Index 19.8 Labs 10/20/23 13:26 10/20/23 13:26 Imaging Radiology Impressions: ITS Impressions Abdomen CT 10/18/23 14:30 IMPRESSION: * Bilateral nephrolithiasis without hydronephrosis. * There is diastases of rectus abdominis muscles of up to 4 cm. Prior placement of mesh at the midline abdominal wall. Although there is anterior bulging of the mesh between rectus abdominis muscles, the omental fat remains deep to the mesh, and there is no herniation of bowel or fat around the periphery of the mesh. Face CT 10/18/23 18:18 IMPRESSION: 1. Periapical abscesses adjacent to the left maxillary first premolar and first molar as well as the left mandibular first and second premolars. Adjacent inflammatory change and probable early phlegmonous change without a discrete abscess. 2. Mild right temporomandibular joint osteoarthritis. Medications Medications Current Medications Acetaminophen (Acetaminophen 325 Mg Tablet) 325 mg PO Q4H PRN PRN Reason: Mild Pain (Scale Score 1-4) Last Admin: 10/21/23 08:56 Dose: 325 mg Al Hydroxide/Mg Hydroxide (Magnesium Hydrox/Alum Hydrox 30 Ml Oral.Susp) 30 ml PO Q6H PRN PRN Reason: Heartburn/Nausea Atorvastatin Calcium (Atorvastatin Calcium 10 Mg Tablet) 10 mg PO BEDTIME BRI Last Admin: 10/29/23 20:35 Dose: Not Given Chlorhexidine Gluconate (Chlorhexidine Gluc Oral Rinse 15 Ml Mouthwash) 15 ml BUCCAL BID [facility] Last Admin: 10/30/23 08:40 Dose: Not Given Hydroxyzine HCl (Hydroxyzine Hcl 50 Mg Tablet) 100 mg PO BID [facility] Last Admin: 10/30/23 08:41 Dose: Not Given Magnesium Hydroxide (Milk Of Magnesia 30 Ml Oral.Susp) 30 ml PO DAILY PRN PRN Reason: Constipation Olanzapine (Olanzapine 10 Mg Vial) 15 mg IM BEDTIME PRN PRN Reason: refusal of PO Olanzapine (Olanzapine Odt 10 Mg Tab.Rapdis) 10 mg TRANSLINGU DAILY@1700 [facility] Last Admin: 10/29/23 16:52 Dose: 10 mg Trazodone HCl (Trazodone Hcl 50 Mg Tablet) 50 mg PO BEDTIME MRX1 PRN PRN Reason: Insomnia Vitamin D (Cholecalciferol (Vitamin D3) 25 Mcg Tablet) 25 mcg PO DAILY [facility] Last Admin: 10/30/23 08:40 Dose: Not Given Allergies Allergies Allergy/AdvReac Type Severity Reaction Status Date / Time lactose AdvReac Intermediate Unknown Verified 08/21/23 20:52 Penicillins AdvReac Intermediate Unknown Verified 08/21/23 20:52 Assessment & Plan Assessment & Plan (1) Schizophrenia: Status: Acute Code(s): F20.9 - Schizophrenia, unspecified (2) Abdominal wall hernia: Status: Acute Code(s): K43.9 - Ventral hernia without obstruction or gangrene Plan 63-year-old male patient with an apparent prior abdominal wall hernia repair, reported by his sister to have a collapsed hernia mesh. I am able to confirm the presence of a hernia. If the patient is symptomatic from this hernia, a CT abdomen and pelvis could be requested to evaluate further. Psychiatry The patient is a 63-year-old male with pervasive developmental disorder, schizophrenia and other medical comorbidities admitted for noncompliance. The patient had been in the hospital several times in the last 6 months due to disorganized behavior and noncompliance with no insight into his condition. 09/13 staff reports patient doing better now that he is on Zyprexa; continue current treatment plan 09/14 said zyprexa makes his head spin but staff reports he seems to be tolerating med well and clinically, is demonstrating significant improvement, attending to ADL's, group, calm, more pleasant; otherwise, refuses other meds and no insight Plan 1. We have a Section 7 and 8 and at this moment the patient is committed to the hospital. 2. Continue with Zyprexa Zydis 10 mg p.o. q.h.s. as per court order. 3. We have filed for guardianship since the patient can not take care of himself. 4. Waiting for placement. Reason for continued inpatient stay Substantial Risk for: inability to function, rapid decompensation and med/psych decompensation Time Spent With Patient Time: Total time managing care of this patient today _20___ minutes.
[2023-10-30] MEDS: OLANZapine ODT 10 MG TAB.RAPDIS TRANSLINGU (16:50)
[2023-10-31 07:00] VITALS: BMI 19.3
[2023-10-31 08:00] VITALS: BP 116/70; PULSE 84; RESP 18; TEMP 36.6; O2SAT 100
--- NOTE | 2023-10-31 15:38 | HO.PSYCHPN ---
Subjective Subjective Date of Service: 10/31/23 Reason For Visit: Psychosis Subjective Notes: Section 7 and Section 8 Interim History: The staff reported that he has refused all his medications besides the court order Zyprexa. On interview, he denies new symptoms, waiting for placement. Mental Status Exam Mental Status Exam Patient Appearance: Appropriate Patient Orientation: Person Level of Consciousness: Awake Patient Behavior: Guarded and Passive Mood Description: Withdrawn Affect Description: Calm Patient Cognition Impaired: Yes Ability to Follow Directions: Good Speech Pattern: Clear Hallucinations: None Delusions: Ideas of Reference Thought Process: Distracted and Slowed Thinking Thought Content: positive for [place] and positive for Poverty of Content Judgement: Poor Diagnostics Vital Signs (24Hr): Vital Signs - 24 hr 10/31/23 08:00 Temperature 97.9 F Pulse Rate 84 Respiratory Rate 18 Blood Pressure 116/70 Pulse Oximetry 100 Oxygen Delivery Method Room Air BMI result Body Mass Index 19.3 Labs 10/20/23 13:26 10/20/23 13:26 Imaging Radiology Impressions: ITS Impressions Abdomen CT 10/18/23 14:30 IMPRESSION: * Bilateral nephrolithiasis without hydronephrosis. * There is diastases of rectus abdominis muscles of up to 4 cm. Prior placement of mesh at the midline abdominal wall. Although there is anterior bulging of the mesh between rectus abdominis muscles, the omental fat remains deep to the mesh, and there is no herniation of bowel or fat around the periphery of the mesh. Face CT 10/18/23 18:18 IMPRESSION: 1. Periapical abscesses adjacent to the left maxillary first premolar and first molar as well as the left mandibular first and second premolars. Adjacent inflammatory change and probable early phlegmonous change without a discrete abscess. 2. Mild right temporomandibular joint osteoarthritis. Medications Medications Current Medications Acetaminophen (Acetaminophen 325 Mg Tablet) 325 mg PO Q4H PRN PRN Reason: Mild Pain (Scale Score 1-4) Last Admin: 10/21/23 08:56 Dose: 325 mg Al Hydroxide/Mg Hydroxide (Magnesium Hydrox/Alum Hydrox 30 Ml Oral.Susp) 30 ml PO Q6H PRN PRN Reason: Heartburn/Nausea Atorvastatin Calcium (Atorvastatin Calcium 10 Mg Tablet) 10 mg PO BEDTIME BRI Last Admin: 10/30/23 20:53 Dose: Not Given Chlorhexidine Gluconate (Chlorhexidine Gluc Oral Rinse 15 Ml Mouthwash) 15 ml BUCCAL BID [facility] Last Admin: 10/31/23 08:25 Dose: Not Given Hydroxyzine HCl (Hydroxyzine Hcl 50 Mg Tablet) 100 mg PO BID [facility] Last Admin: 10/31/23 08:25 Dose: Not Given Magnesium Hydroxide (Milk Of Magnesia 30 Ml Oral.Susp) 30 ml PO DAILY PRN PRN Reason: Constipation Olanzapine (Olanzapine 10 Mg Vial) 15 mg IM BEDTIME PRN PRN Reason: refusal of PO Olanzapine (Olanzapine Odt 10 Mg Tab.Rapdis) 10 mg TRANSLINGU DAILY@1700 [facility] Last Admin: 10/30/23 16:50 Dose: 10 mg Trazodone HCl (Trazodone Hcl 50 Mg Tablet) 50 mg PO BEDTIME MRX1 PRN PRN Reason: Insomnia Vitamin D (Cholecalciferol (Vitamin D3) 25 Mcg Tablet) 25 mcg PO DAILY [facility] Last Admin: 10/31/23 08:25 Dose: Not Given Allergies Allergies Allergy/AdvReac Type Severity Reaction Status Date / Time lactose AdvReac Intermediate Unknown Verified 08/21/23 20:52 Penicillins AdvReac Intermediate Unknown Verified 08/21/23 20:52 Assessment & Plan Assessment & Plan (1) Schizophrenia: Status: Acute Code(s): F20.9 - Schizophrenia, unspecified (2) Abdominal wall hernia: Status: Acute Code(s): K43.9 - Ventral hernia without obstruction or gangrene Plan 63-year-old male patient with an apparent prior abdominal wall hernia repair, reported by his sister to have a collapsed hernia mesh. I am able to confirm the presence of a hernia. If the patient is symptomatic from this hernia, a CT abdomen and pelvis could be requested to evaluate further. Psychiatry The patient is a 63-year-old male with pervasive developmental disorder, schizophrenia and other medical comorbidities admitted for noncompliance. The patient had been in the hospital several times in the last 6 months due to disorganized behavior and noncompliance with no insight into his condition. 09/13 staff reports patient doing better now that he is on Zyprexa; continue current treatment plan 09/14 said zyprexa makes his head spin but staff reports he seems to be tolerating med well and clinically, is demonstrating significant improvement, attending to ADL's, group, calm, more pleasant; otherwise, refuses other meds and no insight Plan 1. We have a Section 7 and 8 and at this moment the patient is committed to the hospital. 2. Continue with Zyprexa Zydis 10 mg p.o. q.h.s. as per court order. 3. We have filed for guardianship since the patient can not take care of himself. 4. Waiting for placement. Reason for continued inpatient stay Substantial Risk for: inability to function, rapid decompensation and med/psych decompensation Time Spent With Patient Time: Total time managing care of this patient today _20___ minutes.
[2023-10-31] MEDS: OLANZapine ODT 10 MG TAB.RAPDIS TRANSLINGU (17:31)
[2023-10-31 20:00] VITALS: BP 90/53; PULSE 70; RESP 16; TEMP 36.8; O2SAT 98
[2023-11-01 08:53] VITALS: BP 113/63; PULSE 99; RESP 18; TEMP 36.8; O2SAT 100
--- NOTE | 2023-11-01 15:36 | P.PNPSI_ITS ---
Subjective Subjective Date of Service: 11/01/23 Reason For Visit: Psychosis Subjective Notes: Conditional Voluntary Interim History: The nursing staff reported the patient had being as usual, perseverative but compliant with treatment as per court order. On interview the patient remains perseverative with inability to who changes. Mental Status Exam Mental Status Exam Patient Appearance: Appropriate Patient Orientation: Person and Situation Level of Consciousness: Awake Patient Behavior: Guarded and Passive Mood Description: Calm Affect Description: Blunted Patient Cognition Impaired: Yes Ability to Follow Directions: Fair Speech Pattern: Clear Hallucinations: None Delusions: Ideas of Reference Thought Process: Illogical and Slowed Thinking Thought Content: positive for Persever[place], positive for Poverty of Content and positive for Thought Blocking Judgement: Poor Diagnostics Vital Signs (24Hr): Vital Signs - 24 hr 10/31/23 20:00 11/01/23 08:53 Temperature 98.3 F 98.2 F Pulse Rate 70 99 Respiratory Rate 16 18 Blood Pressure 90/53 L 113/63 Pulse Oximetry 98 100 Oxygen Delivery Method Room Air Room Air BMI result Body Mass Index 19.3 Labs 10/20/23 13:26 10/20/23 13:26 Imaging Radiology Impressions: ITS Impressions Abdomen CT 10/18/23 14:30 IMPRESSION: * Bilateral nephrolithiasis without hydronephrosis. * There is diastases of rectus abdominis muscles of up to 4 cm. Prior placement of mesh at the midline abdominal wall. Although there is anterior bulging of the mesh between rectus abdominis muscles, the omental fat remains deep to the mesh, and there is no herniation of bowel or fat around the periphery of the mesh. Face CT 10/18/23 18:18 IMPRESSION: 1. Periapical abscesses adjacent to the left maxillary first premolar and first molar as well as the left mandibular first and second premolars. Adjacent inflammatory change and probable early phlegmonous change without a discrete abscess. 2. Mild right temporomandibular joint osteoarthritis. Medications Medications Current Medications Acetaminophen (Acetaminophen 325 Mg Tablet) 325 mg PO Q4H PRN PRN Reason: Mild Pain (Scale Score 1-4) Last Admin: 10/21/23 08:56 Dose: 325 mg Al Hydroxide/Mg Hydroxide (Magnesium Hydrox/Alum Hydrox 30 Ml Oral.Susp) 30 ml PO Q6H PRN PRN Reason: Heartburn/Nausea Atorvastatin Calcium (Atorvastatin Calcium 10 Mg Tablet) 10 mg PO BEDTIME BRI Last Admin: 10/31/23 20:39 Dose: Not Given Chlorhexidine Gluconate (Chlorhexidine Gluc Oral Rinse 15 Ml Mouthwash) 15 ml BUCCAL BID [facility] Last Admin: 11/01/23 09:46 Dose: Not Given Hydroxyzine HCl (Hydroxyzine Hcl 50 Mg Tablet) 100 mg PO BID [facility] Last Admin: 11/01/23 09:46 Dose: Not Given Magnesium Hydroxide (Milk Of Magnesia 30 Ml Oral.Susp) 30 ml PO DAILY PRN PRN Reason: Constipation Olanzapine (Olanzapine 10 Mg Vial) 15 mg IM BEDTIME PRN PRN Reason: refusal of PO Olanzapine (Olanzapine Odt 10 Mg Tab.Rapdis) 10 mg TRANSLINGU DAILY@1700 [facility] Last Admin: 10/31/23 17:31 Dose: 10 mg Trazodone HCl (Trazodone Hcl 50 Mg Tablet) 50 mg PO BEDTIME MRX1 PRN PRN Reason: Insomnia Vitamin D (Cholecalciferol (Vitamin D3) 25 Mcg Tablet) 25 mcg PO DAILY [facility] Last Admin: 11/01/23 09:46 Dose: Not Given Allergies Allergies Allergy/AdvReac Type Severity Reaction Status Date / Time lactose AdvReac Intermediate Unknown Verified 08/21/23 20:52 Penicillins AdvReac Intermediate Unknown Verified 08/21/23 20:52 Assessment & Plan Assessment & Plan (1) Schizophrenia: Status: Acute Code(s): F20.9 - Schizophrenia, unspecified (2) Abdominal wall hernia: Status: Acute Code(s): K43.9 - Ventral hernia without obstruction or gangrene Plan 63-year-old male patient with an apparent prior abdominal wall hernia repair, reported by his sister to have a collapsed hernia mesh. I am able to confirm the presence of a hernia. If the patient is symptomatic from this hernia, a CT abdomen and pelvis could be requested to evaluate further. Psychiatry The patient is a 63-year-old male with pervasive developmental disorder, schizophrenia and other medical comorbidities admitted for noncompliance. The patient had been in the hospital several times in the last 6 months due to disorganized behavior and noncompliance with no insight into his condition. 09/13 staff reports patient doing better now that he is on Zyprexa; continue current treatment plan 09/14 said zyprexa makes his head spin but staff reports he seems to be tolerating med well and clinically, is demonstrating significant improvement, attending to ADL's, group, calm, more pleasant; otherwise, refuses other meds and no insight Plan 1. We have a Section 7 and 8 and at this moment the patient is committed to the hospital. 2. Continue with Zyprexa Zydis 10 mg p.o. q.h.s. as per court order. 3. We have filed for guardianship since the patient can not take care of himself. 4. Waiting for placement. Reason for continued inpatient stay Substantial Risk for: inability to function, rapid decompensation and med/psych decompensation Time Spent With Patient Time: Total time managing care of this patient today __20__ minutes.
[2023-11-01] MEDS: OLANZapine ODT 10 MG TAB.RAPDIS TRANSLINGU (16:59)
[2023-11-01 20:00] VITALS: BP 103/55; PULSE 74; RESP 18; TEMP 36.9; O2SAT 98
[2023-11-02 08:12] VITALS: BP 115/64; PULSE 78; RESP 18; TEMP 35.7; O2SAT 98
--- NOTE | 2023-11-02 08:33 | P.PNPSI_ITS ---
Subjective Subjective Date of Service: 11/02/23 Reason For Visit: Psychosis Subjective Notes: Conditional Voluntary Interim History: Pt slept most night. He thinks this policy writer sales is SW, insists despite reintroducing self. somatic delusions but insists he does not need antibiotic for mouth absess. afebrile. visible, pleasant. Review of Systems Review of Systems dental pain Yes all other systems are reviewed and are negative, Unobtainable due to mental condition and Unobtainable due to mental status Mental Status Exam Mental Status Exam Narrative: odd manerisms Patient Appearance: Appropriate and Unkempt Patient Orientation: Person and Situation Level of Consciousness: Awake Patient Behavior: Guarded and Passive Mood Description: Withdrawn Affect Description: Constricted Patient Cognition Impaired: Yes Ability to Follow Directions: Good Speech Pattern: Clear Diagnostics Vital Signs (24Hr): Vital Signs - 24 hr 11/01/23 08:53 11/01/23 20:00 11/02/23 08:12 Temperature 98.2 F 98.5 F 96.3 F L Pulse Rate 99 74 78 Respiratory Rate 18 18 18 Blood Pressure 113/63 103/55 L 115/64 Pulse Oximetry 100 98 98 Oxygen Delivery Method Room Air Room Air Room Air BMI result Body Mass Index 19.3 Labs 10/20/23 13:26 10/20/23 13:26 Imaging Radiology Impressions: ITS Impressions Abdomen CT 10/18/23 14:30 IMPRESSION: * Bilateral nephrolithiasis without hydronephrosis. * There is diastases of rectus abdominis muscles of up to 4 cm. Prior placement of mesh at the midline abdominal wall. Although there is anterior bulging of the mesh between rectus abdominis muscles, the omental fat remains deep to the mesh, and there is no herniation of bowel or fat around the periphery of the mesh. Face CT 10/18/23 18:18 IMPRESSION: 1. Periapical abscesses adjacent to the left maxillary first premolar and first molar as well as the left mandibular first and second premolars. Adjacent inflammatory change and probable early phlegmonous change without a discrete abscess. 2. Mild right temporomandibular joint osteoarthritis. Medications Medications Current Medications Acetaminophen (Acetaminophen 325 Mg Tablet) 325 mg PO Q4H PRN PRN Reason: Mild Pain (Scale Score 1-4) Last Admin: 10/21/23 08:56 Dose: 325 mg Al Hydroxide/Mg Hydroxide (Magnesium Hydrox/Alum Hydrox 30 Ml Oral.Susp) 30 ml PO Q6H PRN PRN Reason: Heartburn/Nausea Atorvastatin Calcium (Atorvastatin Calcium 10 Mg Tablet) 10 mg PO BEDTIME [facility] Last Admin: 11/01/23 20:32 Dose: Not Given Chlorhexidine Gluconate (Chlorhexidine Gluc Oral Rinse 15 Ml Mouthwash) 15 ml BUCCAL BID [facility] Last Admin: 11/01/23 20:32 Dose: Not Given Hydroxyzine HCl (Hydroxyzine Hcl 50 Mg Tablet) 100 mg PO BID [facility] Last Admin: 11/01/23 20:32 Dose: Not Given Magnesium Hydroxide (Milk Of Magnesia 30 Ml Oral.Susp) 30 ml PO DAILY PRN PRN Reason: Constipation Olanzapine (Olanzapine 10 Mg Vial) 15 mg IM BEDTIME PRN PRN Reason: refusal of PO Olanzapine (Olanzapine Odt 10 Mg Tab.Rapdis) 10 mg TRANSLINGU DAILY@1700 [facility] Last Admin: 11/01/23 16:59 Dose: 10 mg Trazodone HCl (Trazodone Hcl 50 Mg Tablet) 50 mg PO BEDTIME MRX1 PRN PRN Reason: Insomnia Vitamin D (Cholecalciferol (Vitamin D3) 25 Mcg Tablet) 25 mcg PO DAILY [facility] Last Admin: 11/01/23 09:46 Dose: Not Given Allergies Allergies Allergy/AdvReac Type Severity Reaction Status Date / Time lactose AdvReac Intermediate Unknown Verified 08/21/23 20:52 Penicillins AdvReac Intermediate Unknown Verified 08/21/23 20:52 Assessment & Plan Assessment & Plan (1) Schizophrenia: Status: Acute Code(s): F20.9 - Schizophrenia, unspecified (2) Abdominal wall hernia: Status: Acute Code(s): K43.9 - Ventral hernia without obstruction or gangrene Plan 63-year-old male patient with an apparent prior abdominal wall hernia repair, reported by his sister to have a collapsed hernia mesh. I am able to confirm the presence of a hernia. If the patient is symptomatic from this hernia, a CT abdomen and pelvis could be requested to evaluate further. Psychiatry The patient is a 63-year-old male with pervasive developmental disorder, schizophrenia and other medical comorbidities admitted for noncompliance. The patient had been in the hospital several times in the last 6 months due to disorganized behavior and noncompliance with no insight into his condition. 09/13 staff reports patient doing better now that he is on Zyprexa; continue current treatment plan 09/14 said zyprexa makes his head spin but staff reports he seems to be tolerating med well and clinically, is demonstrating significant improvement, attending to ADL's, group, calm, more pleasant; otherwise, refuses other meds and no insight Plan 1. We have a Section 7 and 8 and at this moment the patient is committed to the hospital. 2. Continue with Zyprexa Zydis 10 mg p.o. q.h.s. as per court order. 3. We have filed for guardianship since the patient can not take care of himself. 4. Waiting for placement. Reason for continued inpatient stay Substantial Risk for: inability to function Time Spent With Patient Time: Total time managing care of this patient today ____ minutes.
[2023-11-02] MEDS: OLANZapine ODT 10 MG TAB.RAPDIS TRANSLINGU (16:46)
[2023-11-02 20:00] VITALS: RESP 18
[2023-11-03 08:30] VITALS: BP 95/61; PULSE 80; RESP 18; TEMP 36.2; O2SAT 98
[2023-11-03] MEDS: OLANZapine ODT 10 MG TAB.RAPDIS TRANSLINGU (16:46)
--- NOTE | 2023-11-03 20:06 | HO.PSYCHPN ---
Subjective Subjective Date of Service: 11/03/23 Reason For Visit: Psychosis Interim History: Pt slept most night. He thinks this health technical writer is SW, insists despite reintroducing self. somatic delusions but insists he does not need antibiotic for mouth absess. afebrile. visible, pleasant. Review of Systems Review of Systems dental pain Yes all other systems are reviewed and are negative, Unobtainable due to mental condition and Unobtainable due to mental status Mental Status Exam Mental Status Exam Narrative: odd manerisms Patient Appearance: Appropriate and Unkempt Patient Orientation: Person and Situation Level of Consciousness: Awake Patient Behavior: Guarded and Passive Mood Description: Withdrawn Affect Description: Constricted Patient Cognition Impaired: Yes Ability to Follow Directions: Good Speech Pattern: Clear Diagnostics Vital Signs (24Hr): Vital Signs - 24 hr 11/03/23 08:30 Temperature 97.1 F Pulse Rate 80 Respiratory Rate 18 Blood Pressure 95/61 Pulse Oximetry 98 Oxygen Delivery Method Room Air BMI result Body Mass Index 19.3 Labs 10/20/23 13:26 10/20/23 13:26 Imaging Radiology Impressions: ITS Impressions Abdomen CT 10/18/23 14:30 IMPRESSION: * Bilateral nephrolithiasis without hydronephrosis. * There is diastases of rectus abdominis muscles of up to 4 cm. Prior placement of mesh at the midline abdominal wall. Although there is anterior bulging of the mesh between rectus abdominis muscles, the omental fat remains deep to the mesh, and there is no herniation of bowel or fat around the periphery of the mesh. Face CT 10/18/23 18:18 IMPRESSION: 1. Periapical abscesses adjacent to the left maxillary first premolar and first molar as well as the left mandibular first and second premolars. Adjacent inflammatory change and probable early phlegmonous change without a discrete abscess. 2. Mild right temporomandibular joint osteoarthritis. Medications Medications Current Medications Acetaminophen (Acetaminophen 325 Mg Tablet) 325 mg PO Q4H PRN PRN Reason: Mild Pain (Scale Score 1-4) Last Admin: 10/21/23 08:56 Dose: 325 mg Al Hydroxide/Mg Hydroxide (Magnesium Hydrox/Alum Hydrox 30 Ml Oral.Susp) 30 ml PO Q6H PRN PRN Reason: Heartburn/Nausea Atorvastatin Calcium (Atorvastatin Calcium 10 Mg Tablet) 10 mg PO BEDTIME BRI Last Admin: 11/02/23 21:13 Dose: Not Given Chlorhexidine Gluconate (Chlorhexidine Gluc Oral Rinse 15 Ml Mouthwash) 15 ml BUCCAL BID [facility] Last Admin: 11/03/23 10:24 Dose: Not Given Hydroxyzine HCl (Hydroxyzine Hcl 50 Mg Tablet) 100 mg PO BID [facility] Last Admin: 11/03/23 10:24 Dose: Not Given Magnesium Hydroxide (Milk Of Magnesia 30 Ml Oral.Susp) 30 ml PO DAILY PRN PRN Reason: Constipation Olanzapine (Olanzapine 10 Mg Vial) 15 mg IM BEDTIME PRN PRN Reason: refusal of PO Olanzapine (Olanzapine Odt 10 Mg Tab.Rapdis) 10 mg TRANSLINGU DAILY@1700 [facility] Last Admin: 11/03/23 16:46 Dose: 10 mg Trazodone HCl (Trazodone Hcl 50 Mg Tablet) 50 mg PO BEDTIME MRX1 PRN PRN Reason: Insomnia Vitamin D (Cholecalciferol (Vitamin D3) 25 Mcg Tablet) 25 mcg PO DAILY [facility] Last Admin: 11/03/23 10:24 Dose: Not Given Allergies Allergies Allergy/AdvReac Type Severity Reaction Status Date / Time lactose AdvReac Intermediate Unknown Verified 08/21/23 20:52 Penicillins AdvReac Intermediate Unknown Verified 08/21/23 20:52 Assessment & Plan Assessment & Plan (1) Schizophrenia: Status: Acute Code(s): F20.9 - Schizophrenia, unspecified (2) Abdominal wall hernia: Status: Acute Code(s): K43.9 - Ventral hernia without obstruction or gangrene Plan 63-year-old male patient with an apparent prior abdominal wall hernia repair, reported by his sister to have a collapsed hernia mesh. I am able to confirm the presence of a hernia. If the patient is symptomatic from this hernia, a CT abdomen and pelvis could be requested to evaluate further. Psychiatry The patient is a 63-year-old male with pervasive developmental disorder, schizophrenia and other medical comorbidities admitted for noncompliance. The patient had been in the hospital several times in the last 6 months due to disorganized behavior and noncompliance with no insight into his condition. 09/13 staff reports patient doing better now that he is on Zyprexa; continue current treatment plan 09/14 said zyprexa makes his head spin but staff reports he seems to be tolerating med well and clinically, is demonstrating significant improvement, attending to ADL's, group, calm, more pleasant; otherwise, refuses other meds and no insight Plan 1. We have a Section 7 and 8 and at this moment the patient is committed to the hospital. 2. Continue with Zyprexa Zydis 10 mg p.o. q.h.s. as per court order. 3. We have filed for guardianship since the patient can not take care of himself. 4. Waiting for placement. Reason for continued inpatient stay Substantial Risk for: inability to function Time Spent With Patient Time: Total time managing care of this patient today ____ minutes.
[2023-11-04 08:00] VITALS: BP 103/63; PULSE 82; RESP 18; TEMP 37.3; O2SAT 100
--- NOTE | 2023-11-04 14:23 | HO.PSYCHPN ---
Subjective Subjective Date of Service: 11/04/23 Reason For Visit: Psychosis Subjective Notes: Section 7 and Section 8 Interim History: The nursing staff reported the patient has compliant with his antipsychotics as per court order. On interview the patient denies new symptoms he wants to be discharged, unable to process that he is technically homeless waiting for placement. Mental Status Exam Mental Status Exam Patient Appearance: Unkempt Patient Orientation: Person and Situation Level of Consciousness: Awake Patient Behavior: Guarded and Passive Mood Description: Withdrawn Affect Description: Constricted Patient Cognition Impaired: Yes Ability to Follow Directions: Good Speech Pattern: Clear Hallucinations: None Delusions: Not Present Thought Process: Distracted and Slowed Thinking Thought Content: positive for [place] and positive for Poverty of Content Judgement: Poor Diagnostics Vital Signs (24Hr): Vital Signs - 24 hr 11/04/23 08:00 Temperature 99.1 F Pulse Rate 82 Respiratory Rate 18 Blood Pressure 103/63 Pulse Oximetry 100 Oxygen Delivery Method Room Air BMI result Body Mass Index 19.3 Labs 10/20/23 13:26 10/20/23 13:26 Imaging Radiology Impressions: ITS Impressions Abdomen CT 10/18/23 14:30 IMPRESSION: * Bilateral nephrolithiasis without hydronephrosis. * There is diastases of rectus abdominis muscles of up to 4 cm. Prior placement of mesh at the midline abdominal wall. Although there is anterior bulging of the mesh between rectus abdominis muscles, the omental fat remains deep to the mesh, and there is no herniation of bowel or fat around the periphery of the mesh. Face CT 10/18/23 18:18 IMPRESSION: 1. Periapical abscesses adjacent to the left maxillary first premolar and first molar as well as the left mandibular first and second premolars. Adjacent inflammatory change and probable early phlegmonous change without a discrete abscess. 2. Mild right temporomandibular joint osteoarthritis. Medications Medications Current Medications Acetaminophen (Acetaminophen 325 Mg Tablet) 325 mg PO Q4H PRN PRN Reason: Mild Pain (Scale Score 1-4) Last Admin: 10/21/23 08:56 Dose: 325 mg Al Hydroxide/Mg Hydroxide (Magnesium Hydrox/Alum Hydrox 30 Ml Oral.Susp) 30 ml PO Q6H PRN PRN Reason: Heartburn/Nausea Atorvastatin Calcium (Atorvastatin Calcium 10 Mg Tablet) 10 mg PO BEDTIME BRI Last Admin: 11/03/23 21:13 Dose: Not Given Chlorhexidine Gluconate (Chlorhexidine Gluc Oral Rinse 15 Ml Mouthwash) 15 ml BUCCAL BID [facility] Last Admin: 11/04/23 11:09 Dose: Not Given Hydroxyzine HCl (Hydroxyzine Hcl 50 Mg Tablet) 100 mg PO BID [facility] Last Admin: 11/04/23 11:09 Dose: Not Given Magnesium Hydroxide (Milk Of Magnesia 30 Ml Oral.Susp) 30 ml PO DAILY PRN PRN Reason: Constipation Olanzapine (Olanzapine 10 Mg Vial) 15 mg IM BEDTIME PRN PRN Reason: refusal of PO Olanzapine (Olanzapine Odt 10 Mg Tab.Rapdis) 10 mg TRANSLINGU DAILY@1700 [facility] Last Admin: 11/03/23 16:46 Dose: 10 mg Trazodone HCl (Trazodone Hcl 50 Mg Tablet) 50 mg PO BEDTIME MRX1 PRN PRN Reason: Insomnia Vitamin D (Cholecalciferol (Vitamin D3) 25 Mcg Tablet) 25 mcg PO DAILY [facility] Last Admin: 11/04/23 11:09 Dose: Not Given Allergies Allergies Allergy/AdvReac Type Severity Reaction Status Date / Time lactose AdvReac Intermediate Unknown Verified 08/21/23 20:52 Penicillins AdvReac Intermediate Unknown Verified 08/21/23 20:52 Assessment & Plan Assessment & Plan (1) Schizophrenia: Status: Acute Code(s): F20.9 - Schizophrenia, unspecified (2) Abdominal wall hernia: Status: Acute Code(s): K43.9 - Ventral hernia without obstruction or gangrene Plan 63-year-old male patient with an apparent prior abdominal wall hernia repair, reported by his sister to have a collapsed hernia mesh. I am able to confirm the presence of a hernia. If the patient is symptomatic from this hernia, a CT abdomen and pelvis could be requested to evaluate further. Psychiatry The patient is a 63-year-old male with pervasive developmental disorder, schizophrenia and other medical comorbidities admitted for noncompliance. The patient had been in the hospital several times in the last 6 months due to disorganized behavior and noncompliance with no insight into his condition. 09/13 staff reports patient doing better now that he is on Zyprexa; continue current treatment plan 09/14 said zyprexa makes his head spin but staff reports he seems to be tolerating med well and clinically, is demonstrating significant improvement, attending to ADL's, group, calm, more pleasant; otherwise, refuses other meds and no insight Plan 1. We have a Section 7 and 8 and at this moment the patient is committed to the hospital. 2. Continue with Zyprexa Zydis 10 mg p.o. q.h.s. as per court order. 3. We have filed for guardianship since the patient can not take care of himself. 4. Waiting for placement. Reason for continued inpatient stay Substantial Risk for: inability to function, rapid decompensation and med/psych decompensation Time Spent With Patient Time: Total time managing care of this patient today __20__ minutes.
[2023-11-04] MEDS: OLANZapine ODT 10 MG TAB.RAPDIS TRANSLINGU (17:46)
[2023-11-04 20:00] VITALS: BP 105/63; PULSE 81; RESP 18; TEMP 36.6; O2SAT 98
[2023-11-05 08:40] VITALS: BP 111/72; PULSE 89; RESP 18; TEMP 36.7; O2SAT 100
--- NOTE | 2023-11-05 16:28 | P.PNPSI_ITS ---
Subjective Subjective Date of Service: 11/05/23 Reason For Visit: Psychosis Subjective Notes: Conditional Voluntary Interim History: The nursing staff reported the patient had been compliant with treatment as per court order. On interview the patient denies new symptoms requesting for discharge, no changes in mental status. Waiting for placement. Mental Status Exam Mental Status Exam Patient Appearance: Appropriate Patient Orientation: Person and Situation Level of Consciousness: Awake and Appropriate Patient Behavior: Guarded and Passive Mood Description: Withdrawn Affect Description: Constricted Patient Cognition Impaired: Yes Ability to Follow Directions: Good Speech Pattern: Clear Hallucinations: None Delusions: Paranoid Ideation and Ideas of Reference Thought Process: Distracted and Slowed Thinking Thought Content: positive for [place] and positive for Poverty of Content Judgement: Poor Diagnostics Vital Signs (24Hr): Vital Signs - 24 hr 11/04/23 20:00 11/05/23 08:40 Temperature 98 F 98.1 F Pulse Rate 81 89 Respiratory Rate 18 18 Blood Pressure 105/63 111/72 Pulse Oximetry 98 100 Oxygen Delivery Method Room Air Room Air BMI result Body Mass Index 19.3 Labs 10/20/23 13:26 10/20/23 13:26 Imaging Radiology Impressions: ITS Impressions Abdomen CT 10/18/23 14:30 IMPRESSION: * Bilateral nephrolithiasis without hydronephrosis. * There is diastases of rectus abdominis muscles of up to 4 cm. Prior placement of mesh at the midline abdominal wall. Although there is anterior bulging of the mesh between rectus abdominis muscles, the omental fat remains deep to the mesh, and there is no herniation of bowel or fat around the periphery of the mesh. Face CT 10/18/23 18:18 IMPRESSION: 1. Periapical abscesses adjacent to the left maxillary first premolar and first molar as well as the left mandibular first and second premolars. Adjacent inflammatory change and probable early phlegmonous change without a discrete abscess. 2. Mild right temporomandibular joint osteoarthritis. Medications Medications Current Medications Acetaminophen (Acetaminophen 325 Mg Tablet) 325 mg PO Q4H PRN PRN Reason: Mild Pain (Scale Score 1-4) Last Admin: 10/21/23 08:56 Dose: 325 mg Al Hydroxide/Mg Hydroxide (Magnesium Hydrox/Alum Hydrox 30 Ml Oral.Susp) 30 ml PO Q6H PRN PRN Reason: Heartburn/Nausea Atorvastatin Calcium (Atorvastatin Calcium 10 Mg Tablet) 10 mg PO BEDTIME BRI Last Admin: 11/04/23 21:15 Dose: Not Given Chlorhexidine Gluconate (Chlorhexidine Gluc Oral Rinse 15 Ml Mouthwash) 15 ml BUCCAL BID [facility] Last Admin: 11/05/23 11:13 Dose: Not Given Hydroxyzine HCl (Hydroxyzine Hcl 50 Mg Tablet) 100 mg PO BID [facility] Last Admin: 11/05/23 11:14 Dose: Not Given Magnesium Hydroxide (Milk Of Magnesia 30 Ml Oral.Susp) 30 ml PO DAILY PRN PRN Reason: Constipation Olanzapine (Olanzapine 10 Mg Vial) 15 mg IM BEDTIME PRN PRN Reason: refusal of PO Olanzapine (Olanzapine Odt 10 Mg Tab.Rapdis) 10 mg TRANSLINGU DAILY@1700 [facility] Last Admin: 11/04/23 17:46 Dose: 10 mg Trazodone HCl (Trazodone Hcl 50 Mg Tablet) 50 mg PO BEDTIME MRX1 PRN PRN Reason: Insomnia Vitamin D (Cholecalciferol (Vitamin D3) 25 Mcg Tablet) 25 mcg PO DAILY [facility] Last Admin: 11/05/23 11:13 Dose: Not Given Allergies Allergies Allergy/AdvReac Type Severity Reaction Status Date / Time lactose AdvReac Intermediate Unknown Verified 08/21/23 20:52 Penicillins AdvReac Intermediate Unknown Verified 08/21/23 20:52 Assessment & Plan Assessment & Plan (1) Schizophrenia: Status: Acute Code(s): F20.9 - Schizophrenia, unspecified (2) Abdominal wall hernia: Status: Acute Code(s): K43.9 - Ventral hernia without obstruction or gangrene Plan 63-year-old male patient with an apparent prior abdominal wall hernia repair, reported by his sister to have a collapsed hernia mesh. I am able to confirm the presence of a hernia. If the patient is symptomatic from this hernia, a CT abdomen and pelvis could be requested to evaluate further. Psychiatry The patient is a 63-year-old male with pervasive developmental disorder, schizophrenia and other medical comorbidities admitted for noncompliance. The patient had been in the hospital several times in the last 6 months due to disorganized behavior and noncompliance with no insight into his condition. 09/13 staff reports patient doing better now that he is on Zyprexa; continue current treatment plan 09/14 said zyprexa makes his head spin but staff reports he seems to be tolerating med well and clinically, is demonstrating significant improvement, attending to ADL's, group, calm, more pleasant; otherwise, refuses other meds and no insight Plan 1. We have a Section 7 and 8 and at this moment the patient is committed to the hospital. 2. Continue with Zyprexa Zydis 10 mg p.o. q.h.s. as per court order. 3. We have filed for guardianship since the patient can not take care of himself. 4. Waiting for placement. Reason for continued inpatient stay Substantial Risk for: inability to function, rapid decompensation and med/psych decompensation Time Spent With Patient Time: Total time managing care of this patient today __20__ minutes.
[2023-11-05] MEDS: OLANZapine ODT 10 MG TAB.RAPDIS TRANSLINGU (16:52)
[2023-11-05 20:00] VITALS: RESP 17
[2023-11-06 07:55] VITALS: BP 119/74; PULSE 91; RESP 18; TEMP 36.8; O2SAT 98
--- NOTE | 2023-11-06 13:00 | P.PNPSI_ITS ---
Subjective Subjective Date of Service: 11/06/23 Reason For Visit: Psychosis Subjective Notes: Section 7 and Section 8 Interim History: The nursing staff reported the patient denies changes in his mental status but his appetite and sleep pattern are okay. He had been compliant with Zyprexa as per court order. On interview the patient reported that has a friend that could give him a place to go. I advised him to talk with the psychosocial rehabilitation counselor about this. Still waiting for placement. Mental Status Exam Mental Status Exam Patient Appearance: Unkempt Patient Orientation: Person and Situation Level of Consciousness: Awake and Appropriate Patient Behavior: Guarded and Passive Mood Description: Withdrawn Affect Description: Constricted Patient Cognition Impaired: Yes Ability to Follow Directions: Good Speech Pattern: Clear Hallucinations: None Delusions: Ideas of Reference Thought Process: Distracted and Slowed Thinking Thought Content: positive for [place] and positive for Poverty of Content Judgement: Poor Diagnostics Vital Signs (24Hr): Vital Signs - 24 hr 11/05/23 20:00 11/06/23 07:55 Temperature 98.2 F Pulse Rate 91 Respiratory Rate 17 18 Blood Pressure 119/74 Pulse Oximetry 98 Oxygen Delivery Method Room Air BMI result Body Mass Index 19.3 Labs 10/20/23 13:26 10/20/23 13:26 Imaging Radiology Impressions: ITS Impressions Abdomen CT 10/18/23 14:30 IMPRESSION: * Bilateral nephrolithiasis without hydronephrosis. * There is diastases of rectus abdominis muscles of up to 4 cm. Prior placement of mesh at the midline abdominal wall. Although there is anterior bulging of the mesh between rectus abdominis muscles, the omental fat remains deep to the mesh, and there is no herniation of bowel or fat around the periphery of the mesh. Face CT 10/18/23 18:18 IMPRESSION: 1. Periapical abscesses adjacent to the left maxillary first premolar and first molar as well as the left mandibular first and second premolars. Adjacent inflammatory change and probable early phlegmonous change without a discrete abscess. 2. Mild right temporomandibular joint osteoarthritis. Medications Medications Current Medications Acetaminophen (Acetaminophen 325 Mg Tablet) 325 mg PO Q4H PRN PRN Reason: Mild Pain (Scale Score 1-4) Last Admin: 10/21/23 08:56 Dose: 325 mg Al Hydroxide/Mg Hydroxide (Magnesium Hydrox/Alum Hydrox 30 Ml Oral.Susp) 30 ml PO Q6H PRN PRN Reason: Heartburn/Nausea Magnesium Hydroxide (Milk Of Magnesia 30 Ml Oral.Susp) 30 ml PO DAILY PRN PRN Reason: Constipation Olanzapine (Olanzapine 10 Mg Vial) 15 mg IM BEDTIME PRN PRN Reason: refusal of PO Olanzapine (Olanzapine Odt 10 Mg Tab.Rapdis) 10 mg TRANSLINGU DAILY@1700 [facility] Last Admin: 11/05/23 16:52 Dose: 10 mg Trazodone HCl (Trazodone Hcl 50 Mg Tablet) 50 mg PO BEDTIME MRX1 PRN PRN Reason: Insomnia Allergies Allergies Allergy/AdvReac Type Severity Reaction Status Date / Time lactose AdvReac Intermediate Unknown Verified 08/21/23 20:52 Penicillins AdvReac Intermediate Unknown Verified 08/21/23 20:52 Assessment & Plan Assessment & Plan (1) Schizophrenia: Status: Acute Code(s): F20.9 - Schizophrenia, unspecified (2) Abdominal wall hernia: Status: Acute Code(s): K43.9 - Ventral hernia without obstruction or gangrene Plan 63-year-old male patient with an apparent prior abdominal wall hernia repair, reported by his sister to have a collapsed hernia mesh. I am able to confirm the presence of a hernia. If the patient is symptomatic from this hernia, a CT abdomen and pelvis could be requested to evaluate further. Psychiatry The patient is a 63-year-old male with pervasive developmental disorder, schizophrenia and other medical comorbidities admitted for noncompliance. The patient had been in the hospital several times in the last 6 months due to disorganized behavior and noncompliance with no insight into his condition. 09/13 staff reports patient doing better now that he is on Zyprexa; continue current treatment plan 09/14 said zyprexa makes his head spin but staff reports he seems to be tolerating med well and clinically, is demonstrating significant improvement, attending to ADL's, group, calm, more pleasant; otherwise, refuses other meds and no insight Plan 1. We have a Section 7 and 8 and at this moment the patient is committed to the hospital. 2. Continue with Zyprexa Zydis 10 mg p.o. q.h.s. as per court order. 3. We have filed for guardianship since the patient can not take care of himself. 4. Waiting for placement. Reason for continued inpatient stay Substantial Risk for: inability to function, rapid decompensation and med/psych decompensation Time Spent With Patient Time: Total time managing care of this patient today __20__ minutes.
[2023-11-06] MEDS: OLANZapine ODT 10 MG TAB.RAPDIS TRANSLINGU (16:39)
[2023-11-07 08:00] VITALS: BP 115/72; PULSE 85; RESP 16; TEMP 36.7; O2SAT 98
[2023-11-07 09:12] VITALS: BMI 19.7
[2023-11-07] MEDS: OLANZapine ODT 10 MG TAB.RAPDIS TRANSLINGU (16:47)
--- NOTE | 2023-11-07 17:00 | P.PNPSI_ITS ---
Subjective Subjective Date of Service: 11/07/23 Reason For Visit: Psychosis Subjective Notes: Conditional Voluntary Interim History: The nursing staff reported no changes in mental status, now he is asking for his medication at night only compliant with Zyprexa. On interview the patient denies new symptoms asking for a possible discharge to his friend. Unable to realize that this is an unrealistic discharge plan. Mental Status Exam Mental Status Exam Patient Appearance: Appropriate Patient Orientation: Person and Situation Level of Consciousness: Awake Patient Behavior: Guarded and Passive Mood Description: Withdrawn Affect Description: Constricted Patient Cognition Impaired: Yes Ability to Follow Directions: Good Speech Pattern: Clear Hallucinations: None Delusions: Ideas of Reference Thought Process: Distracted and Slowed Thinking Thought Content: positive for [place] and positive for Poverty of Content Judgement: Poor Diagnostics Vital Signs (24Hr): Vital Signs - 24 hr 11/07/23 08:00 Temperature 98.0 F Pulse Rate 85 Respiratory Rate 16 Blood Pressure 115/72 Pulse Oximetry 98 Oxygen Delivery Method Room Air BMI result Body Mass Index 19.7 Labs 10/20/23 13:26 10/20/23 13:26 Imaging Radiology Impressions: ITS Impressions Abdomen CT 10/18/23 14:30 IMPRESSION: * Bilateral nephrolithiasis without hydronephrosis. * There is diastases of rectus abdominis muscles of up to 4 cm. Prior placement of mesh at the midline abdominal wall. Although there is anterior bulging of the mesh between rectus abdominis muscles, the omental fat remains deep to the mesh, and there is no herniation of bowel or fat around the periphery of the mesh. Face CT 10/18/23 18:18 IMPRESSION: 1. Periapical abscesses adjacent to the left maxillary first premolar and first molar as well as the left mandibular first and second premolars. Adjacent inflammatory change and probable early phlegmonous change without a discrete abscess. 2. Mild right temporomandibular joint osteoarthritis. Medications Medications Current Medications Acetaminophen (Acetaminophen 325 Mg Tablet) 325 mg PO Q4H PRN PRN Reason: Mild Pain (Scale Score 1-4) Last Admin: 10/21/23 08:56 Dose: 325 mg Al Hydroxide/Mg Hydroxide (Magnesium Hydrox/Alum Hydrox 30 Ml Oral.Susp) 30 ml PO Q6H PRN PRN Reason: Heartburn/Nausea Magnesium Hydroxide (Milk Of Magnesia 30 Ml Oral.Susp) 30 ml PO DAILY PRN PRN Reason: Constipation Olanzapine (Olanzapine 10 Mg Vial) 15 mg IM BEDTIME PRN PRN Reason: refusal of PO Olanzapine (Olanzapine Odt 10 Mg Tab.Rapdis) 10 mg TRANSLINGU DAILY@1700 BRI Last Admin: 11/07/23 16:47 Dose: 10 mg Trazodone HCl (Trazodone Hcl 50 Mg Tablet) 50 mg PO BEDTIME MRX1 PRN PRN Reason: Insomnia Allergies Allergies Allergy/AdvReac Type Severity Reaction Status Date / Time lactose AdvReac Intermediate Unknown Verified 08/21/23 20:52 Penicillins AdvReac Intermediate Unknown Verified 08/21/23 20:52 Assessment & Plan Assessment & Plan (1) Schizophrenia: Status: Acute Code(s): F20.9 - Schizophrenia, unspecified (2) Abdominal wall hernia: Status: Acute Code(s): K43.9 - Ventral hernia without obstruction or gangrene Plan 63-year-old male patient with an apparent prior abdominal wall hernia repair, reported by his sister to have a collapsed hernia mesh. I am able to confirm the presence of a hernia. If the patient is symptomatic from this hernia, a CT abdomen and pelvis could be requested to evaluate further. Psychiatry The patient is a 63-year-old male with pervasive developmental disorder, schizophrenia and other medical comorbidities admitted for noncompliance. The patient had been in the hospital several times in the last 6 months due to disorganized behavior and noncompliance with no insight into his condition. 09/13 staff reports patient doing better now that he is on Zyprexa; continue current treatment plan 09/14 said zyprexa makes his head spin but staff reports he seems to be tolerating med well and clinically, is demonstrating significant improvement, attending to ADL's, group, calm, more pleasant; otherwise, refuses other meds and no insight Plan 1. We have a Section 7 and 8 and at this moment the patient is committed to the hospital. 2. Continue with Zyprexa Zydis 10 mg p.o. q.h.s. as per court order. 3. We have filed for guardianship since the patient can not take care of himself. 4. Waiting for placement. Reason for continued inpatient stay Substantial Risk for: inability to function, rapid decompensation and med/psych decompensation Time Spent With Patient Time: Total time managing care of this patient today _20___ minutes.
--- NOTE | 2023-11-08 15:48 | P.PNPSI_ITS ---
Subjective Subjective Date of Service: 11/08/23 Reason For Visit: Psychosis Subjective Notes: Conditional Voluntary Interim History: The nursing staff reported the patient remains pleasant, compliant with Zyprexa as per court order. On interview the patient denies new symptoms, waiting for placement. The case management social worker reported probably he could be transferred to a longterm facility next Saturday. Mental Status Exam Mental Status Exam Patient Appearance: Well Grooomed Patient Orientation: Person and Situation Level of Consciousness: Awake and Appropriate Patient Behavior: Guarded and Passive Mood Description: Withdrawn Affect Description: Constricted Patient Cognition Impaired: Yes Ability to Follow Directions: Good Speech Pattern: Clear Hallucinations: None Delusions: Paranoid Ideation and Ideas of Reference Thought Process: Distracted and Slowed Thinking Thought Content: positive for [place] and positive for Poverty of Content Judgement: Fair Diagnostics Vital Signs (24Hr): BMI result Body Mass Index 19.7 Labs 10/20/23 13:26 10/20/23 13:26 Imaging Radiology Impressions: ITS Impressions Abdomen CT 10/18/23 14:30 IMPRESSION: * Bilateral nephrolithiasis without hydronephrosis. * There is diastases of rectus abdominis muscles of up to 4 cm. Prior placement of mesh at the midline abdominal wall. Although there is anterior bulging of the mesh between rectus abdominis muscles, the omental fat remains deep to the mesh, and there is no herniation of bowel or fat around the periphery of the mesh. Face CT 10/18/23 18:18 IMPRESSION: 1. Periapical abscesses adjacent to the left maxillary first premolar and first molar as well as the left mandibular first and second premolars. Adjacent inflammatory change and probable early phlegmonous change without a discrete abscess. 2. Mild right temporomandibular joint osteoarthritis. Medications Medications Current Medications Acetaminophen (Acetaminophen 325 Mg Tablet) 325 mg PO Q4H PRN PRN Reason: Mild Pain (Scale Score 1-4) Last Admin: 10/21/23 08:56 Dose: 325 mg Al Hydroxide/Mg Hydroxide (Magnesium Hydrox/Alum Hydrox 30 Ml Oral.Susp) 30 ml PO Q6H PRN PRN Reason: Heartburn/Nausea Magnesium Hydroxide (Milk Of Magnesia 30 Ml Oral.Susp) 30 ml PO DAILY PRN PRN Reason: Constipation Olanzapine (Olanzapine 10 Mg Vial) 15 mg IM BEDTIME PRN PRN Reason: refusal of PO Olanzapine (Olanzapine Odt 10 Mg Tab.Rapdis) 10 mg TRANSLINGU DAILY@1700 REPLACED BY [facility] Last Admin: 11/07/23 16:47 Dose: 10 mg Trazodone HCl (Trazodone Hcl 50 Mg Tablet) 50 mg PO BEDTIME MRX1 PRN PRN Reason: Insomnia Allergies Allergies Allergy/AdvReac Type Severity Reaction Status Date / Time lactose AdvReac Intermediate Unknown Verified 08/21/23 20:52 Penicillins AdvReac Intermediate Unknown Verified 08/21/23 20:52 Assessment & Plan Assessment & Plan (1) Schizophrenia: Status: Acute Code(s): F20.9 - Schizophrenia, unspecified (2) Abdominal wall hernia: Status: Acute Code(s): K43.9 - Ventral hernia without obstruction or gangrene Plan 63-year-old male patient with an apparent prior abdominal wall hernia repair, reported by his sister to have a collapsed hernia mesh. I am able to confirm the presence of a hernia. If the patient is symptomatic from this hernia, a CT abdomen and pelvis could be requested to evaluate further. Psychiatry The patient is a 63-year-old male with pervasive developmental disorder, schizophrenia and other medical comorbidities admitted for noncompliance. The patient had been in the hospital several times in the last 6 months due to disorganized behavior and noncompliance with no insight into his condition. 09/13 staff reports patient doing better now that he is on Zyprexa; continue current treatment plan 09/14 said zyprexa makes his head spin but staff reports he seems to be tolerating med well and clinically, is demonstrating significant improvement, attending to ADL's, group, calm, more pleasant; otherwise, refuses other meds and no insight Plan 1. We have a Section 7 and 8 and at this moment the patient is committed to the hospital. 2. Continue with Zyprexa Zydis 10 mg p.o. q.h.s. as per court order. 3. We have filed for guardianship since the patient can not take care of himself. 4. Waiting for placement. Reason for continued inpatient stay Substantial Risk for: inability to function, rapid decompensation and med/psych decompensation Time Spent With Patient Time: Total time managing care of this patient today __20__ minutes.
[2023-11-08] MEDS: OLANZapine ODT 10 MG TAB.RAPDIS TRANSLINGU (17:00)
[2023-11-08 20:00] VITALS: RESP 16
[2023-11-09 08:00] VITALS: BP 107/63; PULSE 74; RESP 16; TEMP 36.3; O2SAT 100
--- NOTE | 2023-11-09 09:53 | HO.PSYCHPN ---
Subjective Subjective Date of Service: 11/09/23 Reason For Visit: Psychosis Subjective Notes: Conditional Voluntary Interim History: The nursing staff reported the patient took his Zyprexa as he slept well at all last night for 7 hours. On interview the patient remains as usual, stating that he wants to go back to his apartment unable to process that he does not have an apartment and he is technically homeless. No changes in mental status, waiting for placement. Mental Status Exam Mental Status Exam Patient Appearance: Well Grooomed and Appropriate Patient Orientation: Person and Situation Level of Consciousness: Awake and Appropriate Patient Behavior: Guarded and Passive Mood Description: Withdrawn Affect Description: Constricted Patient Cognition Impaired: Yes Ability to Follow Directions: Good Speech Pattern: Clear Hallucinations: None Delusions: Ideas of Reference Thought Process: Illogical Thought Content: positive for [place] and positive for [place] Judgement: Fair Diagnostics Vital Signs (24Hr): Vital Signs - 24 hr 11/08/23 20:00 11/09/23 08:00 Temperature 97.3 F Pulse Rate 74 Respiratory Rate 16 16 Blood Pressure 107/63 Pulse Oximetry 100 Oxygen Delivery Method Room Air BMI result Body Mass Index 19.7 Labs 10/20/23 13:26 10/20/23 13:26 Imaging Radiology Impressions: ITS Impressions Abdomen CT 10/18/23 14:30 IMPRESSION: * Bilateral nephrolithiasis without hydronephrosis. * There is diastases of rectus abdominis muscles of up to 4 cm. Prior placement of mesh at the midline abdominal wall. Although there is anterior bulging of the mesh between rectus abdominis muscles, the omental fat remains deep to the mesh, and there is no herniation of bowel or fat around the periphery of the mesh. Face CT 10/18/23 18:18 IMPRESSION: 1. Periapical abscesses adjacent to the left maxillary first premolar and first molar as well as the left mandibular first and second premolars. Adjacent inflammatory change and probable early phlegmonous change without a discrete abscess. 2. Mild right temporomandibular joint osteoarthritis. Medications Medications Current Medications Acetaminophen (Acetaminophen 325 Mg Tablet) 325 mg PO Q4H PRN PRN Reason: Mild Pain (Scale Score 1-4) Last Admin: 10/21/23 08:56 Dose: 325 mg Al Hydroxide/Mg Hydroxide (Magnesium Hydrox/Alum Hydrox 30 Ml Oral.Susp) 30 ml PO Q6H PRN PRN Reason: Heartburn/Nausea Magnesium Hydroxide (Milk Of Magnesia 30 Ml Oral.Susp) 30 ml PO DAILY PRN PRN Reason: Constipation Olanzapine (Olanzapine 10 Mg Vial) 15 mg IM BEDTIME PRN PRN Reason: refusal of PO Olanzapine (Olanzapine Odt 10 Mg Tab.Rapdis) 10 mg TRANSLINGU DAILY@1700 BRI Last Admin: 11/08/23 17:00 Dose: 10 mg Trazodone HCl (Trazodone Hcl 50 Mg Tablet) 50 mg PO BEDTIME MRX1 PRN PRN Reason: Insomnia Allergies Allergies Allergy/AdvReac Type Severity Reaction Status Date / Time lactose AdvReac Intermediate Unknown Verified 08/21/23 20:52 Penicillins AdvReac Intermediate Unknown Verified 08/21/23 20:52 Assessment & Plan Assessment & Plan (1) Schizophrenia: Status: Acute Code(s): F20.9 - Schizophrenia, unspecified (2) Abdominal wall hernia: Status: Acute Code(s): K43.9 - Ventral hernia without obstruction or gangrene Plan 63-year-old male patient with an apparent prior abdominal wall hernia repair, reported by his sister to have a collapsed hernia mesh. I am able to confirm the presence of a hernia. If the patient is symptomatic from this hernia, a CT abdomen and pelvis could be requested to evaluate further. Psychiatry The patient is a 63-year-old male with pervasive developmental disorder, schizophrenia and other medical comorbidities admitted for noncompliance. The patient had been in the hospital several times in the last 6 months due to disorganized behavior and noncompliance with no insight into his condition. 09/13 staff reports patient doing better now that he is on Zyprexa; continue current treatment plan 09/14 said zyprexa makes his head spin but staff reports he seems to be tolerating med well and clinically, is demonstrating significant improvement, attending to ADL's, group, calm, more pleasant; otherwise, refuses other meds and no insight Plan 1. We have a Section 7 and 8 and at this moment the patient is committed to the hospital. 2. Continue with Zyprexa Zydis 10 mg p.o. q.h.s. as per court order. 3. We have filed for guardianship since the patient can not take care of himself. 4. Waiting for placement. Reason for continued inpatient stay Substantial Risk for: inability to function, rapid decompensation and med/psych decompensation Time Spent With Patient Time: Total time managing care of this patient today __20__ minutes.
[2023-11-09] MEDS: OLANZapine ODT 10 MG TAB.RAPDIS TRANSLINGU (16:53)
[2023-11-09 20:00] VITALS: RESP 16
--- NOTE | 2023-11-10 09:14 | P.PNPSI_ITS ---
Subjective Subjective Date of Service: 11/10/23 Reason For Visit: Psychosis Subjective Notes: Section 7 and Section 8 Interim History: The nursing staff reported the patient refused his vital signs last evening, no changes in his mental status slept well. On interview the patient reports that he wants to go and live with a friend unable to process that he is going to be discharged to nursing home facility next week. Mental Status Exam Mental Status Exam Patient Appearance: Appropriate Patient Orientation: Person and Situation Level of Consciousness: Awake Patient Behavior: Guarded Mood Description: Calm Affect Description: Constricted Patient Cognition Impaired: Yes Ability to Follow Directions: Fair Speech Pattern: Clear Hallucinations: None Delusions: Ideas of Reference Thought Process: Distracted and Slowed Thinking Thought Content: positive for [place] and positive for Poverty of Content Judgement: Fair Diagnostics Vital Signs (24Hr): Vital Signs - 24 hr 11/09/23 20:00 Respiratory Rate 16 BMI result Body Mass Index 19.7 Labs 10/20/23 13:26 10/20/23 13:26 Imaging Radiology Impressions: ITS Impressions Abdomen CT 10/18/23 14:30 IMPRESSION: * Bilateral nephrolithiasis without hydronephrosis. * There is diastases of rectus abdominis muscles of up to 4 cm. Prior placement of mesh at the midline abdominal wall. Although there is anterior bulging of the mesh between rectus abdominis muscles, the omental fat remains deep to the mesh, and there is no herniation of bowel or fat around the periphery of the mesh. Face CT 10/18/23 18:18 IMPRESSION: 1. Periapical abscesses adjacent to the left maxillary first premolar and first molar as well as the left mandibular first and second premolars. Adjacent inflammatory change and probable early phlegmonous change without a discrete abscess. 2. Mild right temporomandibular joint osteoarthritis. Medications Medications Current Medications Acetaminophen (Acetaminophen 325 Mg Tablet) 325 mg PO Q4H PRN PRN Reason: Mild Pain (Scale Score 1-4) Last Admin: 10/21/23 08:56 Dose: 325 mg Al Hydroxide/Mg Hydroxide (Magnesium Hydrox/Alum Hydrox 30 Ml Oral.Susp) 30 ml PO Q6H PRN PRN Reason: Heartburn/Nausea Magnesium Hydroxide (Milk Of Magnesia 30 Ml Oral.Susp) 30 ml PO DAILY PRN PRN Reason: Constipation Olanzapine (Olanzapine 10 Mg Vial) 15 mg IM BEDTIME PRN PRN Reason: refusal of PO Olanzapine (Olanzapine Odt 10 Mg Tab.Rapdis) 10 mg TRANSLINGU DAILY@1700 BRI Last Admin: 11/09/23 16:53 Dose: 10 mg Trazodone HCl (Trazodone Hcl 50 Mg Tablet) 50 mg PO BEDTIME MRX1 PRN PRN Reason: Insomnia Allergies Allergies Allergy/AdvReac Type Severity Reaction Status Date / Time lactose AdvReac Intermediate Unknown Verified 08/21/23 20:52 Penicillins AdvReac Intermediate Unknown Verified 08/21/23 20:52 Assessment & Plan Assessment & Plan (1) Schizophrenia: Status: Acute Code(s): F20.9 - Schizophrenia, unspecified (2) Abdominal wall hernia: Status: Acute Code(s): K43.9 - Ventral hernia without obstruction or gangrene Plan 63-year-old male patient with an apparent prior abdominal wall hernia repair, reported by his sister to have a collapsed hernia mesh. I am able to confirm the presence of a hernia. If the patient is symptomatic from this hernia, a CT abdomen and pelvis could be requested to evaluate further. Psychiatry The patient is a 63-year-old male with pervasive developmental disorder, schizophrenia and other medical comorbidities admitted for noncompliance. The patient had been in the hospital several times in the last 6 months due to disorganized behavior and noncompliance with no insight into his condition. 09/13 staff reports patient doing better now that he is on Zyprexa; continue current treatment plan 09/14 said zyprexa makes his head spin but staff reports he seems to be tolerating med well and clinically, is demonstrating significant improvement, attending to ADL's, group, calm, more pleasant; otherwise, refuses other meds and no insight Plan 1. We have a Section 7 and 8 and at this moment the patient is committed to the hospital. 2. Continue with Zyprexa Zydis 10 mg p.o. q.h.s. as per court order. 3. We have filed for guardianship since the patient can not take care of himself. 4. Waiting for placement. Reason for continued inpatient stay Substantial Risk for: inability to function, rapid decompensation and med/psych decompensation Time Spent With Patient Time: Total time managing care of this patient today __20__ minutes.
[2023-11-10] MEDS: OLANZapine ODT 10 MG TAB.RAPDIS TRANSLINGU (16:35)
[2023-11-10 20:00] VITALS: BP 92/52; PULSE 71; RESP 15; TEMP 36.3; O2SAT 98
[2023-11-11 06:24] VITALS: BP 120/71; PULSE 88; RESP 16; TEMP 36.5; O2SAT 96
[2023-11-11 08:10] VITALS: BP 94/53; PULSE 85; RESP 16; TEMP 36.2; O2SAT 100
--- NOTE | 2023-11-11 14:48 | P.PNPSI_ITS ---
Subjective Subjective Date of Service: 11/11/23 Reason For Visit: Psychosis Interim History: The nursing staff reported the patient had been compliant with treatment no changes in his mental status. The social service assistant reported that unfortunately he could not have financial clearance he can not be discharged tomorrow. DDS needs to assess him. On interview the patient denies new symptoms still perseverative unable to process information. Mental Status Exam Mental Status Exam Patient Appearance: Appropriate Patient Orientation: Person and Situation Level of Consciousness: Awake Patient Behavior: Passive and Suspicious Mood Description: Withdrawn Affect Description: Constricted Patient Cognition Impaired: Yes Ability to Follow Directions: Good Speech Pattern: Clear Hallucinations: None Delusions: Ideas of Reference Thought Process: Distracted and Slowed Thinking Thought Content: positive for [place] and positive for Poverty of Content Judgement: Fair Diagnostics Vital Signs (24Hr): Vital Signs - 24 hr 11/10/23 20:00 11/11/23 06:24 11/11/23 08:10 Temperature 97.4 F 97.7 F 97.2 F Pulse Rate 71 88 85 Respiratory Rate 15 16 16 Blood Pressure 92/52 L 120/71 94/53 L Pulse Oximetry 98 96 100 Oxygen Delivery Method Room Air Room Air Room Air BMI result Body Mass Index 19.7 Labs 10/20/23 13:26 10/20/23 13:26 Imaging Radiology Impressions: ITS Impressions Abdomen CT 10/18/23 14:30 IMPRESSION: * Bilateral nephrolithiasis without hydronephrosis. * There is diastases of rectus abdominis muscles of up to 4 cm. Prior placement of mesh at the midline abdominal wall. Although there is anterior bulging of the mesh between rectus abdominis muscles, the omental fat remains deep to the mesh, and there is no herniation of bowel or fat around the periphery of the mesh. Face CT 10/18/23 18:18 IMPRESSION: 1. Periapical abscesses adjacent to the left maxillary first premolar and first molar as well as the left mandibular first and second premolars. Adjacent inflammatory change and probable early phlegmonous change without a discrete abscess. 2. Mild right temporomandibular joint osteoarthritis. Medications Medications Current Medications Acetaminophen (Acetaminophen 325 Mg Tablet) 325 mg PO Q4H PRN PRN Reason: Mild Pain (Scale Score 1-4) Last Admin: 10/21/23 08:56 Dose: 325 mg Al Hydroxide/Mg Hydroxide (Magnesium Hydrox/Alum Hydrox 30 Ml Oral.Susp) 30 ml PO Q6H PRN PRN Reason: Heartburn/Nausea Magnesium Hydroxide (Milk Of Magnesia 30 Ml Oral.Susp) 30 ml PO DAILY PRN PRN Reason: Constipation Olanzapine (Olanzapine 10 Mg Vial) 15 mg IM BEDTIME PRN PRN Reason: refusal of PO Olanzapine (Olanzapine Odt 10 Mg Tab.Rapdis) 10 mg TRANSLINGU DAILY@1700 BRI Last Admin: 11/10/23 16:35 Dose: 10 mg Trazodone HCl (Trazodone Hcl 50 Mg Tablet) 50 mg PO BEDTIME MRX1 PRN PRN Reason: Insomnia Allergies Allergies Allergy/AdvReac Type Severity Reaction Status Date / Time lactose AdvReac Intermediate Unknown Verified 08/21/23 20:52 Penicillins AdvReac Intermediate Unknown Verified 08/21/23 20:52 Assessment & Plan Assessment & Plan (1) Schizophrenia: Status: Acute Code(s): F20.9 - Schizophrenia, unspecified (2) Abdominal wall hernia: Status: Acute Code(s): K43.9 - Ventral hernia without obstruction or gangrene Plan 63-year-old male patient with an apparent prior abdominal wall hernia repair, reported by his sister to have a collapsed hernia mesh. I am able to confirm the presence of a hernia. If the patient is symptomatic from this hernia, a CT abdomen and pelvis could be requested to evaluate further. Psychiatry The patient is a 63-year-old male with pervasive developmental disorder, schizophrenia and other medical comorbidities admitted for noncompliance. The patient had been in the hospital several times in the last 6 months due to disorganized behavior and noncompliance with no insight into his condition. 09/13 staff reports patient doing better now that he is on Zyprexa; continue current treatment plan 09/14 said zyprexa makes his head spin but staff reports he seems to be tolerating med well and clinically, is demonstrating significant improvement, attending to ADL's, group, calm, more pleasant; otherwise, refuses other meds and no insight Plan 1. We have a Section 7 and 8 and at this moment the patient is committed to the hospital. 2. Continue with Zyprexa Zydis 10 mg p.o. q.h.s. as per court order. 3. We have filed for guardianship since the patient can not take care of himself. 4. Waiting for placement. Reason for continued inpatient stay Substantial Risk for: inability to function, rapid decompensation and med/psych decompensation Time Spent With Patient Time: Total time managing care of this patient today __20__ minutes.
[2023-11-11] MEDS: OLANZapine ODT 10 MG TAB.RAPDIS TRANSLINGU (16:50)
[2023-11-11 20:00] VITALS: BP 110/66; PULSE 60; RESP 18; TEMP 36.6; O2SAT 99
--- NOTE | 2023-11-12 16:35 | HO.PSYCHPN ---
Subjective Subjective Date of Service: 11/12/23 Reason For Visit: Psychosis Subjective Notes: Section 7 and Section 8 Interim History: The nursing staff reported no changes in his mental status, waiting for placement. As usual, he was asking to go back to his apartment even though that he has already lost the place. Mental Status Exam Mental Status Exam Patient Appearance: Appropriate Patient Orientation: Person and Situation Level of Consciousness: Awake and Appropriate Patient Behavior: Guarded and Passive Mood Description: Withdrawn Affect Description: Constricted Patient Cognition Impaired: Yes Ability to Follow Directions: Good Speech Pattern: Clear Hallucinations: None Delusions: Not Present Thought Process: Distracted and Slowed Thinking Thought Content: positive for [place] and positive for Poverty of Content Judgement: Fair Diagnostics Vital Signs (24Hr): Vital Signs - 24 hr 11/11/23 20:00 Temperature 98 F Pulse Rate 60 Respiratory Rate 18 Blood Pressure 110/66 Pulse Oximetry 99 Oxygen Delivery Method Room Air BMI result Body Mass Index 19.7 Labs 10/20/23 13:26 10/20/23 13:26 Imaging Radiology Impressions: ITS Impressions Abdomen CT 10/18/23 14:30 IMPRESSION: * Bilateral nephrolithiasis without hydronephrosis. * There is diastases of rectus abdominis muscles of up to 4 cm. Prior placement of mesh at the midline abdominal wall. Although there is anterior bulging of the mesh between rectus abdominis muscles, the omental fat remains deep to the mesh, and there is no herniation of bowel or fat around the periphery of the mesh. Face CT 10/18/23 18:18 IMPRESSION: 1. Periapical abscesses adjacent to the left maxillary first premolar and first molar as well as the left mandibular first and second premolars. Adjacent inflammatory change and probable early phlegmonous change without a discrete abscess. 2. Mild right temporomandibular joint osteoarthritis. Medications Medications Current Medications Acetaminophen (Acetaminophen 325 Mg Tablet) 325 mg PO Q4H PRN PRN Reason: Mild Pain (Scale Score 1-4) Last Admin: 10/21/23 08:56 Dose: 325 mg Al Hydroxide/Mg Hydroxide (Magnesium Hydrox/Alum Hydrox 30 Ml Oral.Susp) 30 ml PO Q6H PRN PRN Reason: Heartburn/Nausea Magnesium Hydroxide (Milk Of Magnesia 30 Ml Oral.Susp) 30 ml PO DAILY PRN PRN Reason: Constipation Olanzapine (Olanzapine 10 Mg Vial) 15 mg IM BEDTIME PRN PRN Reason: refusal of PO Olanzapine (Olanzapine Odt 10 Mg Tab.Rapdis) 10 mg TRANSLINGU DAILY@1700 BRI Last Admin: 11/11/23 16:50 Dose: 10 mg Trazodone HCl (Trazodone Hcl 50 Mg Tablet) 50 mg PO BEDTIME MRX1 PRN PRN Reason: Insomnia Allergies Allergies Allergy/AdvReac Type Severity Reaction Status Date / Time lactose AdvReac Intermediate Unknown Verified 08/21/23 20:52 Penicillins AdvReac Intermediate Unknown Verified 08/21/23 20:52 Assessment & Plan Assessment & Plan (1) Schizophrenia: Status: Acute Code(s): F20.9 - Schizophrenia, unspecified (2) Abdominal wall hernia: Status: Acute Code(s): K43.9 - Ventral hernia without obstruction or gangrene Plan 63-year-old male patient with an apparent prior abdominal wall hernia repair, reported by his sister to have a collapsed hernia mesh. I am able to confirm the presence of a hernia. If the patient is symptomatic from this hernia, a CT abdomen and pelvis could be requested to evaluate further. Psychiatry The patient is a 63-year-old male with pervasive developmental disorder, schizophrenia and other medical comorbidities admitted for noncompliance. The patient had been in the hospital several times in the last 6 months due to disorganized behavior and noncompliance with no insight into his condition. 09/13 staff reports patient doing better now that he is on Zyprexa; continue current treatment plan 09/14 said zyprexa makes his head spin but staff reports he seems to be tolerating med well and clinically, is demonstrating significant improvement, attending to ADL's, group, calm, more pleasant; otherwise, refuses other meds and no insight Plan 1. We have a Section 7 and 8 and at this moment the patient is committed to the hospital. 2. Continue with Zyprexa Zydis 10 mg p.o. q.h.s. as per court order. 3. We have filed for guardianship since the patient can not take care of himself. 4. Waiting for placement. Reason for continued inpatient stay Substantial Risk for: inability to function, rapid decompensation and med/psych decompensation Time Spent With Patient Time: Total time managing care of this patient today __20__ minutes.
[2023-11-12] MEDS: OLANZapine ODT 10 MG TAB.RAPDIS TRANSLINGU (17:12)
[2023-11-12 20:00] VITALS: BP 100/60; PULSE 68; RESP 18; TEMP 36.6; O2SAT 99
[2023-11-13 07:55] VITALS: BP 112/60; PULSE 71; RESP 18; TEMP 36.6; O2SAT 99
--- NOTE | 2023-11-13 15:18 | HO.PSYCHPN ---
Subjective Subjective Date of Service: 11/13/23 Reason For Visit: Psychosis Subjective Notes: Conditional Voluntary Interim History: The nursing staff reported no changes in his mental status. The web content & social media manager reported that DDS or restrain him out and probably he will be discharged soon to a [facility]. On interview the patient denies new symptoms still perseverative. Mental Status Exam Mental Status Exam Patient Appearance: Appropriate Patient Orientation: Person and Situation Level of Consciousness: Awake and Appropriate Patient Behavior: Guarded and Passive Mood Description: Withdrawn Affect Description: Constricted Patient Cognition Impaired: Yes Ability to Follow Directions: Good Speech Pattern: Clear Hallucinations: None Delusions: Not Present Thought Process: Distracted Thought Content: positive for [place] and positive for Poverty of Content Judgement: Poor Diagnostics Vital Signs (24Hr): Vital Signs - 24 hr 11/12/23 20:00 11/13/23 07:55 Temperature 97.8 F 97.9 F Pulse Rate 68 71 Respiratory Rate 18 18 Blood Pressure 100/60 112/60 Pulse Oximetry 99 99 Oxygen Delivery Method Room Air Room Air BMI result Body Mass Index 19.7 Labs 10/20/23 13:26 10/20/23 13:26 Imaging Radiology Impressions: ITS Impressions Abdomen CT 10/18/23 14:30 IMPRESSION: * Bilateral nephrolithiasis without hydronephrosis. * There is diastases of rectus abdominis muscles of up to 4 cm. Prior placement of mesh at the midline abdominal wall. Although there is anterior bulging of the mesh between rectus abdominis muscles, the omental fat remains deep to the mesh, and there is no herniation of bowel or fat around the periphery of the mesh. Face CT 10/18/23 18:18 IMPRESSION: 1. Periapical abscesses adjacent to the left maxillary first premolar and first molar as well as the left mandibular first and second premolars. Adjacent inflammatory change and probable early phlegmonous change without a discrete abscess. 2. Mild right temporomandibular joint osteoarthritis. Medications Medications Current Medications Acetaminophen (Acetaminophen 325 Mg Tablet) 325 mg PO Q4H PRN PRN Reason: Mild Pain (Scale Score 1-4) Last Admin: 10/21/23 08:56 Dose: 325 mg Al Hydroxide/Mg Hydroxide (Magnesium Hydrox/Alum Hydrox 30 Ml Oral.Susp) 30 ml PO Q6H PRN PRN Reason: Heartburn/Nausea Magnesium Hydroxide (Milk Of Magnesia 30 Ml Oral.Susp) 30 ml PO DAILY PRN PRN Reason: Constipation Olanzapine (Olanzapine 10 Mg Vial) 15 mg IM BEDTIME PRN PRN Reason: refusal of PO Olanzapine (Olanzapine Odt 10 Mg Tab.Rapdis) 10 mg TRANSLINGU DAILY@1700 BRI Last Admin: 11/12/23 17:12 Dose: 10 mg Trazodone HCl (Trazodone Hcl 50 Mg Tablet) 50 mg PO BEDTIME MRX1 PRN PRN Reason: Insomnia Allergies Allergies Allergy/AdvReac Type Severity Reaction Status Date / Time lactose AdvReac Intermediate Unknown Verified 08/21/23 20:52 Penicillins AdvReac Intermediate Unknown Verified 08/21/23 20:52 Assessment & Plan Assessment & Plan (1) Schizophrenia: Status: Acute Code(s): F20.9 - Schizophrenia, unspecified (2) Abdominal wall hernia: Status: Acute Code(s): K43.9 - Ventral hernia without obstruction or gangrene Plan 63-year-old male patient with an apparent prior abdominal wall hernia repair, reported by his sister to have a collapsed hernia mesh. I am able to confirm the presence of a hernia. If the patient is symptomatic from this hernia, a CT abdomen and pelvis could be requested to evaluate further. Psychiatry The patient is a 63-year-old male with pervasive developmental disorder, schizophrenia and other medical comorbidities admitted for noncompliance. The patient had been in the hospital several times in the last 6 months due to disorganized behavior and noncompliance with no insight into his condition. 09/13 staff reports patient doing better now that he is on Zyprexa; continue current treatment plan 09/14 said zyprexa makes his head spin but staff reports he seems to be tolerating med well and clinically, is demonstrating significant improvement, attending to ADL's, group, calm, more pleasant; otherwise, refuses other meds and no insight Plan 1. We have a Section 7 and 8 and at this moment the patient is committed to the hospital. 2. Continue with Zyprexa Zydis 10 mg p.o. q.h.s. as per court order. 3. We have filed for guardianship since the patient can not take care of himself. 4. Waiting for placement. Reason for continued inpatient stay Substantial Risk for: inability to function, rapid decompensation and med/psych decompensation Time Spent With Patient Time: Total time managing care of this patient today __20__ minutes.
[2023-11-13] MEDS: OLANZapine ODT 10 MG TAB.RAPDIS TRANSLINGU (16:59)
[2023-11-13 19:38] VITALS: BP 113/54; PULSE 72; RESP 16; TEMP 36.6; O2SAT 97
[2023-11-14 07:00] VITALS: BMI 19.4
[2023-11-14 09:26] VITALS: BP 101/59; PULSE 70; RESP 16; TEMP 36.6; O2SAT 100
--- NOTE | 2023-11-14 12:45 | HO.PSYCHPN ---
Subjective Subjective Date of Service: 11/14/23 Reason For Visit: Psychosis Subjective Notes: Conditional Voluntary Interim History: The nursing staff reported no changes in his mental status he will be discharged tomorrow to facility. On interview the patient is perseverative stating to go back to his old apartment. Mental Status Exam Mental Status Exam Patient Appearance: Appropriate and Unkempt Patient Orientation: Person and Situation Level of Consciousness: Awake and Appropriate Patient Behavior: Guarded and Passive Mood Description: Withdrawn Affect Description: Constricted Patient Cognition Impaired: Yes Ability to Follow Directions: Good Speech Pattern: Clear Hallucinations: None Delusions: Not Present Thought Process: Distracted and Slowed Thinking Thought Content: positive for [place] and positive for Poverty of Content Judgement: Poor Diagnostics Vital Signs (24Hr): Vital Signs - 24 hr 11/13/23 19:38 11/14/23 09:26 Temperature 97.9 F 97.9 F Pulse Rate 72 70 Respiratory Rate 16 16 Blood Pressure 113/54 L 101/59 L Pulse Oximetry 97 100 Oxygen Delivery Method Room Air Room Air BMI result Body Mass Index 19.7 Labs 10/20/23 13:26 10/20/23 13:26 Imaging Radiology Impressions: ITS Impressions Abdomen CT 10/18/23 14:30 IMPRESSION: * Bilateral nephrolithiasis without hydronephrosis. * There is diastases of rectus abdominis muscles of up to 4 cm. Prior placement of mesh at the midline abdominal wall. Although there is anterior bulging of the mesh between rectus abdominis muscles, the omental fat remains deep to the mesh, and there is no herniation of bowel or fat around the periphery of the mesh. Face CT 10/18/23 18:18 IMPRESSION: 1. Periapical abscesses adjacent to the left maxillary first premolar and first molar as well as the left mandibular first and second premolars. Adjacent inflammatory change and probable early phlegmonous change without a discrete abscess. 2. Mild right temporomandibular joint osteoarthritis. Medications Medications Current Medications Acetaminophen (Acetaminophen 325 Mg Tablet) 325 mg PO Q4H PRN PRN Reason: Mild Pain (Scale Score 1-4) Last Admin: 10/21/23 08:56 Dose: 325 mg Al Hydroxide/Mg Hydroxide (Magnesium Hydrox/Alum Hydrox 30 Ml Oral.Susp) 30 ml PO Q6H PRN PRN Reason: Heartburn/Nausea Magnesium Hydroxide (Milk Of Magnesia 30 Ml Oral.Susp) 30 ml PO DAILY PRN PRN Reason: Constipation Olanzapine (Olanzapine 10 Mg Vial) 15 mg IM BEDTIME PRN PRN Reason: refusal of PO Olanzapine (Olanzapine Odt 10 Mg Tab.Rapdis) 10 mg TRANSLINGU DAILY@1700 BRI Last Admin: 11/13/23 16:59 Dose: 10 mg Trazodone HCl (Trazodone Hcl 50 Mg Tablet) 50 mg PO BEDTIME MRX1 PRN PRN Reason: Insomnia Allergies Allergies Allergy/AdvReac Type Severity Reaction Status Date / Time lactose AdvReac Intermediate Unknown Verified 08/21/23 20:52 Penicillins AdvReac Intermediate Unknown Verified 08/21/23 20:52 Assessment & Plan Assessment & Plan (1) Schizophrenia: Status: Acute Code(s): F20.9 - Schizophrenia, unspecified (2) Abdominal wall hernia: Status: Acute Code(s): K43.9 - Ventral hernia without obstruction or gangrene Plan 63-year-old male patient with an apparent prior abdominal wall hernia repair, reported by his sister to have a collapsed hernia mesh. I am able to confirm the presence of a hernia. If the patient is symptomatic from this hernia, a CT abdomen and pelvis could be requested to evaluate further. Psychiatry The patient is a 63-year-old male with pervasive developmental disorder, schizophrenia and other medical comorbidities admitted for noncompliance. The patient had been in the hospital several times in the last 6 months due to disorganized behavior and noncompliance with no insight into his condition. 09/13 staff reports patient doing better now that he is on Zyprexa; continue current treatment plan 09/14 said zyprexa makes his head spin but staff reports he seems to be tolerating med well and clinically, is demonstrating significant improvement, attending to ADL's, group, calm, more pleasant; otherwise, refuses other meds and no insight Plan 1. We have a Section 7 and 8 and at this moment the patient is committed to the hospital. 2. Continue with Zyprexa Zydis 10 mg p.o. q.h.s. as per court order. 3. We have filed for guardianship since the patient can not take care of himself. 4. Waiting for placement. Discharge tomorrow Reason for continued inpatient stay Substantial Risk for: inability to function, rapid decompensation and med/psych decompensation Time Spent With Patient Time: Total time managing care of this patient today __20__ minutes.
--- NOTE | 2023-11-14 14:19 | P.DS_ITS ---
DS: Providers Provider Date of Service: 11/14/23 Date of admission: 08/22/23 17:09 Date of discharge: 11/15/23 Primary care physician: Unknown Physician Consults: 09/11/23 09:36 Consult to General Surgery Routine Consulting Provider: [facility] Reason for consultation: Hx of abd hernia, mesh colapsed? 10/18/23 19:49 Consult to General Surgery Routine Consulting Provider: [facility] Reason for consultation: Periapical abscesses x4 DS: Diagnosis Discharge Diagnosis (1) Schizophrenia: Status: Acute (2) Abdominal wall hernia: Status: Acute DS: Medications Discharge Medications Home Medications: Home Medications ?Medication ?Instructions ?Recorded ?Confirmed hydroxyzine pamoate 50 mg capsule 100 mg PO BID 08/21/23 08/21/23 olanzapine 15 mg tablet 15 mg PO BEDTIME 08/21/23 08/21/23 Previous Rx's ?Medication ?Instructions ?Recorded acetaminophen 325 mg capsule 325 mg PO Q4H PRN Mild Pain (Scale 02/19/23 Score 1-4) 30 days #60 caps cholecalciferol (vitamin D3) 25 25 mcg PO DAILY 30 days #30 tabs 02/19/23 mcg (1,000 unit) tablet simvastatin 20 mg tablet 20 mg PO BEDTIME 30 days #30 tabs 02/19/23 Mental Status Exam Mental Status Exam Patient Appearance: Well Grooomed and Appropriate Patient Orientation: Person and Situation Level of Consciousness: Awake and Appropriate Patient Behavior: Guarded and Passive Mood Description: Withdrawn Affect Description: Constricted Patient Cognition Impaired: Yes Ability to Follow Directions: Good Speech Pattern: Clear Hallucinations: None Delusions: Paranoid Ideation and Ideas of Reference Thought Process: Distracted and Slowed Thinking Thought Content: positive for [place] and positive for Poverty of Content Judgement: Fair Data Imaging Diagnostic Imaging Impressions Abdomen CT 10/18/23 14:30 IMPRESSION: * Bilateral nephrolithiasis without hydronephrosis. * There is diastases of rectus abdominis muscles of up to 4 cm. Prior placement of mesh at the midline abdominal wall. Although there is anterior bulging of the mesh between rectus abdominis muscles, the omental fat remains deep to the mesh, and there is no herniation of bowel or fat around the periphery of the mesh. Face CT 10/18/23 18:18 IMPRESSION: 1. Periapical abscesses adjacent to the left maxillary first premolar and first molar as well as the left mandibular first and second premolars. Adjacent inflammatory change and probable early phlegmonous change without a discrete abscess. 2. Mild right temporomandibular joint osteoarthritis. DS: Summary Hospital Course Hospital Course: The patient is a 63-year-old male, single, with no children, with a past history of developmental disorders and psychotic symptoms who was readmitted to this facility after being disorganized. Please see the HPI of the admission note for further details. On admission, the patient refused to take any antipsychotics her medications stating that he wants to go back to his apartment. The patient has already lost his apartment and in the last months he had been on several psychiatric inpatient units due to disorganized behavior. The patient was under the care of he is parents until they and eventually he have a trust fund that it was exhausted. It was clear that the patient had been unable to be independent all his life. We had to filed for Section 7 and 8 since the patient did not not want to have treatment and he was unable to take care of himself. We eventually got a court order for treatment and he was started on Zyprexa. The patient had been perseverative stating that he needs to go back to his apartment, he was unable to process that he does not have an apartment anymore and he is technically homeless. We need to go to court for guardianship and eventually it was granted. He was transferred to a half-way facility since he was unable to take care of himself. At the moment of the discharge the patient adamantly denies hallucinations or delusions ready to be treated in the community. Time spent discussing smoking cessation with patient: 3 to 10 minutes Status at Discharge Cognitive/behavioral status at discharge: Impaired at baseline Functional status at discharge: independent ambulation Overall status at discharge: patient is back to baseline Time Spent with Patient Time attestation: Total time managing care of this patient today __30__ minutes. Time spent: Less than 30 minutes Discharge Plan Discharge Anticipated Discharge Date/Time: 11/15/23 11:00 Patient Disposition: Xfer SNF Discharge Diagnosis: Schizophrenia Cognitive impairment Discharge Medications: New olanzapine [Zyprexa] 10 mg tablet 10 mg PO BEDTIME Qty: 30 0RF Discontinued simvastatin 20 mg Tablet 20 mg PO BEDTIME 30 Days Qty: 30 0RF acetaminophen 325 mg Capsule 325 mg PO Q4H PRN (Reason: Mild Pain (Scale Score 1-4)) 30 Days Qty: 60 0RF cholecalciferol (vitamin D3) 25 mcg (1,000 unit) Tablet 25 mcg PO DAILY 30 Days Qty: 30 0RF hydroxyzine pamoate 50 mg capsule 100 mg PO BID olanzapine 15 mg tablet 15 mg PO BEDTIME Discharge Orders: Discharge Order (Routine); Ordered 11/15/23 Ordered By: Foreign [place] Diet: Advance to usual diet Activity on Discharge: As tolerated Stand Alone Forms: Patient Portal Discharge page Print Language: [place] Care Plan Goals: Care plan goals achieved in this admission Health Concerns: Continue treatment with outpatient providers Plan of Treatment: Continue treatment with outpatient providers Assessment: Middle-aged male with a past history of developmental disorders and schizophrenia who was been in several psychiatric admissions in the last months due to inability to take care of himself. We needed to go to sections 7 and 8 and and later apply for guardianship to be transferred to a half-way facility this moment at baseline ready to be discharged. No safety concerns at this moment
[2023-11-14] MEDS: OLANZapine ODT 10 MG TAB.RAPDIS TRANSLINGU (17:10)
[2023-11-14 20:00] VITALS: BP 108/57; PULSE 72; RESP 16; TEMP 36.6; O2SAT 98
[2023-11-15 08:00] VITALS: BP 97/60; PULSE 76; RESP 18; TEMP 36.6; O2SAT 100
--- NOTE | 2023-11-15 08:35 | HO.PSYCHPN ---
Subjective Subjective Date of Service: 11/15/23 Reason For Visit: Psychosis Subjective Notes: Section 8 Interim History: Pt slept most of the night.He is visible on the unit, social with select peers. He reports he is leaving, which is not the case. awaiting placement. Some somatic delusions noted but also does not think medical information provided to him is accurate. No behavioral concerns. Review of Systems Review of Systems dental pain Yes all other systems are reviewed and are negative, Unobtainable due to mental condition and Unobtainable due to mental status Mental Status Exam Mental Status Exam Narrative: odd manerisms Patient Appearance: Well Grooomed and Appropriate Patient Orientation: Person and Situation Level of Consciousness: Awake and Appropriate Patient Behavior: Guarded and Passive Mood Description: Withdrawn Affect Description: Constricted Patient Cognition Impaired: Yes Ability to Follow Directions: Good Speech Pattern: Clear Diagnostics Vital Signs (24Hr): Vital Signs - 24 hr 11/14/23 09:26 11/14/23 20:00 11/15/23 08:00 Temperature 97.9 F 97.8 F 97.9 F Pulse Rate 70 72 76 Respiratory Rate 16 16 18 Blood Pressure 101/59 L 108/57 L 97/60 Pulse Oximetry 100 98 100 Oxygen Delivery Method Room Air Room Air Room Air BMI result Body Mass Index 19.4 Labs 10/20/23 13:26 10/20/23 13:26 Imaging Radiology Impressions: ITS Impressions Abdomen CT 10/18/23 14:30 IMPRESSION: * Bilateral nephrolithiasis without hydronephrosis. * There is diastases of rectus abdominis muscles of up to 4 cm. Prior placement of mesh at the midline abdominal wall. Although there is anterior bulging of the mesh between rectus abdominis muscles, the omental fat remains deep to the mesh, and there is no herniation of bowel or fat around the periphery of the mesh. Face CT 10/18/23 18:18 IMPRESSION: 1. Periapical abscesses adjacent to the left maxillary first premolar and first molar as well as the left mandibular first and second premolars. Adjacent inflammatory change and probable early phlegmonous change without a discrete abscess. 2. Mild right temporomandibular joint osteoarthritis. Medications Medications Current Medications Acetaminophen (Acetaminophen 325 Mg Tablet) 325 mg PO Q4H PRN PRN Reason: Mild Pain (Scale Score 1-4) Last Admin: 10/21/23 08:56 Dose: 325 mg Al Hydroxide/Mg Hydroxide (Magnesium Hydrox/Alum Hydrox 30 Ml Oral.Susp) 30 ml PO Q6H PRN PRN Reason: Heartburn/Nausea Magnesium Hydroxide (Milk Of Magnesia 30 Ml Oral.Susp) 30 ml PO DAILY PRN PRN Reason: Constipation Olanzapine (Olanzapine 10 Mg Vial) 15 mg IM BEDTIME PRN PRN Reason: refusal of PO Olanzapine (Olanzapine Odt 10 Mg Tab.Rapdis) 10 mg TRANSLINGU DAILY@1700 BRI Last Admin: 11/14/23 17:10 Dose: 10 mg Trazodone HCl (Trazodone Hcl 50 Mg Tablet) 50 mg PO BEDTIME MRX1 PRN PRN Reason: Insomnia Allergies Allergies Allergy/AdvReac Type Severity Reaction Status Date / Time lactose AdvReac Intermediate Unknown Verified 08/21/23 20:52 Penicillins AdvReac Intermediate Unknown Verified 08/21/23 20:52 Assessment & Plan Assessment & Plan (1) Schizophrenia: Status: Acute Code(s): F20.9 - Schizophrenia, unspecified (2) Abdominal wall hernia: Status: Acute Code(s): K43.9 - Ventral hernia without obstruction or gangrene Plan 63-year-old male patient with an apparent prior abdominal wall hernia repair, reported by his sister to have a collapsed hernia mesh. I am able to confirm the presence of a hernia. If the patient is symptomatic from this hernia, a CT abdomen and pelvis could be requested to evaluate further. Psychiatry The patient is a 63-year-old male with pervasive developmental disorder, schizophrenia and other medical comorbidities admitted for noncompliance. The patient had been in the hospital several times in the last 6 months due to disorganized behavior and noncompliance with no insight into his condition. 09/13 staff reports patient doing better now that he is on Zyprexa; continue current treatment plan 09/14 said zyprexa makes his head spin but staff reports he seems to be tolerating med well and clinically, is demonstrating significant improvement, attending to ADL's, group, calm, more pleasant; otherwise, refuses other meds and no insight Plan 11/14 continue tx. Reason for continued inpatient stay Substantial Risk for: inability to function Time Spent With Patient Time: Total time managing care of this patient today ____ minutes.
--- NOTE | 2023-11-15 12:36 | PC.NURSE ---
Pt. A & O X 3. Poor insight and delusional about situation. Believes he is going home despite being told he is transferring to a nursing facility. Refusing to be discharged and called sister on pt. phone and tries to insist that we speak with her because she told him that he shouldn't leave. Pt. educated that he has a legal guardian with authority to admit him to a group home and that his sister did not have legal authority. Pt. had to be physically assisted onto stretcher by staff and security as he resisted. He calmed once secured with seatbelts. Discharge instructions and medical records handed off to EMS to hand off to nursing facility. Pt. left unit at 11:58 via stretcher accompanied by 2 EMS and this RN. Pt. signed to accept wallet, money and keys at security.
== END 2023-11-15 11:58 | disposition skilled nursing facility (03) | DRG 885 ==
LOC: HO.ED 23:31 → HO.PGERI 08-22 17:11
PROVIDERS: Emergency Medicine Emergency Medical Services; Internal Medicine; Admitting Provider Psychiatry & Neurology Psychiatry; Emergency Provider Internal Medicine; Visit Provider Psychiatry & Neurology Psychiatry
DX: F20.9 Schizophrenia, unspecified (principal); Z59.01 Sheltered homelessness; E78.5 Hyperlipidemia, unspecified; K04.7 Periapical abscess without sinus; G31.84 Mild cognitive impairment of uncertain or unknown etiology; K43.9 Ventral hernia without obstruction or gangrene; Z91.148 Patient's other noncompliance with medication regimen for other reason; F03.90 Unspecified dementia, unspecified severity, without behavioral disturbance, psychotic disturbance, mood disturbance, and anxiety; Z75.1 Person awaiting admission to adequate facility elsewhere; Z79.899 Other long term (current) drug therapy
CPT/HCPCS: 36415; 70486; 74150; 80048; 80053; 80307; 81003; 85025; 93005; 99285; S9485

== ENCOUNTER → 2023-08-22 09:17 | Outpatient (BNV) | payer MEDICARE, MEDICAID, SELFPAY | PROVIDERS: Emergency Provider Internal Medicine; Visit Provider Internal Medicine Cardiovascular Disease | DX: I45.81 Long QT syndrome (principal) | CPT/HCPCS: 93010 ==

== ENCOUNTER → 2023-08-22 17:09 | Outpatient (BNV) | payer MEDICARE, MEDICAID, SELFPAY | PROVIDERS: Admitting Provider Psychiatry & Neurology Psychiatry; Emergency Provider Internal Medicine; Visit Provider Psychiatry & Neurology Psychiatry | DX: F20.1 Disorganized schizophrenia (principal); K43.9 Ventral hernia without obstruction or gangrene | CPT/HCPCS: 90792; 99231; 99232; 99238; 99499 ==

== ENCOUNTER → 2023-08-22 17:09 | Outpatient (BNV) | payer MEDICARE, MEDICAID, SELFPAY | PROVIDERS: Admitting Provider Psychiatry & Neurology Psychiatry; Emergency Provider Internal Medicine; Visit Provider Surgery | DX: K43.9 Ventral hernia without obstruction or gangrene (principal) | CPT/HCPCS: 99222 ==

== ENCOUNTER → 2023-08-22 17:09 | Outpatient (BNV) | payer MEDICARE, MEDICAID, SELFPAY | PROVIDERS: Admitting Provider Psychiatry & Neurology Psychiatry; Emergency Provider Internal Medicine; Visit Provider Psychiatry & Neurology Psychiatry | DX: F20.1 Disorganized schizophrenia (principal); K43.9 Ventral hernia without obstruction or gangrene | CPT/HCPCS: 99231 ==

== ENCOUNTER 2024-05-02 13:11 | Emergency (ER) | payer MEDICARE, MEDICAID, SELFPAY ==
[2024-05-02] VITALS (8 sets, daily range): BP systolic 99–142; BP diastolic 60–66; PULSE 56–109; RESP 16–28; TEMP 36.7; O2SAT 97–99; BMI 22.3; BMI 25.1
--- NOTE | 2024-05-02 13:30 | ECG_ITS ---
Test Reason : SI Blood Pressure : */* mmHG Vent. Rate : 49 BPM Atrial Rate : 49 BPM P-R Int : 178 ms QRS Dur : 80 ms QT Int : 438 ms P-R-T Axes : 52 59 70 degrees QTcB Int : 395 ms Sinus bradycardia Otherwise normal ECG When compared with ECG of 22-Aug-2023 09:17, No significant change was found Referred By: Bria Wilson Electronically Signed By: BECK KISER
[2024-05-02] MEDS: OLANZapine 10 MG VIAL IM (13:37)
--- NOTE | 2024-05-02 13:39 | ED.PSYCH ---
HPI - Psych General Chief Complaint: Psychiatric Symptoms Stated Complaint: SI PHYSICALLY RESTRAINED Time Seen by Provider: 05/02/24 13:25 Source: patient, EMS, old records reviewed and police Mode of arrival: EMS Limitations: other (Developmental disorder) History of Present Illness ED Provider: DR. Wilson HPI Narrative: 64-year-old male brought in by ambulance under section 12 by the police after he made a a suicidal statement of jumping in front of the traffic to kill himself, patient was section 12 by the police and brought to the hospital by EMS in the ED patient is agitated, belligerent, with erratic behavior patient wanted to leave before medical evaluation. Patient is not cooperative with the exam require security personnel to hold him down, patient also needed an injection of Zyprexa for agitation. Related Data Previous Rx's ?Medication ?Instructions ?Recorded olanzapine 10 mg tablet (Zyprexa) 10 mg PO BEDTIME #30 tabs 11/14/23 Allergies Allergy/AdvReac Type Severity Reaction Status Date / Time lactose AdvReac Intermediate Unknown Verified 05/02/24 13:33 Penicillins AdvReac Intermediate Unknown Verified 05/02/24 13:33 Review of Systems Review of Systems: Yes Unobtainable due to mental status (Acute psychosis) [facility] Past Medical History Medical History Hyperlipidemia Social History Social History Household Members: Other Household Members Other:: [place] [facility]. Housing: Correction Do you presently have visiting nurse or other home services: No Patient Tobacco Use Status: Never used Tobacco Smoked in Last 30 Days: No e-Cigarette/Vaping Use: Never Used Use of substances other than those prescribed or required for medical reasons: No Advance Directives: No Advance Directives Information Provided: No Do you have a plan to hurt others: No Plan service: No Sexual orientation: Straight/Heterosexual Physical Exam Vital Signs: Vital Signs: Last Vital Signs Temp 98.1 F 05/02/24 16:16 Pulse 63 05/02/24 16:16 Resp 16 05/02/24 16:16 BP 107/65 05/02/24 16:16 Pulse Ox 97 05/02/24 16:16 O2 Del Method Room Air 05/02/24 16:16 BMI result Body Mass Index 25.1 Vital signs have been reviewed and appear to be correct. Blood pressure elevated. Heart rate normal. Respiratory rate normal. Temperature normal. Oxygen saturation normal. Appearance: Disheveled, unkempt, Alert. Oriented X3. No acute distress. Head: Normal external exam. Normocephalic. Atraumatic. No Freeman signs noted. No raccoon eyes noted Eyes: PERRLA. EOMI. Conjunctiva and sclera normal. Eyelids normal. ENT: TM's Normal. Pharynx normal. Uvula midline. Moist mucous membranes. No trismus noted. No drooling noted. No muffled voice noted. Neck: Normal inspection. Neck supple. FROM. No adenopathy. Thyroid Normal. No meningeal signs. No neck mass noted. CVS: Normal heart rate and rhythm. Heart sound normal. No murmurs noted. Pulses normal throughout. Respiratory: No respiratory distress. Painless inspiration. Breath sounds normal. No wheezes/rales/rhonchi noted. Chest nontender. No accessory muscle usage noted or decreased air movement noted. Abdomen: Soft and nontender. Bowel sounds normal in all 4 quadrants. No distention noted. No organomegaly noted. No visible injury noted. Back: No CVA tenderness. Full range of motion noted. Skin: Skin warm and dry. Normal skin color. Normal skin turgor. No rashes/lesions/lacerations noted. Extremities: No lower extremity edema. Extremities exhibit normal range of motion. Extremities nontender. Neuro: Cranial nerve exam: II-XII are grossly intact No motor deficit. No sensory deficit. Reflexes normal. Patient Orientation: Person, Place, Time and Situation, disheveled, unkempt, poor eye contact, attentive, no tics or tremors. Level of Consciousness: Awake, Appropriate and Alert Patient Behavior: Appropriate, Guarded, Cooperative and Anxious Mood Description: Constricted, Blunted and Apprehensive Affect Description: Constricted, Blunted and Apprehensive Patient Cognition Impaired: No Ability to Follow Directions: No Speech Pattern: Clear, Appropriate and Spontaneous Speech, nonpressured, spontaneous with regular rate and rhythm, normal volume and prosody. No dysarthria. Memory Description: Intact, Immediate Intact and Short Term Intact Hallucinations: None Delusions: Not Present Thought Process: Intact Thought Content: positive for Intact, positive for Logical, denies Suicidal Ideation and denies Homicidal Ideation. Depressive Symptoms: Not present. Judgement and Insight: Limited but adequate. Course Reevaluation(s) Reevaluation #1: SI, agitation, under section 12 patient require Zyprexa to come down. Case signed out to Dr.Chanler Murphy for complete medical clearance. Time: 16:42 Medications Administered Discontinued Medications Generic Name Dose Route Start Last Admin Trade Name Freq PRN Reason Stop Dose Admin Olanzapine 10 mg 05/02/24 13:30 05/02/24 13:37 Olanzapine 10 Mg Vial IM 05/02/24 13:31 10 mg ONCE ONE Administration Medical Decision Making Differential Diagnosis Differential Diagnoses: The differential diagnosis associated with the presentation includes (Acute psychosis, SI, HI, electrolyte derangement, medical clearance.) Admission/Observation Consideration of admission/observation: Escalation of care including admission/observation considered Discharge Plan Discharge Clinical Impression: Suicidal ideation Patient Disposition: Still a Patient Prescriptions: No Action olanzapine [Zyprexa] 10 mg tablet 10 mg PO BEDTIME Qty: 30 0RF Interventions: Cataño-Suicide Risk Severity Scale Last Done: 05/02/24 16:17 Print Language: Lao
--- NOTE | 2024-05-02 13:40 | MHC.EDTECH ---
This tech was on break when patient arrive was informed by tech that patient was aggressive. medication was given and provider requested let patient rest and do workup when he is a wake nurse aware.
--- OUTSIDE RECORDS SUMMARY | 2024-05-02 13:58 | XMS_ITS | Data Portability ---
Author Organization [facility], Main Office Address [address] , [address] [place] [address] Care Team Providers Care Extermination Supervisor Name Role Phone [facility] ANJANAWARD JUNIORRICIA OTHER Assessment No assessment recorded. Plan of Treatment Reminders Order Date Submit Date Provider Last Modified By Organization Details Last Modified Time Details Appointments None record ed. Lab None record ed. Referral None record ed. Procedures None record ed. Surgeries None record ed. Imaging None record ed. Medication Orders None record ed. Patient TargetsNo targets recorded. Patient InstructionsNo instructions recorded. Reason for Referral None Reported. Problems Name Problem SNOMED Code Status Onset Date Resolution Date Notes Provider Name and Address Organization Details Recorded Time Hernia of anterior abdominal wall 590715639 Active 2021 MICHELLE Hoyos [address], [place], [address], [facility] [employer] [facility] 2 08:18:58 Cholecystitis 97196175 Active 2018 MICHELLE Hoyos [address], [address], [place], [address], [facility] [employer] [facility] 9 11:32:59 Seizure disorder 081508449 Active 2018 MICHELLE Hoyos [address], [address], [place], [address], [facility] [employer] [facility] 9 11:33:08 Dyslexia 98754376 Active 2018 MICHELLE Hoyos [address], [address], [place], [address], [facility] [employer] [facility] 9 11:35:11 Mixed hyperlipidemia 977724633 Active 2018 MICHELLE Hoyos [address] [facility], [address], [place], [address], [facility] 9 11:35:31 Problem Notes None recorded. Medical Equipment None Reported. Allergies Allergen ID Allergen Name Allergen Category Reaction Reaction Severity Criticality Documentation Date Start Date Code Code System Note Provider Name and Address Organization Details Recorded Time [id number] 8097028g4 2824e Product containin g penicilli n and antibioti c (product) medicatio n Not available Not available Not available 05/01/2018 09749 05 SNOMED Not Available Not Available Not Available [id number] 2824e lactose food,medi cation Not available Not available Not available 05/01/2018 6211 RxNorm Not Available Not Available Not Available [id number] [id number] 2824e honey bee venom medicatio n Not available Not available Not available 05/01/2018 09733 7 RxNorm Not Available Not Available Not Available Medications Not known to be on any medication Vitals Date Recorded Heart rate Respiratory rate Body temperature Provider Name and Address Organization Details Last Updated DateTime 05/16/2018 72 /min 18 /min 98.7 [degF] MICHELLE Hoyos [address] [facility], [address], [place], [address], [facility] 05/16/2018 09:48:40 Date Recorded Oxygen saturation Oxygen saturation in Arterial blood by Pulse oximetry Heart rate Respiratory rate Body temperature Systolic blood pressure Diastolic blood pressure Provider Name and Address Organization Details Last Updated DateTime 2 97 % 97 % 74 /min 18 /min 97.6 [degF] 139 mm[Hg] 92 mm[Hg] MICHELLE Hoyos [address] [facility], [address], [place], [address], [facility] 2 07:52:24 Date Recorded Heart rate Respiratory rate Body temperature Oxygen saturation Oxygen saturation in Arterial blood by Pulse oximetry Systolic blood pressure Diastolic blood pressure Provider Name and Address Organization Details Last Updated DateTime 2 74 /min 18 /min 97.6 [degF] 96 % 96 % 128 mm[Hg] 80 mm[Hg] La Nena Theodore NP [address] [facility], [address], [place], [address], [employer] [facility] 2 09:26:11 Date Recorded Systolic blood pressure Diastolic blood pressure Provider Name and Address Organization Details Last Updated DateTime 05/07/2018 108 mm[Hg] 52 mm[Hg] Salas Warner MD [address] [facility], [address], [place], [address], [facility] [facility] 05/07/2018 13:35:45 Date Recorded Systolic blood pressure Diastolic blood pressure Provider Name and Address Organization Details Last Updated DateTime 06/12/2021 134 mm[Hg] 72 mm[Hg] Salas Warner MD [address] [facility], [address], [place], [address], [employer] 06/12/2021 11:54:19 Social History Question Answer Notes LastModified by Organizat ion Details LastModified Time Tobacco Smoking Status Never Smoker Not Available [facility] 01/26/2020 03:13:23 Do You Have An Advance Directive? Yes Attempt Resuscitation, DNI, No Cpap/bipap, Transfer To Hospital, No Artificial Nutrition Or Hydration. Undecided About Dialysis Information not available 06/09/2021 What Is Your Level Of Alcohol Consumption? None [id number] Information not available 01/26/2020 How Much Tobacco Do You Chew? None [id number] Information not available 01/26/2020 What Is Your Code Status? DNI [email or web address] Information not available 06/09/2021 Do You Have A Medical Power Of Hydraulic Tester? No [id number] Information not available 01/26/2020 What Was The Date Of Your Most Recent Tobacco Screening? 06/09/2021 [email or web address] Information not available 06/09/2021 Do You Have An Out Of Hospital DNR? Yes [email or web address] Information not available 06/09/2021 Has Tobacco Cessation Counseling Been Provided? No N/a [email or web address] Information not available 06/09/2021 Do You Or Have You Ever Used Any Other Forms Of Tobacco Or Nicotine? No [email or web address] Information not available 06/09/2021 Sex: Unknown Functional Status None recorded. Mental Status None recorded. Family History Nothing Reported Notes:N/C Medical History No medical history recorded. Immunizations Vaccine Type Date Status Note Provider Nam e and Address Organization Details Recorded Time Tdap 1 completed Gissellhyun [facility] 08/01/2023 10:29:25 Tdap 2 completed Gissellhyun [facility] 08/01/2023 10:29:32 Td (adult), 5 Lf tetanus toxoid, preservative free, adsorbed 2 completed Gissell [facility] 08/01/2023 10:29:45 Influenza, adjuvanted, quadrivalent, PF 2 completed Gissell [facility] 08/01/2023 10:30:05 COVID-19, mRNA, LNP-S, bivalent, PF, 30 mcg/0.3 mL dose 1 completed Gissellhyun [facility] 08/01/2023 10:30:21 COVID-19, mRNA, LNP-S, bivalent, PF, 30 mcg/0.3 mL dose 1 completed Gissell [facility] 08/01/2023 10:30:26 COVID-19, mRNA, LNP-S, bivalent, PF, 50 mcg/0.5 mL or 25mcg/0.25 mL dose 1 completed Gissell [facility] 08/01/2023 10:30:35 Past Encounters Encounter ID Performer Location Encounter Start Date Encounter Closed Date Diagnosis/Indication Diagnosis SNOMED-CT Code Diagnosis ICD10 Code Diagnosis Note [id number] MICHELLE [address]os [address] [place] [address] 05/01/2018 11:25:57 05/16/2018 15:49:11 Cholecystitis 36332129 K80.01 see hpimonitor incisionsf /u with surgeonPT OT for conditioni ng and mobilitymo nitor pain relief, bowelsvico din 1 q 6 hrs prn painadded colace 100 mg bid and senna 8.6 mg qhs Mixed hyperlipidemia 267 648378 E78.2 on statinLFTs pending Seizure disorder 7308513 02 G40.909 depakote 250 mg 1 tidmonitor for seizure activity Dyslexia 57794595 F81.0 [place] [id number] Salas Warner MD [facility] [address] [place] [address] 05/07/2018 13:32:46 05/19/2018 11:25:32 Cholecystitis 62377968 K80.01 see HPIacute cholecysti tis now s/p lap cholefollo w surgery recsPT OT eval and treatmonit or for pain control and constipati on Eruption 491775889 R21 it appears patient was treated x 1 with elimite cream in hospitalun sure of dxrash appears reactive to betadynemo nitor rashderm consult prn Seizure disorder 9673268 02 G40.89 depakote 250 mg bidmonitor for activitymo nitor med level Asthenia 08765241 R53.1 PT OT eval and treatmonit or fall risk [id number] MICHELLE [address]os [address] [place] [address] 05/16/2018 09:47:39 05/19/2018 15:01:12 Cholecystitis 54217989 K80.01 ok to dc homeI told pt to speak with rehab or surgeon to determine how much he can liftf/u with surgeonvic shanta 1 q 6 hrs prn paincolace 100 mg bid and senna 8.6 mg qhsstaff will monitor for any worsening abd pain and notify us for further orders Mixed hyperlipidemia 267 055077 E78.2 on statin Seizure disorder 3754606 02 G40.909 depakote 250 mg 1 tid Dyslexia 48965646 F81.0 known hx of [id number] MICHELLE Hoyos [address] [place] [address] 06/09/2021 07:41:46 06/14/2021 09:40:48 Hernia of anterior abdominal wall 422917076 K43.9 s/p incarcerat ed ventral hernia repair on 06/07/21expl ained to pt the reason his surgeon ordered lovenox and that he would be at risk for blood clot if not on anticoagul antdc lovenox as pt is refusing it - nurse to notify Dr Calvo of pt refusing lovenox and new order for asa as belowpt did agree to take asa EC 81 mg bid x 2 weeksmonit or incisionPT OT for conditioni ng and mobilityen couraged pt to get out of bed at least 3 times a day and walk in room if PT OT allowsf/u with Dr Calvo surgeon on 06/14 at 10 amoxycodon e 5 mg 1 q 4 hrs prnsenna 8.6 mg 1 qhscolace 100 mg 1 bidmonitor pain relief, bowels Seizure disorder 3883429 02 G40.909 no seizure activityde pakote 250 mg 1 tidmonitor for seizures Mixed hyperlipidemia 267 634909 E78.2 simvastati n not on dc med listpt says he still takes itresume simvastati n 20 mg 1 qhsLFTs pending today Dyslexia 78016756 F81.0 known hx of [id number] Salas Warner MD [facility] [address] [facility] [place] [address] 06/12/2021 11:36:53 06/14/2021 09:49:12 Hernia of anterior abdominal wall 634134883 K43.9 see HPIincarce rated ventral hernia now s/p repairfoll ow surgery recs and update with concernsof note has refused lovenox for DVT prophylaxi snow on ASA 81 mg bid x 2 weeksmonit or for pain control and constipati on Seizure disorder 7406938 02 G40.89 maintained on depakotemo nitor for activityne uro consult prn Mixed hyperlipidemia 267 391254 E78.2 maintained on simvastati n 20 mg qdcontinue d Asthenia 91539901 R53.1 PT OT eval and treatmonit or fall risk Abdominal distension symptom 305934965 R14.0 see abovevery sluggish bowel soundsXray abdconside r liquid diet x 24 hours dependent upon results Acute constipation 80870 9006 K59.01 post op ventral hernia repairnow very sluggish bowel soundssee abovebowel protocolmo nitor for results [id number] JAKE Abdullahi AT [address] [address] 06/14/2021 08:51:40 06/15/2021 20:51:53 Hernia of anterior abdominal wall 149904398 K43.9 s/p incarcerat ed ventral hernia repair on 06/07/21expl ained to pt the reason his surgeon ordered lovenox and that he would be at risk for blood clot if not on anticoagul antlovenox was d/c 'd as pt is refusing it - nurse notified Dr Calvo of pt refusing lovenox and now on asa as belowcont asa EC 81 mg bid x 2 weeksmonit or incisionPT OT for conditioni ng and mobilityen couraged pt to get out of bed at least 3 times a day and walk in room if PT OT allowsf/u with Dr Calvo surgeon on 06/14 at 10 am todayoxyco done 5 mg 1 q 4 hrs prnsenna 8.6 mg 1 qhscolace 100 mg 1 bidmonitor pain relief, bowelsmoni tor labs weekly Seizure disorder 2562667 02 G40.909 no seizure activityde pakote 250 mg 1 tidmonitor for seizures Mixed hyperlipidemia 267 258197 E78.2 cont simvastati n 20 mg 1 qhsmonitor LFTs 06/09 wnl Dyslexia 91936904 F81.0 known hx of Health Concerns Section Related Observation LastModified by Organization Detai ls LastModified Time None Recorded Concern Status LastModified by Organization Details LastModified Time None Recorded Advance Directives Directive Y: attempt resuscitation, DN I, no cpap/bipap, transfer to hospital, no artificial nutrition or hydration. undecided about dialysis Payers Encounter Date Sequence Insurance Name Policy Number Policy Linares Covered Member ID Linares Member ID Guarantor Name 05/07/2018 1 [place] [employer] Mynor Szymanski [id number] Mynor Szymanski 05/07/2018 2 [place] [facility] Mynor Szymanski [id number] Mynor Szymanski 05/16/2018 1 [place] [employer] Mynor Szymanski [id number] Mynor Szymanski 05/16/2018 2 [place] [facility] Mynor Szymanski [id number] Mynor Szymanski 06/09/2021 1 [place] [employer] Mynor Szymanski [id number] Mynor Szymanski 06/09/2021 2 [place] [facility] Mynor Szymanski [id number] Mynro Szymanski 06/12/2021 1 [place] [facility] Mynor Szymanski [id number] Mynor Szymanski 06/12/2021 2 [place] [facility] Mynor Szymanski [id number] Mynor Szymanski 06/14/2021 1 [place] [facility] Mynor Szymanski [id number] Mynor Szymanski 06/14/2021 2 [place] [facility] Mynor Szymanski [id number] Mynor Szymanski Notes Date Note Type Note Provider Name and Address Organization Details Recorded Time 05/07/2018 text/html Patient is a 58 yo male admit from hospital after presenting with abdominal pain, dx with acute cholecystitis. Eval by surgery and started on IV Ab. Underwent lap dillon. Please see surgery notes for details PMH significant forseizure dxhlddyslexia admit to facility for continued care and therapy Salas Warner MD [address] [facility], [address], [place], [address], [facility] [employer] [facility] [employer] 05/07/2018 13:49:48 05/16/2018 text/html 58 yo male seen for discharge summary. [place] [facility] [place]ole[place] on 04/29 for acute cholecystitis.today pt is doing ok, he says his stomach is a little achey off and on today. had a normal bm this morning, no nausea or vomiting, afebrile. ate a normal breakfast, walking around independently in hallway. pt did have a rash from the betadine on his abdomen that has completely cleared. he is a little concerned about how much he can lift once he is home tomorrow. [place]. no other concerns per nursing. MICHELLE Hoyos [address] [facility], [address], [place], [address], [facility] [employer] [facility] [employer] 05/16/2018 09:57:29 06/09/2021 text/html pt seen today fo r initial intake visit. [place] [facility] [place]/p incarcerated ventral hernia with repair done on 06/07/21. pt was started on lovenox for dvt prophylaxis but this morning is refusing to let nurse give it to him. he tells us that if we give it to him we might as well put a body bag next to him on the floor. pt is very active at home, has already but up ambulating on the 3 pm-11 pm shift and this morning also. this clinician also explained the reason that his surgeon ordered lovenox, pt still refusing lovenox. pt is A & O x 4, makes his own health care decisions. pt is passing flatus, urinating normally, has not had a BM since surgery. pmhx seizure disorder, dyslexia, ventral hernia, hldadmit for continued care and rehab MICHELLE Hoyos [address] [facility], [address], [place], [address], [facility] [employer] [facility] 06/09/2021 08:48:12 06/12/2021 text/html Patient is a 61 yo male admit from hospital after presenting with incarcerated ventral hernia. Eval by surgery and underwent open repair. PMH significant forseizure dxhld admit to facility for continued care and therapy Salas Warner MD [address] [facility], [address], [place], [address], [facility] [employer] [facility] 06/12/2021 14:48:24 06/14/2021 text/html Pt seen for an a cute visit today. Today Mynor is headed to his appt for his follow up hernia repair with Dr. Calvo. He is asking about restrictions for activity. Nursing reports he has been walking around picking things up and not limiting weight. He denies pain, pressure, or nausea this am. Mynor states that he is doing to much with PT/OT this am and worries about it affecting his hernia. Will send a note with Mynor's chart to surgeon this am asking for specific restrictions so we can follow them going forward. Patient is a 61 yo male admit from hospital after presenting with incarcerated ventral hernia to [facility] on 06/08/21. He was eval by surgery and underwent open repair. He is here for continued care and therapy. PMH: seizure disorder, dyslexia, ventral hernia, hld La Nena Theodore NP [address] [facility], [address], [place], [address], [facility] [employer] 06/14/2021 09:26:33
--- OUTSIDE RECORDS SUMMARY | 2024-05-02 13:58 | XMS_ITS | Continuity of Care Document ---
Author Organization [facility] Address [address] [place] [address]- Care Team Providers Care E Business Consultant Name Role Phone Not on Staff, PCP Primary Care Physician Unavail able [place] [facility] [place] 04/13/24 - 04/13/[address] [address]- Discharge Disposition: A-D/C Walkout Attending Physician: Gurinder Alcazar MD Admitting Physician: Gurinder Alcazar MD Referring Physician: Not on Staff, Referring MD Encounter Type: Disch ES Allergies, Adverse Reactions, Alerts Substance Criticality Severity Reaction Reaction Severity Status penicillin Active Bee Stings Unable to assess criticality Persistent Moderate Active Immunizations Given and Recorded [...] bedtime, # 30 tablet, 0 Refills, Maintenance, 09/27/10 8:26:04 AM EDT, Tablet Start Date: 09/27/10 Status: Ordered Quantity: 30.0 Unit: tablet Repeat number: 1 valproic acid 250 mg oral capsule 1 capsule = 250 mg, By Mouth, 3 times a day, # 270 capsule, 0 Refills, Maintenance, 06/07/21 1:19:00 PM EST, Capsule, Partial fill upon patient request if the prescription is for a schedule II opioid drug. Start Date: 06/07/21 Status: Ordered Quantity: 270.0 Unit: capsule Repeat number: 1 Problem List Condition Confirmation Course Effective Dates Status Health St atus Informant Dyslexia Confirmed Active Epilepsy Confirmed Active Hyperlipidemia Confirmed Active Seizure disorder Confirmed Active Vital Signs Most recent to oldest [Reference Range]: 1 Height 172 cm (04/13/24 6:45 PM) Weight 82 kg (04/13/24 6:45 PM) Oxygen Saturation [94-100 %] 98 % (04/13/24 6:45 PM) Pulse Rate [55-90 bpm] 86 bpm (04/13/24 6:45 PM) Blood Pressure [90-138/55-84 mm Hg] 126/ 78mm Hg (04/13/24 6:45 PM) Respiratory Rate [16-30 br/min] 17 br/mi n (04/13/24 6:45 PM) Temperature [96.8-100.4 DegF] 99 DegF (04/13/24 6:45 PM) Mode of Delivery (Oxygen) Room air (04/13/24 6:45 PM) Blood pressure sites Arm, right (04/13/24 6:45 PM) Temperature Route Temporal (04/13/24 6:45 PM) Dry Weight 82 kg (04/13/24 6:45 PM) Weight Obtained Via Patient/family state d (04/13/24 6:45 PM) Social History Social History Type Response Smoking Status Never (less than 100 in lifetime) entered on: 06/07/21 Sex Sex Representation Male (finding) Implantable Device List Procedure Provider Procedure Date Device Type Site Repair Hernia Ventral Open [place] DRISCOLL, James Mclaughlin 06/07/21 Unk [employer]eda Umbilicus Device Identifier Serial Number Lot or Batch Number Manufacturing Date Expiration Date Distinct Identification Code MRI Safety Implantable Status Assigning Authority [id number] Unknown [id number] Unknown 11/26/21 Unknown Unknown Active GS1 Patient Care team information Care Team Personnel Name: Not on Staff, PCP Position: [facility] Physician (General Medicine) Member Role: PCP Name: Letty Zavala RN Position: [facility] RN Member Role: Primary Care Nurse Care Team Related Persons Name: KELSEY ZARAGOZA Insurance Providers Guarantor name: [employer] Health Plan Information #: 2 Payer: [facility] Member Number: [id number] Policy Number: NA Group Number: [employer] Plan Information #: 1 Payer: MEDICARE PART B OUTPT Member Number: [id number] Policy Number: NA Group Number: NA
--- NOTE | 2024-05-02 14:03 | PC.NURSE ---
pt now sleeping s/p medication administration. lights dimmed to promote comfort. no sob/wob noted. respirations even/unlabored. 1:1 sitter remains present. plan of care ongoing. call pa placed within reach.
--- NOTE | 2024-05-02 15:24 | PC.NURSE ---
pt remains calm at this time but remains uncooperative - refusing blood work/vitals to be obtained at this time. provider notified/aware. provider attempted to speak to pt in regards to obtaining blood work - pt still refusing. will reattempt.
--- NOTE | 2024-05-02 16:16 | PC.NURSE ---
pt still refusing for labs/urine/ekg to be performed. provider notified/aware.
--- NOTE | 2024-05-02 16:17 | MHC.EDTECH ---
This pct assumed care of Patient at 1500 ,vitals taken ,Patient continue to refused blood drawn and ekg ,RN Haritha aware .
[2024-05-02] MEDS: OLANZapine 10 MG VIAL 5 MG IM (18:00)
[2024-05-02] MEDS: LORazepam 2 MG/ML VIAL IM (18:01)
--- NOTE | 2024-05-02 18:12 | PC.NURSE ---
pt still refusing for vitals to be obtained/blood work to be completed. pt remedicated per provider order. see restraint paperwork for further details. pt agreeable to obtaining blood work. sent to lab. still unable to provide urine sample/have ekg completed at this time.
[2024-05-02 18:15] LABS: MANUAL DIFF FLAG NO
[2024-05-02 18:29] LABS: Basophils Absolute Auto 0.1 X10*3/uL (0.0-0.2); Basophils Percent Auto 0.5 % (0-2); Eosinophils Absolute Auto 0.1 X10*3/uL (0.0-0.4); Eosinophils Percent Auto 0.6 % (0-4); Hematocrit 38.6 % (42.0-52.0); Hemoglobin 12.6 g/dl (14.0-18.0); Imm Gran Abs Auto 0.02 X10*3/uL (0.00-0.03); Imm Gran Pct Auto 0.2 % (0.0-0.4); Lymphocytes Absolute Auto 2.5 X10*3/uL (1.2-4.9); Lymphocytes Percent Auto 25.7 % (20-40); Mean Corpuscular HGB Conc 32.6 g/dl (31.0-36.0); Mean Corpuscular Hemoglobin 28.8 pg (27.0-33.0); Mean Corpuscular Volume 88.1 fL (80.0-98.0); Mean Platelet Volume 12.3 fL (9.4-12.4); Monocytes Absolute Auto 0.4 X10*3/uL (0.1-1.2); Monocytes Percent Auto 4.1 % (2-11); Neutrophils Absolute Auto 6.7 x10*3/uL (2.0-8.3); Neutrophils Percent Auto 68.9 % (45-73); Platelet Count 194 X10*3/uL (160-400); Red Blood Count 4.38 X10*6/uL (4.60-5.80); Red Cell Distribution Width 13.6 % (11.0-16.0); White Blood Count 9.7 X10*3/uL (4.8-10.8)
[2024-05-02 18:44] LABS: Alanine Aminotransferase 10 U/L (0-40); Albumin Level 3.4 g/dL (3.5-5.0); Alkaline Phosphatase 101 U/L (39-117); Anion Gap 13 (12-20); Aspartate Amino Transferase 21 U/L (5-37); Bilirubin Direct 0.3 mg/dL (0.0-0.5); Bilirubin Total 1.3 mg/dL (0.0-1.0); Blood Urea Nitrogen 11 mg/dL (9-16); Calcium 8.7 mg/dL (8.4-10.2); Carbon Dioxide 25 mmol/L (22-29); Chloride 113 mmol/L (96-108); Creatinine Clr Calc Pharmacy 114.8; Estimated Glomerular Filt Rate > 60; Glucose Random 93 mg/dL (60-115); Lipase 14 U/L (8-78); Potassium 3.5 mmol/L (3.3-5.1); Sodium 147 mmol/L (135-145); Total Protein 6.6 g/dL (6.5-8.0)
[2024-05-02 18:49] LABS: B Type Natriuretic Peptide 75 pg/mL (<100)
[2024-05-02 18:54] LABS: Acetaminophen LAB < 3 mcg/mL (<30); Ethanol < 10 mg/dL; Salicylate < 5.0 mg/dL (15-30)
[2024-05-02 19:04] LABS: Influenza A PCR NEGATIVE (Negative); Influenza B PCR NEGATIVE (Negative); Resp Syncy Virus RNA Qual PCR NEGATIVE (Negative); SARS COV2 PCR INHOUSE NEGATIVE (Negative)
--- NOTE | 2024-05-02 19:21 | PC.NURSE ---
pt, resting in bed, eys closed, respiration even, unlabored
--- NOTE | 2024-05-02 23:20 | MHC.EDTECH ---
Patient continue to refused ekg and vitals ,rn aware .
[2024-05-02 23:29] LABS: Appearance Urine Clear; Color Urine Yellow; Glucose Urine UA Negative (Negative); Leukocyte Esterase Urine Negative (Negative); Nitrite Urine Negative (Negative); PH 6.5 (5.0-9.0); Urine Blood Negative (Negative); Urine Ketones Negative (Negative); Urine Protein Negative (Neg-Trace)
[2024-05-02 23:41] LABS: Amphetamine Screen Urine Not Detected (Not Detect); Barbiturates, Urine Not Detected (Not Detect); Benzodiazepines Screen Urine Not Detected (Not Detect); Buprenorphine Scr Not Detected (Not Detect); Cannabinoid Screen Urine Not Detected (Not Detect); Cocaine Screen Urine Not Detected (Not Detect); Fentanyl, urine Not Detected (Not Detect); Methadone Screen, Urine Not Detected (Not Detect); Opiate Screen Urine Not Detected (Not Detect); Oxycodone Screen Urine Not Detected (Not Detect); Phencyclidine Screen Urine Not Detected (Not Detect)
[2024-05-03 01:20] VITALS: RESP 18; TEMP 36.2
--- NOTE | 2024-05-03 01:21 | PC.NURSE ---
pt sleeping responding to voice, still refusing vitals and ekg.
[2024-05-03 01:34] VITALS: BP 99/58; PULSE 50; RESP 16; TEMP 36.2; O2SAT 100
--- NOTE | 2024-05-03 01:35 | PC.NURSE ---
EKG obtained at this time with help of RN.
--- NOTE | 2024-05-03 03:34 | PC.NURSE ---
pt resting in bed, sitter present
[2024-05-03 08:25] VITALS: BP 130/66; PULSE 54; RESP 13; TEMP 36.8; O2SAT 100
--- NOTE | 2024-05-03 11:48 | MHC.CARE ---
Addendum entered by MICHAEL Grissom 05/03/24 11:55: A previous attempt had been made at 9:30 am to meet with them for MSU. Pt was asleep at that time. Original Note: Care SW made another attempt to meet with Pt for MSU. Pt was asleep and not easily awakable. Care team spoke with deonte who noted that Pt has been like this for most of the morning and not really engaging with anyone. Sw stated that they would try to come back in a bit and try again.
[2024-05-03 12:25] VITALS: BP 104/66; PULSE 67; RESP 13; TEMP 36.2; O2SAT 100
--- NOTE | 2024-05-03 17:29 | PHA.MEDREC ---
Addendum entered by Adeline Chappell RPh 05/03/24 17:43: [facility] reviewed Original Note: Pharmacy Consult ? Medication Reconciliation Pharmacy has completed the medication reconciliation. Per CARE team note, he is not on any medications. Asked patient if he had a pharmacy he said no.
[2024-05-03 18:10] VITALS: BP 102/55; PULSE 67; RESP 12; TEMP 36.7; O2SAT 98
[2024-05-04 04:07] VITALS: RESP 16
--- NOTE | 2024-05-04 05:53 | PC.NURSE ---
pt slept well throughout the night, had an uneventful night, and did not display any behavioral or symptoms of concern. Pt woke up once to use restroom, used independentaly and ambulates with steady gait. Pt refused vital signs this morning when tech attempted to obtain vitals.
--- NOTE | 2024-05-04 06:59 | PC.NURSE ---
Assumed care of patient at 0645, patient appears to be agitated this am, upset that he is not leaving. Pt repeatedly stating that he is leaving today and needs to go. Pt agitated and is having a difficult time with verbal redirection. Patient has been made aware that he is an inpatient bedsearch and he cannot leave at this time. Continue plan of care for Anjelica IPLOC
[2024-05-04 18:14] VITALS: RESP 14
[2024-05-04 23:53] VITALS: RESP 14
--- NOTE | 2024-05-05 07:18 | MHC.CARE ---
Patient has been accepted to [facility] located @ [address] [place] [id number] William ETA 10am. Transport is being booked now.
[2024-05-05 07:50] VITALS: RESP 18
--- NOTE | 2024-05-05 07:51 | PC.NURSE ---
Assumed care of patient at 0645, patient appears to be in no apparent distress this am, going back and forth to the phone to talk and back to bed. Patient continues to refuse vital signs. [facility]
[2024-05-05 10:13] VITALS: BP 126/81; PULSE 76; RESP 16; TEMP 37.2; O2SAT 97
--- NOTE | 2024-05-09 14:47 | PC.NURSE ---
RN called from [facility] ED requesting if patient had any belongings at [facility]. pair of boots found in our ED neena port, boots moved to laundry closet if patient picks them up.
== END 2024-05-05 10:18 ==
PROVIDERS: Emergency Medicine; Emergency Provider Emergency Medicine; PCP Nurse Practitioner Adult Health
DX: F91.8 Other conduct disorders (principal); R45.6 Violent behavior; R45.851 Suicidal ideations; R00.1 Bradycardia, unspecified; Z51.81 Encounter for therapeutic drug level monitoring; Z03.818 Encounter for observation for suspected exposure to other biological agents ruled out
CPT/HCPCS: 0241U; 36415; 80048; 80076; 80143; 80179; 80307; 81003; 83690; 83880; 84484; 85025; 93005; 96372; 99285; J2060; J2359; S9485

== ENCOUNTER → 2024-05-02 13:30 | Outpatient (BNV) | payer MEDICARE, MEDICAID, SELFPAY | PROVIDERS: Emergency Provider Emergency Medicine; Visit Provider Internal Medicine | DX: R00.1 Bradycardia, unspecified (principal) | CPT/HCPCS: 93010 ==